=== PATIENT | female | born 1970 | race Caucasian/White ===

== ENCOUNTER 2016-11-20 13:56 | Emergency (ER) | payer BC ==
[2016-11-20 14:14] VITALS: BP 144/95
[2016-11-20] MEDS ORDERED: Famotidine 20 MG/2 ML SDV IVPUSH ONE (14:18)
[2016-11-20] MEDS ORDERED: methylPREDNISolone Sodium Succinate 125 MG/2 ML SDV IVPUSH ONE (14:18)
[2016-11-20] MEDS ORDERED: diphenhydrAMINE 50 MG/ML SDV IVPUSH ONE (14:18)
[2016-11-20] MEDS ORDERED: Sodium Chloride 0.9% 10 ML Syringe FLUSH PRN (14:18)
[2016-11-20] MEDS ORDERED: Sodium Chloride 0.9% 1,000 ML IV ONE (14:18)
[2016-11-20] MEDS ORDERED: LORazepam 2 MG/ML MDV IVPUSH ONE (15:02)
--- NOTE | 2016-11-20 15:14 | EDM.PDOC ---
[id number]: ALLERGIC REACTION Time Seen by Provider: 11/20/16 14:17 Source of Information: Reports: Patient History Limitations: Reports: No Limitations - History of Present Illness INITIAL COMMENTS - FREE TEXT/NARRATIVE: 46-year-old female with a chief complaint of allergic reaction. She was eating at a pizza place when she started having symptoms. Suspects that it may have been a strawberry exposure. She began having diffuse hives, facial swelling and itching, and sensation of her tongue swelling. She used her epinephrine pen autoinjector. This all started prior to arrival to the emergency department less than an hour ago. She's feeling a bit jittery. She has a feeling of numbness around her lips. No voice difficulty. No difficulty swallowing. No wheezing or shortness of breath. No abdominal pain vomiting or diarrhea. - Related Data Allergies Allergy/AdvReac Type Severity Reaction Status Date / Time strawberry [[place]] Allergy Severe Shortness Verified 11/20/16 14:14 of Breath clarithromycin [From Biaxin] Allergy Unknown Hives Verified 11/20/16 14:14 latex Allergy Unknown Airway Verified 11/20/16 14:14 Tightness mark flavor Allergy Unknown Airway Verified 11/20/16 14:14 Tightness gabapentin [From Neurontin] Allergy Anaphylactic Verified 11/20/16 14:14 Shock metoclopramide HCl AdvReac "Panic Verified 11/20/16 14:14 [From Reglan] Attack" Home Meds: Home Meds buPROPion [Wellbutrin XL] 300 mg PO DAILY 11/17/13 [History] Ondansetron [Zofran ODT] 4 mg PO Q6H PRN 09/25/15 [History] Venlafaxine [Venlafaxine HCl ER] 150 mg PO DAILY 09/25/15 [History] Pregabalin [Lyrica] 50 mg PO BID 10/27/15 [History] Acetaminophen 1 tab PO Q4H PRN 02/21/16 [History] Albuterol [IJD: Ventolin HFA] 2 puff INH Q4H PRN 02/21/16 [History] Baclofen 10 mg PO Q6H PRN 02/21/16 [History] ClonazePAM [KlonoPIN] 0.5 mg PO BID 02/21/16 [History] Cyanocobalamin/FA/Pyridoxine [Folbee] 1 tab PO DAILY 02/21/16 [History] Dicyclomine [Bentyl] 10 mg PO QID 02/21/16 [History] Naloxegol Oxalate [Movantik] 25 mg PO DAILY 02/21/16 [History] Pantoprazole [Protonix] 40 mg PO ACBREAKFAST 02/21/16 [History] fentaNYL [Duragesic] 25 mcg TD Q72H 02/21/16 [History] oxyCODONE HCl/Acetaminophen [Percocet 10-325 mg Tablet] 1 tab PO Q6H PRN [History] EPINEPHrine [Auvi-Q] 0.3 mg IJ ONETIME PRN #2 auto.injct 11/20/16 [Rx] Past Medical History HEENT History: Reports: Impaired Vision Other HEENT History: sinus problems Cardiovascular History: Reports: Syncope Gastrointestinal History: Reports: Other (See Below) Other Gastrointestinal History: ABDOMINAL PAIN/SCAR TISSUES Other Genitourinary History: kidney failure, resolved 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 OB/BYN History: x2, 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 Other Musculoskeletal History: right hip fx Neurological History: Reports: Headaches, Chronic, Other (See Below) Other Neuro History: epilepsy Psychiatric History: Reports: Anxiety, Depression, Suicide Attempt Dermatologic History: Reports: Other (See Below) Other Dermatologic History: ALLERGIES - Infectious Disease History Infectious Disease History: Reports: None - Past Surgical History Head Surgeries/Procedures: Reports: Craniotomy GI Surgical History: Reports: Appendectomy, Bariatric Procedure, Cholecystectomy , Lysis of Adhesions, Other (See Below) Female Surgical History: Reports: Tubal Ligation Neurological Surgical History: Reports: Other (See Below) Musculoskeletal Surgical History: Reports: Arthroscopic Procedure, ORIF, Shoulder Surgery Social & Family History - Tobacco Use Smoking Status *Q: Never Smoker Years of Tobacco use: 2 Used Tobacco, but Quit: Yes Month Tobacco Last Used: Many years ago Second Hand Smoke Exposure: No - Caffeine Use Caffeine Use: Reports: Coffee, Soda - Alcohol Use Days Per Week of Alcohol Use: 0 - Recreational Drug Use Recreational Drug Use: No - Living Situation & Occupation Living situation: Reports: Occupation: Unemployed ED ROS ALLERGIC REACTION - Review of Systems Review Of Systems: See Below Constitutional: Reports: No Symptoms HEENT: Denies: Throat Swelling Respiratory: Denies: Shortness of Breath, Cough Cardiovascular: Reports: No Symptoms GI/Abdominal: Denies: Abdominal Pain Skin: Reports: Pruritis, Rash Neurological: Reports: No Symptoms ED EXAM GENERAL NO PERIP PULSE - Physical Exam Exam: See Below Exam Limited By: No Limitations General Appearance: Alert, WD/WN, No Apparent Distress, Anxious Eye Exam: Bilateral Eye: Normal Inspection, PERRL Ears: Normal External Exam Nose: Normal Inspection Throat/Mouth: Normal Inspection, Normal Lips, Normal Oropharynx, Normal Voice, No Airway Compromise Head: Atraumatic, Normocephalic Neck: Normal Inspection, Supple, Non-Tender, Full Range of Motion Respiratory/Chest: No Respiratory Distress, Lungs Clear, Normal Breath Sounds, No Accessory Muscle Use Cardiovascular: Normal Peripheral Pulses, Regular Rate, Rhythm, No Murmur GI/Abdominal: Soft, Non-Tender, No Distention Neurological: Alert, Oriented Psychiatric: Normal Affect, Normal Mood Skin Exam: Warm, Dry, Intact, Rash, Other (urticarial rash on face and chest) Course - Vital Signs Last Recorded V/S: Last Vital Signs Temp 37.3 C 11/20/16 14:09 Pulse 104 H 11/20/16 14:09 Resp 20 11/20/16 14:09 BP 144/95 H 11/20/16 14:09 Pulse Ox 100 11/20/16 14:09 - Orders/Labs/Meds Orders: Active Orders 24 hr Category Date Time Status Peripheral IV Care [RC] . DIRECTED Care 11/20/16 14:18 Active Peripheral IV Insertion Adult [OM.PC] Routine Oth 11/20/16 14:18 Ordered Meds: Medications Discontinued Medications Generic Name Dose Route Start Last Admin Trade Name Román PRN Reason Stop Dose Admin Diphenhydramine HCl 25 mg 11/20/16 14:18 11/20/16 14:33 Benadryl IVPUSH 11/20/16 14:19 25 mg ONETIME ONE Administration Famotidine 40 mg 11/20/16 14:18 11/20/16 14:34 Pepcid IVPUSH 11/20/16 14:19 40 mg ONETIME ONE Administration Sodium Chloride 1,000 mls @ 1,000 mls/hr 11/20/16 14:18 11/20/16 14:34 Normal Saline IV 11/20/16 15:17 1,000 mls/hr ONETIME ONE Administration Lorazepam 1 mg 11/20/16 15:02 11/20/16 15:07 Ativan IVPUSH 11/20/16 15:03 1 mg ONETIME ONE Administration Methylprednisolone Sodium Succinate 125 mg 11/20/16 14:18 11/20/16 14:34 Solu-Medrol IVPUSH 11/20/16 14:19 125 mg ONETIME ONE Administration Sodium Chloride 10 ml 11/20/16 14:18 11/20/16 14:34 Saline Flush FLUSH 10 ml ASDIRECTED PRN Administration Keep Vein Open - Re-Assessments/Exams Free Text/Narrative Re-Assessment/Exam: 11/20/16 17:01 Feeling much better after Solu-Medrol, Pepcid, Benadryl. She has never had any respiratory symptoms or physical exam evidence of facial swelling or oropharyngeal swelling. Refill provided for her EpiPen. Discussed return precautions. Departure - Departure Time of Disposition: 16:44 Disposition: Home, Self-Care 01 Clinical Impression: Hives Allergic reaction Qualifiers: Encounter type: initial encounter Qualified Code(s): T78.40XA - Allergy, unspecified, initial encounter - Discharge Information Prescriptions: EPINEPHrine [Auvi-Q] 0.3 mg IJ ONETIME PRN #2 auto.injct PRN Reason: allergic reaction Instructions: Hives Referrals: Svetlana Sandoval NP [Primary Care Provider] - Forms: ED Department Discharge Additional Instructions: 1. Take 1 tab benadryl (25 mg) every 4-6 hrs as needed for itching 2. Follow up with your primary doctor as needed 3. Return to the ED for any difficulty breathing, throat/face swelling, or other concerning symptoms - My Orders Last 24 Hours: My Active Orders 11/20/16 14:18 Peripheral IV Care [RC] . DIRECTED Peripheral IV Insertion Adult [OM.PC] Routine - Assessment/Plan Last 24 Hours: My Active Orders 11/20/16 14:18 Peripheral IV Care [RC] . DIRECTED Peripheral IV Insertion Adult [OM.PC] Routine
== END 2016-11-20 17:05 | disposition home or self-care (01) ==
LOC: JD.ED 13:56
DX: L50.0 Allergic urticaria (principal); F41.9 Anxiety disorder, unspecified; F32.9 Major depressive disorder, single episode, unspecified; G43.909 Migraine, unspecified, not intractable, without status migrainosus; Z98.51 Tubal ligation status; Z98.890 Other specified postprocedural states; Z87.891 Personal history of nicotine dependence; Z79.899 Other long term (current) drug therapy; Z88.1 Allergy status to other antibiotic agents; Z88.8 Allergy status to other drugs, medicaments and biological substances; Z91.040 Latex allergy status; Z91.018 Allergy to other foods
CPT/HCPCS: 96361; 96374; 96375; 99283; J1200; J2060; J2930; J7040; J7050; 99284

== ENCOUNTER 2016-12-03 12:30 | Emergency (ER) | payer BC ==
[2016-12-03] MEDS ORDERED: QUEtiapine 100 MG Tab PO STA (14:15)
[2016-12-03] MEDS ORDERED: Sodium Chloride 0.9% 1,000 ML IV ONE (14:52)
--- NOTE | 2016-12-03 14:52 | EDM.PDOC ---
ED HPI GENERAL MEDICAL PROBLEM - General Chief Complaint: Neurological Problem Stated Complaint: PAINFUL FEET/TWITCHING Time Seen by Provider: 12/03/16 13:01 Source of Information: Reports: Patient, RN Notes Reviewed History Limitations: Reports: No Limitations - History of Present Illness INITIAL COMMENTS - FREE TEXT/NARRATIVE: The patient states that she has had hand twitching for about 3 months, a headache for the past 3 days, difficulty speaking for the past 3 days, and tingling of her lips and fingers since last night. She states that she has had these symptoms, individually, and the past, but no prior history of having all of them at the same time. No prior medical evaluation for these symptoms. The patient's Neurologist is Dr. Cotter, from [place] - his office recommended that the patient come to the ED for evaluation. The patient's PCP is Svetlana Sandoval. Headache Pain Score (Numeric/FACES): 8 - Related Data Allergies Allergy/AdvReac Type Severity Reaction Status Date / Time strawberry [[place]] Allergy Severe Shortness Verified 12/03/16 17:38 of Breath clarithromycin [From Biaxin] Allergy Unknown Hives Verified 12/03/16 17:38 latex Allergy Unknown Airway Verified 12/03/16 17:38 Tightness mark flavor Allergy Unknown Airway Verified 12/03/16 17:38 Tightness gabapentin [From Neurontin] Allergy Anaphylactic Verified 12/03/16 17:38 Shock metoclopramide HCl AdvReac "Panic Verified 12/03/16 17:38 [From Reglan] Attack" Home Meds: Home Meds Ondansetron [Zofran ODT] 4 mg PO Q6H PRN 09/25/15 [History] Pregabalin [Lyrica] 100 mg PO BID 10/27/15 [History] Acetaminophen 1 tab PO Q4H PRN 02/21/16 [History] Albuterol [IJD: Ventolin HFA] 2 puff INH Q4H PRN 02/21/16 [History] Baclofen 10 mg PO Q6H PRN 02/21/16 [History] Cyanocobalamin/FA/Pyridoxine [Folbee] 1 tab PO DAILY 02/21/16 [History] Dicyclomine [Bentyl] 10 mg PO QID 02/21/16 [History] Pantoprazole [Protonix] 40 mg PO ACBREAKFAST 02/21/16 [History] EPINEPHrine [Auvi-Q] 0.3 mg IJ ONETIME PRN #2 auto.injct 11/20/16 [Rx] QUEtiapine [SEROquel] 100 mg PO TID 12/03/16 [History] lamoTRIgine [Lamictal] 100 mg PO TID 12/03/16 [History] Past Medical History HEENT History: Reports: 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: Musculoskeletal History: Reports: Back Pain, Chronic Neurological History: Reports: Seizure, Other (See Below) (Chiari malformation I ) Psychiatric History: Reports: Anxiety, Depression, Suicide Attempt - Past Surgical History Head Surgeries/Procedures: Reports: Craniotomy (for Chiari malformation) HEENT Surgical History: Reports: Naso-Sinus Surgery GI Surgical History: Reports: Appendectomy, Bariatric Procedure, Cholecystectomy , Lysis of Adhesions (x 2) Female Surgical History: Reports: D&C (x 1) Musculoskeletal Surgical History: Reports: Shoulder Surgery (right, arthroscopic ) Social & Family History - Family History Family Medical History: Noncontributory - Tobacco Use Smoking Status *Q: Former Smoker Years of Tobacco use: 1 Packs/Tins Daily: 0.2 Month Tobacco Last Used: Quit 2001 Second Hand Smoke Exposure: No - Caffeine Use Caffeine Use: Reports: Coffee, Energy Drinks - Alcohol Use Alcohol Use History: Yes Days Per Week of Alcohol Use: 0 Alcohol Use Frequency: Socially - Recreational Drug Use Recreational Drug Use: No - Living Situation & Occupation Living situation: Reports: , with Spouse Occupation: Unemployed ED ROS GENERAL - Review of Systems Review Of Systems: See Below Constitutional: Reports: No Symptoms HEENT: Reports: No Symptoms Respiratory: Reports: No Symptoms Cardiovascular: Reports: No Symptoms Endocrine: Reports: No Symptoms GI/Abdominal: Reports: No Symptoms : Reports: No Symptoms Musculoskeletal: Reports: No Symptoms Skin: Reports: No Symptoms Neurological: Reports: Headache (chronic) Psychiatric: Reports: No Symptoms Hematologic/Lymphatic: Reports: No Symptoms Immunologic: Reports: No Symptoms ED EXAM, GENERAL - Physical Exam Exam: See Below Exam Limited By: No Limitations General Appearance: Alert, WD/WN, Anxious Eye Exam: Bilateral Eye: EOMI, Normal Inspection, PERRL Ears: Normal External Exam, Normal Canal, Hearing Grossly Normal, Normal TMs Nose: Normal Inspection, Normal Mucosa, No Blood Throat/Mouth: Normal Inspection, Normal Lips, Normal Teeth, Normal Gums, Normal Oropharynx, Normal Voice, No Airway Compromise Head: Atraumatic, Normocephalic Neck: Normal Inspection, Full Range of Motion Respiratory/Chest: No Respiratory Distress, Lungs Clear, Normal Breath Sounds, No Accessory Muscle Use Cardiovascular: Normal Peripheral Pulses, Regular Rate, Rhythm, No Gallop, No JVD, No Murmur, No Rub Peripheral Pulses: 4+: Radial (L), Radial (R) GI/Abdominal: Normal Bowel Sounds, Soft, Non-Tender, No Organomegaly, No Distention, No Abnormal Bruit, No Mass (Female) Exam: Deferred Rectal (Female) Exam: Deferred Back Exam: Normal Inspection, Full Range of Motion, NT Extremities: Normal Inspection, Normal Range of Motion, No Pedal Edema, Normal Capillary Refill Neurological: Alert, Oriented, CN II-XII Intact, Normal Cognition, No Motor/ Sensory Deficits, Other (Dysarthric speech with no word finding difficulty) Psychiatric: Anxious Skin Exam: Warm, Dry, Intact, Normal Color, No Rash Lymphatic: No Adenopathy EKG INTERPRETATION EKG Date: 12/03/16 Time: 13:31 Rhythm: NSR Rate (Beats/Min): 80 [place]: Normal P-Wave: Present QRS: Normal ST-T: Normal QT: Normal Comparison: No Change (10/27/2015) Course - Vital Signs Last Recorded V/S: Last Vital Signs Temp 36.6 C 12/03/16 12:49 Pulse 89 12/03/16 12:49 Resp 16 12/03/16 12:49 BP 125/84 12/03/16 12:49 Pulse Ox 100 12/03/16 12:49 Orthostatic Blood Pressure [ 102/77 Standing] Orthostatic Blood Pressure [ 115/81 Sitting] Orthostatic Blood Pressure [ 117/81 Supine] - Orders/Labs/Meds Orders: Active Orders 24 hr Category Date Time Status EKG Documentation Completion [RC] STAT Care 12/03/16 13:16 Active Orthostatic Vital Signs [RC] STAT Care 12/03/16 13:16 Active Orthostatic Vital Signs [RC] STAT Care 12/03/16 14:52 Active Labs: Laboratory Tests 12/03/16 12/03/16 12/03/16 Range/Units 13:40 13:40 13:40 WBC 16.17 H (3.98-10.04) K/mm3 RBC 4.03 (3.98-5.22) M/mm3 Hgb 10.8 L (11.2-15.7) gm/L Hct 34.1 (34.1-44.9) % MCV 84.6 (79.4-94.8) fl MCH 26.8 (25.6-32.2) pg MCHC 31.7 L (32.2-35.5) g/dl RDW Std Deviation 44.3 (36.4-46.3) fL Plt Count 273 (182-369) K/mm3 MPV 8.7 L (9.4-12.3) fl Neutrophils % (Manual) 77 H (40-60) % Band Neutrophils % 0 (0-10) % Lymphocytes % (Manual) 15 L (20-40) % Atypical Lymphs % 0 % Monocytes % (Manual) 3 (2-10) % Eosinophils % (Manual) 4 (0.7-5.8) % Basophils % (Manual) 1 (0.1-1.2) Platelet Estimate Adequate Plt Morphology Comment Normal Polychromasia 1+ slight Schistocytes Rare RBC Morph Comment Not Reportable PT 9.8 (8.0-13.0) SECONDS INR 0.90 APTT 24 (22-36) SECONDS D-Dimer, Quantitative 0.28 (0.19-0.59) mg/L Puncture Site ABG pH (7.35-7.45) ABG pCO2 (35.0-45.0) mmHg ABG pO2 (80.0-100.0) mmHg ABG HCO3 (22.0-26.0) meq/L ABG O2 Saturation (96.0-97.0) % ABG Base Excess (-2-2.0) Saul Test O2 Delivery Device Oxygen Flow Rate FiO2 (21.00-100.00) % Sodium 139 (136-145) mEq/L Potassium 3.9 (3.5-5.1) mEq/L Chloride 102 (98-107) mEq/L Carbon Dioxide 32 (21-32) mEq/L Anion Gap 8.9 (5-15) BUN 10 (7-18) mg/dL Creatinine 1.0 (0.55-1.02) mg/dL Est Cr Clr Drug Dosing TNP Estimated GFR (MDRD) 60 (>60) mL/min BUN/Creatinine Ratio 10.0 L (14-18) Glucose 77 (74-106) mg/dL Calcium 8.8 (8.5-10.1) mg/dL Magnesium 2.4 (1.8-2.4) mg/dl Total Bilirubin 0.3 (0.2-1.0) mg/dL AST 30 (15-37) U/L ALT 27 (14-59) U/L Alkaline Phosphatase 103 (46-116) U/L Troponin I < 0.017 (0.00-0.056) ng/mL Fyx-A-Cltvmydgiag Pept 128 H (0-125) pg/mL Total Protein 7.2 (6.4-8.2) g/dl Albumin 3.7 (3.4-5.0) g/dl Globulin 3.5 gm/dL Albumin/Globulin Ratio 1.1 (1-2) TSH 3rd Generation 1.802 (0.358-3.74) uIU/mL Urine Color (Yellow) Urine Appearance (Clear) Urine pH (5.0-8.0) Ur Specific [place] (1.005-1.030) Urine Protein (Negative) Urine Glucose (UA) (Negative) Urine Ketones (Negative) Urine Occult Blood (Negative) Urine Nitrite (Negative) Urine Bilirubin (Negative) Urine Urobilinogen (0.2-1.0) Ur Leukocyte Esterase (Negative) Urine RBC (0-5) /hpf Urine WBC (0-5) /hpf Ur Epithelial Cells (0-5) /hpf Urine Bacteria (FEW) /hpf Urine Mucus (FEW) /hpf Urine HCG, Qual (NEGATIVE) 12/03/16 12/03/16 12/03/16 Range/Units 13:55 13:55 14:15 WBC (3.98-10.04) K/mm3 RBC (3.98-5.22) M/mm3 Hgb (11.2-15.7) gm/L Hct (34.1-44.9) % MCV (79.4-94.8) fl MCH (25.6-32.2) pg MCHC (32.2-35.5) g/dl RDW Std Deviation (36.4-46.3) fL Plt Count (182-369) K/mm3 MPV (9.4-12.3) fl Neutrophils % (Manual) (40-60) % Band Neutrophils % (0-10) % Lymphocytes % (Manual) (20-40) % Atypical Lymphs % % Monocytes % (Manual) (2-10) % Eosinophils % (Manual) (0.7-5.8) % Basophils % (Manual) (0.1-1.2) Platelet Estimate Plt Morphology Comment Polychromasia Schistocytes RBC Morph Comment PT (8.0-13.0) SECONDS INR APTT (22-36) SECONDS D-Dimer, Quantitative (0.19-0.59) mg/L Puncture Site Lt radial ABG pH 7.44 (7.35-7.45) ABG pCO2 44.6 (35.0-45.0) mmHg ABG pO2 69.0 L (80.0-100.0) mmHg ABG HCO3 29.8 H (22.0-26.0) meq/L ABG O2 Saturation 96.6 (96.0-97.0) % ABG Base Excess 5.6 H (-2-2.0) Saul Test Positive O2 Delivery Device monologist Oxygen Flow Rate 0.0 FiO2 0.00 L (21.00-100.00) % Sodium (136-145) mEq/L Potassium (3.5-5.1) mEq/L Chloride (98-107) mEq/L Carbon Dioxide (21-32) mEq/L Anion Gap (5-15) BUN (7-18) mg/dL Creatinine (0.55-1.02) mg/dL Est Cr Clr Drug Dosing Estimated GFR (MDRD) (>60) mL/min BUN/Creatinine Ratio (14-18) Glucose (74-106) mg/dL Calcium (8.5-10.1) mg/dL Magnesium (1.8-2.4) mg/dl Total Bilirubin (0.2-1.0) mg/dL AST (15-37) U/L ALT (14-59) U/L Alkaline Phosphatase (46-116) U/L Troponin I (0.00-0.056) ng/mL Vxy-L-Ahywxwepipe Pept (0-125) pg/mL Total Protein (6.4-8.2) g/dl Albumin (3.4-5.0) g/dl Globulin gm/dL Albumin/Globulin Ratio (1-2) TSH 3rd Generation (0.358-3.74) uIU/mL Urine Color Yellow (Yellow) Urine Appearance Clear (Clear) Urine pH 7.0 (5.0-8.0) Ur Specific [place] 1.010 (1.005-1.030) Urine Protein Negative (Negative) Urine Glucose (UA) Negative (Negative) Urine Ketones Negative (Negative) Urine Occult Blood Negative (Negative) Urine Nitrite Negative (Negative) Urine Bilirubin Negative (Negative) Urine Urobilinogen 0.2 (0.2-1.0) Ur Leukocyte Esterase Negative (Negative) Urine RBC Not seen (0-5) /hpf Urine WBC Not seen (0-5) /hpf Ur Epithelial Cells 5-10 H (0-5) /hpf Urine Bacteria Not seen (FEW) /hpf Urine Mucus Not seen (FEW) /hpf Urine HCG, Qual Negative (NEGATIVE) Meds: Medications Discontinued Medications Generic Name Dose Route Start Last Admin Trade Name Freq PRN Reason Stop Dose Admin Sodium Chloride 1,000 mls @ 999 mls/hr 12/03/16 14:52 12/03/16 15:35 Normal Saline IV 12/03/16 15:52 999 mls/hr ONETIME ONE Administration Quetiapine Fumarate 100 mg 12/03/16 14:15 12/03/16 14:24 Seroquel PO 12/03/16 14:16 100 mg ONETIME STA Administration - Re-Assessments/Exams Free Text/Narrative Re-Assessment/Exam: 12/03/16 14:44 The ABG represents a mild metabolic alkalosis with complete respiratory compensation. 12/03/16 14:51 The patient is orthostatic. I will order an IV fluid bolus, then recheck. 12/03/16 14:58 Two-view chest radiograph appears to be grossly normal. Cardiac silhouette is within normal limits. No pulmonary vascular congestion. No pleural effusions. No focal infiltrate. No pneumothorax. Formal read per the Radiologist pending. 12/03/16 17:43 Following 1 L normal saline, the patient is no longer orthostatic. The patient is still complaining of a severe headache. I will order a CT of the head to evaluate for a mass. 12/03/16 19:29 CT of the head without contrast is read by Dr. Kurtz as: 1. Stable findings as noted above. 2. No acute intracranial abnormality is identified on noncontrast head CT study. No significant change is seen from prior head CT exam. 12/03/16 19:36 Test results discussed with the patient and her family. Today's workup is unremarkable, and does not explain any of the patient's symptoms. Clinically, her symptoms are consistent with hyperventilation syndrome, however, her ABG finds that she is not hyperventilating. I am recommending that she follow-up with her Neurologist for further evaluation and treatment. The patient was offered ibuprofen for her headache, but she declined. Departure - Departure Time of Disposition: 19:37 Disposition: Home, Self-Care 01 Condition: Good Clinical Impression: Headache, Neurological symptoms - Discharge Information Referrals: Otis Cotter MD [Physician] - Forms: ED Department Discharge Additional Instructions: You were seen in the emergency room for hand twitching, difficulty with speech, headache, and tingling of your lips and fingers. Workup in the ER included blood work, a urinalysis, a urine test, an ECG, a chest x-ray, a CT scan of your head, and positional blood pressure checks. Your entire workup was unremarkable, with the exception that you were found to be slightly intravascularly depleted. You were given IV fluid, and your blood pressures normalized. With an otherwise normal workup, the cause of your symptoms is not known. We recommend you follow-up with your Neurologist, Dr. Cotter, for further evaluation. We recommend you take [id number] ibuprofen as needed for your headache. If any other problems, please do not hesitate to return to the ER. - My Orders Last 24 Hours: My Active Orders 12/03/16 13:16 EKG Documentation Completion [RC] STAT Orthostatic Vital Signs [RC] STAT 12/03/16 14:52 Orthostatic Vital Signs [RC] STAT - Assessment/Plan Last 24 Hours: My Active Orders 12/03/16 13:16 EKG Documentation Completion [RC] STAT Orthostatic Vital Signs [RC] STAT 12/03/16 14:52 Orthostatic Vital Signs [RC] STAT
--- NOTE | 2016-12-03 18:30 | CR ---
Chest: Two views of the chest were obtained. Comparison: Previous chest x-ray of 10/27/15. Heart size and mediastinum are normal. Lungs show mild right-sided bronchial wall thickening. Lungs otherwise are clear. Bony structures are unremarkable. Surgical clips are seen within the abdomen. Scoliosis is noted within the spine. Impression: 1. Findings suspicious for right-sided bronchitis. 2. Other incidental findings. Diagnostic code #3
--- NOTE | 2016-12-03 18:30 | CT ---
Head CT Technique: Multiple axial sections through the brain were obtained. Intravenous contrast was not utilized. Comparison: Previous head CT study of 10/05/15. Findings: Arnold-Chiari 1 malformation appears to be partially included on this exam. Suboccipital craniotomy is noted which is stable. No abnormal parenchymal densities are seen. No evidence of intracranial hemorrhage. No midline shift or mass effect is seen. Small cortical calcification is again seen within the posterior right parietal region which is stable and incidental. No acute calvarial abnormality is seen. Visualized sinuses are clear. Impression: 1. Stable findings as noted above. 2. No acute intracranial abnormality is identified on noncontrast head CT study. No significant change is seen from prior head CT exam. Diagnostic code #2
[2016-12-03 19:56] VITALS: BP 117/80
== END 2016-12-03 19:50 | disposition home or self-care (01) ==
LOC: JD.ED 12:30
DX: R51 Headache (principal); R29.818 Other symptoms and signs involving the nervous system; R47.1 Dysarthria and anarthria; F41.9 Anxiety disorder, unspecified; F32.9 Major depressive disorder, single episode, unspecified; Z90.49 Acquired absence of other specified parts of digestive tract; Z98.890 Other specified postprocedural states; Z87.891 Personal history of nicotine dependence; Z79.899 Other long term (current) drug therapy; Z88.1 Allergy status to other antibiotic agents; Z88.8 Allergy status to other drugs, medicaments and biological substances; Z91.018 Allergy to other foods; Z91.040 Latex allergy status
CPT/HCPCS: 36415; 36600; 70450; 71020; 80053; 81001; 81025; 82803; 83735; 83880; 84443; 84484; 85025; 85379; 85610; 85730; 93005; 96360; 99285; A9270; J7040; 99284

== ENCOUNTER 2017-01-15 15:48 | Emergency (ER) | payer BC ==
[2017-01-15 16:01] VITALS: BP 139/93
[2017-01-15] MEDS ORDERED: LORazepam 1 MG Tab PO ONE (16:41)
[2017-01-15] MEDS ORDERED: Acetaminophen/HYDROcodone 325-5 MG Tab PO ONE (17:13)
[2017-01-15] MEDS ORDERED: Ondansetron 4 MG Tab.DIS PO ONE (17:35)
[2017-01-15] MEDS ORDERED: HYDROmorphone 1 MG/ML Syringe IM ONE (18:05)
--- NOTE | 2017-01-15 19:26 | EDM.PDOC ---
ED HPI GENERAL MEDICAL PROBLEM - General Chief Complaint: Head Injury Stated Complaint: CONFUSION/CONCUSSION 2 DAYS AGO/HIT HEAD AGAIN Time Seen by Provider: 01/15/17 16:21 Source of Information: Reports: Patient, RN Notes Reviewed - History of Present Illness INITIAL COMMENTS - FREE TEXT/NARRATIVE: 46-year-old female has been brought in by family having referred possible having fallen and hit her head twice this afternoon. These falls occured at work at the [employer]. 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 She also did fall 2 days ago. She states she was admitted at a [facility] overnight status post fall. Details of that injury and hospitalization are not known at this time or clearly described by patient. She states she does have moderate headache. Her headache is primarily frontal. She also does have moderate posterior neck discomfort. She does have history of prior neck surgery. She has complicated hx of various Neurologic symptoms in the past. It is not clear at this time if she has been having true seizures or not. She states that is scheduled to be admitted to [facility] for a one-week hospitalization of continuous EEG monitoring to try better sort that out Neck Pain Score (Numeric/FACES): 10 - Related Data Allergies Allergy/AdvReac Type Severity Reaction Status Date / Time strawberry [[place]] Allergy Severe Shortness Verified 01/21/17 20:00 of Breath clarithromycin [From Biaxin] Allergy Unknown Hives Verified 01/21/17 20:00 latex Allergy Unknown Airway Verified 01/21/17 20:00 Tightness mark flavor Allergy Unknown Airway Verified 01/21/17 20:00 Tightness gabapentin [From Neurontin] Allergy Anaphylactic Verified 01/21/17 20:00 Shock metoclopramide HCl AdvReac "Panic Verified 01/21/17 20:00 [From Reglan] Attack" Home Meds: Home Meds Pregabalin [Lyrica] 150 mg PO BID 10/27/15 [History] Acetaminophen 1 tab PO Q4H PRN 02/21/16 [History] Baclofen 10 mg PO Q6H PRN 02/21/16 [History] EPINEPHrine [Auvi-Q] 0.3 mg IJ ONETIME PRN #2 auto.injct 11/20/16 [Rx] QUEtiapine [SEROquel] 100 mg PO BID 12/03/16 [History] lamoTRIgine [Lamictal] 100 mg PO TID 12/03/16 [History] ClonazePAM [KlonoPIN] 0.5 mg PO DAILY 01/15/17 [History] LORazepam [Ativan] 0.5 mg PO BID #6 tablet 01/15/17 [Rx] Polyethylene Glycol 3350 [Miralax] 1 dose PO DAILY 01/15/17 [History] Pregabalin [Lyrica] 200 mg PO BID 01/15/17 [History] QUEtiapine [SEROquel] 200 mg PO BEDTIME 01/15/17 [History] Venlafaxine [Venlafaxine HCl ER] 150 mg PO DAILY 01/15/17 [History] cloNIDine [Catapres] 0.1 mg PO BEDTIME 01/15/17 [History] Hydrocodone/Acetaminophen [Hydrocodon-Acetaminophen 5-325] 1 each PO Q6HR PRN # 7 tablet 01/21/17 [Rx] Past Medical History HEENT History: Reports: Impaired Vision Other HEENT History: sinus problems Cardiovascular History: Reports: Syncope Respiratory History: Reports: Asthma Gastrointestinal History: Reports: Other (See Below) Other Gastrointestinal History: ABDOMINAL PAIN/SCAR TISSUES Other Genitourinary History: kidney failure, resolved 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: Other OB/BYN History: x2, 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 Musculoskeletal History: Reports: Back Pain, Chronic Other Musculoskeletal History: right hip fx Neurological History: Reports: Seizure, Other (See Below) Other Neuro History: epilepsy Psychiatric History: Reports: Anxiety, Depression, Suicide Attempt Endocrine/Metabolic History: Reports: Other (See Below) Other Endocrine/Metabolic History: Blood sugar low Dermatologic History: Reports: Other (See Below) Other Dermatologic History: ALLERGIES - Infectious Disease History Infectious Disease History: Reports: None - Past Surgical History Head Surgeries/Procedures: Reports: Craniotomy HEENT Surgical History: Reports: Naso-Sinus Surgery GI Surgical History: Reports: Appendectomy, Bariatric Procedure, Cholecystectomy , Lysis of Adhesions Female Surgical History: Reports: D&C Musculoskeletal Surgical History: Reports: Shoulder Surgery Social & Family History - Family History Family Medical History: Noncontributory - Tobacco Use Smoking Status *Q: Never Smoker Years of Tobacco use: 1 Packs/Tins Daily: 0.2 Used Tobacco, but Quit: Yes Month Tobacco Last Used: Quit 2001 Second Hand Smoke Exposure: No - Caffeine Use Caffeine Use: Reports: Coffee, Soda - Alcohol Use Days Per Week of Alcohol Use: 0 - Recreational Drug Use Recreational Drug Use: No - Living Situation & Occupation Living situation: Reports: , with Spouse Occupation: Unemployed ED ROS GENERAL - Review of Systems Review Of Systems: See Below Constitutional: Denies: Fever, Chills, Diaphoresis HEENT: Denies: Throat Pain Respiratory: Denies: Shortness of Breath, Pleuritic Chest Pain Cardiovascular: Denies: Chest Pain GI/Abdominal: Denies: Abdominal Pain, Nausea, Vomiting Musculoskeletal: Reports: Neck Pain. Denies: Leg Pain, Joint Pain (no upper or lower extremity discomfort) Skin: Reports: Erythema (she does have a small area of erythema upper forehead) . Denies: Bruising Neurological: Reports: Dizziness, Headache. Denies: Numbness, Tingling, Trouble Speaking, Weakness ED EXAM, HEAD INJURY - Physical Exam Exam: See Below General Appearance: Alert, Moderate Distress Head: Facial Swelling (is very mild swelling of the upper mid forehead). No: Scalp Lacerations, Scalp Swelling, Scalp Hematoma, Scalp Tenderness, Facial Ecchymosis, Facial Tenderness, Raccoon Eyes Eyes: Bilateral Eye: PERRL Ears: Normal External Exam Nose: Normal Inspection Throat/Mouth: Normal Inspection, Normal Oropharynx Neck: Tenderness (there is tenderness of the posterior aspect of the neck, no visible swelling, posterior midline scar from prior surgery visible) Respiratory: No Respiratory Distress, Lungs Clear, Normal Breath Sounds Cardiovascular: Regular Rate, Rhythm GI/Abdominal Exam: Soft, Non-Tender Back Exam: Paraspinal Tenderness Extremities: Normal Inspection (there is diffuse soft tissue tenderness of the upper back), Normal Range of Motion. No: Leg Pain Neurologic: No Motor/Sensory Deficits, Normal Mood/Affect, Oriented x 3, Other ( [id number] testing is normal) Skin: Normal Color, Warm/Dry Course - Vital Signs Last Recorded V/S: Last Vital Signs Temp 99.1 F 01/15/17 15:58 Pulse 97 01/15/17 15:58 Resp 16 01/15/17 15:58 BP 139/93 H 01/15/17 15:58 Pulse Ox 100 01/15/17 15:58 - Orders/Labs/Meds Meds: Medications Discontinued Medications Generic Name Dose Route Start Last Admin Trade Name Román PRN Reason Stop Dose Admin Hydrocodone Bitart/Acetaminophen 1 tab 01/15/17 17:13 01/15/17 19:33 [place] 325-5 Mg PO 01/15/17 17:14 Not Given ONETIME ONE Hydromorphone HCl 1 mg 01/15/17 18:05 01/15/17 18:10 Dilaudid IM 01/15/17 18:06 1 mg ONETIME ONE Administration Lorazepam 1 mg 01/15/17 16:41 01/15/17 16:49 Ativan PO 01/15/17 16:42 1 mg ONETIME ONE Administration Ondansetron HCl 4 mg 01/15/17 17:35 01/15/17 17:39 Zofran Odt PO 01/15/17 17:36 4 mg ONETIME ONE Administration - Re-Assessments/Exams Free Text/Narrative Re-Assessment/Exam: 01/15/17 20:37 CT of head was negative for acute intracranial pathology, CT of neck was negative for fracture, it is unclear why she fell 2 days ago and also twice today. As noted in history above it is not clear to me if she truly is been having seizures recently. No other is history of some vague neurologic problems going back for quite a few years. There also has been history of a lot of stress , anxiety related disorder. I am going to write a work excuse for the remainder of this week and also for next week until things can get better sorted out at [facility] with a one-week of planned continuous EEG testing. Discharge instructions as documented. Departure - Departure Time of Disposition: 19:20 Disposition: Home, Self-Care 01 Condition: Fair Clinical Impression: Concussion injury of brain, Forehead contusion Cervical strain Qualifiers: Encounter type: initial encounter Qualified Code(s): S16.1XXA - Strain of muscle, fascia and tendon at neck level, initial encounter Fall Qualifiers: Encounter type: initial encounter Qualified Code(s): W19.XXXA - Unspecified fall, initial encounter - Discharge Information Prescriptions: LORazepam [Ativan] 0.5 mg PO BID #6 tablet Instructions: Concussion, Adult, [id number] Referrals: Svetlana Sandoval NP [Primary Care Provider] - Forms: ED Department Discharge Additional Instructions: rest, off work the remainder of this week, next week and until released back to work by your regular medical provider, Ativan 0.5 mg twice daily for the next 3 days, Tylenol 3-4 times daily as needed for discomfort or you may take one half tablet hydrocodone along with 500 mg Tylenol if needed for severe pain, do not drive when taking the sedative type medications, follow-up with your regular medical provider as needed, return to ED as needed if symptoms worsening in any way
--- NOTE | 2017-01-17 10:33 | CT ---
Head CT Technique: Multiple axial sections through the brain were obtained. Intravenous contrast was not utilized. Comparison: Previous head CT study of 12/03/16. Findings: Previous suboccipital craniotomy is noted. Arnold Chiari I malformation is partially included on this study. These findings are stable from previous exam. Ventricles along the basal cisterns and sulci over the convexities are within normal limits. No abnormal parenchymal densities are seen. No evidence of intracranial hemorrhage. No midline shift or mass effect is seen. Calcification is seen within the posterior cortex of the right occipital lobe which is incidental. Visualized sinuses are clear. No acute calvarial abnormality is identified. Impression: 1. Previous surgery. Stable appearing Arnold Chiari I malformation. Other incidental finding. 2. No acute intracranial abnormality is seen. Diagnostic code #2 I agree with preliminary report issued by [facility] ([facility] report finalized on 01/15/17, 6:43 PM Central Time)
--- NOTE | 2017-01-17 10:33 | CT ---
CT cervical spine Technique: Multiple axial sections were obtained from above C1 inferiorly to the bottom of T1. Reconstructed sagittal and coronal images were reviewed. Comparison: Previous MRI cervical spine study of 11/23/15 is available. Findings: Mild disc space narrowing noted at C5-C6. Slight anterior osteophytes are seen at C4-C5 and C5-C6. Vertebral body heights are maintained. Mastoid sinuses and middle ear cavities are clear. Posterior skull base is intact. No bony central or bony neural foraminal stenosis is seen. No fracture or abnormal subluxation is seen. Impression: 1. Minimal degenerative change. Nothing acute is appreciated on CT study of the cervical spine. Diagnostic code #2 I agree with preliminary report issued by [facility] ([facility] report finalized on 01/15/17, 6:45 PM Central Time)
== END 2017-01-15 19:38 ==
LOC: JD.ED 15:48
DX: S06.0X0A Concussion without loss of consciousness, initial encounter (principal); S16.1XXA Strain of muscle, fascia and tendon at neck level, initial encounter; S00.83XA Contusion of other part of head, initial encounter; J45.909 Unspecified asthma, uncomplicated; F32.9 Major depressive disorder, single episode, unspecified; Z90.49 Acquired absence of other specified parts of digestive tract; Z98.84 Bariatric surgery status; Z87.891 Personal history of nicotine dependence; Z79.899 Other long term (current) drug therapy; Z88.1 Allergy status to other antibiotic agents; Z91.040 Latex allergy status; Z88.8 Allergy status to other drugs, medicaments and biological substances; Z91.018 Allergy to other foods; W01.198A Fall on same level from slipping, tripping and stumbling with subsequent striking against other object, initial encounter; Y92.242 Post office as the place of occurrence of the external cause; Y99.0 Civilian activity done for income or pay
CPT/HCPCS: 70450; 72125; 96372; 99284; A9270; J1170

== ENCOUNTER 2017-01-16 17:15 | Emergency (ER) | payer BC ==
[2017-01-16 17:30] VITALS: BP 154/99
[2017-01-16] MEDS ORDERED: Sodium Chloride 0.9% 10 ML Syringe FLUSH PRN (17:43)
[2017-01-16] MEDS ORDERED: diphenhydrAMINE 50 MG/ML SDV IVPUSH ONE (17:44)
[2017-01-16] MEDS ORDERED: Prochlorperazine 10 MG/2 ML SDV IVPUSH ONE (17:44)
--- NOTE | 2017-01-16 18:42 | EDM.PDOC ---
ED HPI GENERAL MEDICAL PROBLEM - General Chief Complaint: Neurological Problem Stated Complaint: SPEECH DIFFICULTY FOLLOWING CONCUSSION Time Seen by Provider: 01/16/17 17:31 Source of Information: Reports: Patient History Limitations: Reports: No Limitations - History of Present Illness INITIAL COMMENTS - FREE TEXT/NARRATIVE: The patient presents with headache, confusion, nausea, dizziness, and being off balance. The patient hit her head 4 days ago and was seen in [place] initially. She was sent to [facility] in [place] and she was admitted. She was diagnosed with a concussion. She had a CT done. She hit her head again yesterday and was seen here and another CT was done and it was negative for injury. She is not feeling any better. She also has trouble finding her words. Her doctor is not sure why she is falling. She has seen neurology and she is scheduled to be admitted for 1 week and have a continuous EEG done. They feel it is seizure related. She has some double vision with this. She has no fever, chills, chest pain or shortness of breath. Onset: Gradual Duration: Day(s): Location: Reports: Head Quality: Reports: Ache Severity: Severe Improves with: Reports: None Worsens with: Reports: None Associated Symptoms: Reports: Confusion, Headaches, Nausea/Vomiting. Denies: Chest Pain, Fever/Chills, Shortness of Breath Treatments GUEST RELATIONS EXECUTIVE: Reports: Acetaminophen, Other (see below) Other Treatments GUEST RELATIONS EXECUTIVE: hydrocodone front head/back of neck Pain Score (Numeric/FACES): 6 - Related Data Allergies Allergy/AdvReac Type Severity Reaction Status Date / Time strawberry [[place]] Allergy Severe Shortness Verified 01/16/17 17:30 of Breath clarithromycin [From Biaxin] Allergy Unknown Hives Verified 01/16/17 17:30 latex Allergy Unknown Airway Verified 01/16/17 17:30 Tightness mark flavor Allergy Unknown Airway Verified 01/16/17 17:30 Tightness gabapentin [From Neurontin] Allergy Anaphylactic Verified 01/16/17 17:30 Shock metoclopramide HCl AdvReac "Panic Verified 01/16/17 17:30 [From Reglan] Attack" Home Meds: Home Meds Pregabalin [Lyrica] 150 mg PO BID 10/27/15 [History] Acetaminophen 1 tab PO Q4H PRN 02/21/16 [History] Baclofen 10 mg PO Q6H PRN 02/21/16 [History] EPINEPHrine [Auvi-Q] 0.3 mg IJ ONETIME PRN #2 auto.injct 11/20/16 [Rx] QUEtiapine [SEROquel] 100 mg PO BID 12/03/16 [History] lamoTRIgine [Lamictal] 100 mg PO TID 12/03/16 [History] ClonazePAM [KlonoPIN] 0.5 mg PO DAILY 01/15/17 [History] LORazepam [Ativan] 0.5 mg PO BID #6 tablet 01/15/17 [Rx] Polyethylene Glycol 3350 [Miralax] 1 dose PO DAILY 01/15/17 [History] Pregabalin [Lyrica] 200 mg PO BID 01/15/17 [History] QUEtiapine [SEROquel] 200 mg PO BEDTIME 01/15/17 [History] Venlafaxine [Venlafaxine HCl ER] 150 mg PO DAILY 01/15/17 [History] cloNIDine [Catapres] 0.1 mg PO BEDTIME 01/15/17 [History] Past Medical History HEENT History: Reports: Impaired Vision Other HEENT History: sinus problems Cardiovascular History: Reports: Syncope Respiratory History: Reports: Asthma Gastrointestinal History: Reports: Other (See Below) Other Gastrointestinal History: ABDOMINAL PAIN/SCAR TISSUES Other Genitourinary History: kidney failure, resolved 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 OB/BYN History: x2, 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 Musculoskeletal History: Reports: Back Pain, Chronic Other Musculoskeletal History: right hip fx Neurological History: Reports: Seizure, Other (See Below) Other Neuro History: epilepsy Psychiatric History: Reports: Anxiety, Depression, Suicide Attempt Endocrine/Metabolic History: Reports: Other (See Below) Other Endocrine/Metabolic History: Blood sugar low Dermatologic History: Reports: Other (See Below) Other Dermatologic History: ALLERGIES - Infectious Disease History Infectious Disease History: Reports: None - Past Surgical History Head Surgeries/Procedures: Reports: Craniotomy HEENT Surgical History: Reports: Naso-Sinus Surgery GI Surgical History: Reports: Appendectomy, Bariatric Procedure, Cholecystectomy , Lysis of Adhesions Female Surgical History: Reports: D&C Musculoskeletal Surgical History: Reports: Shoulder Surgery Social & Family History - Family History Family Medical History: Noncontributory - Tobacco Use Smoking Status *Q: Never Smoker Years of Tobacco use: 1 Packs/Tins Daily: 0.2 Used Tobacco, but Quit: Yes Month Tobacco Last Used: Quit 2001 Second Hand Smoke Exposure: No - Caffeine Use Caffeine Use: Reports: Coffee - Alcohol Use Days Per Week of Alcohol Use: 0 - Recreational Drug Use Recreational Drug Use: No - Living Situation & Occupation Living situation: Reports: , with Spouse Occupation: Unemployed ED ROS GENERAL - Review of Systems Review Of Systems: See Below Constitutional: Reports: No Symptoms HEENT: Reports: No Symptoms Respiratory: Reports: No Symptoms Cardiovascular: Reports: No Symptoms Endocrine: Reports: No Symptoms GI/Abdominal: Reports: Nausea. Denies: Abdominal Pain : Reports: No Symptoms Musculoskeletal: Reports: No Symptoms Skin: Reports: No Symptoms Neurological: Reports: Confusion, Dizziness, Headache, Trouble Speaking ED EXAM, NEURO - Physical Exam Exam: See Below Exam Limited By: No Limitations General Appearance: Alert, No Apparent Distress Ears: Normal External Exam Nose: Normal Inspection Head Exam: Other (Pain to the back of her head) Neck: Tender Lateral (Right sided pain upon palpation) Respiratory/Chest: No Respiratory Distress, Lungs Clear, Normal Breath Sounds Cardiovascular: Regular Rate, Rhythm, No Edema, No Murmur GI/Abdominal: Soft, Non-Tender, No Organomegaly, No Mass Neurological: Alert, No Motor/Sensory Deficits, Oriented x 3, Other (Mild abnormality with bilateral finger to nose and some nystagmus when looking right) Course - Vital Signs Last Recorded V/S: Last Vital Signs Temp 98.5 F 01/16/17 17:22 Pulse 81 01/16/17 17:22 Resp 18 01/16/17 17:22 BP 154/99 H 01/16/17 17:22 Pulse Ox 97 01/16/17 17:22 - Orders/Labs/Meds Orders: Active Orders 24 hr Category Date Time Status Peripheral IV Care [RC] . DIRECTED Care 01/16/17 17:44 Active Head wo Cont [CT] Stat Exams 01/16/17 17:44 Taken Sodium Chloride 0.9% [Saline Flush] Med 01/16/17 17:43 Active 10 ml FLUSH ASDIRECTED PRN Peripheral IV Insertion Adult [OM.PC] Routine Oth 01/16/17 17:43 Ordered Medication Orders Sodium Chloride (Saline Flush) 10 ml FLUSH ASDIRECTED PRN PRN Reason: Keep Vein Open Last Admin: 01/16/17 18:04 Dose: 10 ml Meds: Medications Generic Name Dose Route Start Last Admin Trade Name Freeknny PRN Reason Stop Dose Admin Sodium Chloride 10 ml 01/16/17 17:43 01/16/17 18:04 Saline Flush FLUSH 10 ml ASDIRECTED PRN Administration Keep Vein Open Discontinued Medications Generic Name Dose Route Start Last Admin Trade Name Román PRN Reason Stop Dose Admin Diphenhydramine HCl 50 mg 01/16/17 17:44 01/16/17 18:04 Benadryl IVPUSH 01/16/17 17:45 50 mg ONETIME ONE Administration Prochlorperazine Edisylate 10 mg 01/16/17 17:44 01/16/17 18:04 Compazine IVPUSH 01/16/17 17:45 10 mg ONETIME ONE Administration - Re-Assessments/Exams Free Text/Narrative Re-Assessment/Exam: 01/16/17 18:46 I ordered an IV saline lock, compazine 10mg IV, benadryl 50mg IV and a CT of her head. 01/16/17 19:[address] looks good. She feels better and she was able to sleep. I will order an MRI of her brain and have her follow up with her neurologist. Departure - Departure Time of Disposition: 19:10 Disposition: Home, Self-Care 01 Condition: Good Clinical Impression: Concussion injury of brain Headache Qualifiers: Headache type: unspecified Headache chronicity pattern: acute headache Intractability: not intractable Qualified Code(s): R51 - Headache - Discharge Information Referrals: Svetlana Sandoval NP [Primary Care Provider] - Forms: ED Department Discharge Additional Instructions: Get plenty of rest the next few days. Limit your screen time of TV, computer and phone. Our radiology department will be calling you with a time for the MRI. Call your neurologist and let him know what happened. Please return if you are worse. - My Orders Last 24 Hours: My Active Orders 01/16/17 17:43 Sodium Chloride 0.9% [Saline Flush] 10 ml FLUSH ASDIRECTED PRN Peripheral IV Insertion Adult [OM.PC] Routine 01/16/17 17:44 Peripheral IV Care [RC] . DIRECTED Head wo Cont [CT] Stat - Assessment/Plan Last 24 Hours: My Active Orders 01/16/17 17:43 Sodium Chloride 0.9% [Saline Flush] 10 ml FLUSH ASDIRECTED PRN Peripheral IV Insertion Adult [OM.PC] Routine 01/16/17 17:44 Peripheral IV Care [RC] . DIRECTED Head wo Cont [CT] Stat
--- NOTE | 2017-01-17 10:32 | CT ---
Head CT Technique: Multiple axial sections through the brain were obtained. Intravenous contrast was not utilized. Comparison: Previous head CT study of 01/15/17. Findings: Previous suboccipital craniotomy noted. Partially visualized Arnold-Chiari 1 malformation is seen which is stable. Small cortical calcification within the posterior right occipital lobe is seen which is stable. Ventricles along the basal cisterns and sulci over the convexities are within normal limits. No abnormal parenchymal densities are seen. No evidence of intracranial hemorrhage. No midline shift or mass effect is seen. No acute calvarial abnormality is seen. Impression: 1. Previous surgery. Stable Arnold-Chiari 1 malformation. Other incidental finding. 2. Nothing acute is seen on noncontrast head CT study. No significant change is seen from prior study performed one day earlier. Diagnostic code #2 I agree with preliminary report issued by [facility] ([facility] report finalized on 01/16/17, 7:51 PM Central Time)
== END 2017-01-16 19:15 | disposition home or self-care (01) ==
LOC: JD.ED 17:15
DX: S06.0X0A Concussion without loss of consciousness, initial encounter (principal); Z91.040 Latex allergy status; Z88.8 Allergy status to other drugs, medicaments and biological substances; Z79.899 Other long term (current) drug therapy; W22.8XXA Striking against or struck by other objects, initial encounter
CPT/HCPCS: 70450; 96374; 96375; 99285; J0780; J1200; J7050; 99284

== ENCOUNTER 2017-01-21 19:53 | Emergency (ER) | payer BC ==
[2017-01-21 20:01] VITALS: BP 125/85
[2017-01-21] MEDS ORDERED: Acetaminophen/HYDROcodone 325-10 MG Tab PO ONE (21:50)
--- NOTE | 2017-01-21 21:54 | EDM.PDOC ---
ED HPI GENERAL MEDICAL PROBLEM - General Chief Complaint: Upper Extremity Injury/Pain Stated Complaint: poss broken wrist Time Seen by Provider: 01/21/17 20:05 Source of Information: Reports: Patient History Limitations: Reports: No Limitations - History of Present Illness INITIAL COMMENTS - FREE TEXT/NARRATIVE: 46 year old female presents for evaluation and treatment of an injury to the left wrist and hand. Reports injury occurred today. States she had 2 unwitnessed seizures today. Reports the most recent seizure resulted to an injury to the left wrist and hand. No obvious deformity. No numbness or tingling to the hand. No bruising, swelling or open wounds. Patient is right handed. Patient reports she first developed seizures in August of this year. She has had imaging including CTs and MRIs with no abnormalities. Reports she has had normal EEGs. She is currently working with her PCP to see a seizure specialist in [place]. Reports she bit her right inner cheek during the seizure. No loss of bowel or bladder. Onset: Today Left Arm Pain Score (Numeric/FACES): 8 - Related Data Allergies Allergy/AdvReac Type Severity Reaction Status Date / Time strawberry [[place]] Allergy Severe Shortness Verified 01/21/17 20:00 of Breath clarithromycin [From Biaxin] Allergy Unknown Hives Verified 01/21/17 20:00 latex Allergy Unknown Airway Verified 01/21/17 20:00 Tightness mark flavor Allergy Unknown Airway Verified 01/21/17 20:00 Tightness gabapentin [From Neurontin] Allergy Anaphylactic Verified 01/21/17 20:00 Shock metoclopramide HCl AdvReac "Panic Verified 01/21/17 20:00 [From Reglan] Attack" Home Meds: Home Meds Pregabalin [Lyrica] 150 mg PO BID 10/27/15 [History] Acetaminophen 1 tab PO Q4H PRN 02/21/16 [History] Baclofen 10 mg PO Q6H PRN 02/21/16 [History] EPINEPHrine [Auvi-Q] 0.3 mg IJ ONETIME PRN #2 auto.injct 11/20/16 [Rx] QUEtiapine [SEROquel] 100 mg PO BID 12/03/16 [History] lamoTRIgine [Lamictal] 100 mg PO TID 12/03/16 [History] ClonazePAM [KlonoPIN] 0.5 mg PO DAILY 01/15/17 [History] LORazepam [Ativan] 0.5 mg PO BID #6 tablet 01/15/17 [Rx] Polyethylene Glycol 3350 [Miralax] 1 dose PO DAILY 01/15/17 [History] Pregabalin [Lyrica] 200 mg PO BID 01/15/17 [History] QUEtiapine [SEROquel] 200 mg PO BEDTIME 01/15/17 [History] Venlafaxine [Venlafaxine HCl ER] 150 mg PO DAILY 01/15/17 [History] cloNIDine [Catapres] 0.1 mg PO BEDTIME 01/15/17 [History] Hydrocodone/Acetaminophen [Hydrocodon-Acetaminophen 5-325] 1 each PO Q6HR PRN # 7 tablet 01/21/17 [Rx] Past Medical History HEENT History: Reports: Impaired Vision Other HEENT History: sinus problems Cardiovascular History: Reports: Syncope Respiratory History: Reports: Asthma Gastrointestinal History: Reports: Other (See Below) Other Gastrointestinal History: ABDOMINAL PAIN/SCAR TISSUES Other Genitourinary History: kidney failure, resolved [employer] History: Reports: Other OB/BYN History: x2, 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 Musculoskeletal History: Reports: Back Pain, Chronic Other Musculoskeletal History: right hip fx Neurological History: Reports: Seizure, Other (See Below) Other Neuro History: epilepsy Psychiatric History: Reports: Anxiety, Depression, Suicide Attempt Endocrine/Metabolic History: Reports: Other (See Below) Other Endocrine/Metabolic History: Blood sugar low Dermatologic History: Reports: Other (See Below) Other Dermatologic History: ALLERGIES - Infectious Disease History Infectious Disease History: Reports: None - Past Surgical History Head Surgeries/Procedures: Reports: Craniotomy HEENT Surgical History: Reports: Naso-Sinus Surgery GI Surgical History: Reports: Appendectomy, Bariatric Procedure, Cholecystectomy , Lysis of Adhesions Female Surgical History: Reports: D&C Musculoskeletal Surgical History: Reports: Shoulder Surgery Social & Family History - Family History Family Medical History: Noncontributory - Tobacco Use Smoking Status *Q: Unknown Ever Smoked Years of Tobacco use: 1 Packs/Tins Daily: 0.2 Used Tobacco, but Quit: Yes Month Tobacco Last Used: Quit 2001 Second Hand Smoke Exposure: No - Caffeine Use Caffeine Use: Reports: Coffee, Soda - Alcohol Use Days Per Week of Alcohol Use: 0 - Recreational Drug Use Recreational Drug Use: No - Living Situation & Occupation Living situation: Reports: , with Spouse Occupation: Unemployed Review of Systems - Review of Systems Review Of Systems: See Below Genitourinary: Denies: Incontinence Musculoskeletal: Reports: Arm Pain (left wrist and hand) Skin: Denies: Bruising, Wound Neurological: Reports: Seizure. Denies: Numbness, Tingling ED EXAM, GENERAL - Physical Exam Exam: See Below Exam Limited By: No Limitations General Appearance: Alert, WD/WN, No Apparent Distress Eye Exam: Bilateral Eye: PERRL Throat/Mouth: Normal Inspection, Normal Gums, Normal Oropharynx, Other (no oral bite holman appreciated ) Respiratory/Chest: No Respiratory Distress, Lungs Clear, Normal Breath Sounds Cardiovascular: Normal Peripheral Pulses, Regular Rate, Rhythm, No Murmur Peripheral Pulses: 2+: Radial (L), Radial (R) Extremities: Normal Inspection, Other (+ left snuff box tenderness; pain to the left distal radius) Neurological: Alert, Oriented, Normal Gait, Slow to Respond, Memory Loss Recent Events Psychiatric: Normal Affect, Normal Mood Skin Exam: Warm, Dry, Normal Color. No: Ecchymosis, Erythema, Wound/Incision Course - Vital Signs Last Recorded V/S: Last Vital Signs Temp 36.9 C 01/21/17 19:57 Pulse 100 01/21/17 19:57 Resp 18 01/21/17 19:57 BP 125/85 01/21/17 19:57 Pulse Ox 100 01/21/17 19:57 - Orders/Labs/Meds Meds: Medications Discontinued Medications Generic Name Dose Route Start Last Admin Trade Name Oseasq PRN Reason Stop Dose Admin Hydrocodone Bitart/Acetaminophen 1 tab 01/21/17 21:50 01/21/17 22:14 Bertrand 325-10 Mg PO 01/21/17 21:51 1 tab ONETIME ONE Administration - Radiology Interpretation Free Text/Narrative:: xray of the left hand shows no acute fractures or dislocations - Re-Assessments/Exams Free Text/Narrative Re-Assessment/Exam: 01/21/17 21:50 We did discuss obtaining labs and imaging of the head due to seizure x 2 today. Patient declines. Reports she was at a standing position when she had the seizures. Does not believe she had any major head trauma. Given she has had multiple imaging studies recently we will hold off at this time. I reviewed the xray with her. No fractures at this time. Placed in a wrist splint. Warned on rare occasion fractures do not appear right away. Follow-up if not better. Patient reports severe pain to the wrist. I will give her a few pain pills for the pain. Discharge instructions as documented . Departure - Departure Time of Disposition: 21:51 Disposition: Home, Self-Care 01 Condition: Fair Clinical Impression: Wrist injury - Discharge Information Prescriptions: Hydrocodone/Acetaminophen [Hydrocodon-Acetaminophen 5-325] 1 each PO Q6HR PRN # 7 tablet PRN Reason: Pain Instructions: Wrist Pain, [id number] Referrals: Svetlana Sandoval NP [Primary Care Provider] - Forms: ED Department Discharge Additional Instructions: you were given medication can affect your ability to drive and operate machinery. do not drive or operate machinery within 12 hours of using prescription narcotic pain medication Wear the wrist splints at all times for comfort and for immobilization. Ice the area 3 or 4 times a day for 15-20 minutes. [id number] ibuprofen as needed for pain. For pain not relieved by over-the -counter ibuprofen you may take Bertrand one tablet every [address] operate machinery within 12 hours of taking the Bertrand. Bertrand can be habit- forming, I recommend you take as few as needed to control your pain. Follow-up with your primary care provider if Symptoms are now much better in 1- 2 weeks. may require repeat x-rays. Please return to ER if your symptoms change or worsen.
--- NOTE | 2017-01-22 08:12 | CR ---
Left hand: Four views of the left hand were obtained. Comparison: No prior hand exam. Joint spaces are preserved. No fracture, dislocation or other bony abnormality is identified. Impression: 1. No abnormality is identified on the left hand study. Diagnostic code #1
== END 2017-01-21 22:16 | disposition home or self-care (01) ==
LOC: JD.ED 19:53
DX: S69.92XA Unspecified injury of left wrist, hand and finger(s), initial encounter (principal); Z91.040 Latex allergy status; Z88.8 Allergy status to other drugs, medicaments and biological substances; Z79.899 Other long term (current) drug therapy; J45.909 Unspecified asthma, uncomplicated; X58.XXXA Exposure to other specified factors, initial encounter
CPT/HCPCS: 73130; 99283; A9270

== ENCOUNTER 2017-05-23 14:20 | Emergency (ER) | payer BC ==
[2017-05-23 14:38] VITALS: BP 174/109
--- NOTE | 2017-05-23 16:16 | CT ---
CT cervical spine Technique: Multiple axial sections through the cervical spine were obtained. Study was obtained from above C1 inferiorly to the bottom of T1. Reconstructed sagittal and coronal images were reviewed. Comparison: Previous cervical spine exam of 01/15/17. Findings: Mild disc space narrowing noted at C5-6. Anterior osteophytes noted at C4-5 and C5-6. Slight degenerative change noted between the dens and anterior arch of C1. Vertebral bodies and posterior arches are intact with no fracture. No bony central or bony neural foraminal stenosis is seen. No abnormal subluxation is seen. Incidental note of incomplete posterior C1 arch which is a normal variant. Impression: 1. Slight degenerative change which is stable from prior cervical spine CT. 2. Nothing acute is identified on CT study of the cervical spine. Diagnostic code #2
--- NOTE | 2017-05-23 16:18 | CT ---
Head CT Technique: Multiple axial sections through the brain were obtained. Intravenous contrast was utilized. Comparison: Prior head CT study of 01/16/17. Findings: Previous suboccipital craniotomy is again noted. Partially visualized Arnold-Chiari 1 malformation is again noted which is stable. Ventricles along with basal cisterns and sulci over convexities are within normal limits. No abnormal parenchymal densities are seen. No evidence of intracranial hemorrhage. No midline shift or mass effect is seen. Bone window settings were reviewed which shows no acute calvarial abnormality. Impression: 1. Stable Arnold-Chiari 1 malformation with previous suboccipital craniotomy. 2. Nothing acute is seen on noncontrast head CT study. No significant change is seen from prior head CT exam. Diagnostic code #2
--- NOTE | 2017-05-23 16:26 | CT ---
CT facial bones Technique: Multiple axial sections through the facial bones were obtained. Reconstructed coronal and sagittal images were reviewed. Comparison: Previous CT paranasal sinus study of 03/08/13 is available. Findings: Probable retention cyst is noted within the inferior left maxillary sinus. Minimal mucosal thickening is seen within portions of the right maxillary sinus. Findings are fairly stable from prior sinus exam. Right and left globes are symmetric. Mild joint space narrowing is noted within the temporomandibular joints. Suboccipital craniotomy is again noted. No facial bone fracture is identified.. Impression: 1. Incidental findings as noted above. Nothing acute is identified on CT study of the facial bones. Diagnostic code #2
[2017-05-23] MEDS ORDERED: Ketorolac 60 MG/2 ML SDV IM ONE (16:29)
--- NOTE | 2017-05-23 17:11 | EDM.PDOC ---
ED HPI GENERAL MEDICAL PROBLEM - General Chief Complaint: Head Injury Stated Complaint: FACIAL INJURY Time Seen by Provider: 05/23/17 15:01 Source of Information: Reports: Patient, Old Records History Limitations: Reports: No Limitations - History of Present Illness INITIAL COMMENTS - FREE TEXT/NARRATIVE: 46-year-old female presents for evaluation and treatment of injuries to her face. Patient is unable to tell me exactly what happened. Reports she is not remember anything from yesterday. She states that she remembers getting up in the morning and going to bed last night. She states that she was found by her that it around 1900, on the floor. She is unsure what happened. She is currently complaining of neck pain and pain to her left cheekbone. Reports associated symptoms of headaches, nausea, vomiting and blurry vision. She believes that she fell yesterday. She reports that she fell twice yesterday. Once when she was in the bathroom and slid down. Denies any seizures yesterday but reports she does have a seizure history, last seizure was in August 2016. Reports no syncope today. Prior to arrival in the ER she did stop and have her glasses fixed which broke yesterday. Patient denies any abuse. Reports that she is home by herself yesterday. Reviewed the patient's records show that she has been seen for syncopal episodes. She states that she has had normal MRIs, CTs and EEGs. She currently seeing a neurologist with [facility] in [place]. She is supposed to be seen him again in June. She states that her previous episodes have been attributed to stress. She is currently seeing a psychiatrist as well. Face Pain Score (Numeric/FACES): 8 - Related Data Allergies Allergy/AdvReac Type Severity Reaction Status Date / Time strawberry [[place]] Allergy Severe Shortness Verified 05/23/17 14:38 of Breath clarithromycin [From Biaxin] Allergy Unknown Hives Verified 05/23/17 14:38 latex Allergy Unknown Airway Verified 05/23/17 14:38 Tightness mark flavor Allergy Unknown Airway Verified 05/23/17 14:38 Tightness gabapentin [From Neurontin] Allergy Anaphylactic Verified 05/23/17 14:38 Shock metoclopramide HCl AdvReac "Panic Verified 05/23/17 14:38 [From Reglan] Attack" Home Meds: Home Meds Pregabalin [Lyrica] 150 mg PO BID 10/27/15 [History] Acetaminophen 1 tab PO Q4H PRN 02/21/16 [History] Baclofen 10 mg PO Q6H PRN 02/21/16 [History] EPINEPHrine [Auvi-Q] 0.3 mg IJ ONETIME PRN #2 auto.injct 11/20/16 [Rx] QUEtiapine [SEROquel] 100 mg PO BID 12/03/16 [History] lamoTRIgine [Lamictal] 100 mg PO TID 12/03/16 [History] ClonazePAM [KlonoPIN] 0.5 mg PO DAILY 01/15/17 [History] LORazepam [Ativan] 0.5 mg PO BID #6 tablet 01/15/17 [Rx] Polyethylene Glycol 3350 [Miralax] 1 dose PO DAILY 01/15/17 [History] Pregabalin [Lyrica] 200 mg PO BID 01/15/17 [History] QUEtiapine [SEROquel] 200 mg PO BEDTIME 01/15/17 [History] Venlafaxine [Venlafaxine HCl ER] 150 mg PO DAILY 01/15/17 [History] cloNIDine [Catapres] 0.1 mg PO BEDTIME 01/15/17 [History] Hydrocodone/Acetaminophen [Hydrocodon-Acetaminophen 5-325] 1 each PO Q6HR PRN # 7 tablet 01/21/17 [Rx] Past Medical History HEENT History: Reports: Impaired Vision Other HEENT History: sinus problems Cardiovascular History: Reports: Syncope Respiratory History: Reports: Asthma Gastrointestinal History: Reports: Other (See Below) Other Gastrointestinal History: ABDOMINAL PAIN/SCAR TISSUES Other Genitourinary History: kidney failure, resolved 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 OB/BYN History: x2, 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 Musculoskeletal History: Reports: Back Pain, Chronic Other Musculoskeletal History: right hip fx Neurological History: Reports: Seizure, Other (See Below) Other Neuro History: epilepsy Psychiatric History: Reports: Anxiety, Depression, Suicide Attempt Endocrine/Metabolic History: Reports: Other (See Below) Other Endocrine/Metabolic History: Blood sugar low Dermatologic History: Reports: Other (See Below) Other Dermatologic History: ALLERGIES - Infectious Disease History Infectious Disease History: Reports: None - Past Surgical History Head Surgeries/Procedures: Reports: Craniotomy HEENT Surgical History: Reports: Naso-Sinus Surgery GI Surgical History: Reports: Appendectomy, Bariatric Procedure, Cholecystectomy , Lysis of Adhesions Female Surgical History: Reports: D&C Musculoskeletal Surgical History: Reports: Shoulder Surgery Social & Family History - Family History Family Medical History: Noncontributory - Tobacco Use Smoking Status *Q: Never Smoker Years of Tobacco use: 1 Packs/Tins Daily: 0.2 Used Tobacco, but Quit: Yes Month Tobacco Last Used: Quit 2001 Second Hand Smoke Exposure: No - Caffeine Use Caffeine Use: Reports: Coffee, Soda - Alcohol Use Days Per Week of Alcohol Use: 0 - Recreational Drug Use Recreational Drug Use: No - Living Situation & Occupation Living situation: Reports: , with Spouse Occupation: Unemployed ED ROS GENERAL - Review of Systems Review Of Systems: See Below HEENT: Reports: Vision Change (reports blurry vision), Other (reports pain to the left cheeck) GI/Abdominal: Reports: Nausea, Vomiting (x3 ) Musculoskeletal: Reports: Neck Pain Neurological: Reports: Headache, Syncope. Denies: Seizure Psychiatric: Reports: Confusion ED EXAM, HEAD INJURY - Physical Exam Exam: See Below Exam Limited By: No Limitations General Appearance: Alert, WD/WN, No Apparent Distress Head: Facial Ecchymosis (left orbit), Facial Tenderness (left orbit) Nexus Criteria: No: Posterior, Midline Cervical Tenderness, Evidence of Intoxication, Altered Level of Consciousness, Focal Neurological Deficit, Painful Distraction Injuries Eyes: Bilateral Eye: EOMI, Normal Inspection, PERRL Ears: Normal External Exam. 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 nml As Tested, No Motor/Sensory Deficits, Alert, Normal Mood/Affect, Oriented x 3 Skin: Normal Color, Warm/Dry - [place] Coma Score Best Eye Response ([place]): (4) Open Spontaneously Best Verbal Response ([place]): (5) Oriented Best Motor Response ([place]): (6) Obeys Commands Course - Vital Signs Last Recorded V/S: Last Vital Signs Temp 36.8 C 05/23/17 14:33 Pulse 111 H 05/23/17 14:33 Resp 18 05/23/17 14:33 BP 174/109 H 05/23/17 14:33 Pulse Ox 99 05/23/17 14:33 - Orders/Labs/Meds Labs: Laboratory Tests 05/23/17 05/23/17 05/23/17 Range/Units 15:57 15:57 16:15 WBC 7.89 (3.98-10.04) K/mm3 RBC 4.66 (3.98-5.22) M/mm3 Hgb 12.7 (11.2-15.7) gm/L Hct 38.8 (34.1-44.9) % MCV 83.3 (79.4-94.8) fl MCH 27.3 (25.6-32.2) pg MCHC 32.7 (32.2-35.5) g/dl RDW Std Deviation 45.5 (36.4-46.3) fL Plt Count 301 (182-369) K/mm3 MPV 8.7 L (9.4-12.3) fl Neut % (Auto) 70.0 (34.0-71.1) % Lymph % (Auto) 18.5 L (19.3-51.7) % Story % (Auto) 10.4 (4.7-12.5) % Eos % (Auto) 0.1 L (0.7-5.8) Baso % (Auto) 0.9 (0.1-1.2) % Neut # (Auto) 5.52 (1.56-6.13) K/mm3 Lymph # (Auto) 1.46 (1.18-3.74) K/mm3 Story # (Auto) 0.82 H (0.24-0.36) K/mm3 Eos # (Auto) 0.01 L (0.04-0.36) K/mm3 Baso # (Auto) 0.07 (0.01-0.08) K/mm3 Sodium 136 (136-145) mEq/L Potassium 3.2 L (3.5-5.1) mEq/L Chloride 99 (98-107) mEq/L Carbon Dioxide 26 (21-32) mEq/L Anion Gap 14.2 (5-15) BUN 13 (7-18) mg/dL Creatinine 1.1 H (0.55-1.02) mg/dL Est Cr Clr Drug Dosing 55.77 mL/min Estimated GFR (MDRD) 54 (>60) mL/min BUN/Creatinine Ratio 11.8 L (14-18) Glucose 104 (74-106) mg/dL Calcium 8.4 L (8.5-10.1) mg/dL Total Bilirubin 0.6 (0.2-1.0) mg/dL AST 35 (15-37) U/L ALT 26 (14-59) U/L Alkaline Phosphatase 130 H (46-116) U/L Total Protein 7.2 (6.4-8.2) g/dl Albumin 3.6 (3.4-5.0) g/dl Globulin 3.6 gm/dL Albumin/Globulin Ratio 1.0 (1-2) Urine Color (Yellow) Urine Appearance (Clear) Urine pH (5.0-8.0) Ur Specific [place] (1.005-1.030) Urine Protein (Negative) Urine Glucose (UA) (Negative) Urine Ketones (Negative) Urine Occult Blood (Negative) Urine Nitrite (Negative) Urine Bilirubin (Negative) Urine Urobilinogen (0.2-1.0) Ur Leukocyte Esterase (Negative) Urine RBC (0-5) /hpf Urine WBC (0-5) /hpf Ur Epithelial Cells (0-5) /hpf Urine Bacteria (FEW) /hpf Urine Mucus (FEW) /hpf Urine Opiates Screen Negative (NEGATIVE) Ur Buprenorphine Scrn Negative (NEGATIVE) Ur Oxycodone Screen Negative (NEGATIVE) Urine Methadone Screen Negative (NEGATIVE) Ur Propoxyphene Screen Negative (NEGATIVE) Ur Barbiturates Screen Negative (NEGATIVE) Ur Tricyclics Screen Negative (NEGATIVE) Ur Phencyclidine Scrn Negative (NEGATIVE) Ur Amphetamine Screen Negative (NEGATIVE) U Methamphetamines Scrn Negative (NEGATIVE) U Benzodiazepines Scrn Negative (NEGATIVE) U Cocaine Metab Screen Negative (NEGATIVE) U Marijuana (THC) Screen Presumptive positive H (NEGATIVE) Ethyl Alcohol 0.00 (0.00) gm% 05/23/17 Range/Units 16:15 WBC (3.98-10.04) K/mm3 RBC (3.98-5.22) M/mm3 Hgb (11.2-15.7) gm/L Hct (34.1-44.9) % MCV (79.4-94.8) fl MCH (25.6-32.2) pg MCHC (32.2-35.5) g/dl RDW Std Deviation (36.4-46.3) fL Plt Count (182-369) K/mm3 MPV (9.4-12.3) fl Neut % (Auto) (34.0-71.1) % Lymph % (Auto) (19.3-51.7) % Story % (Auto) (4.7-12.5) % Eos % (Auto) (0.7-5.8) Baso % (Auto) (0.1-1.2) % Neut # (Auto) (1.56-6.13) K/mm3 Lymph # (Auto) (1.18-3.74) K/mm3 Story # (Auto) (0.24-0.36) K/mm3 Eos # (Auto) (0.04-0.36) K/mm3 Baso # (Auto) (0.01-0.08) K/mm3 Sodium (136-145) mEq/L Potassium (3.5-5.1) mEq/L Chloride (98-107) mEq/L Carbon Dioxide (21-32) mEq/L Anion Gap (5-15) BUN (7-18) mg/dL Creatinine (0.55-1.02) mg/dL Est Cr Clr Drug Dosing mL/min Estimated GFR (MDRD) (>60) mL/min BUN/Creatinine Ratio (14-18) Glucose (74-106) mg/dL Calcium (8.5-10.1) mg/dL Total Bilirubin (0.2-1.0) mg/dL AST (15-37) U/L ALT (14-59) U/L Alkaline Phosphatase (46-116) U/L Total Protein (6.4-8.2) g/dl Albumin (3.4-5.0) g/dl Globulin gm/dL Albumin/Globulin Ratio (1-2) Urine Color Light yellow (Yellow) Urine Appearance Clear (Clear) Urine pH 6.5 (5.0-8.0) Ur Specific [place] 1.010 (1.005-1.030) Urine Protein Negative (Negative) Urine Glucose (UA) Negative (Negative) Urine Ketones Negative (Negative) Urine Occult Blood Negative (Negative) Urine Nitrite Negative (Negative) Urine Bilirubin Negative (Negative) Urine Urobilinogen 0.2 (0.2-1.0) Ur Leukocyte Esterase Negative (Negative) Urine RBC 0-5 (0-5) /hpf Urine WBC 0-5 (0-5) /hpf Ur Epithelial Cells 0-5 (0-5) /hpf Urine Bacteria Not seen (FEW) /hpf Urine Mucus Not seen (FEW) /hpf Urine Opiates Screen (NEGATIVE) Ur Buprenorphine Scrn (NEGATIVE) Ur Oxycodone Screen (NEGATIVE) Urine Methadone Screen (NEGATIVE) Ur Propoxyphene Screen (NEGATIVE) Ur Barbiturates Screen (NEGATIVE) Ur Tricyclics Screen (NEGATIVE) Ur Phencyclidine Scrn (NEGATIVE) Ur Amphetamine Screen (NEGATIVE) U Methamphetamines Scrn (NEGATIVE) U Benzodiazepines Scrn (NEGATIVE) U Cocaine Metab Screen (NEGATIVE) U Marijuana (THC) Screen (NEGATIVE) Ethyl Alcohol (0.00) gm% Meds: Medications Discontinued Medications Generic Name Dose Route Start Last Admin Trade Name Freq PRN Reason Stop Dose Admin Ketorolac Tromethamine 60 mg 05/23/17 16:29 05/23/17 16:50 Toradol IM 05/23/17 16:30 60 mg ONETIME ONE Administration - Radiology Interpretation Free Text/Narrative:: Head CT Technique: Multiple axial sections through the brain were obtained. Intravenous contrast was utilized. Comparison: Prior head CT study of 01/16/17. Findings: Previous suboccipital craniotomy is again noted. Partially visualized Arnold-Chiari 1 malformation is again noted which is stable. Ventricles along with basal cisterns and sulci over convexities are within normal limits. No abnormal parenchymal densities are seen. No evidence of intracranial hemorrhage. No midline shift or mass effect is seen. Bone window settings were reviewed which shows no acute calvarial abnormality. Impression: 1. Stable Arnold-Chiari 1 malformation with previous suboccipital craniotomy. 2. Nothing acute is seen on noncontrast head CT study. No significant change is seen from prior head CT exam. CT facial bones Technique: Multiple axial sections through the facial bones were obtained. Reconstructed coronal and sagittal images were reviewed. Comparison: Previous CT paranasal sinus study of 03/08/13 is available. Findings: Probable retention cyst is noted within the inferior left maxillary sinus. Minimal mucosal thickening is seen within portions of the right maxillary sinus. Findings are fairly stable from prior sinus exam. Right and left globes are symmetric. Mild joint space narrowing is noted within the temporomandibular joints. Suboccipital craniotomy is again noted. No facial bone fracture is identified.. Impression: 1. Incidental findings as noted above. Nothing acute is identified on CT study of the facial bones. CT cervical spine Technique: Multiple axial sections through the cervical spine were obtained. Study was obtained from above C1 inferiorly to the bottom of T1. Reconstructed sagittal and coronal images were reviewed. Comparison: Previous cervical spine exam of 01/15/17. Findings: Mild disc space narrowing noted at C5-6. Anterior osteophytes noted at C4-5 and C5-6. Slight degenerative change noted between the dens and anterior arch of C1. Vertebral bodies and posterior arches are intact with no fracture. No bony central or bony neural foraminal stenosis is seen. No abnormal subluxation is seen. Incidental note of incomplete posterior C1 arch which is a normal variant. Impression: 1. Slight degenerative change which is stable from prior cervical spine CT. 2. Nothing acute is identified on CT study of the cervical spine. - Re-Assessments/Exams Free Text/Narrative Re-Assessment/Exam: 05/23/17 17:18 I reviewed the labs and imaging with the patient. Reports good pain relief with the IM Toradol. We will discharge her home at this time. Discharge instructions as documented. Departure - Departure Time of Disposition: 17:19 Disposition: Home, Self-Care 01 Condition: Good Clinical Impression: Neurological symptoms, Facial bruising Fall Qualifiers: Encounter type: initial encounter Qualified Code(s): W19.XXXA - Unspecified fall, initial encounter - Discharge Information Instructions: Contusion, [id number] Referrals: Svetlana Sandoval NP [Primary Care Provider] - Forms: ED Department Discharge Additional Instructions: [id number] Tylenol or Motrin as needed for pain relief. Ice and/or heat to the sore areas. Call your neurologist to notify them of what happened. They may want to see you sooner in follow-up. Please return to the ER if your symptoms change or worsen.
== END 2017-05-23 17:27 | disposition home or self-care (01) ==
LOC: JD.ED 14:20
DX: S05.12XA Contusion of eyeball and orbital tissues, left eye, initial encounter (principal); R29.90 Unspecified symptoms and signs involving the nervous system; F32.9 Major depressive disorder, single episode, unspecified; F41.9 Anxiety disorder, unspecified; Z91.018 Allergy to other foods; Z91.040 Latex allergy status; Z88.8 Allergy status to other drugs, medicaments and biological substances; Z88.1 Allergy status to other antibiotic agents; Z79.899 Other long term (current) drug therapy; Z87.891 Personal history of nicotine dependence; W19.XXXA Unspecified fall, initial encounter
CPT/HCPCS: 36415; 70450; 70486; 72125; 80053; 80306; 81001; 85025; 96372; 99284; G0480; J1885

== ENCOUNTER 2017-09-27 21:10 | Emergency (ER) | payer BC ==
--- NOTE | 2017-09-27 22:52 | EDM.PDOCBH ---
ED HPI GENERAL MEDICAL PROBLEM - General Chief Complaint: Behavioral/Psych Stated Complaint: [facility] Time Seen by Provider: 09/27/17 22:26 Source of Information: Reports: Patient History Limitations: Reports: No Limitations - History of Present Illness INITIAL COMMENTS - FREE TEXT/NARRATIVE: The patient states that she has been extremely depressed for years. She states that she sees a therapist in [place], and was prescribed Trintellix about 6 months ago, which she does not feel is helping. She also states that she has had increased stress this past week. She states that she has been feeling suicidal for about one week, worse today. She has a plan to overdose on a medication, such as trazodone (I don't see trazodone on her medication list, but the patient was not sure of the name of the medicine). She states that she has not taken any medication outside of prescription parameters, nor has she attempted to harm herself in any way thus far. She states that she called a suicide hotline, who in turn called EMS, who brought her to the ED. She acknowledges that she needs to be psychiatrically hospitalized, although took a minute to come to that conclusion when asked. She states that she has had suicidal ideations in the past, but has never actually attempted to commit suicide. She states that she has been psychiatrically hospitalized 4 times in the past - she is not sure of the diagnoses - most recently around 2014. The patient states that she drank around 5 shots of vodka today. Ordinarily she drinks about once a week. The patient's PCP is Svetlana Sandoval. - Related Data Allergies Allergy/AdvReac Type Severity Reaction Status Date / Time strawberry [[place]] Allergy Severe Shortness Verified 09/27/17 21:39 of Breath clarithromycin [From Biaxin] Allergy Unknown Hives Verified 09/27/17 21:39 latex Allergy Unknown Airway Verified 09/27/17 21:39 Tightness mark flavor Allergy Unknown Airway Verified 09/27/17 21:39 Tightness gabapentin [From Neurontin] Allergy Anaphylactic Verified 09/27/17 21:39 Shock metoclopramide HCl AdvReac "Panic Verified 09/27/17 21:39 [From Reglan] Attack" Home Meds: Home Meds Pregabalin [Lyrica] 150 mg PO BID 10/27/15 [History] EPINEPHrine [Auvi-Q] 0.3 mg IJ ONETIME PRN #2 auto.injct 11/20/16 [Rx] lamoTRIgine [Lamictal] 100 mg PO BID 12/03/16 [History] Polyethylene Glycol 3350 [Miralax] 1 dose PO DAILY 01/15/17 [History] ARIPiprazole [Abilify] 5 mg PO DAILY 09/27/17 [History] Orphenadrine [Norflex] 100 mg PO Q12H PRN 09/27/17 [History] Vortioxetine Hydrobromide [Trintellix] 10 mg PO DAILY 09/27/17 [History] Past Medical History HEENT History: Reports: Impaired Vision Gastrointestinal History: Reports: PUD RN 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 CHILD History: Reports: : 2 Para: 1 Musculoskeletal History: Reports: Back Pain, Chronic, Fracture (right hip) Neurological History: Reports: Seizure, Other (See Below) (Chiari I malformation ) Psychiatric History: Reports: Anxiety, Depression, Suicidal Ideation Endocrine/Metabolic History: Reports: Obesity/BMI 30+ Dermatologic History: Reports: Other (See Below) Other Dermatologic History: ALLERGIES - Infectious Disease History Infectious Disease History: Reports: None - Past Surgical History Head Surgeries/Procedures: Reports: Craniotomy HEENT Surgical History: Reports: Naso-Sinus Surgery (Rhinoplasty) GI Surgical History: Reports: Appendectomy, Bariatric Procedure (Gastric bypass 2013), Lysis of Adhesions (x 2) Female Surgical History: Reports: D&C (x 1) Musculoskeletal Surgical History: Reports: Shoulder Surgery (right, arthroscopic ) Social & Family History - Family History Family Medical History: Noncontributory - Tobacco Use Smoking Status *Q: Former Smoker - Caffeine Use Caffeine Use: Reports: Coffee, Soda - Alcohol Use Alcohol Use History: Yes Alcohol Use Frequency: Socially - Recreational Drug Use Recreational Drug Use: No - Living Situation & Occupation Living situation: Reports: , with Spouse, with Family (1 adult child) Occupation: Employed ([employer]) ED ROS GENERAL - Review of Systems Review Of Systems: ROS reveals no pertinent complaints other than HPI. ED EXAM, BEHAVIORAL HEALTH - Physical Exam Exam: See Below Exam Limited By: No Limitations General Appearance: Alert, WD/WN, No Apparent Distress Eye Exam: Bilateral Eye: Normal Inspection Ears: Normal External Exam, Hearing Grossly Normal Nose: Normal Inspection, No Blood Throat/Mouth: Normal Inspection, Normal Lips, Normal Voice, No Airway Compromise Head: Atraumatic, Normocephalic Neck: Normal Inspection, Full Range of Motion Respiratory/Chest: No Respiratory Distress, Lungs Clear, Normal Breath Sounds, No Accessory Muscle Use Cardiovascular: Normal Peripheral Pulses, Regular Rate, Rhythm, No Gallop, No JVD, No Murmur, No Rub GI/Abdominal: Normal Bowel Sounds, Soft, No Organomegaly, No Distention, No Abnormal Bruit, No Mass, Tender (Mild, upper abdomen - chronic, according to the patient) (Female) Exam: Deferred Rectal (Female) Exam: Deferred Back Exam: Normal Inspection, Full Range of Motion, NT Extremities: Normal Inspection, Normal Range of Motion, No Pedal Edema, Normal Capillary Refill Neurological: Alert, No Motor/Sensory Deficits, Oriented x 3 Psychiatric: Depressed Mood, Tearful Skin Exam: Warm, Dry, Intact, Normal color, No rash EKG INTERPRETATION EKG Date: 09/27/17 Time: 22:47 Rhythm: NSR Rate (Beats/Min): 79 Hatch: Normal P-Wave: Present QRS: Normal ST-T: Normal QT: Prolonged (QTc 488 ms) Comparison: No Change (12/03/2016) COURSE, BEHAVIORAL HEALTH COMP - Course Vital Signs: Last Vital Signs Temp 37.2 C 09/28/17 08:45 Pulse 82 09/28/17 08:45 Resp 16 09/28/17 08:45 BP 131/83 09/28/17 08:45 Pulse Ox 93 L 09/28/17 08:45 Orders, Labs, Meds: Laboratory Tests 09/27/17 09/27/17 09/27/17 Range/Units 22:20 22:20 22:55 WBC 5.13 (3.98-10.04) K/mm3 RBC 4.09 (3.98-5.22) M/mm3 Hgb 10.0 L (11.2-15.7) gm/L Hct 32.3 L (34.1-44.9) % MCV 79.0 L (79.4-94.8) fl MCH 24.4 L (25.6-32.2) pg MCHC 31.0 L (32.2-35.5) g/dl RDW Std Deviation 46.7 H (36.4-46.3) fL Plt Count 294 (182-369) K/mm3 MPV 9.2 L (9.4-12.3) fl Neutrophils % (Manual) 65 H (40-60) % Band Neutrophils % 0 (0-10) % Lymphocytes % (Manual) 27 (20-40) % Atypical Lymphs % 0 % Monocytes % (Manual) 6 (2-10) % Eosinophils % (Manual) 0 L (0.7-5.8) % Basophils % (Manual) 2 H (0.1-1.2) Platelet Estimate Adequate Plt Morphology Comment Normal Anisocytosis 1+ slight Microcytosis 1+ slight Macrocytosis 1+ slight RBC Morph Comment Abnormal Sodium (136-145) mEq/L Potassium (3.5-5.1) mEq/L Chloride (98-107) mEq/L Carbon Dioxide (21-32) mEq/L Anion Gap (5-15) BUN (7-18) mg/dL Creatinine (0.55-1.02) mg/dL Est Cr Clr Drug Dosing mL/min Estimated GFR (MDRD) (>60) mL/min BUN/Creatinine Ratio (14-18) Glucose (74-106) mg/dL Calcium (8.5-10.1) mg/dL Total Bilirubin (0.2-1.0) mg/dL AST (15-37) U/L ALT (14-59) U/L Alkaline Phosphatase (46-116) U/L Total Protein (6.4-8.2) g/dl Albumin (3.4-5.0) g/dl Globulin gm/dL Albumin/Globulin Ratio (1-2) TSH 3rd Generation (0.358-3.74) uIU/mL Urine HCG, Qual Negative (NEGATIVE) Salicylates (2.8-20) mg/dL Urine Opiates Screen Negative (NEGATIVE) Ur Buprenorphine Scrn Negative (NEGATIVE) Ur Oxycodone Screen Negative (NEGATIVE) Urine Methadone Screen Negative (NEGATIVE) Ur Propoxyphene Screen Negative (NEGATIVE) Acetaminophen (10-30) ug/mL Ur Barbiturates Screen Negative (NEGATIVE) Ur Tricyclics Screen Negative (NEGATIVE) Ur Phencyclidine Scrn Negative (NEGATIVE) Ur Amphetamine Screen Negative (NEGATIVE) U Methamphetamines Scrn Negative (NEGATIVE) U Benzodiazepines Scrn Negative (NEGATIVE) U Cocaine Metab Screen Negative (NEGATIVE) U Marijuana (THC) Screen Negative (NEGATIVE) Ethyl Alcohol (0.00) gm% 09/27/17 09/27/17 Range/Units 22:55 22:55 WBC (3.98-10.04) K/mm3 RBC (3.98-5.22) M/mm3 Hgb (11.2-15.7) gm/L Hct (34.1-44.9) % MCV (79.4-94.8) fl MCH (25.6-32.2) pg MCHC (32.2-35.5) g/dl RDW Std Deviation (36.4-46.3) fL Plt Count (182-369) K/mm3 MPV (9.4-12.3) fl Neutrophils % (Manual) (40-60) % Band Neutrophils % (0-10) % Lymphocytes % (Manual) (20-40) % Atypical Lymphs % % Monocytes % (Manual) (2-10) % Eosinophils % (Manual) (0.7-5.8) % Basophils % (Manual) (0.1-1.2) Platelet Estimate Plt Morphology Comment Anisocytosis Microcytosis Macrocytosis RBC Morph Comment Sodium 148 H (136-145) mEq/L Potassium 3.9 (3.5-5.1) mEq/L Chloride 111 H (98-107) mEq/L Carbon Dioxide 26 (21-32) mEq/L Anion Gap 14.9 (5-15) BUN 10 (7-18) mg/dL Creatinine 0.8 (0.55-1.02) mg/dL Est Cr Clr Drug Dosing 76.68 mL/min Estimated GFR (MDRD) > 60 (>60) mL/min BUN/Creatinine Ratio 12.5 L (14-18) Glucose 91 (74-106) mg/dL Calcium 8.2 L (8.5-10.1) mg/dL Total Bilirubin 0.2 (0.2-1.0) mg/dL AST 26 (15-37) U/L ALT 22 (14-59) U/L Alkaline Phosphatase 88 (46-116) U/L Total Protein 6.7 (6.4-8.2) g/dl Albumin 3.5 (3.4-5.0) g/dl Globulin 3.2 gm/dL Albumin/Globulin Ratio 1.1 (1-2) TSH 3rd Generation 0.972 (0.358-3.74) uIU/mL Urine HCG, Qual (NEGATIVE) Salicylates 2.1 L (2.8-20) mg/dL Urine Opiates Screen (NEGATIVE) Ur Buprenorphine Scrn (NEGATIVE) Ur Oxycodone Screen (NEGATIVE) Urine Methadone Screen (NEGATIVE) Ur Propoxyphene Screen (NEGATIVE) Acetaminophen 0 L (10-30) ug/mL Ur Barbiturates Screen (NEGATIVE) Ur Tricyclics Screen (NEGATIVE) Ur Phencyclidine Scrn (NEGATIVE) Ur Amphetamine Screen (NEGATIVE) U Methamphetamines Scrn (NEGATIVE) U Benzodiazepines Scrn (NEGATIVE) U Cocaine Metab Screen (NEGATIVE) U Marijuana (THC) Screen (NEGATIVE) Ethyl Alcohol 0.15 (0.00) gm% Medications Discontinued Medications Generic Name Dose Route Start Last Admin Trade Name Freq PRN Reason Stop Dose Admin Ibuprofen 600 mg 09/28/17 01:43 09/28/17 01:48 Motrin PO 09/28/17 01:44 600 mg ONETIME ONE Administration Medical Clearance: 09/28/17 02:43 Case discussed with [facility] at 02:35. Case then discussed with Dr. Escobedo, Psychiatrist at [facility], at 02: 40. He accepts the patient. Follow the patient agrees that she needs to be psychiatrically hospitalized, she walks when I asked her that earlier, and I am not confident that she may not change her mind prior to arrival, therefore I am going to place her under an emergency hold. Ordinarily, we would have the [facility]'s department transport the patient, however, we are told that the [facility] from [place] will transport psychiatric patients. 09/28/17 02:57 Notified that [facility] cannot transport the patient until 08:00 in the morning, but that the [facility] Department cannot until then, either. We will likely proceed with [facility]. 09/28/17 07:09 Notified that [facility] will come to get the patient once they find enough staff. 09/28/17 18:[address] Nelson that [facility] was unable to find staff to transport the patient, and that the patient was ultimately transported by her . Departure - Departure Time of Disposition: 02:45 Disposition: DC/Tfer to Psych Hosp/Unit 65 Condition: Fair Clinical Impression: Depression, Suicidal ideation, Alcohol intoxication - Discharge Information
[2017-09-27 23:34] LABS: ACETAMINOPHEN 0 ug/mL (10-30)
[2017-09-28] MEDS ORDERED: Ibuprofen 600 MG Tab PO ONE (01:43)
[2017-09-28 09:25] VITALS: BP 131/83
== END 2017-09-28 09:15 ==
LOC: JD.ED 21:10
DX: F32.9 Major depressive disorder, single episode, unspecified (principal); R45.851 Suicidal ideations; F10.129 Alcohol abuse with intoxication, unspecified; Z91.040 Latex allergy status; Z88.8 Allergy status to other drugs, medicaments and biological substances; Z79.899 Other long term (current) drug therapy; Z91.018 Allergy to other foods; Z87.891 Personal history of nicotine dependence
CPT/HCPCS: 36415; 80053; 80306; 81025; 84443; 85007; 85027; 93005; 99285; A9270; G0480; 93010

== ENCOUNTER 2018-04-22 18:32 | Emergency (ER) | payer BC ==
[2018-04-22 18:39] VITALS: BP 136/90
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
--- NOTE | 2018-04-22 19:28 | CT ---
Head CT Technique: Multiple axial sections through the brain were obtained. Comparison: Prior head CT study of 05/23/17. Findings: Ventricles along with basal cisterns and sulci over the convexities are within normal limits for the patient's age. No abnormal parenchymal densities are seen. Partially visualized Arnold-Chiari 1 malformation is noted with previous suboccipital craniotomy which is stable. No evidence of intracranial hemorrhage. No midline shift or mass effect is seen. Bone window settings were reviewed which shows minimal mucosal thickening within the right ethmoid sinus which is incidental. Other visualized sinuses are clear. No acute calvarial abnormality is seen. Impression: 1. Incidental findings as noted above. Nothing acute is appreciated on noncontrast head CT study. No significant change is identified from prior head CT exam. Diagnostic code #2
--- NOTE | 2018-04-22 19:33 | CT ---
CT cervical spine Technique: Multiple axial sections were obtained from above C1 inferiorly to the mid to inferior T2 vertebral level. Reconstructed coronal and sagittal images were reviewed. Comparison: Prior CT cervical spine study of 05/23/17. Findings: Slight degenerative change is noted which was described on previous CT cervical spine report which is fairly stable. Previous suboccipital craniotomy is again noted. Previous resection or possibly incomplete arch of C1 is seen. No fracture is seen. No bony central or bony neural foraminal stenosis is seen. No abnormal subluxation is seen. Impression: 1. Mild degenerative change which is stable from prior CT cervical spine study. 2. Nothing acute is appreciated on CT study of the cervical spine. Diagnostic code #2
[2018-04-22] MEDS ORDERED: Ketorolac 10 MG Tab PO ONE (19:58)
--- NOTE | 2018-04-23 06:58 | CR ---
Lumbar spine: AP, lateral and coned-down lateral views centered to the lumbosacral junction were obtained. Comparison: Previous lumbar spine study of 12/24/11. Vertebral body heights and disc spaces are maintained. Very minimal scattered endplate osteophytes are seen. Previous surgery is noted within the abdomen with multiple surgical clips. Pedicles as well as visualized transverse and spinous processes are intact. Sacroiliac joints are within normal limits. Impression: 1. Minimal scattered endplate osteophytes. Prior abdominal surgery. 2. Three-view lumbar spine study is otherwise unremarkable. Nothing acute is appreciated. Diagnostic code #2
== END 2018-04-22 20:23 | disposition home or self-care (01) ==
LOC: JD.ED 18:32
DX: S13.4XXA Sprain of ligaments of cervical spine, initial encounter (principal); F41.9 Anxiety disorder, unspecified; F32.9 Major depressive disorder, single episode, unspecified; Z79.899 Other long term (current) drug therapy; Z91.040 Latex allergy status; Z91.018 Allergy to other foods; Z88.8 Allergy status to other drugs, medicaments and biological substances; V89.2XXA Person injured in unspecified motor-vehicle accident, traffic, initial encounter
CPT/HCPCS: 70450; 72100; 72126; 99285; A9270; 99283

== ENCOUNTER 2018-06-09 13:57 | Emergency (ER) | payer BC ==
[2018-06-09 14:11] VITALS: BP 150/99
[2018-06-09] MEDS ORDERED: Sodium Chloride 0.9% 1,000 ML IV STA (15:00)
[2018-06-09] MEDS ORDERED: Sodium Chloride 0.9% 10 ML Syringe FLUSH PRN (15:00)
[2018-06-09] MEDS ORDERED: Ondansetron 4 MG/2 ML SDV IVPUSH ONE (15:00)
[2018-06-09] MEDS ORDERED: HYDROmorphone 1 MG/ML Syringe IVPUSH ONE ×2 (15:03→15:59)
[2018-06-09] MEDS ORDERED: Diatrizoate Meglumine/Diatrizoate Sodium 37% 120 ML Bottle PO ONE (15:42)
[2018-06-09] MEDS ORDERED: Sodium Chloride 0.9% 10 ML Syringe FLUSH ONE (15:42)
[2018-06-09] MEDS ORDERED: Iopamidol 612 MG/ML 100 ML Bottle IVPUSH ONE (15:42)
--- NOTE | 2018-06-09 16:44 | CT ---
CT abdomen and pelvis Technique: Multiple axial sections were obtained from slightly below the dome of the diaphragm inferiorly through the pubic symphysis. Intravenous and oral contrast was utilized. Delayed images were obtained to the bladder. Comparison: Previous CT abdomen and pelvis exam of 04/05/18. Findings: Small portion of the visualized lung bases are clear. Liver shows mild intrahepatic biliary duct dilatation which is likely residual from prior cholecystectomy. Surgical clips are seen from prior cholecystectomy. No focal abnormality is seen within the liver. Spleen appears within normal limits. Adrenal glands show no nodule. Pancreas is within normal limits. Aorta shows no aneurysm. No retroperitoneal adenopathy is seen. Previous gastric surgery is noted. Additional surgical clips are seen within the right lower abdomen. No mesenteric abnormalities are seen. Slight increased stool is seen within the left colon and sigmoid regions. Calcification is seen projecting between the uterus and bladder most likely due to small calcified subserosal fibroid. No free fluid or inflammatory change is seen within the abdomen or pelvis. Appendix not definitely visualized. Bone window settings were reviewed which shows no acute osseous abnormality. Delayed images shows contrast within the distal ureters and within the bladder. Impression: 1. Mild increased stool within the colon. 2. Previous abdominal surgery. 3. Slight intrahepatic biliary duct dilatation which is felt to be residual from prior cholecystectomy. 4. Nothing acute is appreciated. Diagnostic code #2
--- NOTE | 2018-06-09 17:32 | EDM.PDOC ---
ED HPI GENERAL MEDICAL PROBLEM - General Chief Complaint: Abdominal Pain Stated Complaint: VOMITING BLOOD Time Seen by Provider: 06/09/18 14:38 Source of Information: Reports: Patient History Limitations: Reports: No Limitations - History of Present Illness INITIAL COMMENTS - FREE TEXT/NARRATIVE: The patient presents with nausea, vomiting and abdominal pain. This has been going on for about a week. The pain is in the RUQ. She has a history of cholecystectomy, appendectomy and gastric bypass. She has no fever or chills. She says she did vomit some blood earlier. Onset: Gradual Duration: Week(s): (1) Location: Reports: Abdomen Quality: Reports: Sharp Severity: Moderate Improves with: Reports: None Worsens with: Reports: None Associated Symptoms: Reports: Nausea/Vomiting. Denies: Chest Pain, Cough, Fever /Chills, Headaches, Shortness of Breath Right Upper Abdomen Pain Score (Numeric/FACES): 6 - Related Data Allergies Allergy/AdvReac Type Severity Reaction Status Date / Time strawberry [[place]] Allergy Severe Shortness Verified 04/22/18 18:39 of Breath clarithromycin [From Biaxin] Allergy Unknown Hives Verified 04/22/18 18:39 latex Allergy Unknown Airway Verified 04/22/18 18:39 Tightness mark flavor Allergy Unknown Airway Verified 04/22/18 18:39 Tightness gabapentin [From Neurontin] Allergy Anaphylactic Verified 04/22/18 18:39 Shock metoclopramide HCl AdvReac "Panic Verified 04/22/18 18:39 [From Reglan] Attack" Home Meds: Home Meds Pregabalin [Lyrica] 225 mg PO BID 10/27/15 [History] EPINEPHrine [Auvi-Q] 0.3 mg IJ ONETIME PRN #2 auto.injct 11/20/16 [Rx] Polyethylene Glycol 3350 [Miralax] 1 dose PO DAILY 01/15/17 [History] Orphenadrine [Norflex] 100 mg PO Q12H PRN 09/27/17 [History] Vortioxetine Hydrobromide [Trintellix] 10 mg PO DAILY 09/27/17 [History] Divalproex Sodium [Depakote] 500 mg PO BID 04/05/18 [History] Hydrocodone/Acetaminophen [Hydrocodon-Acetaminophen 5-325] 1 - 2 each PO Q6HR PRN #10 tablet 06/09/18 [Rx] Ondansetron [Zofran ODT] 4 mg PO Q6H PRN #20 tab.dis 06/09/18 [Rx] Past Medical History HEENT History: Reports: Impaired Vision Other HEENT History: sinus problems Cardiovascular History: Reports: Syncope Respiratory History: Reports: Asthma Gastrointestinal History: Reports: PUD Other Gastrointestinal History: ABDOMINAL PAIN/SCAR TISSUES Other Genitourinary History: kidney failure, resolved 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: x2, 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 Musculoskeletal History: Reports: Back Pain, Chronic, Fracture Other Musculoskeletal History: right hip fx Neurological History: Reports: Seizure, Other (See Below) Other Neuro History: epilepsy Psychiatric History: Reports: Anxiety, Depression, Suicidal Ideation Endocrine/Metabolic History: Reports: Obesity/BMI 30+ Other Endocrine/Metabolic History: Blood sugar low Dermatologic History: Reports: Other (See Below) Other Dermatologic History: ALLERGIES - Infectious Disease History Infectious Disease History: Reports: None - Past Surgical History Head Surgeries/Procedures: Reports: Craniotomy HEENT Surgical History: Reports: Naso-Sinus Surgery GI Surgical History: Reports: Appendectomy, Bariatric Procedure, Lysis of Adhesions Female Surgical History: Reports: D&C Musculoskeletal Surgical History: Reports: Shoulder Surgery Social & Family History - Family History Family Medical History: Noncontributory - Tobacco Use Smoking Status *Q: Never Smoker - Caffeine Use Caffeine Use: Reports: Coffee - Recreational Drug Use Recreational Drug Use: No - Living Situation & Occupation Living situation: Reports: , with Spouse, with Family (1 adult child) Occupation: Employed ([employer]) ED ROS GENERAL - Review of Systems Review Of Systems: See Below Constitutional: Reports: No Symptoms HEENT: Reports: No Symptoms Respiratory: Reports: No Symptoms Cardiovascular: Reports: No Symptoms Endocrine: Reports: No Symptoms GI/Abdominal: Reports: Abdominal Pain, Hematochezia, Nausea : Reports: No Symptoms Musculoskeletal: Reports: No Symptoms ED EXAM, GI/ABD - Physical Exam Exam: See Below Exam Limited By: No Limitations General Appearance: Alert, No Apparent Distress Ears: Normal External Exam Nose: Normal Inspection Head: Atraumatic, Normocephalic Neck: Normal Inspection Respiratory/Chest: No Respiratory Distress, Lungs Clear, Normal Breath Sounds Cardiovascular: Regular Rate, Rhythm, No Edema, No Murmur GI/Abdominal Exam: Soft, No Organomegaly, No Mass, Tender (Moderate tenderness to the RUQ) Course - Vital Signs Last Recorded V/S: Last Vital Signs Temp 96.5 F 06/09/18 14:07 Pulse 102 H 06/09/18 14:07 Resp 20 06/09/18 14:07 BP 150/99 H 06/09/18 14:07 Pulse Ox 99 06/09/18 14:07 - Orders/Labs/Meds Orders: Active Orders 24 hr Category Date Time Status Peripheral IV Care [RC] . DIRECTED Care 06/09/18 15:00 Active HCG QUALITATIVE,SERUM [CHEM] Stat Lab 06/09/18 16:34 Received UA W/MICROSCOPIC [URIN] Stat Lab 06/09/18 17:30 Results Sodium Chloride 0.9% [Saline Flush] Med 06/09/18 15:00 Active 10 ml FLUSH ASDIRECTED PRN ED Antiemetic Medication Reflex [OM.PC] Stat Oth 06/09/18 15:00 Ordered Peripheral IV Insertion Adult [OM.PC] Stat Oth 06/09/18 15:00 Ordered Medication Orders Sodium Chloride (Saline Flush) 10 ml FLUSH ASDIRECTED PRN PRN Reason: Keep Vein Open Last Admin: 06/09/18 15:28 Dose: 10 ml Labs: Laboratory Tests 06/09/18 06/09/18 06/09/18 Range/Units 16:34 16:34 17:30 WBC 9.46 (3.98-10.04) K/mm3 RBC 4.57 (3.98-5.22) M/mm3 Hgb 13.7 (11.2-15.7) gm/L Hct 40.3 (34.1-44.9) % MCV 88.2 (79.4-94.8) fl MCH 30.0 (25.6-32.2) pg MCHC 34.0 (32.2-35.5) g/dl RDW Std Deviation 48.9 H (36.4-46.3) fL Plt Count 143 L (182-369) K/mm3 MPV 9.1 L (9.4-12.3) fl Neut % (Auto) 85.5 H (34.0-71.1) % Lymph % (Auto) 8.1 L (19.3-51.7) % Barton % (Auto) 5.9 (4.7-12.5) % Eos % (Auto) 0 L (0.7-5.8) Baso % (Auto) 0.1 (0.1-1.2) % Neut # (Auto) 8.08 H (1.56-6.13) K/mm3 Lymph # (Auto) 0.77 L (1.18-3.74) K/mm3 Barton # (Auto) 0.56 H (0.24-0.36) K/mm3 Eos # (Auto) 0.00 L (0.04-0.36) K/mm3 Baso # (Auto) 0.01 (0.01-0.08) K/mm3 Manual Slide Review Abnormal smear Sodium 139 (136-145) mEq/L Potassium 3.7 (3.5-5.1) mEq/L Chloride 100 (98-107) mEq/L Carbon Dioxide 25 (21-32) mEq/L Anion Gap 17.7 H (5-15) BUN 23 H (7-18) mg/dL Creatinine 1.3 H (0.55-1.02) mg/dL Est Cr Clr Drug Dosing 46.69 mL/min Estimated GFR (MDRD) 44 (>60) mL/min BUN/Creatinine Ratio 17.7 (14-18) Glucose 93 (74-106) mg/dL Calcium 8.5 (8.5-10.1) mg/dL Total Bilirubin 0.4 (0.2-1.0) mg/dL AST 15 (15-37) U/L ALT 11 L (14-59) U/L Alkaline Phosphatase 72 (46-116) U/L Total Protein 6.7 (6.4-8.2) g/dl Albumin 3.3 L (3.4-5.0) g/dl Globulin 3.4 gm/dL Albumin/Globulin Ratio 1.0 (1-2) Lipase 164 (73-393) U/L Urine Color Dark yellow (Yellow) Urine Appearance Clear (Clear) Urine pH 6.0 (5.0-8.0) Ur Specific Omer 1.015 (1.005-1.030) Urine Protein Trace H (Negative) Urine Glucose (UA) Negative (Negative) Urine Ketones 2+ H (Negative) Urine Occult Blood Negative (Negative) Urine Nitrite Negative (Negative) Urine Bilirubin 2+ H (Negative) Urine Urobilinogen 2.0 H (0.2-1.0) Ur Leukocyte Esterase Negative (Negative) Meds: Medications Generic Name Dose Route Start Last Admin Trade Name Román PRN Reason Stop Dose Admin Sodium Chloride 10 ml 06/09/18 15:00 06/09/18 15:28 Saline Flush FLUSH 10 ml ASDIRECTED PRN Administration Keep Vein Open Discontinued Medications Generic Name Dose Route Start Last Admin Trade Name Román PRN Reason Stop Dose Admin Diatrizoate Meglum/Diatrizoate Sod 90 ml 06/09/18 15:42 06/09/18 16:07 Gastrografin 37% PO 06/09/18 15:43 90 ml ONETIME ONE Administration Hydromorphone HCl 0.5 mg 06/09/18 15:03 06/09/18 15:27 Dilaudid IVPUSH 06/09/18 15:04 0.5 mg ONETIME ONE Administration Hydromorphone HCl 1 mg 06/09/18 15:59 06/09/18 16:14 Dilaudid IVPUSH 06/09/18 16:00 1 mg ONETIME ONE Administration Sodium Chloride 1,000 mls @ 1,000 mls/hr 06/09/18 15:00 06/09/18 15:25 Normal Saline IV 06/09/18 15:59 1,000 mls/hr .BOLUS STA Administration Iopamidol 100 ml 06/09/18 15:42 06/09/18 16:08 Isovue-300 (61%) IVPUSH 06/09/18 15:43 100 ml ONETIME ONE Administration Ondansetron HCl 4 mg 06/09/18 15:00 06/09/18 15:26 Zofran IVPUSH 06/09/18 15:01 4 mg ONETIME ONE Administration Sodium Chloride 10 ml 06/09/18 15:42 06/09/18 16:08 Saline Flush FLUSH 06/09/18 15:43 10 ml ONETIME ONE Administration - Re-Assessments/Exams Free Text/Narrative Re-Assessment/Exam: 06/09/18 17:30 I ordered an IV NS 1L bolus, zofran 4mg IV, dilaudid 0.5mg IV, labs, UA and CT of her abdomen and pelvis. Her CBC looks good. Her anion gap was elevated at 17.7. Her creatinine was elevated at 1.3. Her lipase was normal. Her CT shows mild increased stool within the colon. Previous abdominal surgery. Slight intrahepatic biliary duct dilatation which is felt to be residual from prior cholecystectomy. Nothing acute is appreciated. She had more pain so I ordered dilaudid 1mg IV. 06/09/18 18:01 Her UA shows no UTI. I will discharge her home with some zofran and a little something for pain. Departure - Departure Time of Disposition: 18:05 Disposition: Home, Self-Care 01 Condition: Good Clinical Impression: Gastroenteritis Abdominal pain Qualifiers: Abdominal location: right upper quadrant Qualified Code(s): R10.11 - Right upper quadrant pain - Discharge Information *PRESCRIPTION DRUG MONITORING PROGRAM REVIEWED*: No *COPY OF PRESCRIPTION DRUG MONITORING REPORT IN PATIENT IGGY: No Prescriptions: Hydrocodone/Acetaminophen [Hydrocodon-Acetaminophen 5-325] 1 - 2 each PO Q6HR PRN #10 tablet PRN Reason: Pain Ondansetron [Zofran ODT] 4 mg PO Q6H PRN #20 tab.dis PRN Reason: Nausea\\vomiting Referrals: PCP,None [Primary Care Provider] - Forms: ED Department Discharge Additional Instructions: Take the zofran ever 6 hours as needed for nausea and vomiting. Take the hydrocodone as needed for pain. Drink plenty of fluids. Take a stool softener for a few days because the hydrocodone can make you constipated. Please return if you are worse. - My Orders Last 24 Hours: My Active Orders 06/09/18 15:00 Peripheral IV Care [RC] . DIRECTED Sodium Chloride 0.9% [Saline Flush] 10 ml FLUSH ASDIRECTED PRN ED Antiemetic Medication Reflex [OM.PC] Stat Peripheral IV Insertion Adult [OM.PC] Stat 06/09/18 16:34 HCG QUALITATIVE,SERUM [CHEM] Stat 06/09/18 17:30 UA W/MICROSCOPIC [URIN] Stat - Assessment/Plan Last 24 Hours: My Active Orders 06/09/18 15:00 Peripheral IV Care [RC] . DIRECTED Sodium Chloride 0.9% [Saline Flush] 10 ml FLUSH ASDIRECTED PRN ED Antiemetic Medication Reflex [OM.PC] Stat Peripheral IV Insertion Adult [OM.PC] Stat 06/09/18 16:34 HCG QUALITATIVE,SERUM [CHEM] Stat 06/09/18 17:30 UA W/MICROSCOPIC [URIN] Stat
== END 2018-06-09 18:15 | disposition home or self-care (01) ==
LOC: JD.ED 13:57
DX: K52.9 Noninfective gastroenteritis and colitis, unspecified (principal); F41.9 Anxiety disorder, unspecified; F32.9 Major depressive disorder, single episode, unspecified; J45.909 Unspecified asthma, uncomplicated; Z91.018 Allergy to other foods; Z91.040 Latex allergy status; Z79.899 Other long term (current) drug therapy
CPT/HCPCS: 36415; 74177; 80053; 81001; 83690; 84703; 85025; 96361; 96374; 96375; 96376; 99284; J1170; J2405; J7040; Q9963; Q9967

== ENCOUNTER 2018-06-15 13:18 | Emergency (ER) | payer BC ==
[2018-06-15 13:40] VITALS: BP 125/88
[2018-06-15] MEDS ORDERED: Dextrose 5%-Lactated Ringers 1,000 ML IV SCH (13:45)
--- NOTE | 2018-06-15 13:45 | EDM.PDOC ---
ED HPI GENERAL MEDICAL PROBLEM - General Chief Complaint: Gastrointestinal Problem Stated Complaint: DEHYDRATION AND POSSIBLE BLOOD CLOT SENT BY CLINIC Time Seen by Provider: 06/15/18 13:40 Source of Information: Reports: Patient History Limitations: Reports: No Limitations - History of Present Illness INITIAL COMMENTS - FREE TEXT/NARRATIVE: 47-year-old female sent to the ED from [facility]. Patient was seen and evaluated therefore couple problems. First problem is left upper leg and thigh pain. D-dimer was done as part of her workup it came back elevated at 0.77. He was thus sent to the ED for further evaluation to rule out deep venous thrombosis. is no history of DVT in the past. Second problem is intermittent nausea and vomiting for the better part of 2 weeks. Patient feels lightheaded and dehydrated. His is been bilious without blood. Pain in her thigh on the left side is posterior lateral. Onset: Gradual Onset Date: 06/12/18 (In the left thigh for the last 3-4 days) Duration: Day(s):, Constant, Getting Worse Location: Reports: Abdomen, Lower Extremity, Left Quality: Reports: Other Severity: Moderate (Recurrent intermittent nausea and vomiting with bilious emesis for 2 weeks. Second problem is pain throughout the posterior lateral left thigh.) Worsens with: Reports: Other (Pain in the left leg is worse with weightbearing.) Context: Denies: Activity ( Does radiate down the posterior lateral aspect of her leg), Exercise, Lifting, Sick Contact, Trauma, Other Associated Symptoms: Reports: Headaches (Rarely anymore.), Loss of Appetite, Malaise, Nausea/Vomiting (Intermittent nausea for the better part of 2 weeks.). 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.) Left Upper Leg Pain Score (Numeric/FACES): 10 - Related Data Allergies Allergy/AdvReac Type Severity Reaction Status Date / Time strawberry [Linn] Allergy Severe Shortness Verified 04/22/18 18:39 of Breath clarithromycin [From Biaxin] Allergy Unknown Hives Verified 04/22/18 18:39 latex Allergy Unknown Airway Verified 04/22/18 18:39 Tightness mark flavor Allergy Unknown Airway Verified 04/22/18 18:39 Tightness gabapentin [From Neurontin] Allergy Anaphylactic Verified 04/22/18 18:39 Shock metoclopramide HCl AdvReac "Panic Verified 04/22/18 18:39 [From Reglan] Attack" Home Meds: Home Meds Pregabalin [Lyrica] 225 mg PO BID 10/27/15 [History] EPINEPHrine [Auvi-Q] 0.3 mg IJ ONETIME PRN #2 auto.injct 11/20/16 [Rx] Polyethylene Glycol 3350 [Miralax] 1 dose PO DAILY 01/15/17 [History] Orphenadrine [Norflex] 100 mg PO Q12H PRN 09/27/17 [History] Vortioxetine Hydrobromide [Trintellix] 10 mg PO DAILY 09/27/17 [History] Divalproex Sodium [Depakote] 500 mg PO BID 04/05/18 [History] Ondansetron [Zofran ODT] 4 mg PO Q6H PRN #20 tab.dis 06/09/18 [Rx] Ondansetron [Zofran] 4 mg BUCCAL Q6H PRN #12 tab 06/15/18 [Rx] oxyCODONE HCl/Acetaminophen [Percocet 5-325 mg Tablet] 1 - 2 each PO Q4H PRN # 15 tablet 06/15/18 [Rx] predniSONE [Deltasone] 20 mg PO ASDIRECTED #21 tablet 06/15/18 [Rx] Past Medical History HEENT History: Reports: Impaired Vision Other HEENT History: sinus problems Cardiovascular History: Reports: Syncope Respiratory History: Reports: Asthma Gastrointestinal History: Reports: PUD Other Gastrointestinal History: ABDOMINAL PAIN/SCAR TISSUES Other Genitourinary History: kidney failure, resolved SEA KAYAKING GUIDE History: Reports: Other SEA KAYAKING GUIDE History: x2, 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 Musculoskeletal History: Reports: Back Pain, Chronic, Fracture Other Musculoskeletal History: right hip fx Neurological History: Reports: Seizure, Other (See Below) Other Neuro History: epilepsy Psychiatric History: Reports: Anxiety, Depression, Suicidal Ideation Endocrine/Metabolic History: Reports: Obesity/BMI 30+ Other Endocrine/Metabolic History: Blood sugar low Dermatologic History: Reports: Other (See Below) Other Dermatologic History: ALLERGIES - Infectious Disease History Infectious Disease History: Reports: None - Past Surgical History Head Surgeries/Procedures: Reports: Craniotomy HEENT Surgical History: Reports: Naso-Sinus Surgery GI Surgical History: Reports: Appendectomy, Bariatric Procedure (Ewrin-en-Y procedure), Lysis of Adhesions Female Surgical History: Reports: D&C Musculoskeletal Surgical History: Reports: Shoulder Surgery Social & Family History - Family History Family Medical History: Noncontributory - Caffeine Use Caffeine Use: Reports: Coffee - Living Situation & Occupation Living situation: Reports: , with Spouse, with Family (1 adult child) Occupation: Employed ([employer]) ED ROS GENERAL - Review of Systems Review Of Systems: See Below Constitutional: Reports: Malaise, Weakness, Fatigue, Decreased Appetite, Weight Loss, Other (Intermittent nausea and vomiting). Denies: Fever, Chills HEENT: Reports: Glasses Respiratory: Reports: No Symptoms Cardiovascular: Reports: No Symptoms Endocrine: Reports: Fatigue GI/Abdominal: Reports: Abdominal Pain, Nausea, Vomiting (Intermittent nausea and vomiting of bilious material off and on for the last 2 weeks.). 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 No: Lymphadenopathy (L), Lymphadenopathy (R) Respiratory/Chest: Lungs Clear, Normal Breath Sounds, Chest Non-Tender, Respiratory Distress (Mild tachypnea at rest 20/m.) Cardiovascular: Normal Peripheral Pulses, Regular Rate, Rhythm, No Edema, No Gallop, No Murmur, No Rub GI/Abdominal Exam: Normal Bowel Sounds, Soft, Tender. No: Guarding, Rigid, Rebound Back Exam: Normal Inspection, Full Range of Motion. No: CVA Tenderness (L), CVA Tenderness (R) Extremities: Normal Inspection, Normal Range of Motion, Non-Tender, Pedal Edema (Trace pedal edema lower extremities 1+.), Other (Emanation of her left hip reveals that there is pain over the greater trochanteric bursa compared to the right side. There is also marked pain throughout the superior two thirds of the SI joint on the left side as compared to the right side. There was no inguinal adenopathy no obviously dilated varicosities throughout the entire leg.) Neurological: Alert ( Do not suspect DVT.), Oriented, CN II-XII Intact, Normal Cognition Psychiatric: Flat Affect Skin Exam: Warm, Dry, Intact, Other (Patient is covered with small ecchymoses circular throughout both posterior and anterior lower extremities bilaterally. Also similarly on her forearms. She appears to be falling fairly often although she does not admit to any reason for the ecchymotic areas. His is no doubt that the reason for a slightly elevated d-dimer.) Course - Vital Signs Last Recorded V/S: Last Vital Signs Temp 36.8 C 06/15/18 13:39 Pulse 77 06/15/18 13:39 Resp 20 06/15/18 13:39 BP 125/88 06/15/18 13:39 Pulse Ox 100 06/15/18 13:39 - Orders/Labs/Meds Labs: Laboratory Tests 06/15/18 06/15/18 06/15/18 Range/Units 15:30 15:30 15:30 WBC 3.98 (3.98-10.04) K/mm3 RBC 3.80 L (3.98-5.22) M/mm3 Hgb 11.4 (11.2-15.7) gm/L Hct 34.7 (34.1-44.9) % MCV 91.3 (79.4-94.8) fl MCH 30.0 (25.6-32.2) pg MCHC 32.9 (32.2-35.5) g/dl RDW Std Deviation 49.6 H (36.4-46.3) fL Plt Count 136 L (182-369) K/mm3 MPV 9.2 L (9.4-12.3) fl Neutrophils % (Manual) 75 H (40-60) % Band Neutrophils % 0 (0-10) % Lymphocytes % (Manual) 23 (20-40) % Atypical Lymphs % 0 % Monocytes % (Manual) 0 L (2-10) % Eosinophils % (Manual) 2 (0.7-5.8) % Basophils % (Manual) 0 L (0.1-1.2) Platelet Estimate Adequate Plt Morphology Comment Normal Hypochromasia 1+ slight Anisocytosis 2+ moderate RBC Morph Comment Not Reportable PT 10.9 (9.5-12.1) SECONDS INR 1.00 APTT 26 (24-31) SECONDS Sodium 140 (136-145) mEq/L Potassium 3.2 L (3.5-5.1) mEq/L Chloride 103 (98-107) mEq/L Carbon Dioxide 30 (21-32) mEq/L Anion Gap 10.2 (5-15) BUN 10 (7-18) mg/dL Creatinine 1.0 (0.55-1.02) mg/dL Est Cr Clr Drug Dosing 60.70 mL/min Estimated GFR (MDRD) 60 (>60) mL/min BUN/Creatinine Ratio 10.0 L (14-18) Glucose 180 H (74-106) mg/dL Calcium 8.4 L (8.5-10.1) mg/dL Total Bilirubin 0.3 (0.2-1.0) mg/dL AST 9 L (15-37) U/L ALT 11 L (14-59) U/L Alkaline Phosphatase 55 (46-116) U/L CK-MB (CK-2) < 0.5 (0-3.6) ng/ml Troponin I < 0.017 (0.00-0.056) ng/mL C-Reactive Protein 0.7 (<1.0) mg/dL Total Protein 5.5 L (6.4-8.2) g/dl Albumin 2.6 L (3.4-5.0) g/dl Globulin 2.9 gm/dL Albumin/Globulin Ratio 0.9 L (1-2) Lipase 64 L (73-393) U/L Meds: Medications Discontinued Medications Generic Name Dose Route Start Last Admin Trade Name Freq PRN Reason Stop Dose Admin Hydromorphone HCl 1 mg 06/15/18 15:09 06/15/18 15:17 Dilaudid IVPUSH 06/15/18 15:10 1 mg ONETIME ONE Administration Hydromorphone HCl 1 mg 06/15/18 17:02 06/15/18 17:13 Dilaudid IVPUSH 06/15/18 17:03 1 mg ONETIME ONE Administration Dextrose/Lactated Ringer's 1,000 mls @ 999 mls/hr 06/15/18 13:45 06/15/18 14: 49 Dextrose 5%-Lactated Ringers IV 999 mls/hr ASDIRECTED ANA Administration Magnesium Citrate 296 ml 06/15/18 17:03 06/15/18 17:13 Citrate Of Magnesia PO 06/15/18 17:04 296 ml ONETIME ONE Administration Ondansetron HCl 4 mg 06/15/18 14:07 06/15/18 14:49 Zofran IVPUSH 06/15/18 14:08 4 mg ONETIME ONE Administration Ondansetron HCl 4 mg 06/15/18 17:03 06/15/18 17:13 Zofran IVPUSH 06/15/18 17:04 4 mg ONETIME ONE Administration - Radiology Interpretation Free Text/Narrative:: 47-year-old female who is well-known to the ED was sent over by her primary care provider from [facility]. ent over from the clinic is for possible DVT as she is complaining of left upper thigh pain and she had a elevated d-dimer at 0.77. Normal is 0.59 in our lab. I find that she is covered with small ecchymoses both lower extremities and somewhat on her forearms as well. This is no doubt the etiology of her elevated d-dimer. On close examination of her left hip area where she is complaining of pain she has a greater trochanteric bursitis as compared to the right side and marked pain throughout the upper two thirds of the sacroiliac joint. Also relates that she' s had intermittent nausea and vomiting for the better part of 2 weeks. She's had previous bariatric surgery--Erwin-en-Y procedure . She does clinically appear to be mildly dehydrated. Plan IV will be D5 Ringer's lactate at open. Zofran 4 mg IV for nausea relief. One view of the abdomen will be obtained with routine lab work to include a serum lipase. Will be to have a Doppler ultrasound carried out on her left upper lower extremity although I think it is highly unlikely that she will have any DVT. - Re-Assessments/Exams Free Text/Narrative Re-Assessment/Exam: 06/15/18 15:00 Doppler ultrasound of the left lower extremity shows no evidence of DVT. Dr. You nothing in the right common femoral vein. 06/15/18 15:09 patient notified of the negative ultrasound on her left leg for DVT. She is having quite a bit of pain in her left buttock and leg at this time is requesting analgesia. We'll give her Dilaudid 1 mg IV. Labs are still pending. 06/15/18 16:24 KUB reveals increased stool containing contrast from her last CT of the abdomen throughout the entire colon i.e. severe constipation. No signs of bowel obstruction 06/15/18 16:26 White count is normal at 3.98. Differential 75% neutrophils with no bands. Hemoglobin slightly low 11.4 with hematocrit of 34.7. Platelet count is low normal and 136,000. The slide shows 1+ hypochromasia and 2+ anisocytosis. PT is 10.9 with an INR 1.0 PTT is 26. Sodium 140. Potassium slightly low at 3.2. Chloride 103 with a bicarbonate of 30. Anion gap is 10.2. BUN is 10 with a any 1.0. GFR is 60. Glucose 180 with a calcium of 8.4. Bilirubin 0.3 AST is 9 with a nail table 11. Alkaline phosphatase 55. CK-MB fraction 0.5 troponin I is less than 0.017. C-reactive protein is 0.7. Total protein is low at 5.5 with an albumin fraction of 2.6. Lipase 64 06/15/18 17:41 feeling somewhat better. She will be discharged home to drink 10 ounces of magnesium citrate worse when she gets home to divide bowel cleanse. She was strongly advised to start Verelan powder 17 g once or twice daily until she has regular formed soft bowel movements on a daily basis. Reassured no sign of blood clots were identified. Given prescription for Zofran 4 mg sublingual every 4-6 hours when necessary for nausea relief. NSAIDs are relatively contraindicated due to her Erwin-en-Y gastric bypass procedure. I will place her on Deltasone 20 mg twice daily for 7 days then 1 tablet in the morning only for another 7 days in an effort to relieve her inflammation in her left greater trochanteric bursa and left SI joint. If this fails to relieve her pain she may require steroid injection into the bursa and the SI joint. This would be done by orthopedic surgery. Departure - Departure Time of Disposition: 17:33 Disposition: Home, Self-Care 01 Condition: Fair Clinical Impression: Constipation by delayed colonic transit, Nausea and vomiting in adult, Greater trochanteric bursitis of left hip, Sacroiliitis Abdominal pain Qualifiers: Abdominal location: right upper quadrant Qualified Code(s): R10.11 - Right upper quadrant pain - Discharge Information *PRESCRIPTION DRUG MONITORING PROGRAM REVIEWED*: Not Applicable *COPY OF PRESCRIPTION DRUG MONITORING REPORT IN PATIENT IGGY: Not Applicable Prescriptions: Ondansetron [Zofran] 4 mg BUCCAL Q6H PRN #12 tab PRN Reason: nausea or vomiting oxyCODONE HCl/Acetaminophen [Percocet 5-325 mg Tablet] 1 - 2 each PO Q4H PRN # 15 tablet PRN Reason: pain relief. predniSONE [Deltasone] 20 mg PO ASDIRECTED #21 tablet Instructions: Nausea and Vomiting, Adult Referrals: Svetlana Sandoval NP [Primary Care Provider] - Forms: ED Department Discharge Additional Instructions: Evaluation the emergency room today in regards to an elevated d-dimer at the clinic. Concern with left hip pain that you may have a blood clot in your upper left leg. However on my examination I find no evidence of blood clot. I did identify significant pain coming from the left greater trochanteric bursa on your left outside hip and also pain throughout the left sacroiliac joint that is causing pain in her back buttock and posterior -lateral leg. An ultrasound of the left leg was carried out and no blood clots were identified. Second problem was intermittent nausea and vomiting for the last 2 weeks. Lab tests reveal that you are still well hydrated. Abdomen x-ray reveals significant constipation with contrast in the bowel from last CT scan. Almost the entire colon is filled with stool and is likely the cause of abdominal pain and recurrent nausea and vomiting. You need to take 10 ounces of magnesium citrate or Citroma which we will send home with you with 5-6 ounces of juice of choice once. Thiis will take 3-4 hours to work and your bowel should move on average 4 times to provide bowel cleanse. In regards to the hip pain I would suggest treatment with Deltasone 20 mg twice daily a.m. and p.m. for 7 days and then once in the morning only for another 7 days to relieve pain and inflammation. If pain in the hip or the bursa can be injected with steroid to reduce the pain as can the SI joint. May use Zofran 4 mg under tongue every 4-6 hours necessary for relief of nausea. Use Percocet tabs 5/325 mg one or 2 every 6 hours needed for pain relief until the Deltasone becomes effectual which is usually a day and a half to 2 days. As we discussed her need MiraLAX powder 17 g daily if not twice daily to prevent constipation issues from reoccurring especially while taking pain medications.
[2018-06-15] MEDS ORDERED: Ondansetron 4 MG/2 ML SDV IVPUSH ONE ×2 (14:07→17:03)
--- NOTE | 2018-06-15 14:56 | US ---
Left lower extremity deep venous ultrasound: Duplex and color flow imaging was obtained of the left common femoral, proximal greater saphenous, superficial femoral, popliteal, posterior tibial and peroneal veins. Right common femoral vein was also evaluated. Real-time images were obtained of the lateral left thigh. Normal phasic flow, augmentation is seen. No cyst or solid finding is seen within the lateral left thigh. Impression: 1. No evidence of deep venous thrombosis within the left lower extremity or right common femoral vein. 2. Ultrasound images of the lateral left thigh appear unremarkable. Diagnostic code #1
--- NOTE | 2018-06-15 15:00 | CR ---
Abdomen: Supine view of the abdomen was obtained. Comparison: Prior abdominal x-ray of 02/21/16. Slight increased stool is seen throughout the colon. Anastomotic sutures are noted within the right colon. Surgical clips are seen within the upper right and upper left abdomen. Bowel gas pattern shows no evidence of obstruction. Bony structures are unremarkable. No soft tissue abnormality is seen. Impression: 1. Previous abdominal surgery. 2. Mild increased stool within colon. Diagnostic code #2
[2018-06-15] MEDS ORDERED: HYDROmorphone 1 MG/ML Syringe IVPUSH ONE ×2 (15:09→17:02)
[2018-06-15] MEDS ORDERED: Magnesium Citrate Solution 296 ML Bottle PO ONE (17:03)
== END 2018-06-15 17:50 | disposition home or self-care (01) ==
LOC: JD.ED 13:18
DX: K59.01 Slow transit constipation (principal); M70.62 Trochanteric bursitis, left hip; M46.1 Sacroiliitis, not elsewhere classified; R58 Hemorrhage, not elsewhere classified; Z98.84 Bariatric surgery status; Z90.49 Acquired absence of other specified parts of digestive tract; Z91.018 Allergy to other foods; Z88.1 Allergy status to other antibiotic agents; Z91.041 Radiographic dye allergy status; Z88.8 Allergy status to other drugs, medicaments and biological substances; Z79.899 Other long term (current) drug therapy
CPT/HCPCS: 36415; 74018; 80053; 82553; 83690; 84484; 85007; 85027; 85610; 85730; 86140; 93971; 96361; 96374; 96375; 96376; 99284; A9270; J1170; J2405; J7042

== ENCOUNTER 2018-06-23 17:35 | Emergency (ER) | payer BC ==
[2018-06-23 18:25] VITALS: BP 159/96
[2018-06-23] MEDS ORDERED: LORazepam 1 MG Tab PO ONE (19:05)
[2018-06-23] MEDS ORDERED: Acetaminophen/HYDROcodone 325-5 MG Tab PO ONE (19:05)
--- NOTE | 2018-06-23 19:10 | EDM.PDOC ---
ED HPI GENERAL MEDICAL PROBLEM - General Chief Complaint: Chest Pain Stated Complaint: CHEST PAIN X 3 DAYS Time Seen by Provider: 06/23/18 18:54 Source of Information: Reports: Patient, RN Notes Reviewed - History of Present Illness INITIAL COMMENTS - FREE TEXT/NARRATIVE: 47 [place] old female with anterior chest pain for the past 3 days, worse with activity, worse with deep breathing. Gomez not radiate. Not coughing, no fever or chills. No leg swelling or pain. No hx CAD. Chest Pain Score (Numeric/FACES): 7 - Related Data Allergies Allergy/AdvReac Type Severity Reaction Status Date / Time strawberry [[place]] Allergy Severe Shortness Verified 06/23/18 18:19 of Breath clarithromycin [From Biaxin] Allergy Unknown Hives Verified 06/23/18 18:19 latex Allergy Unknown Airway Verified 06/23/18 18:19 Tightness mark flavor Allergy Unknown Airway Verified 06/23/18 18:19 Tightness gabapentin [From Neurontin] Allergy Anaphylactic Verified 06/23/18 18:19 Shock metoclopramide HCl AdvReac "Panic Verified 06/23/18 18:19 [From Reglan] Attack" Home Meds: Home Meds Pregabalin [Lyrica] 225 mg PO BID 10/27/15 [History] EPINEPHrine [Auvi-Q] 0.3 mg IJ ONETIME PRN #2 auto.injct 11/20/16 [Rx] Polyethylene Glycol 3350 [Miralax] 1 dose PO DAILY 01/15/17 [History] Orphenadrine [Norflex] 100 mg PO Q12H PRN 09/27/17 [History] Vortioxetine Hydrobromide [Trintellix] 10 mg PO DAILY 09/27/17 [History] Divalproex Sodium [Depakote] 500 mg PO BID 04/05/18 [History] Ondansetron [Zofran ODT] 4 mg PO Q6H PRN #20 tab.dis 06/09/18 [Rx] Acetaminophen/HYDROcodone [Clay 325-5 MG] 1 tab PO Q6H PRN #10 tablet 06/23/18 [Rx] Albuterol Sulfate [Albuterol Sulfate Hfa] 2 puff IH ASDIRECTED PRN 06/23/18 [ History] predniSONE [Deltasone] 40 mg PO DAILY 06/23/18 [History] Past Medical History HEENT History: Reports: Impaired Vision Other HEENT History: sinus problems Cardiovascular History: Reports: Syncope Respiratory History: Reports: Asthma Gastrointestinal History: Reports: PUD Other Gastrointestinal History: ABDOMINAL PAIN/SCAR TISSUES Other Genitourinary History: kidney failure, resolved LIME SPREADER History: Reports: Other LIME SPREADER History: x2, 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 Musculoskeletal History: Reports: Back Pain, Chronic, Fracture Other Musculoskeletal History: right hip fx Neurological History: Reports: Seizure, Other (See Below) Other Neuro History: epilepsy Psychiatric History: Reports: Anxiety, Depression, Suicidal Ideation Endocrine/Metabolic History: Reports: Obesity/BMI 30+ Other Endocrine/Metabolic History: Blood sugar low Dermatologic History: Reports: Other (See Below) Other Dermatologic History: ALLERGIES - Infectious Disease History Infectious Disease History: Reports: None - Past Surgical History Head Surgeries/Procedures: Reports: Craniotomy HEENT Surgical History: Reports: Naso-Sinus Surgery GI Surgical History: Reports: Appendectomy, Bariatric Procedure, Lysis of Adhesions Female Surgical History: Reports: D&C Musculoskeletal Surgical History: Reports: Shoulder Surgery Social & Family History - Family History Family Medical History: Noncontributory - Tobacco Use Smoking Status *Q: Never Smoker - Caffeine Use Caffeine Use: Reports: Coffee, Energy Drinks, Soda, Tea - Recreational Drug Use Recreational Drug Use: No - Living Situation & Occupation Living situation: Reports: , with Spouse, with Family (1 adult child) Occupation: Employed ([employer]) ED ROS GENERAL - Review of Systems Review Of Systems: See Below Constitutional: Denies: Fever, Chills HEENT: Denies: Sinus Problem, Throat Pain Cardiovascular: Reports: Chest Pain. Denies: Palpitations GI/Abdominal: Denies: Abdominal Pain, Nausea, Vomiting Musculoskeletal: Denies: Neck Pain, Shoulder Pain, Arm Pain, Back Pain Skin: Reports: No Symptoms Neurological: Reports: No Symptoms ED EXAM, GENERAL - Physical Exam Exam: See Below General Appearance: Alert, Anxious Nose: Normal Inspection Throat/Mouth: Normal Inspection, Normal Oropharynx Head: Atraumatic Neck: Supple Respiratory/Chest: No Respiratory Distress, Lungs Clear, Normal Breath Sounds, No Accessory Muscle Use, Other (tender lower ant. sternum) Cardiovascular: Regular Rate, Rhythm GI/Abdominal: Soft, Non-Tender. No: Guarding Extremities: Normal Inspection. No: Normal Range of Motion, Leg Pain Neurological: Alert, Oriented, No Motor/Sensory Deficits Skin Exam: Warm, Dry, Normal Color Course - Vital Signs Last Recorded V/S: Last Vital Signs Temp 98.9 F 06/23/18 18:22 Pulse 109 H 06/23/18 18:22 Resp 16 06/23/18 18:22 BP 159/96 H 06/23/18 18:22 Pulse Ox 100 06/23/18 18:22 - Orders/Labs/Meds Labs: Laboratory Tests 06/23/18 06/23/18 06/23/18 Range/Units 19:11 19:11 19:11 WBC 8.85 (3.98-10.04) K/mm3 RBC 4.08 (3.98-5.22) M/mm3 Hgb 12.3 (11.2-15.7) gm/L Hct 36.6 (34.1-44.9) % MCV 89.7 (79.4-94.8) fl MCH 30.1 (25.6-32.2) pg MCHC 33.6 (32.2-35.5) g/dl RDW Std Deviation 49.5 H (36.4-46.3) fL Plt Count 226 (182-369) K/mm3 MPV 8.8 L (9.4-12.3) fl Neut % (Auto) 87.7 H (34.0-71.1) % Lymph % (Auto) 4.7 L (19.3-51.7) % Moffat % (Auto) 6.9 (4.7-12.5) % Eos % (Auto) 0 L (0.7-5.8) Baso % (Auto) 0.1 (0.1-1.2) % Neut # (Auto) 7.76 H (1.56-6.13) K/mm3 Lymph # (Auto) 0.42 L (1.18-3.74) K/mm3 Moffat # (Auto) 0.61 H (0.24-0.36) K/mm3 Eos # (Auto) 0.00 L (0.04-0.36) K/mm3 Baso # (Auto) 0.01 (0.01-0.08) K/mm3 Manual Slide Review Abnormal smear D-Dimer, Quantitative 0.35 (0.19-0.50) mg/L Sodium 137 (136-145) mEq/L Potassium 3.7 (3.5-5.1) mEq/L Chloride 98 (98-107) mEq/L Carbon Dioxide 28 (21-32) mEq/L Anion Gap 14.7 (5-15) BUN 11 (7-18) mg/dL Creatinine 1.2 H (0.55-1.02) mg/dL Est Cr Clr Drug Dosing 50.58 mL/min Estimated GFR (MDRD) 48 (>60) mL/min BUN/Creatinine Ratio 9.2 L (14-18) Glucose 139 H (74-106) mg/dL Calcium 9.4 (8.5-10.1) mg/dL Total Bilirubin 0.4 (0.2-1.0) mg/dL AST 11 L (15-37) U/L ALT 13 L (14-59) U/L Alkaline Phosphatase 84 (46-116) U/L Troponin I < 0.017 (0.00-0.056) ng/mL Total Protein 6.7 (6.4-8.2) g/dl Albumin 3.5 (3.4-5.0) g/dl Globulin 3.2 gm/dL Albumin/Globulin Ratio 1.1 (1-2) Meds: Medications Discontinued Medications Generic Name Dose Route Start Last Admin Trade Name Freq PRN Reason Stop Dose Admin Hydrocodone Bitart/Acetaminophen 1 tab 06/23/18 19:05 06/23/18 19:18 Clay 325-5 Mg PO 06/23/18 19:06 1 tab ONETIME ONE Administration Lorazepam 1 mg 06/23/18 19:05 06/23/18 19:18 Ativan PO 06/23/18 19:06 1 mg ONETIME ONE Administration - Re-Assessments/Exams Free Text/Narrative Re-Assessment/Exam: 06/25/18 11:22 Evaluation, findings normal, she does have tenderness lower ant sternum and L lower sternal border. Discharge instr. as documented. Departure - Departure Time of Disposition: 20:14 Disposition: Home, Self-Care 01 Condition: Fair Clinical Impression: Chest wall pain Prescriptions: Acetaminophen/HYDROcodone [Clay 325-5 MG] 1 tab PO Q6H PRN #10 tablet PRN Reason: Pain Instructions: Chest Wall Pain, [id number] Referrals: Svetlana Sandoval NP [Primary Care Provider] - Forms: ED Department Discharge Additional Instructions: alternate ice and heat as needed to area of discomfort front of chest, try avoid heavy lifting, continue to alternate tylenol and ibuprofen during the day when driving or working, you may take hydrocodone at night if needed for severe pain, do not drive or work when taking hydrocodone, do not take tylenol and hydrocodone at the same time.
--- NOTE | 2018-06-24 06:35 | CR ---
Chest: Portable view of the chest was obtained. Comparison: Prior chest x-ray of 12/03/16. Heart size and mediastinum are within normal limits. Lungs are clear. Bony structures are unremarkable. Impression: 1. Nothing acute is seen on portable chest x-ray. Diagnostic code #1
== END 2018-06-23 20:30 | disposition home or self-care (01) ==
LOC: JD.ED 17:35
DX: R07.89 Other chest pain (principal); J45.909 Unspecified asthma, uncomplicated; Z88.8 Allergy status to other drugs, medicaments and biological substances; Z79.899 Other long term (current) drug therapy
CPT/HCPCS: 36415; 71045; 80053; 84484; 85025; 85379; 93005; 99284; A9270

== ENCOUNTER 2018-08-23 16:31 | Emergency (ER) | payer BC, OTHER ==
[2018-08-23 16:40] VITALS: BP 126/90
[2018-08-23] MEDS ORDERED: HYDROmorphone 1 MG/ML Syringe IVPUSH ONE ×2 (16:50→19:35)
[2018-08-23] MEDS ORDERED: Ondansetron 4 MG/2 ML SDV IVPUSH ONE (16:51)
[2018-08-23] MEDS ORDERED: Dextrose 5%-0.9% NaCl 1,000 ML IV SCH (17:00)
--- NOTE | 2018-08-23 17:53 | EDM.PDOC ---
<Tanesha Cochran - Last Filed: 08/23/18 19:58> ED HPI GENERAL MEDICAL PROBLEM - General Chief Complaint: Abdominal Pain Stated Complaint: [facility] Time Seen by Provider: 08/23/18 16:40 - Related Data Allergies Allergy/AdvReac Type Severity Reaction Status Date / Time strawberry [[place]] Allergy Severe Shortness Verified 06/23/18 18:19 of Breath clarithromycin [From Biaxin] Allergy Unknown Hives Verified 06/23/18 18:19 latex Allergy Unknown Airway Verified 06/23/18 18:19 Tightness mark flavor Allergy Unknown Airway Verified 06/23/18 18:19 Tightness gabapentin [From Neurontin] Allergy Anaphylactic Verified 06/23/18 18:19 Shock metoclopramide HCl AdvReac "Panic Verified 06/23/18 18:19 [From Reglan] Attack" Home Meds: Home Meds Pregabalin [Lyrica] 225 mg PO BID 10/27/15 [History] EPINEPHrine [Auvi-Q] 0.3 mg IJ ONETIME PRN #2 auto.injct 11/20/16 [Rx] Orphenadrine [Norflex] 100 mg PO Q12H 09/27/17 [History] Divalproex Sodium [Depakote] 500 mg PO BID 04/05/18 [History] Ondansetron [Zofran ODT] 4 mg PO Q6H PRN #20 tab.dis 06/09/18 [Rx] Doxycycline [Vibramycin] 100 mg PO BID 10 Days #20 cap 08/23/18 [Rx] Nutritional Supplement [Osmolite 1.2 Molina] 5 vial PEGTUBE DAILY 08/23/18 [History ] Pantoprazole Sodium 40 mg PO BID 08/23/18 [History] Sucralfate [Carafate] 10 ml PEGTUBE QID PRN 08/23/18 [History] fluvoxaMINE [fluvoxaMINE Maleate] 150 mg PO BID 08/23/18 [History] hydrOXYzine HCl [Atarax] 50 - 100 mg PO QID PRN 08/23/18 [History] oxyCODONE HCl/Acetaminophen [Percocet 5-325 mg Tablet] 1 - 2 each PO Q6HR PRN 4 Days #16 tablet 08/23/18 [Rx] traZODone HCl [Trazodone HCl] 50 mg PO BEDTIME PRN 08/23/18 [History] Course - Vital Signs Last Recorded V/S: Last Vital Signs Temp 36.7 C 08/23/18 16:35 Pulse 87 08/23/18 16:35 Resp 20 08/23/18 16:35 BP 126/90 08/23/18 16:35 Pulse Ox 95 08/23/18 16:35 - Orders/Labs/Meds Orders: Active Orders 24 hr Category Date Time Status Notify Provider Consults [RC] ASDIRECTED Care 08/23/18 20:33 Active Consult to Physician [CONS] Routine Cons 08/23/18 18:50 Active Abdomen Pelvis wo Cont [CT] Stat Exams 08/23/18 16:49 Taken Labs: Laboratory Tests 08/23/18 08/23/18 08/23/18 Range/Units 17:05 17:05 17:05 WBC 6.14 (3.98-10.04) K/mm3 RBC 3.67 L (3.98-5.22) M/mm3 Hgb 11.1 L (11.2-15.7) gm/L Hct 34.0 L (34.1-44.9) % MCV 92.6 (79.4-94.8) fl MCH 30.2 (25.6-32.2) pg MCHC 32.6 (32.2-35.5) g/dl RDW Std Deviation 50.7 H (36.4-46.3) fL Plt Count 379 H (182-369) K/mm3 MPV 7.9 L (9.4-12.3) fl Neut % (Auto) 52.7 (34.0-71.1) % Lymph % (Auto) 23.3 (19.3-51.7) % Whitfield % (Auto) 13.2 H (4.7-12.5) % Eos % (Auto) 7.3 H (0.7-5.8) Baso % (Auto) 1.5 H (0.1-1.2) % Neut # (Auto) 3.24 (1.56-6.13) K/mm3 Lymph # (Auto) 1.43 (1.18-3.74) K/mm3 Whitfield # (Auto) 0.81 H (0.24-0.36) K/mm3 Eos # (Auto) 0.45 H (0.04-0.36) K/mm3 Baso # (Auto) 0.09 H (0.01-0.08) K/mm3 Manual Slide Review Abnormal smear Sodium 141 (136-145) mEq/L Potassium 4.3 (3.5-5.1) mEq/L Chloride 107 (98-107) mEq/L Carbon Dioxide 31 (21-32) mEq/L Anion Gap 7.3 (5-15) BUN 10 (7-18) mg/dL Creatinine 0.8 (0.55-1.02) mg/dL Est Cr Clr Drug Dosing 75.88 mL/min Estimated GFR (MDRD) > 60 (>60) mL/min BUN/Creatinine Ratio 12.5 L (14-18) Glucose 78 (74-106) mg/dL Lactic Acid (0.4-2.0) mmol/L Calcium 8.8 (8.5-10.1) mg/dL Total Bilirubin 0.2 (0.2-1.0) mg/dL AST 12 L (15-37) U/L ALT 13 L (14-59) U/L Alkaline Phosphatase 94 (46-116) U/L C-Reactive Protein 4.0 H* (<1.0) mg/dL Total Protein 5.7 L (6.4-8.2) g/dl Albumin 2.2 L (3.4-5.0) g/dl Globulin 3.5 gm/dL Albumin/Globulin Ratio 0.6 L (1-2) Lipase 140 (73-393) U/L 08/23/18 Range/Units 17:37 WBC (3.98-10.04) K/mm3 RBC (3.98-5.22) M/mm3 Hgb (11.2-15.7) gm/L Hct (34.1-44.9) % MCV (79.4-94.8) fl MCH (25.6-32.2) pg MCHC (32.2-35.5) g/dl RDW Std Deviation (36.4-46.3) fL Plt Count (182-369) K/mm3 MPV (9.4-12.3) fl Neut % (Auto) (34.0-71.1) % Lymph % (Auto) (19.3-51.7) % Whitfield % (Auto) (4.7-12.5) % Eos % (Auto) (0.7-5.8) Baso % (Auto) (0.1-1.2) % Neut # (Auto) (1.56-6.13) K/mm3 Lymph # (Auto) (1.18-3.74) K/mm3 Whitfield # (Auto) (0.24-0.36) K/mm3 Eos # (Auto) (0.04-0.36) K/mm3 Baso # (Auto) (0.01-0.08) K/mm3 Manual Slide Review Sodium (136-145) mEq/L Potassium (3.5-5.1) mEq/L Chloride (98-107) mEq/L Carbon Dioxide (21-32) mEq/L Anion Gap (5-15) BUN (7-18) mg/dL Creatinine (0.55-1.02) mg/dL Est Cr Clr Drug Dosing mL/min Estimated GFR (MDRD) (>60) mL/min BUN/Creatinine Ratio (14-18) Glucose (74-106) mg/dL Lactic Acid 0.4 (0.4-2.0) mmol/L Calcium (8.5-10.1) mg/dL Total Bilirubin (0.2-1.0) mg/dL AST (15-37) U/L ALT (14-59) U/L Alkaline Phosphatase (46-116) U/L C-Reactive Protein (<1.0) mg/dL Total Protein (6.4-8.2) g/dl Albumin (3.4-5.0) g/dl Globulin gm/dL Albumin/Globulin Ratio (1-2) Lipase (73-393) U/L Meds: Medications Discontinued Medications Generic Name Dose Route Start Last Admin Trade Name Freq PRN Reason Stop Dose Admin Doxycycline Hyclate 100 mg 08/23/18 20:26 08/23/18 20:42 Vibramycin PO 08/23/18 20:27 100 mg ONETIME ONE Administration Hydromorphone HCl 1 mg 08/23/18 16:50 08/23/18 17:04 Dilaudid IVPUSH 08/23/18 16:51 1 mg ONETIME ONE Administration Hydromorphone HCl Confirm 08/23/18 19:16 08/23/18 19:39 Dilaudid Administered 08/23/18 19:17 Not Given Dose 1 mg .ROUTE .STK-MED ONE Hydromorphone HCl 1 mg 08/23/18 19:35 08/23/18 19:37 Dilaudid IVPUSH 08/23/18 19:36 1 mg ONETIME ONE Administration Hydromorphone HCl 0.5 mg 08/23/18 19:52 08/23/18 20:09 Dilaudid IVPUSH 08/23/18 19:53 0.5 mg ONETIME ONE Administration Dextrose/Sodium Chloride 1,000 mls @ 150 mls/hr 08/23/18 17:00 08/23/18 17:04 Dextrose 5%-Normal Saline IV 150 mls/hr ASDIRECTED ANA Administration Lidocaine HCl Confirm 08/23/18 19:16 08/23/18 19:38 Xylocaine 1% Administered 08/23/18 19:17 50 ml Dose Administration 50 ml .ROUTE .STK-MED ONE Lorazepam 1 mg 08/23/18 18:00 08/23/18 18:04 Ativan IVPUSH 08/23/18 18:01 1 mg ONETIME ONE Administration Lorazepam 1 mg 08/23/18 19:53 08/23/18 20:08 Ativan IVPUSH 08/23/18 19:54 1 mg ONETIME ONE Administration Ondansetron HCl 4 mg 08/23/18 16:51 08/23/18 17:04 Zofran IVPUSH 08/23/18 16:52 4 mg ONETIME ONE Administration Departure - Departure Time of Disposition: 19:58 Disposition: Home, Self-Care 01 Condition: Good Clinical Impression: Abdominal wall abscess - Discharge Information *PRESCRIPTION DRUG MONITORING PROGRAM REVIEWED*: Yes *COPY OF PRESCRIPTION DRUG MONITORING REPORT IN PATIENT IGGY: Yes Prescriptions: oxyCODONE HCl/Acetaminophen [Percocet 5-325 mg Tablet] 1 - 2 each PO Q6HR PRN 4 Days #16 tablet PRN Reason: Abdominal Pain Doxycycline [Vibramycin] 100 mg PO BID 10 Days #20 cap Instructions: Skin Abscess, Incision and Drainage, Care After Referrals: Svetlana Sandoval NP [Primary Care Provider] - Forms: ED Department Discharge Additional Instructions: You have been diagnosis with abdominal wall abscess. You had a I & D procedure by Dr. Wiliam Kelley. You have been given pain medication and anxiety medication while you were here. Do not drink, drive or operate machinery. You have been prescribed Doxycycline for outpatient antibiotic therapy, take this medication twice daily until completed. You have been prescribed Percocet for pain. Do not take this medication and drink, drive or operate machinery. Follow with Dr. Mcginnis as scheduled. Return to the ER for any new or acute worsening symptoms. - My Orders Last 24 Hours: My Active Orders 08/23/18 16:49 Abdomen Pelvis wo Cont [CT] Stat 08/23/18 18:50 Consult to Physician [CONS] Routine 08/23/18 20:33 Notify Provider Consults [RC] ASDIRECTED - Assessment/Plan Last 24 Hours: My Active Orders 08/23/18 16:49 Abdomen Pelvis wo Cont [CT] Stat 08/23/18 18:50 Consult to Physician [CONS] Routine 08/23/18 20:33 Notify Provider Consults [RC] ASDIRECTED <Otis Morin - Last Filed: 08/23/18 22:02> ED HPI GENERAL MEDICAL PROBLEM - General Source of Information: Reports: Patient, EMS History Limitations: Reports: No Limitations - History of Present Illness INITIAL COMMENTS - FREE TEXT/NARRATIVE: 47-year-old female presents to the ED by [facility]. Her chief complaint is abdominal pain left upper quadrant at site of recent G-tube placement for improvement in nutritional status. Is was placed [address] Mcginnis in [place], [place]. 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 He now is having increasing pain around the G-tube site particularly inferiorly with suspect early infection and perhaps abscess formation. Questioning whether she is running a fever or not. She is complaining of a lot of pain in this area. She states her bowels haven't moved for about 3 days. She has been taking lactulose 20 g daily. She is taking la ittle bit of liquids orally. She has been started on cephalexin liquid 3 days ago is only 500 mg 4 times a day. She states in spite of this the redness and swelling has increased in size. Apparently there is some purulent drainage from around the G-tube is well appreciated by paramedics and they placed demarcus ABD pad in this area. Onset: Gradual Onset Date: 08/20/18 Duration: Chronic, Getting Worse Location: Reports: Abdomen (Severe pain around her gastrostomy tube insertion site left upper quadrant of the abdomen) Quality: Reports: Ache, Throbbing Severity: Severe (She claims pain is 10 out of 10.) Improves with: Reports: Rest Worsens with: Reports: Movement Context: Reports: Other. Denies: Activity, Exercise, Lifting (Recent surgery 2 weeks ago with G-tube placement), Sick Contact, Trauma Associated Symptoms: Reports: Fever/Chills, Loss of Appetite, Malaise, Nausea/ Vomiting (Inferior to gastrostomy tube insertion site.), Rash, Weakness ( Nausea without vomiting). Denies: Confusion, Chest Pain, Cough, cough w sputum , Headaches, Seizure, Shortness of Breath, Syncope Treatments MEDICAL TECHNOLOGIST MICROBIOLOGY: Reports: Other (see below) (Taking narcotic pain medications) Left Upper Abdomen Pain Score (Numeric/FACES): 8 Past Medical History HEENT History: Reports: Impaired Vision Other HEENT History: sinus problems Cardiovascular History: Reports: Syncope Respiratory History: Reports: Asthma Gastrointestinal History: Reports: PUD Other Gastrointestinal History: ABDOMINAL PAIN/SCAR TISSUES Other Genitourinary History: kidney failure, resolved SUPERINTENDENT SYSTEM OPERATION History: Reports: Other SUPERINTENDENT SYSTEM OPERATION History: x2, 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 Musculoskeletal History: Reports: Back Pain, Chronic, Fracture Other Musculoskeletal History: right hip fx Neurological History: Reports: Seizure, Other (See Below) Other Neuro History: epilepsy Psychiatric History: Reports: Anxiety, Depression, Suicidal Ideation Endocrine/Metabolic History: Reports: Obesity/BMI 30+ Other Endocrine/Metabolic History: Blood sugar low Dermatologic History: Reports: Other (See Below) Other Dermatologic History: ALLERGIES - Infectious Disease History Infectious Disease History: Reports: None - Past Surgical History Head Surgeries/Procedures: Reports: Craniotomy HEENT Surgical History: Reports: Naso-Sinus Surgery GI Surgical History: Reports: Appendectomy, Bariatric Procedure, Lysis of Adhesions Female Surgical History: Reports: D&C Musculoskeletal Surgical History: Reports: Shoulder Surgery Social & Family History - Family History Family Medical History: Noncontributory - Tobacco Use Smoking Status *Q: Never Smoker - Caffeine Use Caffeine Use: Reports: Soda - Recreational Drug Use Recreational Drug Use: No - Living Situation & Occupation Living situation: Reports: , with Spouse, with Family (1 adult child) Occupation: Employed ([employer]) ED ROS GENERAL - Review of Systems Review Of Systems: See Below Constitutional: Reports: Fever, Chills, Malaise (Claim she's had fevers.), Weakness, Fatigue, Decreased Appetite, Weight Loss, Other (The reason the G- tube was placed because she is stenosing 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 Denies: Cough, Sputum, Hemoptysis Cardiovascular: Reports: Lightheadedness, Palpitations. Denies: Chest Pain, Blood Pressure Problem, Claudication, Dyspnea on Exertion, Orthopnea Endocrine: Reports: Fatigue (Occasionally) GI/Abdominal: Reports: Abdominal Pain, Constipation (No bowel movement for at least 3 days and possibly longer), Decreased Appetite (Diffuse abdominal pain worse left upper quadrant.), Distension : Reports: Other (Not making much urine.) Musculoskeletal: Reports: Other (Chronic diffuse pain syndrome.) Skin: Reports: Other (Erythema and swelling inferior to gastrostomy tube insertion site left upper quadrant of the abdomen) Neurological: Reports: Headache, Seizure Psychiatric: Reports: Anxiety, Depression Hematologic/Lymphatic: Reports: Anemia Immunologic: Reports: No Symptoms ED EXAM, GI/ABD - Physical Exam Exam: See Below Exam Limited By: No Limitations General Appearance: Alert, Anxious, Moderate Distress Eyes: Bilateral: Normal Appearance (No scleral icterus.), Pale Conjunctiva ( Mild pallor bilaterally) Throat/Mouth: Other (Tongue is slightly dry) Head: Atraumatic, Normocephalic ( and coated) Neck: Normal Inspection, Supple, Non-Tender, Full Range of Motion. No: Carotid Bruit, Lymphadenopathy (L), Lymphadenopathy (R) Respiratory/Chest: Lungs Clear, Normal Breath Sounds (Mild tachypnea 20-24/m due to being anxious.), No Accessory Muscle Use, Chest Non-Tender, Respiratory Distress Cardiovascular: Normal Peripheral Pulses, Regular Rate, Rhythm, No Edema, No Gallop, No Murmur, No Rub GI/Abdominal Exam: Distended (Mild distention and tentatively to percussion throughout.), Abnormal Bowel Sounds, Other (She's having a lot of pain with any movement of the G-tube in her left upper quadrant abdomen. There is purulent material coming from around the G-tube insertion site. Just inferior to the G- tube insertion site is an area of erythema swelling and marked tenderness approximately 5 cm in width and 4 cm in length. Questionable whether there is an abscess in this area.) Back Exam: Normal Inspection, CVA Tenderness (L) (Mild). No: CVA Tenderness (R) Extremities: Normal Inspection, Normal Range of Motion, Non-Tender Neurological: Alert, Oriented, CN II-XII Intact, Normal Cognition Psychiatric: Anxious Skin Exam: Warm, Dry, Intact, Normal Color, Erythema (Erythema and swelling inferior to G-tube insertion site left upper quadrant of the abdomen.) Course - Radiology Interpretation Free Text/Narrative:: 47-year-old female presents to the ED per ambulance from [facility]. She presents due to increased redness and swelling inferior to recently placed G-tube left upper quadrant of the abdomen. G-tube was apparently placed by Dr. Mcginnis in [facility] 2 weeks ago. 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 Patient has had previous I believe Erwin-en-Y gastrostomy 6 years ago. She is complaining of diffuse abdominal pain not just localized to the inferior aspect of the G-tube. Bowel sounds are quite active in all 4 quadrants. She reports no good bowel movement for at least 2-3 days. She's been on lactulose 20 g via G- tube once daily. Examination of the abdominal wall shows an area of erythema swelling and very tender inferior to the G-tube insertion site. Apparently she' s been on cephalexin 500 mg 4 times a day suspension without improvement. No defined fever or chills. Vital signs are stable at time of admission to the ED. She is requesting analgesia. This is been a problem in the past where she tends to seek narcotics. Plan we'll give her Dilaudid 1 mg IV at this time with Reglan 7.[address] the abdomen will be done without contrast to see if we can identify an abscess in the abdominal wall. - Re-Assessments/Exams Free Text/Narrative Re-Assessment/Exam: 08/23/18 18:13 White count is 6.14. Automated differential shows 52% neutrophils. Hemoglobin is slightly low 11.1 with hematocrit of 34.0. Platelet count is 379,000. Sodium is 141 with a potassium of 4.3. Chloride 107 with a bicarbonate of 31. Anion gap is 7.3. BUN is 10 with a creatinine of 0.8. GFR is greater than 60. Glucose is 78 with a calcium of 8.8. Bilirubin is 0.2. AST is 12 with an ALT of 13. Alk phosphatase is 94. C-reactive protein is elevated at 4.0. Total protein is 5.7 with albumin fraction of 2.2. Lipase is 140. CT of the abdomen done without contrast as I was trying to visualize the abdominal wall. Tube of course noted in place left upper quadrant. Gallbladder surgically absent. Pancreas appears normal with no ductal dilatation. Spleen is normal adrenals are normal kidneys and ureters are normal with no hydronephrosis. Stomach and bowel shows copious amount of stool throughout the entire colon. Appendix shows no evidence of appendicitis. Bladder is unremarkable. Reproductive tract appears normal. Trace free fluid in the pelvic cul-de-sac. No acute fractures or dislocations in the bones. Normal abdominal aortic aneurysm. No enlarged lymph nodes. Plan I will discuss the findings with Dr. Kelley animal impersonator local surgeon and asked for his consultation in regards to drainage of abscess. 08/23/18 18:50: I was called away due to another patient in the ED who had suffered trauma and severe complex problems requiring critical care. Therefore asked the nursing staff to contact Dr. Kelley to come in and see the patient in consultation when she gladly did. He attended her and identified that there was port site abscess versus surgical site infection. He used to mils of 1% lidocaine without epinephrine to anesthetize the area she had approximately 3-4 mils of non-foul smelling purulent material at the site of the previous port site just under what appears to be a gastrostomy tube. The abscess that was confirmed on CT was drained by incision and drainage. The wound was not packed. The cavity was thoroughly irrigated. Loculations were broken down with a straight clamp. Thorough irrigation was continued until no further pus was identified. The erythema almost immediately resolved loss was minimal. She has department to follow-up with Dr. Mcginnis in [place] in the surgeon that placed the G-tube in 2 days time. I will be to discharge her on doxycycline 100 mg twice daily for another 10 days. She will receive Percocet tablets 5/325 mg one or 2 every 4-6 hours as needed for pain relief for the next couple of days. These prescription written by my nurse practitioner Tanesha Cochran at my direction as I was still tied up with resuscitating another patient. An OpSite dressing will be placed over the patient's wound. He needs to increase her lactulose to 3 times daily to get her bowels working.
[2018-08-23] MEDS ORDERED: LORazepam 2 MG/ML SDV IVPUSH ONE ×2 (18:00→19:53)
[2018-08-23] MEDS ORDERED: HYDROmorphone 1 MG/ML Syringe ONE (19:16)
[2018-08-23] MEDS ORDERED: Lidocaine 1% 50 ML MDV ONE (19:16)
[2018-08-23] MEDS ORDERED: HYDROmorphone 0.5 MG/0.5 ML Syringe IVPUSH ONE (19:52)
--- NOTE | 2018-08-23 20:20 | OR ---
DATE OF OPERATION: 08/23/2018 SURGEON: Wiliam Kelley MD PREOPERATIVE DIAGNOSIS: Incision and drainage of a superficial port site abscess/surgical site infection. POSTOPERATIVE DIAGNOSIS: Incision and drainage of a superficial port site abscess/surgical site infection. OPERATION PERFORMED: Incision and drainage of port site, abscess versus surgical site infection. FINDINGS: She had approximately 3 to 4 mL of non-foul smelling purulent material at the site of a previous port site just under what appears to be a gastrostomy tube. ANESTHESIA: Local, used 2 mL of 1% lidocaine without epinephrine. DISPOSITION: Stable at the end of the procedure. INDICATION: Minerva is a 47-year-old female with a history of Erwin-en-Y gastric bypass. She has also had a stricture of the esophagus requiring a G-tube placement. The patient's G-tube was placed just 3 weeks ago, done laparoscopically at another institution. She presents this evening with severe pain related to an abscess located just inferior to the G-tube placement. CT scan confirmed the diagnosis. She was offered an incision and drainage. She was fully informed of the major risks, benefits, and alternatives. The risks include, but are not limited to recurrence of bleeding, further surgery, and others. She gave informed consent for what was done. DESCRIPTION OF PROCEDURE: Minerva was kept on the stretcher. The associated skin was prepped and draped in the usual sterile fashion. I infused the skin and subcutaneous tissue with 1% lidocaine without epinephrine superficially along the previous incision. A #11 blade was used to open the port site. A straight clamp was passed deeply into the cavity, draining approximately 3 to 4 mL of [id number] purulent material. I thoroughly irrigated the inside of the cavity. I checked for loculations and broke these apart with a straight clamp. Thorough irrigation continued until I found no further pus. Sterile dressing was applied after I was sure there was no further purulence. The erythema almost immediately resolved. At the end of the procedure, she remained in stable condition with no complications and minimal blood loss. PLAN: She already has an appointment with her doctor on Friday. I have asked her to return to our surgical clinic if for some reason she cannot make that appointment. ESTIMATED BLOOD LOSS: MMODAL /[id number]
[2018-08-23] MEDS ORDERED: Doxycycline 100 MG Cap PO ONE (20:26)
--- NOTE | 2018-08-24 07:22 | CT ---
CT abdomen and pelvis Technique: Multiple axial sections were obtained from above the dome of the diaphragm inferiorly through the pubic symphysis. Intravenous and oral contrast was not utilized. Comparison: Prior CT abdomen and pelvis exam of 06/09/18. Findings: Small portion of the visualized lung bases show no acute abnormality. Noncontrast appearance of the liver and spleen shows no discrete abnormality. Prior stomach surgery is noted. Gastrostomy tube is noted. Adrenal glands show no nodule. Kidneys show no abnormal calcifications. Pancreas is within normal limits. Aorta shows no aneurysm. No retroperitoneal adenopathy or mesenteric abnormalities are seen. No pelvic mass or adenopathy is seen. No free fluid or inflammatory change is seen. Increased stool noted throughout the colon. Bone window settings were reviewed which show no acute osseous abnormality. Impression: 1. Incidental findings. 2. Mild increased stool throughout the colon. 3. Nothing acute is identified on noncontrast CT exam. Diagnostic code #2 I agree with preliminary report from [facility], finalized on 08/23/18, 7:08 PM Central Time
== END 2018-08-23 20:47 | disposition home or self-care (01) ==
LOC: JD.ED 16:31
DX: L02.211 Cutaneous abscess of abdominal wall (principal)
CPT/HCPCS: 10061; 36415; 74176; 80053; 83605; 83690; 85025; 86140; 96361; 96374; 96375; 96376; 99285; A9270; J1170; J2001; J2060; J2405; J7042; 99284

== ENCOUNTER 2018-08-23 23:47 | Emergency (ER) | payer BC ==
[2018-08-24 00:04] VITALS: BP 124/95
[2018-08-24] MEDS ORDERED: HYDROmorphone 0.5 MG/0.5 ML Syringe IM ONE (00:12)
--- NOTE | 2018-08-24 00:15 | EDM.PDOC ---
ED HPI GENERAL MEDICAL PROBLEM - General Chief Complaint: Gastrointestinal Problem Stated Complaint: infected gtube site equipment not there Time Seen by Provider: 08/24/18 00:20 Source of Information: Reports: Patient, RN Notes Reviewed - History of Present Illness INITIAL COMMENTS - FREE TEXT/NARRATIVE: 47-year-old female presents to ED with complaint of her G-tube "falling out". she was just here in the ED this past afternoon and early evening with symptoms of abdominal pain, evaluation, incision and drainage of abscess below area of recent G-tube insertion. Record for details. She was medicated with Dilaudid, multiple doses, Ativan multiple doses while here in the ED. Upon arrival home she states the G-tube "was out". Neither she or her were able to find it. She is complaining of continued pain around the area of her G-tube and previously drained abscess. Requesting further pain medication. Abdomen Pain Score (Numeric/FACES): 3 - Related Data Allergies Allergy/AdvReac Type Severity Reaction Status Date / Time strawberry [[place]] Allergy Severe Shortness Verified 08/24/18 00:04 of Breath clarithromycin [From Biaxin] Allergy Unknown Hives Verified 08/24/18 00:04 latex Allergy Unknown Airway Verified 08/24/18 00:04 Tightness mark flavor Allergy Unknown Airway Verified 08/24/18 00:04 Tightness gabapentin [From Neurontin] Allergy Anaphylactic Verified 08/24/18 00:04 Shock metoclopramide HCl AdvReac "Panic Verified 08/24/18 00:04 [From Reglan] Attack" Home Meds: Home Meds Pregabalin [Lyrica] 225 mg PO BID 10/27/15 [History] EPINEPHrine [Auvi-Q] 0.3 mg IJ ONETIME PRN #2 auto.injct 11/20/16 [Rx] Orphenadrine [Norflex] 100 mg PO Q12H 09/27/17 [History] Divalproex Sodium [Depakote] 500 mg PO BID 04/05/18 [History] Ondansetron [Zofran ODT] 4 mg PO Q6H PRN #20 tab.dis 06/09/18 [Rx] Doxycycline [Vibramycin] 100 mg PO BID 10 Days #20 cap 08/23/18 [Rx] Nutritional Supplement [Osmolite 1.2 Molina] 5 vial PEGTUBE DAILY 08/23/18 [History ] Pantoprazole Sodium 40 mg PO BID 08/23/18 [History] Sucralfate [Carafate] 10 ml PEGTUBE QID PRN 08/23/18 [History] fluvoxaMINE [fluvoxaMINE Maleate] 150 mg PO BID 08/23/18 [History] hydrOXYzine HCl [Atarax] 50 - 100 mg PO QID PRN 08/23/18 [History] oxyCODONE HCl/Acetaminophen [Percocet 5-325 mg Tablet] 1 - 2 each PO Q6HR PRN 4 Days #16 tablet 08/23/18 [Rx] traZODone HCl [Trazodone HCl] 50 mg PO BEDTIME PRN 08/23/18 [History] Past Medical History HEENT History: Reports: Impaired Vision Other HEENT History: sinus problems Cardiovascular History: Reports: Syncope Respiratory History: Reports: Asthma Gastrointestinal History: Reports: PUD Other Gastrointestinal History: ABDOMINAL PAIN/SCAR TISSUES Other Genitourinary History: kidney failure, resolved MICA PATCHER History: Reports: Other MICA PATCHER History: x2, 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 Musculoskeletal History: Reports: Back Pain, Chronic, Fracture Other Musculoskeletal History: right hip fx Neurological History: Reports: Seizure, Other (See Below) Other Neuro History: epilepsy Psychiatric History: Reports: Anxiety, Depression, Suicidal Ideation Endocrine/Metabolic History: Reports: Obesity/BMI 30+ Other Endocrine/Metabolic History: Blood sugar low Dermatologic History: Reports: Other (See Below) Other Dermatologic History: ALLERGIES - Infectious Disease History Infectious Disease History: Reports: None - Past Surgical History Head Surgeries/Procedures: Reports: Craniotomy HEENT Surgical History: Reports: Naso-Sinus Surgery GI Surgical History: Reports: Appendectomy, Bariatric Procedure, Lysis of Adhesions Female Surgical History: Reports: D&C Musculoskeletal Surgical History: Reports: Shoulder Surgery Social & Family History - Family History Family Medical History: Noncontributory - Tobacco Use Smoking Status *Q: Never Smoker - Caffeine Use Caffeine Use: Reports: None - Recreational Drug Use Recreational Drug Use: No - Living Situation & Occupation Living situation: Reports: , with Spouse, with Family (1 adult child) Occupation: Employed ([employer]) ED ROS GENERAL - Review of Systems Review Of Systems: See Below Constitutional: Denies: Fever, Chills HEENT: Denies: Throat Pain Respiratory: Denies: Shortness of Breath Cardiovascular: Denies: Chest Pain GI/Abdominal: Reports: Abdominal Pain. Denies: Vomiting Skin: Reports: No Symptoms Neurological: Reports: No Symptoms ED EXAM, GI/ABD - Physical Exam Exam: See Below General Appearance: Alert, Anxious Eyes: Bilateral: Normal Appearance Throat/Mouth: Normal Inspection Head: Atraumatic Neck: Supple Respiratory/Chest: No Respiratory Distress, Lungs Clear, Normal Breath Sounds Cardiovascular: Regular Rate, Rhythm GI/Abdominal Exam: Other (G tube is not present, stoma is present L mid to upper abd, there is an open wound below the stoma of apparent I and D earlier today by Dr Kelley, General Surgeon gas station attendant. mild localized tenderness mid and L abd). No: Guarding, Rebound Extremities: Normal Inspection Neurological: Alert, No Motor/Sensory Deficits Skin Exam: Warm, Dry, Normal Color Course - Vital Signs Last Recorded V/S: Last Vital Signs Temp 97.6 F 08/24/18 00:02 Pulse 95 08/24/18 00:02 Resp 16 08/24/18 00:02 BP 124/95 H 08/24/18 00:02 Pulse Ox 99 08/24/18 00:02 - Orders/Labs/Meds Meds: Medications Discontinued Medications Generic Name Dose Route Start Last Admin Trade Name Romná PRN Reason Stop Dose Admin Hydromorphone HCl 0.5 mg 08/24/18 00:12 08/24/18 00:24 Dilaudid IM 08/24/18 00:13 0.5 mg ONETIME ONE Administration Lidocaine HCl Confirm 08/24/18 00:19 Xylocaine 2% Jelly Administered 08/24/18 00:20 Dose 10 ml .ROUTE .STK-MED ONE Lidocaine HCl 10 ml 08/24/18 00:24 08/24/18 00:25 Xylocaine 2% Jelly MUCMEM 08/24/18 00:25 10 ml ONETIME ONE Administration - Re-Assessments/Exams Free Text/Narrative Re-Assessment/Exam: 08/24/18 00:27 Medical record from prior visit today has been reviewed. 08/24/18 00:40 14 G newman catheter placed without difficulty. gastric contents present in the tube status post placement. Patient tolerated this well. She did ask for ativan to help her anxiety. She had 2 mg IV here in the ED not that long ago and also 2.5 mg dilaudid IV. I explained to her the ativan is long acting and not safe to give further ativan at this time. Discharge instr. as documented. Departure - Departure Time of Disposition: 00:43 Disposition: Home, Self-Care 01 Condition: Fair Clinical Impression: Gastrostomy tube dysfunction - Discharge Information Instructions: Gastrostomy Tube Home Guide, Adult Referrals: Verónica Gamino, PRORATION CLERK [Primary Care Provider] - Forms: ED Department Discharge Additional Instructions: a 14 gauge newman catheter has been placed as a temporary feeding tube until you can get the G tube replaced by Dr Mcginnis. Call for appt. to see Dr Mcginnis today or tomorrow if possible or next available appt. Continue current medications as prescribed and antibiotic prescribed earlier today by Dr. Morin
[2018-08-24] MEDS ORDERED: Lidocaine 2% Jelly 10 ML Urojet ONE (00:19)
[2018-08-24] MEDS ORDERED: Lidocaine 2% Jelly 10 ML Urojet MUCMEM ONE (00:24)
== END 2018-08-24 01:10 | disposition home or self-care (01) ==
LOC: JD.ED 23:47
DX: K94.23 Gastrostomy malfunction (principal); J45.909 Unspecified asthma, uncomplicated; F41.9 Anxiety disorder, unspecified; F32.9 Major depressive disorder, single episode, unspecified; Z79.899 Other long term (current) drug therapy; Z98.84 Bariatric surgery status; Z98.890 Other specified postprocedural states
CPT/HCPCS: 96372; 99282; J1170

== ENCOUNTER 2018-09-09 13:38 | Emergency (ER) | payer BC ==
[2018-09-09] MEDS ORDERED: HYDROmorphone 1 MG/ML Syringe IVPUSH STA (15:27)
[2018-09-09] MEDS ORDERED: Ondansetron 4 MG/2 ML SDV IVPUSH ONE (15:27)
[2018-09-09] MEDS ORDERED: Sodium Chloride 0.9% 1,000 ML IV ONE (15:28)
[2018-09-09] MEDS ORDERED: LORazepam 2 MG/ML SDV IVPUSH ONE (15:28)
--- NOTE | 2018-09-09 15:44 | EDM.PDOC ---
ED HPI GENERAL MEDICAL PROBLEM - General Chief Complaint: Abdominal Pain Stated Complaint: FEEDING TUBE ISSUES AND NEEDS PAIN CONTROL Time Seen by Provider: 09/09/18 15:07 Source of Information: Reports: Patient, RN Notes Reviewed History Limitations: Reports: No Limitations - History of Present Illness INITIAL COMMENTS - FREE TEXT/NARRATIVE: Patient is a 47 her old female who presents to the ED for the evaluation of feeding tube issues. The patient notes that she has had this tube for roughly 1 month now. She states she had this placed because she kept losing too much weight after her gastric bypass. This tube was used mainly for nutritional supplements. She still eats food by mouth. She does note that she has been having some decreased appetite as of late. The patient also notes that she has been recently discharged from the hospital in [place], where she stayed 2 weeks for feeding tube issues. The patient notes this morning that her feeding tube did have some blood around it, this is not normal for her. She states there is normally some serous fluid and irritation present. She would rate her pain at an 8 out of 10 today. She was taking Tylenol home and this has not been providing much relief for her. She notes that she feels dizzy, faint, lightheaded as well with some associated chills. She notes she has some nausea , however nauseous present for her most all the time. She is not having any other GI issues such as diarrhea or constipation. Left Abdomen Pain Score (Numeric/FACES): 8 - Related Data Allergies Allergy/AdvReac Type Severity Reaction Status Date / Time strawberry [[place]] Allergy Severe Shortness Verified 08/24/18 00:04 of Breath clarithromycin [From Biaxin] Allergy Unknown Hives Verified 08/24/18 00:04 latex Allergy Unknown Airway Verified 08/24/18 00:04 Tightness mark flavor Allergy Unknown Airway Verified 08/24/18 00:04 Tightness gabapentin [From Neurontin] Allergy Anaphylactic Verified 08/24/18 00:04 Shock metoclopramide HCl AdvReac "Panic Verified 08/24/18 00:04 [From Reglan] Attack" Home Meds: Home Meds Pregabalin [Lyrica] 225 mg PO BID 10/27/15 [History] EPINEPHrine [Auvi-Q] 0.3 mg IJ ONETIME PRN #2 auto.injct 11/20/16 [Rx] Orphenadrine [Norflex] 100 mg PO Q12H 09/27/17 [History] Divalproex Sodium [Depakote] 500 mg PO BID 04/05/18 [History] Ondansetron [Zofran ODT] 4 mg PO Q6H PRN #20 tab.dis 06/09/18 [Rx] Doxycycline [Vibramycin] 100 mg PO BID 10 Days #20 cap 08/23/18 [Rx] Nutritional Supplement [Osmolite 1.2 Molina] 5 vial PEGTUBE DAILY 08/23/18 [History ] Pantoprazole Sodium 40 mg PO BID 08/23/18 [History] Sucralfate [Carafate] 10 ml PEGTUBE QID PRN 08/23/18 [History] fluvoxaMINE [fluvoxaMINE Maleate] 150 mg PO BID 08/23/18 [History] hydrOXYzine HCl [Atarax] 50 - 100 mg PO QID PRN 08/23/18 [History] oxyCODONE HCl/Acetaminophen [Percocet 5-325 mg Tablet] 1 - 2 each PO Q6HR PRN 4 Days #16 tablet 08/23/18 [Rx] traZODone HCl [Trazodone HCl] 50 mg PO BEDTIME PRN 08/23/18 [History] oxyCODONE HCl/Acetaminophen [Oxycodone-Acetaminophen 5-325] 1 each PO Q8H PRN # 15 tablet 09/09/18 [Rx] Past Medical History HEENT History: Reports: Impaired Vision Other HEENT History: sinus problems Cardiovascular History: Reports: Syncope Respiratory History: Reports: Asthma Gastrointestinal History: Reports: PUD Other Gastrointestinal History: ABDOMINAL PAIN/SCAR TISSUES Other Genitourinary History: kidney failure, resolved 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: x2, 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 Musculoskeletal History: Reports: Back Pain, Chronic, Fracture Other Musculoskeletal History: right hip fx Neurological History: Reports: Seizure, Other (See Below) Other Neuro History: epilepsy Psychiatric History: Reports: Anxiety, Depression, Suicidal Ideation Endocrine/Metabolic History: Reports: Obesity/BMI 30+ Other Endocrine/Metabolic History: Blood sugar low Dermatologic History: Reports: Other (See Below) Other Dermatologic History: ALLERGIES - Infectious Disease History Infectious Disease History: Reports: None - Past Surgical History Head Surgeries/Procedures: Reports: Craniotomy HEENT Surgical History: Reports: Naso-Sinus Surgery GI Surgical History: Reports: Appendectomy, Bariatric Procedure, Lysis of Adhesions Female Surgical History: Reports: D&C Musculoskeletal Surgical History: Reports: Shoulder Surgery Social & Family History - Family History Family Medical History: Noncontributory - Tobacco Use Smoking Status *Q: Never Smoker - Caffeine Use Caffeine Use: Reports: Soda - Recreational Drug Use Recreational Drug Use: No - Living Situation & Occupation Living situation: Reports: , with Spouse, with Family (1 adult child) Occupation: Employed ([employer]) ED ROS GENERAL - Review of Systems Review Of Systems: See Below Constitutional: Reports: Chills, Decreased Appetite, Weight Loss HEENT: Reports: No Symptoms Respiratory: Reports: No Symptoms Cardiovascular: Reports: No Symptoms Endocrine: Reports: No Symptoms GI/Abdominal: Reports: Abdominal Pain (around the feeding tube), Decreased Appetite, Nausea. Denies: Constipation, Diarrhea, Vomiting : Reports: No Symptoms Musculoskeletal: Reports: No Symptoms Skin: Reports: No Symptoms Neurological: Reports: No Symptoms Psychiatric: Reports: No Symptoms Hematologic/Lymphatic: Reports: No Symptoms Immunologic: Reports: No Symptoms ED EXAM, GI/ABD - Physical Exam Exam: See Below Exam Limited By: No Limitations General Appearance: Alert, WD/WN, No Apparent Distress Eyes: Bilateral: Normal Appearance Ears: Normal External Exam Throat/Mouth: Normal Inspection, Normal Lips, Normal Teeth, Normal Gums, Normal Oropharynx, Normal Voice, No Airway Compromise Head: Atraumatic, Normocephalic Neck: Normal Inspection Respiratory/Chest: No Respiratory Distress, Lungs Clear, Normal Breath Sounds, No Accessory Muscle Use, Chest Non-Tender Cardiovascular: Normal Peripheral Pulses, Regular Rate, Rhythm, No Murmur GI/Abdominal Exam: Normal Bowel Sounds, Soft, No Distention, No Mass, Tender ( around peg tube site.) Extremities: Normal Inspection, Normal Capillary Refill Neurological: Alert, Oriented, Normal Cognition, No Motor/Sensory Deficits Psychiatric: Normal Affect, Normal Mood Skin Exam: Warm, Dry, Intact, Normal Color, No Rash Course - Vital Signs Last Recorded V/S: Last Vital Signs Temp 97.4 F 09/09/18 13:56 Pulse 124 H 09/09/18 13:56 Resp 20 09/09/18 13:56 BP 132/95 H 09/09/18 13:56 Pulse Ox 100 09/09/18 13:56 - Orders/Labs/Meds Orders: Active Orders 24 hr Category Date Time Status Peripheral IV Care [RC] . DIRECTED Care 09/09/18 15:56 Active Sodium Chloride 0.9% [Saline Flush] Med 09/09/18 15:56 Active 10 ml FLUSH ASDIRECTED PRN Peripheral IV Insertion Adult [OM.PC] Routine Oth 09/09/18 15:56 Ordered Medication Orders Sodium Chloride (Saline Flush) 10 ml FLUSH ASDIRECTED PRN PRN Reason: Keep Vein Open Last Admin: 09/09/18 15:40 Dose: 10 ml Labs: Laboratory Tests 09/09/18 09/09/18 Range/Units 15:43 15:43 WBC 9.07 (3.98-10.04) K/mm3 RBC 3.97 L (3.98-5.22) M/mm3 Hgb 12.1 (11.2-15.7) gm/L Hct 36.4 (34.1-44.9) % MCV 91.7 (79.4-94.8) fl MCH 30.5 (25.6-32.2) pg MCHC 33.2 (32.2-35.5) g/dl RDW Std Deviation 50.1 H (36.4-46.3) fL Plt Count 236 D (182-369) K/mm3 MPV 8.3 L (9.4-12.3) fl Neutrophils % (Manual) 70 H (40-60) % Band Neutrophils % 3 (0-10) % Lymphocytes % (Manual) 19 L (20-40) % Atypical Lymphs % 0 % Monocytes % (Manual) 5 (2-10) % Eosinophils % (Manual) 2 (0.7-5.8) % Basophils % (Manual) 0 L (0.1-1.2) Metamyelocytes % 1 Platelet Estimate Adequate RBC Morph Comment Normal Sodium 137 (136-145) mEq/L Potassium 4.1 (3.5-5.1) mEq/L Chloride 102 (98-107) mEq/L Carbon Dioxide 27 (21-32) mEq/L Anion Gap 12.1 (5-15) BUN 9 (7-18) mg/dL Creatinine 0.9 (0.55-1.02) mg/dL Est Cr Clr Drug Dosing 67.45 mL/min Estimated GFR (MDRD) > 60 (>60) mL/min BUN/Creatinine Ratio 10.0 L (14-18) Glucose 71 L (74-106) mg/dL Calcium 8.5 (8.5-10.1) mg/dL Total Bilirubin 0.2 (0.2-1.0) mg/dL AST 18 (15-37) U/L ALT 20 (14-59) U/L Alkaline Phosphatase 81 (46-116) U/L Total Protein 6.4 (6.4-8.2) g/dl Albumin 2.9 L (3.4-5.0) g/dl Globulin 3.5 gm/dL Albumin/Globulin Ratio 0.8 L (1-2) Meds: Medications Generic Name Dose Route Start Last Admin Trade Name Freq PRN Reason Stop Dose Admin Sodium Chloride 10 ml 09/09/18 15:56 09/09/18 15:40 Saline Flush FLUSH 10 ml ASDIRECTED PRN Administration Keep Vein Open Discontinued Medications Generic Name Dose Route Start Last Admin Trade Name Freq PRN Reason Stop Dose Admin Hydromorphone HCl 1 mg 09/09/18 15:27 09/09/18 15:53 Dilaudid IVPUSH 09/09/18 15:28 1 mg ONETIME STA Administration Hydromorphone HCl 1 mg 09/09/18 17:12 Dilaudid IVPUSH 09/09/18 17:13 ONETIME ONE Sodium Chloride 1,000 mls @ 999 mls/hr 09/09/18 15:28 09/09/18 15:54 Normal Saline IV 09/09/18 16:28 999 mls/hr ASDIRECTED ONE Administration Lorazepam 0.5 mg 09/09/18 15:28 09/09/18 15:53 Ativan IVPUSH 09/09/18 15:29 0.5 mg ONETIME ONE Administration Ondansetron HCl 4 mg 09/09/18 15:27 09/09/18 15:53 Zofran IVPUSH 09/09/18 15:28 4 mg ONETIME ONE Administration - Re-Assessments/Exams Free Text/Narrative Re-Assessment/Exam: 09/09/18 15:59 Patient presents to the ED for the evaluation of feeding tube issues. She states that she feels slightly dehydrated, have ordered a CBC, CMP, IV bolus, 1 mg IV Dilaudid, 0.5 mg lorazepam, and 4 mg IV Zofran for initial management. 09/09/18 17:06 Pt labs are done and are WNL, Patient will be re-assessed and likely be discharged home with general recommendations. 09/09/18 17:16 1 mg IV dilaudid has been ordered for further pain relief. Departure - Departure Time of Disposition: 17:17 Disposition: Home, Self-Care 01 Condition: Fair Clinical Impression: Problem with gastrostomy tube, Nausea - Discharge Information *PRESCRIPTION DRUG MONITORING PROGRAM REVIEWED*: No *COPY OF PRESCRIPTION DRUG MONITORING REPORT IN PATIENT IGGY: No Prescriptions: oxyCODONE HCl/Acetaminophen [Oxycodone-Acetaminophen 5-325] 1 each PO Q8H PRN # 15 tablet PRN Reason: Pain Instructions: Gastrostomy Tube Home Guide, Adult, How to Care for a Feeding Tube, [id number] Referrals: Verónica Gamino, LUBRICATION WORKER [Primary Care Provider] - Forms: ED Department Discharge Additional Instructions: You have been evaluated in the ED today for problems regarding her feeding tube. You have been given IV hydration, medications for pain, medications for nausea, and medications for anxiety. Your lab values were all within normal limits as well. You have been provided with a prescription for a few tablets of oxycodone 10/ 325 please use 1 tablet every 8 hours as needed for pain. These can be quite constipating recommend that you take a stool softener with these medications as well. Recommend that you increase your oral fluid intake. Please return to the ED if her symptoms should change or worsen. - My Orders Last 24 Hours: My Active Orders 09/09/18 15:56 Peripheral IV Care [RC] . DIRECTED Sodium Chloride 0.9% [Saline Flush] 10 ml FLUSH ASDIRECTED PRN Peripheral IV Insertion Adult [OM.PC] Routine - Assessment/Plan Last 24 Hours: My Active Orders 09/09/18 15:56 Peripheral IV Care [RC] . DIRECTED Sodium Chloride 0.9% [Saline Flush] 10 ml FLUSH ASDIRECTED PRN Peripheral IV Insertion Adult [OM.PC] Routine
[2018-09-09] MEDS ORDERED: Sodium Chloride 0.9% 10 ML Syringe FLUSH PRN (15:56)
[2018-09-09] MEDS ORDERED: HYDROmorphone 1 MG/ML Syringe IVPUSH ONE (17:12)
[2018-09-09 17:55] VITALS: BP 110/85
== END 2018-09-09 17:50 | disposition home or self-care (01) ==
LOC: JD.ED 13:38
DX: T85.848A Pain due to other internal prosthetic devices, implants and grafts, initial encounter (principal); R11.0 Nausea; E66.9 Obesity, unspecified; F41.9 Anxiety disorder, unspecified; Z90.49 Acquired absence of other specified parts of digestive tract; Z98.84 Bariatric surgery status; Z98.890 Other specified postprocedural states; Z91.018 Allergy to other foods; Z88.1 Allergy status to other antibiotic agents; Z91.040 Latex allergy status
CPT/HCPCS: 36415; 80053; 85007; 85027; 96361; 96374; 96375; 96376; 99284; J1170; J2060; J2405; J7040

== ENCOUNTER 2018-10-04 20:32 | Emergency (ER) | payer BC ==
[2018-10-04 20:39] VITALS: BP 132/83
[2018-10-04] MEDS ORDERED: Sodium Chloride 0.9% 1,000 ML IV SCH (21:00)
[2018-10-04] MEDS ORDERED: Sodium Chloride 0.9% 10 ML Syringe FLUSH PRN (21:00)
[2018-10-04] MEDS ORDERED: Ondansetron 4 MG/2 ML SDV IVPUSH ONE (21:00)
[2018-10-04] MEDS ORDERED: HYDROmorphone 1 MG/ML Syringe IVPUSH ONE ×2 (21:02→22:00)
--- NOTE | 2018-10-04 21:11 | EDM.PDOC ---
ED HPI GENERAL MEDICAL PROBLEM - General Chief Complaint: Chest Pain Stated Complaint: CHEST PAIN Time Seen by Provider: 10/04/18 20:40 Source of Information: Reports: Patient History Limitations: Reports: No Limitations - History of Present Illness INITIAL COMMENTS - FREE TEXT/NARRATIVE: The patient presents with chest pain. This started last night. She has no shortness of breath. She says taking a deep breath makes the pain worse. She has nausea and vomiting with this. She has a history of bariatric surgery. After the surgery she lost to much weight and needed a feeding tube. She had ulcers at that time to and had trouble getting food down. That has been much better but some food did get stuck last night. She can still drink water. She has no fever, chills, cough, congestion and runny nose. She has no diarrhea or dysuria. Onset: Gradual Duration: Day(s): (Last night) Location: Reports: Chest Quality: Reports: Sharp Severity: Moderate Improves with: Reports: None Worsens with: Reports: Breathing Associated Symptoms: Reports: Chest Pain, Nausea/Vomiting. Denies: Cough, Fever /Chills, Headaches, Shortness of Breath Chest Pain Score (Numeric/FACES): 8 - Related Data Allergies Allergy/AdvReac Type Severity Reaction Status Date / Time strawberry [[place]] Allergy Severe Shortness Verified 10/04/18 20:37 of Breath clarithromycin [From Biaxin] Allergy Unknown Hives Verified 10/04/18 20:37 latex Allergy Unknown Airway Verified 10/04/18 20:37 Tightness mark flavor Allergy Unknown Airway Verified 10/04/18 20:37 Tightness gabapentin [From Neurontin] Allergy Anaphylactic Verified 10/04/18 20:37 Shock metoclopramide HCl AdvReac "Panic Verified 10/04/18 20:37 [From Reglan] Attack" Home Meds: Home Meds Pregabalin [Lyrica] 225 mg PO BID 10/27/15 [History] EPINEPHrine [Auvi-Q] 0.3 mg IJ ONETIME PRN #2 auto.injct 11/20/16 [Rx] Orphenadrine [Norflex] 100 mg PO Q12H 09/27/17 [History] Divalproex Sodium [Depakote] 500 mg PO BID 04/05/18 [History] Ondansetron [Zofran ODT] 4 mg PO Q6H PRN #20 tab.dis 06/09/18 [Rx] Doxycycline [Vibramycin] 100 mg PO BID 10 Days #20 cap 08/23/18 [Rx] Nutritional Supplement [Osmolite 1.2 [place]] 5 vial PEGTUBE DAILY 08/23/18 [History ] Pantoprazole Sodium 40 mg PO BID 08/23/18 [History] Sucralfate [Carafate] 10 ml PEGTUBE QID PRN 08/23/18 [History] fluvoxaMINE [fluvoxaMINE Maleate] 150 mg PO BID 08/23/18 [History] hydrOXYzine HCl [Atarax] 50 - 100 mg PO QID PRN 08/23/18 [History] oxyCODONE HCl/Acetaminophen [Percocet 5-325 mg Tablet] 1 - 2 each PO Q6HR PRN 4 Days #16 tablet 08/23/18 [Rx] traZODone HCl [Trazodone HCl] 50 mg PO BEDTIME PRN 08/23/18 [History] oxyCODONE HCl/Acetaminophen [Oxycodone-Acetaminophen 5-325] 1 each PO Q8H PRN # 15 tablet 09/09/18 [Rx] Past Medical History HEENT History: Reports: Impaired Vision Other HEENT History: sinus problems Cardiovascular History: Reports: Syncope Respiratory History: Reports: Asthma Gastrointestinal History: Reports: PUD Other Gastrointestinal History: ABDOMINAL PAIN/SCAR TISSUES Other Genitourinary History: kidney failure, resolved PESTICIDE CHEMIST History: Reports: Other PESTICIDE CHEMIST History: x2, 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 Musculoskeletal History: Reports: Back Pain, Chronic, Fracture Other Musculoskeletal History: right hip fx Neurological History: Reports: Seizure, Other (See Below) Other Neuro History: epilepsy Psychiatric History: Reports: Anxiety, Depression, Suicidal Ideation Endocrine/Metabolic History: Reports: Obesity/BMI 30+ Other Endocrine/Metabolic History: Blood sugar low Dermatologic History: Reports: Other (See Below) Other Dermatologic History: ALLERGIES - Infectious Disease History Infectious Disease History: Reports: None - Past Surgical History Head Surgeries/Procedures: Reports: Craniotomy HEENT Surgical History: Reports: Naso-Sinus Surgery GI Surgical History: Reports: Appendectomy, Bariatric Procedure, Lysis of Adhesions Female Surgical History: Reports: D&C Musculoskeletal Surgical History: Reports: Shoulder Surgery Social & Family History - Family History Family Medical History: Noncontributory - Tobacco Use Smoking Status *Q: Never Smoker - Caffeine Use Caffeine Use: Reports: Soda - Recreational Drug Use Recreational Drug Use: No - Living Situation & Occupation Living situation: Reports: , with Spouse, with Family (1 adult child) Occupation: Employed ([employer]) ED ROS GENERAL - Review of Systems Review Of Systems: See Below Constitutional: Reports: No Symptoms HEENT: Reports: No Symptoms Respiratory: Reports: No Symptoms Cardiovascular: Reports: Chest Pain Endocrine: Reports: No Symptoms GI/Abdominal: Reports: Nausea, Vomiting. Denies: Abdominal Pain : Reports: No Symptoms Musculoskeletal: Reports: No Symptoms ED EXAM, GENERAL - Physical Exam Exam: See Below Exam Limited By: No Limitations General Appearance: Alert, No Apparent Distress Ears: Normal External Exam Nose: Normal Inspection Head: Atraumatic, Normocephalic Neck: Normal Inspection Respiratory/Chest: No Respiratory Distress, Lungs Clear, Normal Breath Sounds Cardiovascular: Regular Rate, Rhythm, No Edema, No Murmur GI/Abdominal: Soft, Non-Tender, No Organomegaly, No Mass Back Exam: Normal Inspection Extremities: Normal Inspection EKG INTERPRETATION EKG Date: 10/04/18 Time: 20:37 Rhythm: NSR Rate (Beats/Min): 84 [place]: Normal P-Wave: Present QRS: Normal ST-T: Normal QT: Prolonged Course - Vital Signs Last Recorded V/S: Last Vital Signs Temp 97.5 F 10/04/18 20:37 Pulse 88 10/04/18 20:37 Resp 14 10/04/18 20:37 BP 132/83 10/04/18 20:37 Pulse Ox 100 10/04/18 20:37 - Orders/Labs/Meds Orders: Active Orders 24 hr Category Date Time Status Cardiac Monitoring [RC] . DIRECTED Care 10/04/18 21:00 Active EKG Documentation Completion [RC] STAT Care 10/04/18 21:01 Active Peripheral IV Care [RC] . DIRECTED Care 10/04/18 21:00 Active Chest 1V Frontal [CR] Stat Exams 10/04/18 21:01 Taken Sodium Chloride 0.9% [Normal Saline] 1,000 ml Med 10/04/18 21:00 Active IV .BOLUS Sodium Chloride 0.9% [Saline Flush] Med 10/04/18 21:00 Active 10 ml FLUSH ASDIRECTED PRN ED Antiemetic Medication Reflex [OM.PC] Stat Oth 10/04/18 21:01 Ordered Peripheral IV Insertion Adult [OM.PC] Stat Oth 10/04/18 21:00 Ordered Medication Orders Sodium Chloride (Normal Saline) 1,000 mls @ 1,000 mls/hr IV .BOLUS ANA Last Admin: 10/04/18 21:12 Dose: 1,000 mls/hr Sodium Chloride (Saline Flush) 10 ml FLUSH ASDIRECTED PRN PRN Reason: Keep Vein Open Last Admin: 10/04/18 21:15 Dose: 10 ml Labs: Laboratory Tests 10/04/18 10/04/18 10/04/18 Range/Units 20:40 20:40 20:40 WBC 5.31 (3.98-10.04) K/mm3 RBC 3.67 L (3.98-5.22) M/mm3 Hgb 11.3 (11.2-15.7) gm/L Hct 35.2 (34.1-44.9) % MCV 95.9 H D (79.4-94.8) fl MCH 30.8 (25.6-32.2) pg MCHC 32.1 L (32.2-35.5) g/dl RDW Std Deviation 52.3 H (36.4-46.3) fL Plt Count 296 (182-369) K/mm3 MPV 8.3 L (9.4-12.3) fl Neut % (Auto) 48.0 (34.0-71.1) % Lymph % (Auto) 40.1 (19.3-51.7) % [place] % (Auto) 6.0 (4.7-12.5) % Eos % (Auto) 4.0 (0.7-5.8) Baso % (Auto) 0.6 (0.1-1.2) % Neut # (Auto) 2.55 (1.56-6.13) K/mm3 Lymph # (Auto) 2.13 (1.18-3.74) K/mm3 Rankin # (Auto) 0.32 (0.24-0.36) K/mm3 Eos # (Auto) 0.21 (0.04-0.36) K/mm3 Baso # (Auto) 0.03 (0.01-0.08) K/mm3 D-Dimer, Quantitative 0.44 (0.19-0.50) mg/L Sodium 137 (136-145) mEq/L Potassium 3.7 (3.5-5.1) mEq/L Chloride 101 (98-107) mEq/L Carbon Dioxide 31 (21-32) mEq/L Anion Gap 8.7 (5-15) BUN 11 (7-18) mg/dL Creatinine 0.8 (0.55-1.02) mg/dL Est Cr Clr Drug Dosing TNP Estimated GFR (MDRD) > 60 (>60) mL/min BUN/Creatinine Ratio 13.8 L (14-18) Glucose 78 (74-106) mg/dL Calcium 8.8 (8.5-10.1) mg/dL Total Bilirubin 0.2 (0.2-1.0) mg/dL AST 13 L (15-37) U/L ALT 16 (14-59) U/L Alkaline Phosphatase 74 (46-116) U/L Troponin I < 0.017 (0.00-0.056) ng/mL Total Protein 6.6 (6.4-8.2) g/dl Albumin 3.5 (3.4-5.0) g/dl Globulin 3.1 gm/dL Albumin/Globulin Ratio 1.1 (1-2) Lipase 226 (73-393) U/L Meds: Medications Generic Name Dose Route Start Last Admin Trade Name Freq PRN Reason Stop Dose Admin Sodium Chloride 1,000 mls @ 1,000 mls/hr 10/04/18 21:00 10/04/18 21:12 Normal Saline IV 1,000 mls/hr .BOLUS ANA Administration Sodium Chloride 10 ml 10/04/18 21:00 10/04/18 21:15 Saline Flush FLUSH 10 ml ASDIRECTED PRN Administration Keep Vein Open Discontinued Medications Generic Name Dose Route Start Last Admin Trade Name Freq PRN Reason Stop Dose Admin Hydromorphone HCl 1 mg 10/04/18 21:02 10/04/18 21:15 Dilaudid IVPUSH 10/04/18 21:03 1 mg ONETIME ONE Administration Hydromorphone HCl 1 mg 10/04/18 22:00 10/04/18 22:21 Dilaudid IVPUSH 10/04/18 22:01 1 mg ONETIME ONE Administration Ondansetron HCl 4 mg 10/04/18 21:00 10/04/18 21:13 Zofran IVPUSH 10/04/18 21:01 4 mg ONETIME ONE Administration - Re-Assessments/Exams Free Text/Narrative Re-Assessment/Exam: 10/04/18 21:12 I ordered an IV NS 1L bolus, zofran 4mg IV, dilaudid 1mg IV, EKG, CXR and labs. Her EKG shows a NSR with no acute changes. 10/04/18 22:49 Her CXR looks good. Her CBC and CMP look good. Her lipase and troponin were negative. She had more pain so I ordered more dilaudid. She feels better after that. I will discharge her home. Departure - Departure Time of Disposition: 22:50 Disposition: Home, Self-Care 01 Condition: Good Clinical Impression: Atypical chest pain Nausea & vomiting Qualifiers: Vomiting type: unspecified Vomiting Intractability: non-intractable Qualified Code(s): R11.2 - Nausea with vomiting, unspecified Referrals: Verónica Gamino, [employer] [Primary Care Provider] - 1 Week Forms: ED Department Discharge Additional Instructions: Use your phenergan or zofran for the nausea and vomiting. Take the hydrocodone as needed for pain. Please return if you are worse. - My Orders Last 24 Hours: My Active Orders 10/04/18 21:00 Cardiac Monitoring [RC] . DIRECTED Peripheral IV Care [RC] . DIRECTED Sodium Chloride 0.9% [Normal Saline] 1,000 ml IV .BOLUS Sodium Chloride 0.9% [Saline Flush] 10 ml FLUSH ASDIRECTED PRN Peripheral IV Insertion Adult [OM.PC] Stat 10/04/18 21:01 EKG Documentation Completion [RC] STAT Chest 1V Frontal [CR] Stat ED Antiemetic Medication Reflex [OM.PC] Stat - Assessment/Plan Last 24 Hours: My Active Orders 10/04/18 21:00 Cardiac Monitoring [RC] . DIRECTED Peripheral IV Care [RC] . DIRECTED Sodium Chloride 0.9% [Normal Saline] 1,000 ml IV .BOLUS Sodium Chloride 0.9% [Saline Flush] 10 ml FLUSH ASDIRECTED PRN Peripheral IV Insertion Adult [OM.PC] Stat 10/04/18 21:01 EKG Documentation Completion [RC] STAT Chest 1V Frontal [CR] Stat ED Antiemetic Medication Reflex [OM.PC] Stat
--- NOTE | 2018-10-05 08:08 | CR ---
Chest: Frontal view of the chest was obtained. Comparison: Previous chest x-ray of 06/23/18. Heart size and mediastinum are normal. Lungs are clear. Minimal scoliosis is noted within the spine. Previous right shoulder surgery is noted. Impression: 1. Incidental findings. Nothing acute is appreciated. Diagnostic code #2
== END 2018-10-04 23:00 | disposition home or self-care (01) ==
LOC: JD.ED 20:32
DX: R07.89 Other chest pain (principal); R11.2 Nausea with vomiting, unspecified; F41.9 Anxiety disorder, unspecified; F32.9 Major depressive disorder, single episode, unspecified; J45.909 Unspecified asthma, uncomplicated; Z79.899 Other long term (current) drug therapy; Z91.040 Latex allergy status; Z91.018 Allergy to other foods; Z88.8 Allergy status to other drugs, medicaments and biological substances
CPT/HCPCS: 36415; 71045; 80053; 83690; 84484; 85025; 85379; 93005; 96361; 96374; 96375; 96376; 99285; J1170; J2405; J7040; 93010; 99284

== ENCOUNTER 2019-01-05 13:56 | Emergency (ER) | payer SELFPAY ==
[2019-01-05 14:06] VITALS: BP 129/86; PULSE 109
[2019-01-05] MEDS ORDERED: Sodium Chloride 0.9% 1,000 ML IV SCH (15:00)
[2019-01-05] MEDS ORDERED: diphenhydrAMINE 50 MG/ML SDV IVPUSH ONE (15:01)
[2019-01-05] MEDS ORDERED: methylPREDNISolone Sodium Succinate 125 MG/2 ML SDV IVPUSH ONE (15:01)
[2019-01-05] MEDS ORDERED: Famotidine 20 MG/2 ML SDV IVPUSH ONE (15:01)
--- NOTE | 2019-01-05 15:02 | EDM.PDOC ---
ED HPI GENERAL MEDICAL PROBLEM - General Chief Complaint: Allergic Reaction Stated Complaint: ALLERGIC REACTION Time Seen by Provider: 01/05/19 14:55 Source of Information: Reports: Patient History Limitations: Reports: No Limitations - History of Present Illness INITIAL COMMENTS - FREE TEXT/NARRATIVE: 48-year-old female attends the ED for evaluation of allergic reaction that developed about 10 minutes after she started eating food at a local restaurant. This would is no [place] it was a local [place] restaurant. 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 Within 10 minutes of eating the meal she started to appreciate tongue tingling swelling throat closure or trouble breathing with a large amount of pressure central chest with no audible wheezing. She developed generalized pruritus and no urticaria. She states even her scalp is itching. Feels a bit of trouble swallowing with pressure in the back of her throat. Patient did give herself a injection through one of her EpiPen's. And provide some relief of the symptoms particularly in her throat and chest and perhaps slightly of the pruritus. Onset: Today Onset Date: 01/05/19 Onset Time: 13:30 Duration: Minutes: Location: Reports: Generalized (Generalized pruritus and mild erythema without hive development.), Other (Elling of throat closure heaviness in her central chest burning of her tongue swelling of her throat.) Quality: Reports: Other Severity: Moderate (As above.) Improves with: Reports: None Worsens with: Reports: None Context: Reports: Other (Suspect foodborne allergy as it occurred within 10 minutes of eating at a [place] restaurant where she had not eaten before. She has known allergies to strawberries but it's unlikely that her food was contaminated with strawberries at the restaurant.). Denies: Activity, Exercise , Lifting, Sick Contact, Trauma Associated Symptoms: Reports: Chest Pain (Central chest pressure discomfort up) , Headaches, Loss of Appetite, Weakness. 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 below) (She give herself an injection of adrenaline through her EpiPen.) - Related Data Allergies Allergy/AdvReac Type Severity Reaction Status Date / Time strawberry [Sarepta] Allergy Severe Anaphylactic Verified 01/05/19 14:06 Shock clarithromycin [From Biaxin] Allergy Unknown Hives Verified 01/05/19 14:06 metoclopramide HCl AdvReac "Panic Verified 01/05/19 14:06 [From Reglan] Attack" Home Meds: Home Meds EPINEPHrine [Auvi-Q] 0.3 mg IJ ONETIME PRN #2 auto.injct 11/20/16 [Rx] Pantoprazole Sodium 40 mg PO BID 08/23/18 [History] hydrOXYzine HCl [hydrOXYzine] 50 - 100 mg PO QID PRN 08/23/18 [History] Promethazine [Phenergan] 25 mg PO ASDIRECTED PRN 10/24/18 [History] Desvenlafaxine Succinate [Desvenlafaxine Succinate ER] 50 - 100 mg PO DAILY 03/09 [History] Divalproex Sodium [Depakote] 500 mg PO ASDIRECTED 11/29/18 [History] Orphenadrine Citrate [Orphenadrine Citrate ER] 100 mg PO BID PRN 11/29/18 [ History] Pregabalin [Lyrica] 225 mg PO BID 11/29/18 [History] busPIRone [Buspar] 10 mg PO TID 11/29/18 [History] Divalproex Sodium [Depakote] 1,500 mg PO BEDTIME 11/30/18 [History] Cholecalciferol (Vitamin D3) [Vitamin D3] 5,000 unit PO DAILY #30 tablet [Rx] LORazepam [Ativan] 1 mg PO BID tablet 12/03/18 [Rx] Mirtazapine [Remeron] 45 mg PO BEDTIME tablet 12/03/18 [Rx] QUEtiapine [SEROquel] 150 mg PO BEDTIME tablet 12/03/18 [Rx] busPIRone [Buspar] 15 mg PO TID tablet 12/03/18 [Rx] EPINEPHrine [Epipen 2-Collin] 0.3 mg IJ ASDIRECTED #1 pack 01/05/19 [Rx] Past Medical History HEENT History: Reports: Impaired Vision Other HEENT History: sinus problems Cardiovascular History: Reports: Syncope Respiratory History: Reports: Asthma Gastrointestinal History: Reports: PUD Other Gastrointestinal History: ABDOMINAL PAIN/SCAR TISSUES Other Genitourinary History: kidney failure, resolved 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, 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 Musculoskeletal History: Reports: Back Pain, Chronic, Fracture Other Musculoskeletal History: right hip fx Neurological History: Reports: Seizure, Other (See Below) Other Neuro History: epilepsy Psychiatric History: Reports: Anxiety, Depression, Suicidal Ideation Endocrine/Metabolic History: Reports: Obesity/BMI 30+ Other Endocrine/Metabolic History: Blood sugar low Hematologic History: Reports: None Immunologic History: Reports: None Oncologic (Cancer) History: Reports: None Dermatologic History: Reports: Other (See Below) Other Dermatologic History: ALLERGIES - Infectious Disease History Infectious Disease History: Reports: None - Past Surgical History Head Surgeries/Procedures: Reports: Craniotomy HEENT Surgical History: Reports: Naso-Sinus Surgery GI Surgical History: Reports: Appendectomy, Bariatric Procedure, Lysis of Adhesions Female Surgical History: Reports: D&C Musculoskeletal Surgical History: Reports: Shoulder Surgery Social & Family History - Family History Family Medical History: Noncontributory - Caffeine Use Caffeine Use: Reports: Soda - Living Situation & Occupation Living situation: Reports: , with Spouse, with Family (1 adult child) Occupation: Employed ([employer]) ED ROS ALLERGIC REACTION - Review of Systems Review Of Systems: See Below Constitutional: Reports: Decreased Appetite. Denies: Fever, Chills, Malaise, Weakness, Fatigue, Weight Loss HEENT: Reports: Throat Swelling, Other. Denies: Ear Pain, Eye Discharge, Eye Pain, Glasses, Hearing Loss, Nosebleed, Nose Pain, Sinus Problem, Vertigo Respiratory: Reports: Shortness of Breath, Other. Denies: Wheezing (Central upper chest pressure discomfort without wheezing) Cardiovascular: Reports: Chest Pain (Central chest pressure discomfort which I believe is due to bronchospasm.). Denies: Blood Pressure Problem, Claudication , Dyspnea on Exertion, Edema, Lightheadedness, Orthopnea, Palpitations Endocrine: Reports: Fatigue (Her voice is normal.) GI/Abdominal: Reports: Constipation. Denies: Diarrhea : Reports: Frequency Musculoskeletal: Reports: Neck Pain, Back Pain Skin: Reports: Pruritis ( no hive development.generalized ), Other (Chronic neck and low back pain. Mild generalized erythema generalized pruritus) Neurological: Reports: Dizziness, Tremors. Denies: Confusion, Headache, Numbness, Pre-Existing Deficit, Seizure, Syncope, Tingling, Trouble Speaking, Difficulty Walking, Weakness Psychiatric: Reports: Anxiety, Depression (Much more tremulous and she gave herself the adrenaline shot.) Hematologic/Lymphatic: Reports: No Symptoms Immunologic: Reports: No Symptoms ED EXAM GENERAL NO PERIP PULSE - Physical Exam Exam: See Below Exam Limited By: No Limitations General Appearance: Alert, WD/WN, Anxious, Moderate Distress, Other (Vital signs reveal a temperature 37.3. Pulse is 109 not unexpected to have a tachycardia after give yourself adrenaline shot. Respiratory is 19 BP was 190 29 /86 pulse ox 99%.) Eye Exam: Bilateral Eye: Normal Inspection (There is no swelling of the upper or lower eyelids and no injection of the conjunctiva.) Ears: Normal TMs Nose: Other (Mild nasal congestion of her turbinates meet middle and superior bilaterally.) Throat/Mouth: Other Head: Atraumatic (Uvula is not swollen. Mouth is normal tongue is not swollen. Voice is normal.), Normocephalic Neck: Normal Inspection, Supple, Non-Tender, Full Range of Motion. No: Lymphadenopathy (L), Lymphadenopathy (R) Respiratory/Chest: No Respiratory Distress, Lungs Clear, Normal Breath Sounds, No Accessory Muscle Use, Other. No: Respiratory Distress, Wheezing Cardiovascular: Normal Peripheral Pulses (Complaints of central chest pressure discomfort which I believe is due to bronchospasm.), Regular Rate, Rhythm, No Edema, No Gallop, No Murmur, No Rub GI/Abdominal: Normal Bowel Sounds, Soft, Non-Tender, No Organomegaly, No Abnormal Bruit, No Mass, Pelvis Stable Extremities: Normal Inspection, Normal Range of Motion, Non-Tender, No Pedal Edema, Normal Capillary Refill, Pedal Edema, Other Neurological: Alert, Oriented, CN II-XII Intact, Normal Cognition, Other ( Diffusely tremulous particularly in her hands.) Psychiatric: Anxious Skin Exam: Warm, Dry, Intact, Erythema (Mild generalized erythema without urticaria.) Course - Vital Signs Last Recorded V/S: Last Vital Signs Temp 37.3 C 01/05/19 14:02 Pulse 109 H 01/05/19 14:02 Resp 19 01/05/19 14:02 BP 129/86 01/05/19 14:02 Pulse Ox 99 01/05/19 14:02 - Orders/Labs/Meds Meds: Medications Discontinued Medications Generic Name Dose Route Start Last Admin Trade Name Román PRN Reason Stop Dose Admin Diphenhydramine HCl 50 mg 01/05/19 15:01 01/05/19 15:18 Benadryl IVPUSH 01/05/19 15:02 50 mg ONETIME ONE Administration Famotidine 20 mg 01/05/19 15:01 01/05/19 15:15 Pepcid IVPUSH 01/05/19 15:02 20 mg ONETIME ONE Administration Hydromorphone HCl 0.5 mg 01/05/19 16:07 01/05/19 16:25 Dilaudid IVPUSH 01/05/19 16:08 0.5 mg ONETIME ONE Administration Sodium Chloride 1,000 mls @ 500 mls/hr 01/05/19 15:00 01/05/19 15:00 Normal Saline IV 500 mls/hr ASDIRECTED ANA Administration Methylprednisolone Sodium Succinate 125 mg 01/05/19 15:01 01/05/19 15:18 Solu-Medrol IVPUSH 01/05/19 15:02 125 mg ONETIME ONE Administration Ondansetron HCl 4 mg 01/05/19 16:07 01/05/19 16:23 Zofran IVPUSH 01/05/19 16:08 4 mg ONETIME ONE Administration - Radiology Interpretation Free Text/Narrative:: 48-year-old female presents to the ED with an acute allergic reaction to food borne substances. She nor she is allergic to strawberries. She was eating at a local [place] restaurant she's not eaten at before. She states within 10 minutes of starting teach she started to develop allergic symptoms with his burning of her tongue swelling of her throat felt like he was closing in and then generalized pruritus and erythema. Develop any hives. She did have an associated heavy pressure sensation she is sensation in her upper chest which I quite to bronchospasm. She did have her EpiPen with her and she did give herself an injection of 0.3 mg of epinephrine subcutaneously in her right thigh. She states the dentist did help relieve some of the throat pressure discomfort and chest discomfort and perhaps slightly the pruritus. On examination in nose and throat exam shows nasal congestion from allergic rhinitis. The uvula is intact for the mouth is normal tongue is normal. Phonation is normal. Lungs are clear without any wheezing. Plan IV will be established she will be given normal saline at open. Given Benadryl 50 mg IV with Pepcid 20 mg IV and Solu-Medrol 125 mg IV. - Re-Assessments/Exams Free Text/Narrative Re-Assessment/Exam: 01/05/19 16:00: Is feeling better. Feels that the pruritus is easing up substantially skin is no longer erythematous. The pressure in her central chest is dissipating. To watch her for another half an hour so and if she is okay will discharge her to home. 01/05/19 16:54: Allergic reaction symptoms seem to be the most part completely resolved. No further pruritus. No skin erythema. No pressure in her chest. She reports that she still has a bad headache. She remains mildly tremulous likely from the effect of medication. Her Dilaudid 0.5 mg IV with Zofran 4 mg IV for headache and nausea relief. Her is here and he can drive her home. 01/05/19 17:15: He is doing much better. Headache is for the most part gone. She 'll be discharged to home in the care of her . I will refill her EpiPen and she is now out. She will continue Benadryl 50 mg every 6 hours. For recurrence of symptoms if she needs to. The Solu-Medrol will prevent any late stage reactions. Departure - Departure Time of Disposition: 16:10 Disposition: Home, Self-Care 01 Condition: Fair Clinical Impression: Acute allergic reaction Qualifiers: Encounter type: initial encounter Qualified Code(s): T78.40XA - Allergy, unspecified, initial encounter - Discharge Information *PRESCRIPTION DRUG MONITORING PROGRAM REVIEWED*: Not Applicable *COPY OF PRESCRIPTION DRUG MONITORING REPORT IN PATIENT IGGY: Not Applicable Prescriptions: EPINEPHrine [Epipen 2-Collin] 0.3 mg IJ ASDIRECTED #1 pack Instructions: Allergies, Adult, [id number] Referrals: Veróinca Gamino, FAMILY SERVICES SPECIALIST [Primary Care Provider] - Forms: ED Department Discharge Additional Instructions: Evaluation the emergency room today in regards to development of acute allergy symptoms after about 10 minutes of eating food that would be new to you. you were eating [place] restaurant food with unknown herbs, spices and ingredients. He developed acute onset of symptoms with tingling of your tongue mouth and then development of generalized itching and pressure in the center of your chest compatible with acute allergic response . You used her EpiPen at the restaurant and believe that it started to help ease chest pressure discomfort and some of the itching. In the ED vital signs were stable. You were eventually treated with intravenous Benadryl 50 mg Pepcid 20 mg and Solu-Cortef 125 mg for acute allergic reaction. Unfortunately he developed a headache while in the department and also were given Dilaudid 0.5 mg with Zofran 4 mg IV for headache and nausea relief. Knee Benadryl 50 mg every 6 hours if you develop any recurrence of itching or central chest discomfort. I did refill your EpiPen so that it may be available to you in case you have further allergic reactions. The Solu-Medrol that was given in the ED starts to work in 4-6 hours and should prevent any late reactions over the next 2-3 days.
[2019-01-05] MEDS ORDERED: HYDROmorphone 0.5 MG/0.5 ML Syringe IVPUSH ONE (16:07)
[2019-01-05] MEDS ORDERED: Ondansetron 4 MG/2 ML SDV IVPUSH ONE (16:07)
== END 2019-01-05 16:35 | disposition home or self-care (01) ==
LOC: JD.ED 13:56
DX: T78.40XA Allergy, unspecified, initial encounter (principal); F41.9 Anxiety disorder, unspecified; F32.9 Major depressive disorder, single episode, unspecified; E66.9 Obesity, unspecified; Z68.30 Body mass index [BMI] 30.0-30.9, adult; Z79.899 Other long term (current) drug therapy; Z90.49 Acquired absence of other specified parts of digestive tract; Z88.8 Allergy status to other drugs, medicaments and biological substances; Z91.018 Allergy to other foods
CPT/HCPCS: 96361; 96374; 96375; 99283; J1170; J1200; J2405; J2930; J3490; J7040

== ENCOUNTER 2019-08-04 16:04 | Emergency (ER) | payer BC ==
[2019-08-04 16:28] VITALS: BP 149/99; PULSE 74
[2019-08-04] MEDS ORDERED: Sodium Chloride 0.9% 1,000 ML IV ONE (16:34)
[2019-08-04] MEDS ORDERED: methylPREDNISolone Sodium Succinate 125 MG/2 ML SDV IVPUSH ONE (16:34)
[2019-08-04] MEDS ORDERED: diphenhydrAMINE 50 MG/ML SDV IVPUSH ONE ×2 (16:34→18:22)
[2019-08-04] MEDS ORDERED: Sodium Chloride 0.9% 10 ML Syringe FLUSH PRN (16:34)
[2019-08-04] MEDS ORDERED: Famotidine 20 MG/2 ML SDV IVPUSH ONE (16:34)
[2019-08-04] MEDS ORDERED: LORazepam 2 MG/ML SDV IVPUSH ONE (16:42)
--- NOTE | 2019-08-04 16:48 | EDM.PDOC ---
ED HPI GENERAL MEDICAL PROBLEM - General Chief Complaint: Allergic Reaction Stated Complaint: SKIN COMPLAINT/POSS ALLERGIC REACTION Time Seen by Provider: 08/04/19 16:22 Source of Information: Reports: Patient, RN Notes Reviewed History Limitations: Reports: No Limitations - History of Present Illness INITIAL COMMENTS - FREE TEXT/NARRATIVE: Patient is a 48-year-old female who presents to the ED for a possible allergic reaction. The patient states that she has not changed any skin or perfume products. She states that she did try a new fruit today, a few hours ago and this was dragon fruit. Patient states that she had a drink with this from [employer], so she has been drinking it all day. Her lungs feel tight, she has a red rash to her face neck and chest, and it is very itchy. Patient states that she is very itchy all over but her O2 sats are 100% on room air. The patient did take 50 mg of Benadryl about 1 hour prior to arrival to the ER. Patient states that she does have a prescription for an EpiPen and an inhaler , but did not use these today she did not have them with her. Patient has a primary care provider out of this area, she does state that she has a history of anxiety as well, and states that she has been staying home and this is the first time she has been out of her house since the government shutdown, and she believes that she is also anxious due to the societal changes that she witnessed today. Patient is not complaining of any other sick-like symptoms. 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 (see below) Other Treatments BENDING MACHINE OPERATOR: benadryl Generalized Pain Score (Numeric/FACES): 7 - Related Data Allergies Allergy/AdvReac Type Severity Reaction Status Date / Time strawberry [[place]] Allergy Severe Anaphylactic Verified 08/04/19 16:29 Shock clarithromycin [From Biaxin] Allergy Unknown Hives Verified 08/04/19 16:29 metoclopramide HCl AdvReac "Panic Verified 08/04/19 16:29 [From Reglan] Attack" Home Meds: Home Meds Pantoprazole Sodium 40 mg PO BID 08/23/18 [History] hydrOXYzine HCL [hydrOXYzine] 50 - 100 mg PO QID PRN 08/23/18 [History] Promethazine [Phenergan] 25 mg PO ASDIRECTED PRN 10/24/18 [History] Desvenlafaxine Succinate [Desvenlafaxine Succinate ER] 50 - 100 mg PO DAILY 03/09 [History] Pregabalin [Lyrica] 225 mg PO BID 11/29/18 [History] Divalproex Sodium [Depakote] 1,000 mg PO BID 11/30/18 [History] Cholecalciferol (Vitamin D3) [Vitamin D3] 5,000 unit PO DAILY #30 tablet [Rx] EPINEPHrine [Epipen 2-Collin] 0.3 mg IJ ASDIRECTED #1 pack 01/05/19 [Rx] predniSONE 20 mg PO ASDIRECTED #15 tab 08/04/19 [Rx] Past Medical History HEENT History: Reports: Impaired Vision, Other (See Below) Other HEENT History: sinus problems Cardiovascular History: Reports: Syncope Respiratory History: Reports: Asthma Gastrointestinal History: Reports: PUD Other Gastrointestinal History: ABDOMINAL PAIN/SCAR TISSUES 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, 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 Musculoskeletal History: Reports: Back Pain, Chronic, Fracture Other Musculoskeletal History: right hip fx Neurological History: Reports: Seizure, Other (See Below) Other Neuro History: epilepsy Psychiatric History: Reports: Anxiety, Depression, Suicidal Ideation, Other ( See Below) Other Psychiatric History: addiction in past Endocrine/Metabolic History: Reports: Obesity/BMI 30+ Other Endocrine/Metabolic History: Blood sugar low Immunologic History: Reports: Other (See Below) (environmental/food allergies) - Past Surgical History Head Surgeries/Procedures: Reports: Craniotomy HEENT Surgical History: Reports: Naso-Sinus Surgery GI Surgical History: Reports: Appendectomy, Bariatric Procedure, Lysis of Adhesions Female Surgical History: Reports: D&C Musculoskeletal Surgical History: Reports: Shoulder Surgery Social & Family History - Family History Family Medical History: Noncontributory - Tobacco Use Smoking Status *Q: Never Smoker - Caffeine Use Caffeine Use: Reports: Coffee, Soda - Recreational Drug Use Recreational Drug Use: No - Living Situation & Occupation Living situation: Reports: , with Spouse, with Family (1 adult child) Occupation: Employed ([employer]) ED ROS ALLERGIC REACTION - Review of Systems Review Of Systems: Comprehensive ROS is negative, except as noted in HPI. ED EXAM GENERAL NO PERIP PULSE - Physical Exam Exam: See Below Exam Limited By: No Limitations General Appearance: Alert, WD/WN, No Apparent Distress, Anxious (patient does appear very anxious) Ears: Normal External Exam Nose: Normal Inspection Throat/Mouth: Normal Inspection, Normal Lips, Normal Teeth, Normal Gums, Normal Oropharynx, Normal Voice, No Airway Compromise Head: Atraumatic, Normocephalic Neck: Normal Inspection, Supple, Non-Tender, Full Range of Motion Respiratory/Chest: No Respiratory Distress, Lungs Clear, Normal Breath Sounds, No Accessory Muscle Use, Chest Non-Tender Cardiovascular: Normal Peripheral Pulses, Regular Rate, Rhythm, No Murmur GI/Abdominal: Normal Bowel Sounds, Soft, Non-Tender, No Distention, No Mass Extremities: Normal Inspection, Normal Capillary Refill Neurological: Alert, Oriented, Normal Cognition, No Motor/Sensory Deficits Psychiatric: Normal Affect, Normal Mood, Anxious (generalized) Skin Exam: Warm, Dry, Intact, Normal Color, Erythema (to neck/chest/upper arms no hive features), Excoriations (on neck/upper arms/chest) Course - Vital Signs Last Recorded V/S: Last Vital Signs Temp 97.5 F 08/04/19 16:19 Pulse 74 08/04/19 16:19 Resp 20 08/04/19 16:19 BP 149/99 H 08/04/19 16:19 Pulse Ox 100 08/04/19 16:19 - Orders/Labs/Meds Orders: Active Orders 24 hr Category Date Time Status Peripheral IV Care [RC] . DIRECTED Care 08/04/19 16:34 Ordered Ketorolac [Toradol] Med 08/04/19 17:48 Once 30 mg IVPUSH ONETIME ONE Sodium Chloride 0.9% [Normal Saline] 1,000 ml Med 08/04/19 16:34 Active IV ONETIME Sodium Chloride 0.9% [Saline Flush] Med 08/04/19 16:34 Active 10 ml FLUSH ASDIRECTED PRN Peripheral IV Insertion Adult [OM.PC] Stat Oth 08/04/19 16:34 Ordered Medication Orders Sodium Chloride (Normal Saline) 1,000 mls @ 500 mls/hr IV ONETIME ONE Stop: 08/04/19 18:33 Last Admin: 08/04/19 17:10 Dose: 500 mls/hr Ketorolac Tromethamine (Toradol) 30 mg IVPUSH ONETIME ONE Stop: 08/04/19 17:49 Sodium Chloride (Saline Flush) 10 ml FLUSH ASDIRECTED PRN PRN Reason: Keep Vein Open Last Admin: 08/04/19 17:12 Dose: 10 ml Meds: Medications Generic Name Dose Route Start Last Admin Trade Name Freq PRN Reason Stop Dose Admin Sodium Chloride 1,000 mls @ 500 mls/hr 08/04/19 16:34 08/04/19 17:10 Normal Saline IV 08/04/19 18:33 500 mls/hr ONETIME ONE Administration Ketorolac Tromethamine 30 mg 08/04/19 17:48 Toradol IVPUSH 08/04/19 17:49 ONETIME ONE Sodium Chloride 10 ml 08/04/19 16:34 08/04/19 17:12 Saline Flush FLUSH 10 ml ASDIRECTED PRN Administration Keep Vein Open Discontinued Medications Generic Name Dose Route Start Last Admin Trade Name Freq PRN Reason Stop Dose Admin Diphenhydramine HCl 50 mg 08/04/19 16:34 Benadryl IVPUSH 08/04/19 16:35 ONETIME ONE Famotidine 20 mg 08/04/19 16:34 08/04/19 17:10 Pepcid IVPUSH 08/04/19 16:35 20 mg ONETIME ONE Administration Lorazepam 1 mg 08/04/19 16:42 08/04/19 17:26 Ativan IVPUSH 08/04/19 16:43 1 mg ONETIME ONE Administration Methylprednisolone Sodium Succinate 125 mg 08/04/19 16:34 08/04/19 17:10 Solu-Medrol IVPUSH 08/04/19 16:35 125 mg ONETIME ONE Administration - Re-Assessments/Exams Free Text/Narrative Re-Assessment/Exam: 08/04/19 16:49 Patient does appear to be suffering from allergic reaction. I will order IV to be placed with some fluids, I ordered 125 mg of Solu-Medrol, 50 mg of Benadryl, and 20 mg famotidine initially. As the patient did take the 50 mg of Benadryl at home already, we will hold off on this at this time. The patient does have an anxiety component she will be given 1 mg Ativan for this as well. Patient will likely be sent home with prednisone on outpatient basis and have her follow -up with her regular provider sometime this week and have her stay away from dragon fruit. 08/04/19 17:49 patient states that she has a mild headache now, I did order 30 mg Toradol for management of this. Will re-assess after this and likely discharge home. Departure - Departure Time of Disposition: 17:50 Disposition: Home, Self-Care 01 Condition: Good Clinical Impression: Anxiety Acute allergic reaction Qualifiers: Encounter type: initial encounter Qualified Code(s): T78.40XA - Allergy, unspecified, initial encounter - Discharge Information *PRESCRIPTION DRUG MONITORING PROGRAM REVIEWED*: No *COPY OF PRESCRIPTION DRUG MONITORING REPORT IN PATIENT IGGY: No Prescriptions: predniSONE 20 mg PO ASDIRECTED #15 tab Instructions: Allergies, Adult, [id number] Referrals: PCP,None [Primary Care Provider] - Forms: ED Department Discharge Additional Instructions: You were evaluated in the ER today regarding your allergic reaction. You were given some IV fluids, and IV medications, and this did seem to help your allergic reaction. Since the only thing you change in your diet today was the ingestion of dragon fruit, highly and strongly recommend that you stay away from dragon fruit or anything flavored like dragon fruit to prevent further allergic issues. You have been given a prescription for prednisone, please take as directed. This was electronically prescribed to the [place] pharmacy, you will need to go there tomorrow and pick this up and start to take as prescribed. You may take Benadryl, 25 mg every 4 hours as needed for further symptom relief. If you are not already doing so, taking an [id number] antacid like Pepcid or Zantac is also advisable. Please return to the ED at any time if symptoms should change or worsen. Sepsis Event Note - Evaluation Sepsis Screening Result: No Definite Risk - Focused Exam Vital Signs: Vital Signs Temp Pulse Resp BP Pulse Ox 08/04/19 16:19 97.5 F 74 20 149/99 H 100 Date Exam was Performed: 08/04/19 Time Exam was Performed: 17:50 - My Orders Last 24 Hours: My Active Orders 08/04/19 16:34 Peripheral IV Care [RC] . DIRECTED Sodium Chloride 0.9% [Normal Saline] 1,000 ml IV ONETIME Sodium Chloride 0.9% [Saline Flush] 10 ml FLUSH ASDIRECTED PRN Peripheral IV Insertion Adult [OM.PC] Stat 08/04/19 17:48 Ketorolac [Toradol] 30 mg IVPUSH ONETIME ONE - Assessment/Plan Last 24 Hours: My Active Orders 08/04/19 16:34 Peripheral IV Care [RC] . DIRECTED Sodium Chloride 0.9% [Normal Saline] 1,000 ml IV ONETIME Sodium Chloride 0.9% [Saline Flush] 10 ml FLUSH ASDIRECTED PRN Peripheral IV Insertion Adult [OM.PC] Stat 08/04/19 17:48 Ketorolac [Toradol] 30 mg IVPUSH ONETIME ONE
[2019-08-04] MEDS ORDERED: Ketorolac 30 MG/ML SDV IVPUSH ONE (17:48)
== END 2019-08-04 19:10 | disposition home or self-care (01) ==
LOC: JD.ED 16:04
DX: T78.40XA Allergy, unspecified, initial encounter (principal); F41.9 Anxiety disorder, unspecified; Z91.018 Allergy to other foods; J45.909 Unspecified asthma, uncomplicated; R56.9 Unspecified convulsions; F32.9 Major depressive disorder, single episode, unspecified; E66.9 Obesity, unspecified; Z68.39 Body mass index [BMI] 39.0-39.9, adult; Z88.1 Allergy status to other antibiotic agents; Z88.8 Allergy status to other drugs, medicaments and biological substances
CPT/HCPCS: 96361; 96374; 96375; 99283-25; J1200; J1885; J2060; J2930; J3490; J7030

== ENCOUNTER 2019-08-16 20:46 | Emergency (ER) | payer BC ==
[2019-08-16] MEDS ORDERED: Sodium Chloride 0.9% 10 ML Syringe FLUSH PRN (20:48)
[2019-08-16] MEDS ORDERED: LORazepam 2 MG/ML SDV IVPUSH ONE (20:49)
[2019-08-16] MEDS ORDERED: HYDROmorphone 1 MG/ML Syringe IVPUSH ONE (20:50)
[2019-08-16] MEDS ORDERED: diphenhydrAMINE 50 MG/ML SDV IVPUSH ONE (20:50)
[2019-08-16 20:54] VITALS: BP 152/104; PULSE 135
[2019-08-16] MEDS ORDERED: Sodium Chloride 0.9% 1,000 ML IV SCH (21:00)
--- NOTE | 2019-08-16 21:17 | EDM.PDOC ---
ED HPI GENERAL MEDICAL PROBLEM - General Chief Complaint: Allergic Reaction Stated Complaint: [facility] Time Seen by Provider: 08/16/19 20:48 Source of Information: Reports: Patient, EMS History Limitations: Reports: No Limitations - History of Present Illness INITIAL COMMENTS - FREE TEXT/NARRATIVE: The patient presents by [facility] for an allergic reaction. She said this all started earlier today when [place] and she was evaluated at the ER there. She had trouble breathing, swelling in her throat, headache, and hive. She is allergic to strawberries and she had some fruit snacks that may have had flavoring. She took her epipen and had solumedrol, pepcid and benadryl. She also had some dilaudid for her headache and ativan for her anxiety. She felt good when she left there. She was driving home to [place] at about 7:30 when the symptoms started again. She was given epinephrine 1mg and toradol for her headache. She is anxious again and shaking. She says she has some trouble breathing. She has no fever, chills, cough, chest pain or shortness of breath. Onset: Sudden Duration: Hour(s): Severity: Moderate Improves with: Reports: None Worsens with: Reports: None Associated Symptoms: Reports: Shortness of Breath. Denies: Chest Pain, Cough, Fever/Chills, Headaches, Nausea/Vomiting Headache Pain Score (Numeric/FACES): 8 - Related Data Allergies Allergy/AdvReac Type Severity Reaction Status Date / Time strawberry [[place]] Allergy Severe Anaphylactic Verified 08/16/19 20:56 Shock clarithromycin [From Biaxin] Allergy Unknown Hives Verified 08/16/19 20:56 erythromycin base Allergy Other Verified 08/16/19 20:56 metoclopramide HCl AdvReac "Panic Verified 08/16/19 20:56 [From Reglan] Attack" Home Meds: Home Meds Pantoprazole Sodium 40 mg PO BID 08/23/18 [History] hydrOXYzine HCL [hydrOXYzine] 50 - 100 mg PO QID PRN 08/23/18 [History] Promethazine [Phenergan] 25 mg PO ASDIRECTED PRN 10/24/18 [History] Desvenlafaxine Succinate [Desvenlafaxine Succinate ER] 50 - 100 mg PO BID [History] Pregabalin [Lyrica] 225 mg PO BID 11/29/18 [History] Divalproex Sodium [Depakote] 1,000 mg PO BID 11/30/18 [History] Cholecalciferol (Vitamin D3) [Vitamin D3] 5,000 unit PO DAILY #30 tablet [Rx] EPINEPHrine [Epipen 2-Collin] 0.3 mg IJ ASDIRECTED PRN 08/16/19 [History] Ziprasidone HCl [Geodon] 80 mg PO BEDTIME 08/16/19 [History] cloNIDine [Catapres] 0.1 mg PO BID 08/16/19 [History] predniSONE [Prednisone] 40 mg PO DAILY #10 tablet 08/17/19 [Rx] Past Medical History HEENT History: Reports: Impaired Vision, Other (See Below) Other HEENT History: sinus problems Cardiovascular History: Reports: Syncope Respiratory History: Reports: Asthma Gastrointestinal History: Reports: PUD Other Gastrointestinal History: ABDOMINAL PAIN/SCAR TISSUES Other Genitourinary History: kidney failure, resolved 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, 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 Musculoskeletal History: Reports: Back Pain, Chronic, Fracture Other Musculoskeletal History: right hip fx Neurological History: Reports: Seizure, Other (See Below) Other Neuro History: epilepsy Psychiatric History: Reports: Addiction, Anxiety, Depression, Suicidal Ideation , Other (See Below) Other Psychiatric History: addiction in past Endocrine/Metabolic History: Reports: Obesity/BMI 30+ Other Endocrine/Metabolic History: Blood sugar low Hematologic History: Reports: None Immunologic History: Reports: Other (See Below) Oncologic (Cancer) History: Reports: None Dermatologic History: Reports: Other (See Below) Other Dermatologic History: ALLERGIES - Infectious Disease History Infectious Disease History: Reports: Chicken Pox - Past Surgical History Head Surgeries/Procedures: Reports: Craniotomy HEENT Surgical History: Reports: Naso-Sinus Surgery GI Surgical History: Reports: Appendectomy, Bariatric Procedure, Lysis of Adhesions Female Surgical History: Reports: D&C Musculoskeletal Surgical History: Reports: Shoulder Surgery Social & Family History - Family History Family Medical History: Noncontributory - Tobacco Use Smoking Status *Q: Never Smoker - Caffeine Use Caffeine Use: Reports: Coffee, Energy Drinks, Soda, Tea - Recreational Drug Use Recreational Drug Use: No - Living Situation & Occupation Living situation: Reports: , with Spouse, with Family (1 adult child) Occupation: Employed ([employer]) ED ROS ALLERGIC REACTION - Review of Systems Review Of Systems: See Below Constitutional: Reports: No Symptoms HEENT: Reports: No Symptoms Respiratory: Reports: Shortness of Breath Cardiovascular: Reports: No Symptoms Endocrine: Reports: No Symptoms GI/Abdominal: Reports: No Symptoms : Reports: No Symptoms Musculoskeletal: Reports: No Symptoms Skin: Reports: Rash ED EXAM GENERAL NO PERIP PULSE - Physical Exam Exam: See Below Exam Limited By: No Limitations General Appearance: Alert, No Apparent Distress Ears: Normal External Exam Nose: Normal Inspection Throat/Mouth: Normal Inspection Head: Atraumatic, Normocephalic Neck: Normal Inspection Respiratory/Chest: No Respiratory Distress, Lungs Clear, Normal Breath Sounds Cardiovascular: No Edema, No Murmur, Tachycardia GI/Abdominal: Soft, Non-Tender, No Organomegaly, No Mass Neurological: Alert, Oriented Skin Exam: Other (Redness to her neck) Course - Vital Signs Last Recorded V/S: Last Vital Signs Temp 98.9 F 08/16/19 20:49 Pulse 135 H 08/16/19 20:49 Resp 22 H 08/16/19 20:49 BP 152/104 H 08/16/19 20:49 Pulse Ox 96 08/16/19 20:49 - Orders/Labs/Meds Orders: Active Orders 24 hr Category Date Time Status Cardiac Monitoring [RC] . DIRECTED Care 08/16/19 20:48 Active Peripheral IV Care [RC] . DIRECTED Care 08/16/19 20:49 Active Head wo Cont [CT] Stat Exams 08/16/19 20:50 Taken Sodium Chloride 0.9% [Normal Saline] 1,000 ml Med 08/16/19 21:00 Active IV ASDIRECTED Sodium Chloride 0.9% [Saline Flush] Med 08/16/19 20:48 Active 10 ml FLUSH ASDIRECTED PRN Peripheral IV Insertion Adult [OM.PC] Stat Oth 08/16/19 20:48 Ordered Medication Orders Sodium Chloride (Normal Saline) 1,000 mls @ 125 mls/hr IV ASDIRECTED ANA Last Admin: 08/16/19 21:41 Dose: 125 mls/hr Sodium Chloride (Saline Flush) 10 ml FLUSH ASDIRECTED PRN PRN Reason: Keep Vein Open Last Admin: 08/16/19 21:41 Dose: 10 ml Labs: Laboratory Tests 08/16/19 08/16/19 Range/Units 21:03 21:03 WBC 18.38 H (3.98-10.04) K/mm3 RBC 4.22 (3.98-5.22) M/mm3 Hgb 12.5 (11.2-15.7) gm/dl Hct 38.8 (34.1-44.9) % MCV 91.9 D (79.4-94.8) fl MCH 29.6 (25.6-32.2) pg MCHC 32.2 (32.2-35.5) g/dl RDW Std Deviation 48.0 H (36.4-46.3) fL Plt Count 260 (182-369) K/mm3 MPV 8.3 L (9.4-12.3) fl Neut % (Auto) 84.1 H (34.0-71.1) % Lymph % (Auto) 9.2 L (19.3-51.7) % [place] % (Auto) 3.9 L (4.7-12.5) % Eos % (Auto) 0.1 L (0.7-5.8) Baso % (Auto) 0.3 (0.1-1.2) % Neut # (Auto) 15.44 H (1.56-6.13) K/mm3 Lymph # (Auto) 1.70 (1.18-3.74) K/mm3 [place] # (Auto) 0.72 H (0.24-0.36) K/mm3 Eos # (Auto) 0.02 L (0.04-0.36) K/mm3 Baso # (Auto) 0.05 (0.01-0.08) K/mm3 Manual Slide Review Abnormal smear Sodium 130 L (136-145) mEq/L Potassium 3.8 (3.5-5.1) mEq/L Chloride 93 L (98-107) mEq/L Carbon Dioxide 20 L D (21-32) mEq/L Anion Gap 20.8 H (5-15) BUN 12 (7-18) mg/dL Creatinine 1.3 H (0.55-1.02) mg/dL Est Cr Clr Drug Dosing 46.20 mL/min Estimated GFR (MDRD) 44 (>60) mL/min BUN/Creatinine Ratio 9.2 L (14-18) Glucose 262 H (74-106) mg/dL Calcium 8.8 (8.5-10.1) mg/dL Total Bilirubin 0.2 (0.2-1.0) mg/dL AST 16 (15-37) U/L ALT 18 (14-59) U/L Alkaline Phosphatase 62 (46-116) U/L Total Protein 7.5 (6.4-8.2) g/dl Albumin 3.6 (3.4-5.0) g/dl Globulin 3.9 gm/dL Albumin/Globulin Ratio 0.9 L (1-2) Meds: Medications Generic Name Dose Route Start Last Admin Trade Name Freq PRN Reason Stop Dose Admin Sodium Chloride 1,000 mls @ 125 mls/hr 08/16/19 21:00 08/16/19 21:41 Normal Saline IV 125 mls/hr ASDIRECTED ANA Administration Sodium Chloride 10 ml 08/16/19 20:48 08/16/19 21:41 Saline Flush FLUSH 10 ml ASDIRECTED PRN Administration Keep Vein Open Discontinued Medications Generic Name Dose Route Start Last Admin Trade Name Freq PRN Reason Stop Dose Admin Diphenhydramine HCl 50 mg 08/16/19 20:50 08/16/19 21:09 Benadryl IVPUSH 08/16/19 20:51 50 mg ONETIME ONE Administration Hydromorphone HCl 1 mg 08/16/19 20:50 08/16/19 21:10 Dilaudid IVPUSH 08/16/19 20:51 1 mg ONETIME ONE Administration Hydromorphone HCl 0.5 mg 08/17/19 05:47 08/17/19 05:53 Dilaudid IVPUSH 08/17/19 05:48 0.5 mg ONETIME ONE Administration Lorazepam 1 mg 08/16/19 20:49 08/16/19 21:09 Ativan IVPUSH 08/16/19 20:50 1 mg ONETIME ONE Administration Methylprednisolone Sodium Succinate 40 mg 08/16/19 22:59 08/16/19 23:08 Solu-Medrol IVPUSH 08/16/19 23:00 40 mg ONETIME ONE Administration - Re-Assessments/Exams Free Text/Narrative Re-Assessment/Exam: 08/16/19 21:17 She has an IV so I ordered benadryl, dilaudid 1mg IV, ativan 1mg IV, labs and a CT of her head. 08/16/19 23:[address] of her head looks good. Her WBC was elevated at 18.38. Her Na is low at 130. Her anion gap is elevated at 20.8. Her creatinine is slightly elevated at 1.3. Her glucose is 262. She had 2 doses of epi today. I feel it would be a good idea to observe her tonight. I have ordered another dose of solu-medrol of 40mg IV. 08/17/19 06:03 She did good through the night. I will get her on some prednisone. Departure - Departure Time of Disposition: 06:05 Disposition: Home, Self-Care 01 Condition: Good Clinical Impression: Allergic reaction Qualifiers: Encounter type: initial encounter Qualified Code(s): T78.40XA - Allergy, unspecified, initial encounter - Discharge Information *PRESCRIPTION DRUG MONITORING PROGRAM REVIEWED*: Not Applicable *COPY OF PRESCRIPTION DRUG MONITORING REPORT IN PATIENT IGGY: Not Applicable Prescriptions: predniSONE [Prednisone] 40 mg PO DAILY #10 tablet Referrals: Verónica Gamino [employer]BL[employer] [Primary Care Provider] - 1 Week Forms: ED Department Discharge Additional Instructions: Take the prednisone 40mg daily for 5 days. Take benadryl 50mg every 6 hours as needed for any allergy symptoms. Take pepcid daily for 5 days. Please return if you are worse. Sepsis Event Note - Evaluation Sepsis Screening Result: No Definite Risk - Focused Exam Vital Signs: Vital Signs Temp Pulse Resp BP Pulse Ox 08/16/19 20:49 98.9 F 135 H 22 H 152/104 H 96 Date Exam was Performed: 08/17/19 Time Exam was Performed: 06:02 - My Orders Last 24 Hours: My Active Orders 08/16/19 20:48 Cardiac Monitoring [RC] . DIRECTED Sodium Chloride 0.9% [Saline Flush] 10 ml FLUSH ASDIRECTED PRN Peripheral IV Insertion Adult [OM.PC] Stat 08/16/19 20:49 Peripheral IV Care [RC] . DIRECTED 08/16/19 20:50 Head wo Cont [CT] Stat 08/16/19 21:00 Sodium Chloride 0.9% [Normal Saline] 1,000 ml IV ASDIRECTED - Assessment/Plan Last 24 Hours: My Active Orders 08/16/19 20:48 Cardiac Monitoring [RC] . DIRECTED Sodium Chloride 0.9% [Saline Flush] 10 ml FLUSH ASDIRECTED PRN Peripheral IV Insertion Adult [OM.PC] Stat 08/16/19 20:49 Peripheral IV Care [RC] . DIRECTED 08/16/19 20:50 Head wo Cont [CT] Stat 08/16/19 21:00 Sodium Chloride 0.9% [Normal Saline] 1,000 ml IV ASDIRECTED
[2019-08-16] MEDS ORDERED: methylPREDNISolone Sodium Succinate 40 MG/1 ML SDV IVPUSH ONE (22:59)
[2019-08-17] MEDS ORDERED: HYDROmorphone 0.5 MG/0.5 ML Syringe IVPUSH ONE (05:47)
--- NOTE | 2019-08-17 09:20 | CT ---
Head CT Technique: Multiple axial sections through the brain were obtained. Intravenous contrast was not utilized. Comparison: Prior head CT exam of 11/29/18. Findings: Ventricles along with basal cisterns and sulci over the convexities are within normal limits for the patient's age. No abnormal parenchymal densities are seen. No evidence of intracranial hemorrhage. No midline shift or mass-effect is seen. 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 Stable suboccipital craniotomy is noted. No evidence of intracranial hemorrhage. No midline shift or mass-effect is seen. Visualized paranasal sinuses and mastoid sinuses show nothing acute. No acute calvarial abnormality is appreciated. Impression: 1. Stable findings as noted above. 2. No acute intracranial abnormality is appreciated. Diagnostic code #2 This report was dictated in MDT I agree with preliminary report from [facility], finalized on 08/16/19, 11:11 PM Central Daylight Time
== END 2019-08-17 07:10 | disposition home or self-care (01) ==
LOC: JD.ED 20:46
DX: T78.1XXA Other adverse food reactions, not elsewhere classified, initial encounter (principal); R00.0 Tachycardia, unspecified; E66.9 Obesity, unspecified; Z91.048 Other nonmedicinal substance allergy status; Z88.8 Allergy status to other drugs, medicaments and biological substances; Z88.1 Allergy status to other antibiotic agents; Z79.899 Other long term (current) drug therapy; Z68.42 Body mass index [BMI] 45.0-49.9, adult
CPT/HCPCS: 36415; 70450; 80053; 85025; 96374; 96375; 99285; J1170; J1200; J2060; J2920; J7030; 99283

== ENCOUNTER 2019-08-21 12:13 | Emergency (ER) | payer BC ==
[2019-08-21 12:24] VITALS: BP 132/86; PULSE 90
[2019-08-21] MEDS ORDERED: HYDROmorphone 1 MG/ML Syringe IM ONE (12:37)
[2019-08-21] MEDS ORDERED: Diazepam 5 MG Tab PO ONE (12:38)
--- NOTE | 2019-08-21 14:34 | EDM.PDOC ---
ED HPI GENERAL MEDICAL PROBLEM - General Chief Complaint: Neurological Problem Stated Complaint: [facility] Time Seen by Provider: 08/21/19 12:22 Source of Information: Reports: Patient, EMS History Limitations: Reports: No Limitations - History of Present Illness INITIAL COMMENTS - FREE TEXT/NARRATIVE: The patient presents by [facility] for a seizure. She was at the grocery store and she was talking to a friend and she started not to feel well and she was going to leave and then she had the seizure. She did fall and hit her head and hurt her neck on the left side. She has a history of seizures and she is on valproic acid. There has been no changes to her medications. She has been under lots of stress this past week. She had an allergic reaction this week and she is on prednisone for that. She has a headache now and neck pain. She is in a c-collar. She has no fever, chills, cough, congestion, runny nose, chest pain, shortness of breath, abdominal pain, nausea or vomiting. She has no numbness or weakness. Onset: Sudden Duration: Minutes: Location: Reports: Head, Neck Quality: Reports: Sharp Severity: Moderate Improves with: Reports: Immobilization Worsens with: Reports: Movement Associated Symptoms: Reports: Headaches. Denies: Chest Pain, Cough, Fever/ Chills, Nausea/Vomiting, Shortness of Breath Treatments R PROGRAMMER: Reports: Cervical Collar, Oxygen Left Headache Pain Score (Numeric/FACES): 7 - Related Data Allergies Allergy/AdvReac Type Severity Reaction Status Date / Time strawberry [[place]] Allergy Severe Anaphylactic Verified 08/16/19 20:56 Shock clarithromycin [From Biaxin] Allergy Unknown Hives Verified 08/16/19 20:56 erythromycin base Allergy Other Verified 08/16/19 20:56 metoclopramide HCl AdvReac "Panic Verified 08/16/19 20:56 [From Reglan] Attack" Home Meds: Home Meds Pantoprazole Sodium 40 mg PO BID 08/23/18 [History] hydrOXYzine HCL [hydrOXYzine] 50 - 100 mg PO QID PRN 08/23/18 [History] Promethazine [Phenergan] 25 mg PO ASDIRECTED PRN 10/24/18 [History] Desvenlafaxine Succinate [Desvenlafaxine Succinate ER] 50 - 100 mg PO BID [History] Pregabalin [Lyrica] 225 mg PO BID 11/29/18 [History] Divalproex Sodium [Depakote] 1,000 mg PO BID 11/30/18 [History] Cholecalciferol (Vitamin D3) [Vitamin D3] 5,000 unit PO DAILY #30 tablet [Rx] EPINEPHrine [Epipen 2-Collin] 0.3 mg IJ ASDIRECTED PRN 08/16/19 [History] Ziprasidone HCl [Geodon] 80 mg PO BEDTIME 08/16/19 [History] cloNIDine [Catapres] 0.1 mg PO BID 08/16/19 [History] predniSONE [Prednisone] 40 mg PO DAILY #10 tablet 08/17/19 [Rx] diazePAM [Valium] 5 mg PO TID PRN #15 tab 08/21/19 [Rx] Past Medical History HEENT History: Reports: Impaired Vision, Other (See Below) Other HEENT History: sinus problems Cardiovascular History: Reports: Syncope Respiratory History: Reports: Asthma Gastrointestinal History: Reports: PUD Other Gastrointestinal History: ABDOMINAL PAIN/SCAR TISSUES Other Genitourinary History: kidney failure, resolved DEVIL TENDER History: Reports: Other DEVIL TENDER History: x2, 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 Musculoskeletal History: Reports: Back Pain, Chronic, Fracture Other Musculoskeletal History: right hip fx Neurological History: Reports: Seizure, Other (See Below) Other Neuro History: epilepsy Psychiatric History: Reports: Anxiety, Depression, Suicidal Ideation, Other ( See Below) Other Psychiatric History: addiction in past Endocrine/Metabolic History: Reports: Obesity/BMI 30+ Other Endocrine/Metabolic History: Blood sugar low Hematologic History: Reports: None Immunologic History: Reports: Other (See Below) Oncologic (Cancer) History: Reports: None Dermatologic History: Reports: Other (See Below) Other Dermatologic History: ALLERGIES - Infectious Disease History Infectious Disease History: Reports: Chicken Pox - Past Surgical History Head Surgeries/Procedures: Reports: Craniotomy HEENT Surgical History: Reports: Naso-Sinus Surgery GI Surgical History: Reports: Appendectomy, Bariatric Procedure, Lysis of Adhesions Female Surgical History: Reports: D&C Musculoskeletal Surgical History: Reports: Shoulder Surgery Social & Family History - Family History Family Medical History: Noncontributory - Tobacco Use Smoking Status *Q: Never Smoker - Caffeine Use Caffeine Use: Reports: Coffee, Soda - Recreational Drug Use Recreational Drug Use: No - Living Situation & Occupation Living situation: Reports: , with Spouse, with Family (1 adult child) Occupation: Employed ([employer]) ED ROS GENERAL - Review of Systems Review Of Systems: See Below Constitutional: Reports: No Symptoms HEENT: Reports: No Symptoms Respiratory: Reports: No Symptoms Cardiovascular: Reports: No Symptoms Endocrine: Reports: No Symptoms GI/Abdominal: Reports: No Symptoms : Reports: No Symptoms Musculoskeletal: Reports: Neck Pain (left side) Neurological: Reports: Headache - Physical Exam Exam: See Below Exam Limited By: No Limitations General Appearance: Alert, No Apparent Distress Ears: Normal External Exam Nose: Normal Inspection Throat/Mouth: Normal Inspection Head Exam: Other (Pain upon palpation to the left occipital region) Neck: Tender Lateral (left) Respiratory/Chest: No Respiratory Distress, Lungs Clear, Normal Breath Sounds Cardiovascular: Regular Rate, Rhythm, No Edema, No Murmur GI/Abdominal: Soft, Non-Tender, No Organomegaly, No Mass Neuro Exam (Abbreviated): Alert, Oriented, No Motor/Sensory Deficits Course - Vital Signs Last Recorded V/S: Last Vital Signs Temp 97.3 F 08/21/19 12:19 Pulse 90 08/21/19 12:19 Resp 18 08/21/19 12:19 BP 132/86 08/21/19 12:19 Pulse Ox 98 08/21/19 12:19 - Orders/Labs/Meds Orders: Active Orders 24 hr Category Date Time Status Cardiac Monitoring [RC] . DIRECTED Care 08/21/19 12:36 Active Cervical Spine wo Cont [CT] Stat Exams 08/21/19 12:38 Ordered Head wo Cont [CT] Stat Exams 08/21/19 12:38 Ordered Lumbar Spine 2 or 3V [CR] Stat Exams 08/21/19 12:39 Taken Labs: Laboratory Tests 08/21/19 08/21/19 Range/Units 13:50 13:50 WBC 10.94 H (3.98-10.04) K/mm3 RBC 4.00 (3.98-5.22) M/mm3 Hgb 11.8 (11.2-15.7) gm/dl Hct 36.1 (34.1-44.9) % MCV 90.3 (79.4-94.8) fl MCH 29.5 (25.6-32.2) pg MCHC 32.7 (32.2-35.5) g/dl RDW Std Deviation 46.1 (36.4-46.3) fL Plt Count 225 (182-369) K/mm3 MPV 7.7 L (9.4-12.3) fl Neut % (Auto) 73.8 H (34.0-71.1) % Lymph % (Auto) 14.3 L (19.3-51.7) % [place] % (Auto) 8.2 (4.7-12.5) % Eos % (Auto) 1.5 (0.7-5.8) Baso % (Auto) 0.5 (0.1-1.2) % Neut # (Auto) 8.08 H (1.56-6.13) K/mm3 Lymph # (Auto) 1.56 (1.18-3.74) K/mm3 [place] # (Auto) 0.90 H (0.24-0.36) K/mm3 Eos # (Auto) 0.16 (0.04-0.36) K/mm3 Baso # (Auto) 0.05 (0.01-0.08) K/mm3 Manual Slide Review Normal smear Sodium 133 L (136-145) mEq/L Potassium 4.5 (3.5-5.1) mEq/L Chloride 97 L (98-107) mEq/L Carbon Dioxide 31 D (21-32) mEq/L Anion Gap 9.5 (5-15) BUN 14 (7-18) mg/dL Creatinine 0.8 (0.55-1.02) mg/dL Est Cr Clr Drug Dosing 75.07 mL/min Estimated GFR (MDRD) > 60 (>60) mL/min BUN/Creatinine Ratio 17.5 (14-18) Glucose 80 (74-106) mg/dL Calcium 8.3 L (8.5-10.1) mg/dL Magnesium 2.2 (1.8-2.4) mg/dl Total Bilirubin 0.3 (0.2-1.0) mg/dL AST 14 L (15-37) U/L ALT 21 (14-59) U/L Alkaline Phosphatase 57 (46-116) U/L Total Protein 6.6 (6.4-8.2) g/dl Albumin 3.5 (3.4-5.0) g/dl Globulin 3.1 gm/dL Albumin/Globulin Ratio 1.1 (1-2) Valproic Acid 71.1 (50.0-100.0) ug/mL Meds: Medications Discontinued Medications Generic Name Dose Route Start Last Admin Trade Name Freq PRN Reason Stop Dose Admin Diazepam 5 mg 08/21/19 12:38 08/21/19 12:55 Valium. PO 08/21/19 12:39 5 mg ONETIME ONE Administration Hydromorphone HCl 1 mg 08/21/19 12:37 08/21/19 12:54 Dilaudid IM 08/21/19 12:38 1 mg ONETIME ONE Administration - Re-Assessments/Exams Free Text/Narrative Re-Assessment/Exam: 08/21/19 14:32 The patient was in a c-collar. I ordered a CT of her head and cervical spine, labs, dilaudid 1mg IM and valium 5mg PO. The CT of her cervical spine shows nonspecific reversal of the normal cervical lordosis. No evidence of acute fracture. The cervical spine demonstrates mild degenerative changes at multiple levels. The CT of her head shows no hemorrhage , mass effect or midline shift. 08/21/19 14:35 Her WBC was elevated at 10.94. Her Na was a little low at 133. Her valproic acid is normal at 71.1. Departure - Departure Time of Disposition: 14:45 Disposition: Home, Self-Care 01 Condition: Good Clinical Impression: Seizure - Discharge Information *PRESCRIPTION DRUG MONITORING PROGRAM REVIEWED*: No *COPY OF PRESCRIPTION DRUG MONITORING REPORT IN PATIENT IGGY: No Prescriptions: diazePAM [Valium] 5 mg PO TID PRN #15 tab PRN Reason: Anxiety Referrals: Verónica Gamino HITCH TECHNICIAN [Primary Care Provider] - 1 Week Forms: ED Department Discharge Additional Instructions: Take your medication as prescribed. Take the valium as needed for anxiety. Take tylenol or motrin for pain. Please return if you are worse. Sepsis Event Note - Evaluation Sepsis Screening Result: No Definite Risk - Focused Exam Vital Signs: Vital Signs Temp Pulse Resp BP Pulse Ox 08/21/19 12:19 97.3 F 90 18 132/86 98 Date Exam was Performed: 08/21/19 Time Exam was Performed: 14:40 - My Orders Last 24 Hours: My Active Orders 08/21/19 12:36 Cardiac Monitoring [RC] . DIRECTED 08/21/19 12:38 Cervical Spine wo Cont [CT] Stat Head wo Cont [CT] Stat 08/21/19 12:39 Lumbar Spine 2 or 3V [CR] Stat - Assessment/Plan Last 24 Hours: My Active Orders 08/21/19 12:36 Cardiac Monitoring [RC] . DIRECTED 08/21/19 12:38 Cervical Spine wo Cont [CT] Stat Head wo Cont [CT] Stat 08/21/19 12:39 Lumbar Spine 2 or 3V [CR] Stat
--- NOTE | 2019-08-22 11:09 | CT ---
CT cervical spine Technique: Multiple axial sections were obtained from above C1 inferiorly to the bottom of T3. Reconstructed sagittal and coronal images were obtained. Comparison: Prior cervical spine CT study of 11/29/18. Findings: Slight disc space narrowing is noted see C5-6 and C5-6. Minimal anterior osteophytes are noted at C4-5 and C5-6. Slight degenerative change is noted between the dens and anterior arch of C1. Small soft tissue opacity seen within the posterior soft tissues which is chronic. This may represent minimal ligamentum nuchal calcification. No acute fracture or abnormal subluxation is seen. Slight straightening of the normal cervical kyphosis is seen either positional or due to mild muscle spasm. Incomplete posterior arch of C1 is noted which is felt to be a normal variant. Impression: 1. Mild degenerative change. 2. Nothing acute is identified. Diagnostic code #2 This report was dictated in MDT I agree with preliminary report from [facility], finalized on 08/21/19, 2:24 PM Central Daylight Time
--- NOTE | 2019-08-22 11:10 | CT ---
Head CT Technique: Multiple axial sections through the brain were obtained. Intravenous contrast was not utilized. Comparison: Prior head CT study of 08/16/19. Findings: Ventricles along with basal cisterns and sulci over the convexities are within normal limits for the patient's age. No abnormal parenchymal densities are seen. No evidence of intracranial hemorrhage. No midline shift or mass-effect is seen. Bone window settings were reviewed. Slight mucosal thickening and retention cyst is noted within both inferior maxillary sinuses. Visualized mastoid sinuses are clear. No acute calvarial abnormality is appreciated. Impression: 1. Chronic appearing sinus findings. 2. Nothing acute is appreciated on noncontrast head CT study. Diagnostic code #2 This report was dictated in MDT I agree with preliminary report from [facility], finalized on 08/21/19, 2:21 PM Central Daylight Time
--- NOTE | 2019-08-22 11:11 | CR ---
Lumbar spine: AP, lateral and coned-down lateral view centered to the lumbosacral junction were obtained. Comparison: Previous lumbar spine study of 04/22/18. Vertebral body heights and disc spaces are maintained. Very minimal scattered endplate osteophytes are seen within L3-L5. Pedicles are intact. Visualized transverse and spinous processes are intact. Previous abdominal surgery is noted. Scattered bowel gas is noted within the colon which does not appear obstructive. Impression: 1. Findings which are believed to be incidental as noted above. 2. No acute abnormality is appreciated on three-view lumbar spine study. Diagnostic code #2 This report was dictated in MDT
== END 2019-08-21 15:18 | disposition home or self-care (01) ==
LOC: JD.ED 12:13
DX: G40.909 Epilepsy, unspecified, not intractable, without status epilepticus (principal); J45.909 Unspecified asthma, uncomplicated; F32.9 Major depressive disorder, single episode, unspecified; F41.9 Anxiety disorder, unspecified; E66.9 Obesity, unspecified; Z68.42 Body mass index [BMI] 45.0-49.9, adult; Z91.018 Allergy to other foods; Z88.1 Allergy status to other antibiotic agents; Z88.8 Allergy status to other drugs, medicaments and biological substances; Z79.899 Other long term (current) drug therapy
CPT/HCPCS: 36415; 70450; 72100; 72125; 80053; 80164; 83735; 85025; 96372; 99285; A9270; J1170; 99284

== ENCOUNTER 2019-09-04 19:51 | Emergency (ER) | payer OTHER, BC ==
[2019-09-04 20:01] VITALS: BP 145/97; PULSE 104
[2019-09-04] MEDS ORDERED: diphenhydrAMINE 50 MG/ML SDV IVPUSH ONE (20:03)
[2019-09-04] MEDS ORDERED: Sodium Chloride 0.9% 1,000 ML IV ONE (20:03)
[2019-09-04] MEDS ORDERED: Sodium Chloride 0.9% 10 ML Syringe FLUSH PRN (20:03)
[2019-09-04] MEDS ORDERED: Ketorolac 30 MG/ML SDV IVPUSH ONE (20:03)
[2019-09-04] MEDS ORDERED: Dexamethasone 10 MG/ML SDV IM ONE (20:05)
[2019-09-04] MEDS ORDERED: LORazepam 2 MG/ML SDV IVPUSH ONE ×2 (20:19→21:46)
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
[2019-09-04] MEDS ORDERED: HYDROmorphone 0.5 MG/0.5 ML Syringe IVPUSH ONE (21:46)
== END 2019-09-04 22:19 | disposition home or self-care (01) ==
LOC: JD.ED 19:51
DX: G44.229 Chronic tension-type headache, not intractable (principal); F41.9 Anxiety disorder, unspecified; J45.909 Unspecified asthma, uncomplicated; E66.9 Obesity, unspecified; R56.9 Unspecified convulsions; F32.9 Major depressive disorder, single episode, unspecified; Z68.42 Body mass index [BMI] 45.0-49.9, adult; Z91.018 Allergy to other foods; Z88.1 Allergy status to other antibiotic agents; Z88.8 Allergy status to other drugs, medicaments and biological substances
CPT/HCPCS: 36415; 80164; 96361; 96372; 96374; 96375; 96376; 99284; J1100; J1170; J1200; J1885; J2060; J7030

== ENCOUNTER 2019-09-25 14:10 | Emergency (ER) | payer BC, OTHER ==
[2019-09-25 14:31] VITALS: BP 126/86
[2019-09-25] MEDS ORDERED: Ondansetron 4 MG/2 ML SDV IVPUSH ONE (14:37)
[2019-09-25] MEDS ORDERED: Sodium Chloride 0.9% 10 ML Syringe FLUSH PRN (14:37)
[2019-09-25] MEDS ORDERED: Ketorolac 30 MG/ML SDV IVPUSH ONE (14:38)
[2019-09-25] MEDS ORDERED: HYDROmorphone 1 MG/ML Syringe IVPUSH ONE (14:39)
[2019-09-25] MEDS ORDERED: Sodium Chloride 0.9% 1,000 ML IV SCH (14:45)
--- NOTE | 2019-09-25 14:46 | EDM.PDOC ---
ED HPI GENERAL MEDICAL PROBLEM - General Chief Complaint: Genitourinary Problem Stated Complaint: FLANK PAIN Time Seen by Provider: 09/25/19 14:24 Source of Information: Reports: Patient History Limitations: Reports: No Limitations - History of Present Illness INITIAL COMMENTS - FREE TEXT/NARRATIVE: The patient presents with bilateral flank pain and dysuria. This has been going on for a couple of days. She has nausea and vomiting also. She has ne fever, chills, cough, congestion, runny nose, chest pain or shortness of breath. She does not have a history of kidney stones. Onset: Sudden Duration: Day(s): Location: Reports: Back Quality: Reports: Sharp Severity: Severe Improves with: Reports: None Worsens with: Reports: None Associated Symptoms: Reports: Nausea/Vomiting. Denies: Chest Pain, Cough, Fever /Chills, Headaches, Shortness of Breath Bilateral Lower Back Pain Score (Numeric/FACES): 8 - Related Data Allergies Allergy/AdvReac Type Severity Reaction Status Date / Time strawberry [Sharon] Allergy Severe Anaphylactic Verified 09/25/19 14:31 Shock clarithromycin [From Biaxin] Allergy Unknown Hives Verified 09/25/19 14:31 erythromycin base Allergy Other Verified 09/25/19 14:31 metoclopramide HCl AdvReac "Panic Verified 09/25/19 14:31 [From Reglan] Attack" Home Meds: Home Meds Pantoprazole Sodium 40 mg PO BID 08/23/18 [History] Promethazine [Phenergan] 25 mg PO ASDIRECTED PRN 10/24/18 [History] Desvenlafaxine Succinate [Desvenlafaxine Succinate ER] 50 - 100 mg PO BID [History] Pregabalin [Lyrica] 225 mg PO BID 11/29/18 [History] Divalproex Sodium [Depakote] 500 mg PO BID 11/30/18 [History] Cholecalciferol (Vitamin D3) [Vitamin D3] 5,000 unit PO DAILY #30 tablet [Rx] EPINEPHrine [Epipen 2-Collin] 0.3 mg IJ ASDIRECTED PRN 08/16/19 [History] cloNIDine [Catapres] 0.2 mg PO BID 08/16/19 [History] Cyclobenzaprine [Flexeril] 1 cap PO ASDIRECTED PRN 09/04/19 [History] Lurasidone HCl [Latuda] 60 mg PO BEDTIME 09/04/19 [History] Prazosin HCl [Prazosin] 2 mg PO BEDTIME 09/04/19 [History] lamoTRIgine [Lamictal] 225 mg PO BID 09/04/19 [History] cephALEXin [Keflex] 500 mg PO BID #10 capsule 09/25/19 [Rx] Past Medical History HEENT History: Reports: Impaired Vision, Other (See Below) Other HEENT History: sinus problems Cardiovascular History: Reports: Syncope Respiratory History: Reports: Asthma Gastrointestinal History: Reports: PUD Other Gastrointestinal History: ABDOMINAL PAIN/SCAR TISSUES Genitourinary History: Reports: Other (See Below) Other Genitourinary History: kidney failure, resolved 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, 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 Musculoskeletal History: Reports: Back Pain, Chronic, Fracture Other Musculoskeletal History: right hip fx Neurological History: Reports: Seizure, Other (See Below) Other Neuro History: epilepsy Psychiatric History: Reports: Anxiety, Depression, Suicidal Ideation, Other ( See Below) Other Psychiatric History: addiction in past Endocrine/Metabolic History: Reports: Obesity/BMI 30+ Other Endocrine/Metabolic History: Blood sugar low Hematologic History: Reports: None Immunologic History: Reports: Other (See Below) Oncologic (Cancer) History: Reports: None Dermatologic History: Reports: Other (See Below) Other Dermatologic History: ALLERGIES - Infectious Disease History Infectious Disease History: Reports: Chicken Pox - Past Surgical History Head Surgeries/Procedures: Reports: Craniotomy HEENT Surgical History: Reports: Naso-Sinus Surgery GI Surgical History: Reports: Appendectomy, Bariatric Procedure, Lysis of Adhesions Female Surgical History: Reports: D&C Musculoskeletal Surgical History: Reports: Shoulder Surgery Social & Family History - Family History Family Medical History: Noncontributory - Tobacco Use Smoking Status *Q: Never Smoker Second Hand Smoke Exposure: No - Caffeine Use Caffeine Use: Reports: Coffee - Recreational Drug Use Recreational Drug Use: No - Living Situation & Occupation Living situation: Reports: , with Spouse, with Family (1 adult child) Occupation: Employed ([employer]) ED ROS GENERAL - Review of Systems Review Of Systems: See Below Constitutional: Reports: No Symptoms HEENT: Reports: No Symptoms Respiratory: Reports: No Symptoms Cardiovascular: Reports: No Symptoms Endocrine: Reports: No Symptoms GI/Abdominal: Reports: Abdominal Pain, Nausea, Vomiting : Reports: Dysuria, Flank Pain Musculoskeletal: Reports: Back Pain Skin: Reports: No Symptoms ED EXAM, GI/ABD - Physical Exam Exam: See Below Exam Limited By: No Limitations General Appearance: Alert, No Apparent Distress Ears: Normal External Exam Nose: Normal Inspection Head: Atraumatic, Normocephalic Neck: Normal Inspection Respiratory/Chest: No Respiratory Distress, Lungs Clear, Normal Breath Sounds Cardiovascular: Regular Rate, Rhythm, No Edema, No Murmur GI/Abdominal Exam: Soft, Non-Tender, No Organomegaly, No Mass Back Exam: Other (Pain upon palpation to bilateral flanks and low back) Extremities: Other (Edema to both legs) Neurological: Alert, Oriented, No Motor/Sensory Deficits Course - Vital Signs Last Recorded V/S: Last Vital Signs Temp 98.8 F 09/25/19 14:28 Pulse 100 09/25/19 14:28 Resp 16 09/25/19 14:28 BP 126/86 09/25/19 14:28 Pulse Ox 96 09/25/19 14:28 - Orders/Labs/Meds Orders: Active Orders 24 hr Category Date Time Status Peripheral IV Care [RC] . DIRECTED Care 09/25/19 14:38 Active CULTURE URINE [RM] Stat Lab 09/25/19 14:30 Received UA W/MICROSCOPIC [URIN] Stat Lab 09/25/19 14:45 Ordered Sodium Chloride 0.9% [Normal Saline] 1,000 ml Med 09/25/19 14:45 Active IV ASDIRECTED Sodium Chloride 0.9% [Saline Flush] Med 09/25/19 14:37 Active 10 ml FLUSH ASDIRECTED PRN ED Antiemetic Medication Reflex [OM.PC] Stat Oth 09/25/19 14:37 Ordered Peripheral IV Insertion Adult [OM.PC] Stat Oth 09/25/19 14:37 Ordered Medication Orders Sodium Chloride (Normal Saline) 1,000 mls @ 125 mls/hr IV ASDIRECTED ANA Last Admin: 09/25/19 14:55 Dose: 125 mls/hr Sodium Chloride (Saline Flush) 10 ml FLUSH ASDIRECTED PRN PRN Reason: Keep Vein Open Last Admin: 09/25/19 14:58 Dose: 10 ml Labs: Laboratory Tests 09/25/19 09/25/19 09/25/19 Range/Units 14:30 14:50 14:50 WBC 7.03 (3.98-10.04) K/mm3 RBC 4.04 (3.98-5.22) M/mm3 Hgb 11.8 (11.2-15.7) gm/dl Hct 36.9 (34.1-44.9) % MCV 91.3 (79.4-94.8) fl MCH 29.2 (25.6-32.2) pg MCHC 32.0 L (32.2-35.5) g/dl RDW Std Deviation 49.9 H (36.4-46.3) fL Plt Count 212 (182-369) K/mm3 MPV 8.5 L (9.4-12.3) fl Neut % (Auto) 59.0 (34.0-71.1) % Lymph % (Auto) 21.6 (19.3-51.7) % Rabun % (Auto) 14.1 H (4.7-12.5) % Eos % (Auto) 4.0 (0.7-5.8) Baso % (Auto) 0.7 (0.1-1.2) % Neut # (Auto) 4.15 (1.56-6.13) K/mm3 Lymph # (Auto) 1.52 (1.18-3.74) K/mm3 Rabun # (Auto) 0.99 H (0.24-0.36) K/mm3 Eos # (Auto) 0.28 (0.04-0.36) K/mm3 Baso # (Auto) 0.05 (0.01-0.08) K/mm3 Sodium 136 (136-145) mEq/L Potassium 4.5 (3.5-5.1) mEq/L Chloride 100 (98-107) mEq/L Carbon Dioxide 30 (21-32) mEq/L Anion Gap 10.5 (5-15) BUN 9 (7-18) mg/dL Creatinine 0.8 (0.55-1.02) mg/dL Est Cr Clr Drug Dosing 78.23 mL/min Estimated GFR (MDRD) > 60 (>60) mL/min BUN/Creatinine Ratio 11.3 L (14-18) Glucose 89 (74-106) mg/dL Calcium 8.5 (8.5-10.1) mg/dL Total Bilirubin 0.2 (0.2-1.0) mg/dL AST 14 L (15-37) U/L ALT 16 (14-59) U/L Alkaline Phosphatase 59 (46-116) U/L Total Protein 6.3 L (6.4-8.2) g/dl Albumin 3.1 L (3.4-5.0) g/dl Globulin 3.2 gm/dL Albumin/Globulin Ratio 1.0 (1-2) Lipase 84 (73-393) U/L Urine Color Yellow (Yellow) Urine Appearance Clear (Clear) Urine pH 6.0 (5.0-8.0) Ur Specific Morris 1.025 (1.005-1.030) Urine Protein Negative (Negative) Urine Glucose (UA) Negative (Negative) Urine Ketones Negative (Negative) Urine Occult Blood Negative (Negative) Urine Nitrite Negative (Negative) Urine Bilirubin Negative (Negative) Urine Urobilinogen 1.0 (0.2-1.0) Ur Leukocyte Esterase 1+ H (Negative) Urine RBC Not seen (0-5) /hpf Urine WBC 10-20 H (0-5) /hpf Ur Squamous Epith Cells 5-10 H (0-5) /hpf Urine Bacteria Rare (FEW) /hpf Urine Mucus Not seen (FEW) /hpf Meds: Medications Generic Name Dose Route Start Last Admin Trade Name Oseasq PRN Reason Stop Dose Admin Sodium Chloride 1,000 mls @ 125 mls/hr 09/25/19 14:45 09/25/19 14:55 Normal Saline IV 125 mls/hr ASDIRECTED ANA Administration Sodium Chloride 10 ml 09/25/19 14:37 09/25/19 14:58 Saline Flush FLUSH 10 ml ASDIRECTED PRN Administration Keep Vein Open Discontinued Medications Generic Name Dose Route Start Last Admin Trade Name Freq PRN Reason Stop Dose Admin Hydromorphone HCl 1 mg 09/25/19 14:39 09/25/19 14:56 Dilaudid IVPUSH 09/25/19 14:40 1 mg ONETIME ONE Administration Ketorolac Tromethamine 30 mg 09/25/19 14:38 09/25/19 14:56 Toradol IVPUSH 09/25/19 14:39 30 mg ONETIME ONE Administration Ondansetron HCl 4 mg 09/25/19 14:37 09/25/19 14:56 Zofran IVPUSH 09/25/19 14:38 4 mg ONETIME ONE Administration - Re-Assessments/Exams Free Text/Narrative Re-Assessment/Exam: 09/25/19 14:46 I ordered an IV NS at 125mL/hr, zofran 4mg IV, toradol 30mg IV, dilaudid 1mg IV , labs, UA and a CT of her abdomen and pelvis without contrast to look for a kidney stone. 09/25/19 15:32 Her CBC and CMP look good. Her UA shows a UTI. Her CT shows mild increased stool within the colon. Other findings which are stable. No renal calculi, ureteral dilatation or ureteral stone is seen. Departure - Departure Time of Disposition: 15:40 Disposition: Home, Self-Care 01 Condition: Good Clinical Impression: UTI, Urinary tract infectious disease - Discharge Information *PRESCRIPTION DRUG MONITORING PROGRAM REVIEWED*: Not Applicable *COPY OF PRESCRIPTION DRUG MONITORING REPORT IN PATIENT IGGY: Not Applicable Prescriptions: cephALEXin [Keflex] 500 mg PO BID #10 capsule Referrals: Verónica Gamino HAIR DRESSER [Primary Care Provider] - 1 Week Forms: ED Department Discharge Additional Instructions: Drink plenty of fluids. Take keflex 2 times per day for 5 days. Take tylenol or motrin for pain. Please return if you are worse. Sepsis Event Note - Evaluation Sepsis Screening Result: No Definite Risk - Focused Exam Vital Signs: Vital Signs Temp Pulse Resp BP Pulse Ox 09/25/19 14:28 98.8 F 100 16 126/86 96 Date Exam was Performed: 09/25/19 Time Exam was Performed: 15:32 - My Orders Last 24 Hours: My Active Orders 09/25/19 14:30 CULTURE URINE [RM] Stat 09/25/19 14:37 Sodium Chloride 0.9% [Saline Flush] 10 ml FLUSH ASDIRECTED PRN ED Antiemetic Medication Reflex [OM.PC] Stat Peripheral IV Insertion Adult [OM.PC] Stat 09/25/19 14:38 Peripheral IV Care [RC] . DIRECTED 09/25/19 14:45 UA W/MICROSCOPIC [URIN] Stat Sodium Chloride 0.9% [Normal Saline] 1,000 ml IV ASDIRECTED - Assessment/Plan Last 24 Hours: My Active Orders 09/25/19 14:30 CULTURE URINE [RM] Stat 09/25/19 14:37 Sodium Chloride 0.9% [Saline Flush] 10 ml FLUSH ASDIRECTED PRN ED Antiemetic Medication Reflex [OM.PC] Stat Peripheral IV Insertion Adult [OM.PC] Stat 09/25/19 14:38 Peripheral IV Care [RC] . DIRECTED 09/25/19 14:45 UA W/MICROSCOPIC [URIN] Stat Sodium Chloride 0.9% [Normal Saline] 1,000 ml IV ASDIRECTED
--- NOTE | 2019-09-25 15:22 | CT ---
CT abdomen and pelvis Technique: Multiple axial sections were obtained from above the dome of the diaphragm inferiorly through the pubic symphysis. Intravenous and oral contrast not utilized. Study has been performed as a ureteral stone protocol. Comparison: Prior CT abdomen and pelvis exam of 05/19/19. Findings: Visualized lung bases show nothing acute. Prior stomach surgery is seen as well as prior cholecystectomy. Liver contains no focal parenchymal abnormality. Spleen appears within normal limits. Pancreas is unremarkable. Aorta shows no aneurysm. No retroperitoneal adenopathy or mesenteric abnormalities are seen. No pelvic mass or adenopathy is seen. Single surgical clip is seen within the pelvis. Appendix not seen with certainty. Mild increased stool is noted throughout the colon. Kidneys show no abnormal calcifications. No ureteral dilatation or ureteral stone is seen. Bone window settings were reviewed. No acute osseous finding is appreciated. Impression: 1. Mild increased within the colon. Other findings as noted above which are stable. 2. No renal calculi, ureteral dilatation or ureteral stone is seen. Diagnostic code #2 This report was dictated in MDT
[2019-09-25 15:51] VITALS: PULSE 90
== END 2019-09-25 15:45 | disposition home or self-care (01) ==
LOC: JD.ED 14:10
DX: N39.0 Urinary tract infection, site not specified (principal); F41.9 Anxiety disorder, unspecified; F32.9 Major depressive disorder, single episode, unspecified; G40.909 Epilepsy, unspecified, not intractable, without status epilepticus; E66.9 Obesity, unspecified; Z68.42 Body mass index [BMI] 45.0-49.9, adult; Z91.018 Allergy to other foods; Z88.1 Allergy status to other antibiotic agents; Z88.8 Allergy status to other drugs, medicaments and biological substances; Z79.899 Other long term (current) drug therapy
CPT/HCPCS: 36415; 74176; 80053; 81001; 83690; 85025; 87086; 96361; 96374; 96375; 99284; J1170; J1885; J2405; J7030; 99283

== ENCOUNTER 2019-09-26 09:24 | Emergency (ER) | payer BC ==
[2019-09-26 09:36] VITALS: BP 141/85; PULSE 120
[2019-09-26] MEDS ORDERED: Ketorolac 60 MG/2 ML SDV IM ONE (09:57)
[2019-09-26] MEDS ORDERED: HYDROmorphone 1 MG/ML Syringe IM ONE (09:57)
[2019-09-26] MEDS ORDERED: Cyclobenzaprine 10 MG Tab PO ONE (09:57)
--- NOTE | 2019-09-26 11:01 | EDM.PDOC ---
ED HPI GENERAL MEDICAL PROBLEM - General Chief Complaint: Back Pain or Injury Stated Complaint: BACK PAIN Time Seen by Provider: 09/26/19 09:42 Source of Information: Reports: Patient History Limitations: Reports: No Limitations - History of Present Illness INITIAL COMMENTS - FREE TEXT/NARRATIVE: The patient presents with sever low back pain. She was here yesterday with the same and she had a CT, labs and UA. She had no kidney stones but she had a UTI. She is being treated with keflex. The pain was more intense in her back. She has no numbness or weakness in her legs. She has no fever, chills, cough , congestion, runny nose, abdominal pain, nausea and vomiting. Onset: Gradual Duration: Day(s): Location: Reports: Back Quality: Reports: Sharp Severity: Severe Improves with: Reports: Immobilization Worsens with: Reports: Movement Context: Denies: Trauma Associated Symptoms: Reports: No Other Symptoms back Pain Score (Numeric/FACES): 9 - Related Data Allergies Allergy/AdvReac Type Severity Reaction Status Date / Time strawberry [Leola] Allergy Severe Anaphylactic Verified 09/26/19 09:36 Shock clarithromycin [From Biaxin] Allergy Unknown Hives Verified 09/26/19 09:36 erythromycin base Allergy Other Verified 09/26/19 09:36 metoclopramide HCl AdvReac "Panic Verified 09/26/19 09:36 [From Reglan] Attack" Home Meds: Home Meds Pantoprazole Sodium 40 mg PO BID 08/23/18 [History] Promethazine [Phenergan] 25 mg PO ASDIRECTED PRN 10/24/18 [History] Desvenlafaxine Succinate [Desvenlafaxine Succinate ER] 50 - 100 mg PO BID [History] Pregabalin [Lyrica] 225 mg PO BID 11/29/18 [History] Divalproex Sodium [Depakote] 500 mg PO BID 11/30/18 [History] Cholecalciferol (Vitamin D3) [Vitamin D3] 5,000 unit PO DAILY #30 tablet [Rx] EPINEPHrine [Epipen 2-Collin] 0.3 mg IJ ASDIRECTED PRN 08/16/19 [History] cloNIDine [Catapres] 0.2 mg PO BID 08/16/19 [History] Cyclobenzaprine [Flexeril] 1 cap PO ASDIRECTED PRN 09/04/19 [History] Lurasidone HCl [Latuda] 60 mg PO BEDTIME 09/04/19 [History] Prazosin HCl [Prazosin] 2 mg PO BEDTIME 09/04/19 [History] lamoTRIgine [Lamictal] 225 mg PO BID 09/04/19 [History] cephALEXin [Keflex] 500 mg PO BID #10 capsule 09/25/19 [Rx] Hydrocodone/Acetaminophen [Hydrocodone-Acetamin 5-325 mg] 1 - 2 each PO Q6HR PRN #20 tablet 09/26/19 [Rx] Past Medical History HEENT History: Reports: Impaired Vision, Other (See Below) Other HEENT History: sinus problems Cardiovascular History: Reports: Syncope Respiratory History: Reports: Asthma Gastrointestinal History: Reports: PUD Other Gastrointestinal History: ABDOMINAL PAIN/SCAR TISSUES Genitourinary History: Reports: Other (See Below) Other Genitourinary History: kidney failure, resolved 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, 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 Musculoskeletal History: Reports: Back Pain, Chronic, Fracture Other Musculoskeletal History: right hip fx Neurological History: Reports: Seizure, Other (See Below) Other Neuro History: epilepsy Psychiatric History: Reports: Anxiety, Depression, Suicidal Ideation, Other ( See Below) Other Psychiatric History: addiction in past Endocrine/Metabolic History: Reports: Obesity/BMI 30+ Other Endocrine/Metabolic History: Blood sugar low Hematologic History: Reports: None Immunologic History: Reports: Other (See Below) Oncologic (Cancer) History: Reports: None Dermatologic History: Reports: Other (See Below) Other Dermatologic History: ALLERGIES - Infectious Disease History Infectious Disease History: Reports: Chicken Pox - Past Surgical History Head Surgeries/Procedures: Reports: Craniotomy HEENT Surgical History: Reports: Naso-Sinus Surgery GI Surgical History: Reports: Appendectomy, Bariatric Procedure, Lysis of Adhesions Female Surgical History: Reports: D&C Musculoskeletal Surgical History: Reports: Shoulder Surgery Social & Family History - Family History Family Medical History: Noncontributory - Tobacco Use Smoking Status *Q: Never Smoker - Caffeine Use Caffeine Use: Reports: None - Recreational Drug Use Recreational Drug Use: No - Living Situation & Occupation Living situation: Reports: , with Spouse, with Family (1 adult child) Occupation: Employed ([employer]) ED [facility] GENERAL - Review of Systems Review Of Systems: See Below Constitutional: Reports: No Symptoms HEENT: Reports: No Symptoms Respiratory: Reports: No Symptoms Cardiovascular: Reports: No Symptoms Endocrine: Reports: No Symptoms GI/Abdominal: Reports: No Symptoms : Reports: No Symptoms Musculoskeletal: Reports: Back Pain ED EXAM,LOWER BACK PAIN/INJURY - Physical Exam Exam: See Below Exam Limited By: No Limitations General Appearance: Alert, No Apparent Distress Ears: Normal External Exam Nose: Normal Inspection Head: Atraumatic, Normocephalic Neck: Normal Inspection Respiratory/Chest: No Respiratory Distress, Lungs Clear, Normal Breath Sounds Cardiovascular: Regular Rate, Rhythm, No Edema, No Murmur GI/Abdominal: Soft, Non-Tender, No Organomegaly, No Mass Back Exam: Other (Pain upon palpation to the low back) Extremities: Normal Inspection Neurological: Alert, No Motor/Sensory Deficits, Oriented x 3 Course - Vital Signs Last Recorded V/S: Last Vital Signs Temp 97.4 F 09/26/19 09:33 Pulse 120 H 09/26/19 09:33 Resp 19 09/26/19 09:33 BP 141/85 H 09/26/19 09:33 Pulse Ox 92 L 09/26/19 09:33 - Orders/Labs/Meds Meds: Medications Discontinued Medications Generic Name Dose Route Start Last Admin Trade Name Román PRN Reason Stop Dose Admin Cyclobenzaprine HCl 10 mg 09/26/19 09:57 09/26/19 10:26 Flexeril PO 09/26/19 09:58 10 mg ONETIME ONE Administration Hydromorphone HCl 1 mg 09/26/19 09:57 09/26/19 10:27 Dilaudid IM 09/26/19 09:58 1 mg ONETIME ONE Administration Ketorolac Tromethamine 60 mg 09/26/19 09:57 09/26/19 10:26 Toradol IM 09/26/19 09:58 60 mg ONETIME ONE Administration - Re-Assessments/Exams Free Text/Narrative Re-Assessment/Exam: 09/26/19 10:59 I ordered dilaudid 1mg IM, toradol 60mg IM, and flexeril 10mg PO. She feels better. I will discharge her home. Departure - Departure Time of Disposition: 23:00 Disposition: Home, Self-Care 01 Condition: Good Clinical Impression: UTI, Urinary tract infectious disease Back pain Qualifiers: Back pain location: low back pain Chronicity: acute Back pain laterality: bilateral Sciatica presence: without sciatica Qualified Code(s): M54.5 - Low back pain - Discharge Information *PRESCRIPTION DRUG MONITORING PROGRAM REVIEWED*: No *COPY OF PRESCRIPTION DRUG MONITORING REPORT IN PATIENT IGGY: No Prescriptions: Hydrocodone/Acetaminophen [Hydrocodone-Acetamin 5-325 mg] 1 - 2 each PO Q6HR PRN #20 tablet PRN Reason: Pain Referrals: Verónica Gamino FIRE CHIEF DEPUTY [Primary Care Provider] - 1 Week Additional Instructions: Take your medication as prescribed. Try the hydrocodone and see if that helps with the pain. Try ice to your back for 15 minutes 3 to 5 times per day. Please return if you are worse. Sepsis Event Note - Evaluation Sepsis Screening Result: No Definite Risk - Focused Exam Vital Signs: Vital Signs Temp Pulse Resp BP Pulse Ox 09/26/19 09:33 97.4 F 120 H 19 141/85 H 92 L Date Exam was Performed: 09/26/19 Time Exam was Performed: 10:56
== END 2019-09-26 11:13 | disposition home or self-care (01) ==
LOC: JD.ED 09:24
DX: N39.0 Urinary tract infection, site not specified (principal); F41.9 Anxiety disorder, unspecified; F32.9 Major depressive disorder, single episode, unspecified; E66.9 Obesity, unspecified; R56.9 Unspecified convulsions; Z91.018 Allergy to other foods; Z88.1 Allergy status to other antibiotic agents; Z79.899 Other long term (current) drug therapy; Z68.42 Body mass index [BMI] 45.0-49.9, adult
CPT/HCPCS: 96372; 99283; A9270; J1170; J1885

== ENCOUNTER 2019-09-28 01:19 | Emergency (ER) | payer BC ==
[2019-09-28] MEDS ORDERED: LORazepam 2 MG/ML SDV ONE (01:46)
[2019-09-28] MEDS ORDERED: LORazepam 2 MG/ML SDV IVPUSH ONE (01:50)
[2019-09-28] MEDS ORDERED: ceFAZolin 2 GM in Premix Bag 1 BAG IV ONE (02:50)
--- NOTE | 2019-09-28 02:57 | EDM.PDOC ---
ED HPI GENERAL MEDICAL PROBLEM - General Chief Complaint: Trauma Stated Complaint: [facility] Time Seen by Provider: 09/28/19 01:23 Source of Information: Reports: EMS History Limitations: Reports: Other (POSTICTAL) - History of Present Illness INITIAL COMMENTS - FREE TEXT/NARRATIVE: TRIAGE NOTE -- Pt believes she may have had a seizure at home. Hx of epilepsy. pt is postictal. Pt has open ankle fracture/dislocation to R) foot. +) CMS. [ End ] Additional immediate history is not known. Seizure disorder. Other risk factors include morbid obesity. Treatment prior to arrival supportive care by EMS. Right Ankle Pain Score (Numeric/FACES): 10 - Related Data Allergies Allergy/AdvReac Type Severity Reaction Status Date / Time strawberry [[place]] Allergy Severe Anaphylactic Verified 09/28/19 01:22 Shock clarithromycin [From Biaxin] Allergy Unknown Hives Verified 09/28/19 01:22 erythromycin base Allergy Other Verified 09/28/19 01:22 metoclopramide HCl AdvReac "Panic Verified 09/28/19 01:22 [From Reglan] Attack" Home Meds: Home Meds Pantoprazole Sodium 40 mg PO BID 08/23/18 [History] Promethazine [Phenergan] 25 mg PO ASDIRECTED PRN 10/24/18 [History] Desvenlafaxine Succinate [Desvenlafaxine Succinate ER] 50 - 100 mg PO BID [History] Pregabalin [Lyrica] 225 mg PO BID 11/29/18 [History] Divalproex Sodium [Depakote] 500 mg PO BID 11/30/18 [History] Cholecalciferol (Vitamin D3) [Vitamin D3] 5,000 unit PO DAILY #30 tablet [Rx] EPINEPHrine [Epipen 2-Collin] 0.3 mg IJ ASDIRECTED PRN 08/16/19 [History] cloNIDine [Catapres] 0.2 mg PO BID 08/16/19 [History] Cyclobenzaprine [Flexeril] 1 cap PO ASDIRECTED PRN 09/04/19 [History] Lurasidone HCl [Latuda] 60 mg PO BEDTIME 09/04/19 [History] Prazosin HCl [Prazosin] 2 mg PO BEDTIME 09/04/19 [History] lamoTRIgine [Lamictal] 225 mg PO BID 09/04/19 [History] cephALEXin [Keflex] 500 mg PO BID #10 capsule 09/25/19 [Rx] Hydrocodone/Acetaminophen [Hydrocodone-Acetamin 5-325 mg] 1 - 2 each PO Q6HR PRN #20 tablet 09/26/19 [Rx] Past Medical History HEENT History: Reports: Impaired Vision, Other (See Below) Other HEENT History: sinus problems Cardiovascular History: Reports: Syncope Respiratory History: Reports: Asthma Gastrointestinal History: Reports: PUD Other Gastrointestinal History: ABDOMINAL PAIN/SCAR TISSUES Genitourinary History: Reports: Other (See Below) Other Genitourinary History: kidney failure, resolved 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 CRANE HOOKER History: x2, 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 Musculoskeletal History: Reports: Back Pain, Chronic, Fracture Other Musculoskeletal History: right hip fx Neurological History: Reports: Seizure, Other (See Below) Other Neuro History: epilepsy Psychiatric History: Reports: Anxiety, Depression, Suicidal Ideation, Other ( See Below) Other Psychiatric History: addiction in past Endocrine/Metabolic History: Reports: Obesity/BMI 30+ Other Endocrine/Metabolic History: Blood sugar low Hematologic History: Reports: None Immunologic History: Reports: Other (See Below) Oncologic (Cancer) History: Reports: None Dermatologic History: Reports: Other (See Below) Other Dermatologic History: ALLERGIES - Infectious Disease History Infectious Disease History: Reports: Chicken Pox - Past Surgical History Head Surgeries/Procedures: Reports: Craniotomy HEENT Surgical History: Reports: Naso-Sinus Surgery GI Surgical History: Reports: Appendectomy, Bariatric Procedure, Lysis of Adhesions Female Surgical History: Reports: D&C Musculoskeletal Surgical History: Reports: Shoulder Surgery Social & Family History - Family History Family Medical History: Noncontributory - Tobacco Use Smoking Status *Q: Unknown Ever Smoked - Caffeine Use Caffeine Use: Reports: None - Living Situation & Occupation Living situation: Reports: , with Spouse, with Family (1 adult child) Occupation: Employed ([employer]) Review of Systems - Review of Systems Review Of Systems: Unable To Obtain Reason Not Obtained: Postictal ED EXAM, GENERAL - Physical Exam Exam: See Below Exam Limited By: No Limitations General Appearance: Obtunded Eye Exam: Bilateral Eye: PERRL Ears: Normal External Exam Nose: Normal Inspection Throat/Mouth: Normal Inspection Head: Atraumatic, Normocephalic Neck: Normal Inspection, Supple, Non-Tender Respiratory/Chest: No Respiratory Distress, No Accessory Muscle Use Cardiovascular: Regular Rate, Rhythm GI/Abdominal: Soft, Non-Tender Back Exam: No: CVA Tenderness (L), CVA Tenderness (R) Extremities: Other (Open fracture dislocation right ankle with bone protruding through opening. Open skin is medial. Palpable dorsalis pedis pulses bilaterally) Neurological: Inattentive, Slow to Respond, Other (no obvious focality) Skin Exam: Warm, Dry Course - Vital Signs Last Recorded V/S: Last Vital Signs Temp 36.2 C 09/28/19 01:22 Pulse 118 H 09/28/19 01:22 Resp 16 09/28/19 01:22 BP 133/74 09/28/19 01:22 Pulse Ox 75 L 09/28/19 01:22 - Orders/Labs/Meds Orders: Active Orders 24 hr Category Date Time Status Ankle 2V Rt [CR] Stat Exams 09/28/19 02:49 Ordered Ankle Min 3V Rt [CR] Stat Exams 09/28/19 02:23 Taken CORONAVIRUS COVID-19 TRISH [MOLEC] Stat Lab 09/28/19 02:41 Ordered ceFAZolin [Ancef] 2 gm Med 09/28/19 02:50 Ordered Premix Bag 1 bag IV ONETIME Medication Orders Cefazolin Sodium/Dextrose 2 gm (/ Premix) 50 mls @ 100 mls/hr IV ONETIME ONE Stop: 09/28/19 03:19 Meds: Medications Generic Name Dose Route Start Last Admin Trade Name Freq PRN Reason Stop Dose Admin Cefazolin Sodium/Dextrose 2 gm 50 mls @ 100 mls/hr 09/28/19 02:50 / Premix IV 09/28/19 03:19 ONETIME ONE Discontinued Medications Generic Name Dose Route Start Last Admin Trade Name Freq PRN Reason Stop Dose Admin Lorazepam Confirm 09/28/19 01:46 09/28/19 01:52 Ativan Administered 09/28/19 01:47 Not Given Dose 2 mg .ROUTE .STK-MED ONE Lorazepam 2 mg 09/28/19 01:50 09/28/19 01:52 Ativan IVPUSH 09/28/19 01:51 2 mg ONETIME ONE Administration - Re-Assessments/Exams Free Text/Narrative Re-Assessment/Exam: 09/28/19 02:58 The patient has received some Ativan for seizure activity. She has remained stable. The open fracture right ankle was washed out with normal saline and reduction was done. As patient was already somewhat obtunded from the Ativan given for her seizures no additional sedation was given. Patient tolerated well. Splinted. The patient is being transferred to [facility]. Accepted by Dr. Hart orthopedist electrical high tension tester. Departure - Departure Time of Disposition: 03:00 Disposition: DC/Tfer to Acute Hospital 02 Condition: Fair Clinical Impression: Breakthrough seizure, Morbid obesity with BMI of 40.0-44.9, adult Open fracture dislocation of ankle joint Qualifiers: Encounter type: initial encounter Open fracture type: open type III Laterality : right Qualified Code(s): S82.891C - Other fracture of right lower leg, initial encounter for open fracture type IIIA, IIIB, or IIIC - Discharge Information Referrals: PCP,None [Primary Care Provider] - Sepsis Event Note - Evaluation Sepsis Screening Result: No Definite Risk - Focused Exam Vital Signs: Vital Signs Temp Pulse Resp BP Pulse Ox 09/28/19 01:22 36.2 C 118 H 16 133/74 75 L Date Exam was Performed: 09/28/19 Time Exam was Performed: 02:52 - My Orders Last 24 Hours: My Active Orders 09/28/19 02:23 Ankle Min 3V Rt [CR] Stat 09/28/19 02:41 CORONAVIRUS COVID-19 TRISH [MOLEC] Stat 09/28/19 02:49 Ankle 2V Rt [CR] Stat 09/28/19 02:50 ceFAZolin [Ancef] 2 gm Premix Bag 1 bag IV ONETIME - Assessment/Plan Last 24 Hours: My Active Orders 09/28/19 02:23 Ankle Min 3V Rt [CR] Stat 09/28/19 02:41 CORONAVIRUS COVID-19 TRISH [MOLEC] Stat 09/28/19 02:49 Ankle 2V Rt [CR] Stat 09/28/19 02:50 ceFAZolin [Ancef] 2 gm Premix Bag 1 bag IV ONETIME
[2019-09-28 03:35] VITALS: BP 133/78; PULSE 120
--- NOTE | 2019-09-28 08:08 | CR ---
Right ankle: 4 views of the right ankle were obtained. Comparison: No prior right ankle study is noted. Bimalleolar fracture is noted showing significant dislocation. Dislocation is in a medial direction. Soft tissue swelling is noted. Posterior malleolus not well seen on this study but fracture is suspected Impression: 1. Dislocated ankle at the tibiotalar joint with bimalleolar fracture. 2. Possible posterior malleolus fracture. Diagnostic code #3 This report was dictated in MDT
--- NOTE | 2019-09-28 08:09 | CR ---
Right ankle: 2 views of the right ankle were obtained. Dislocation shows improvement but considerable displacement remains. Trimalleolar fracture is seen on this study. Fiberglass splint is present. Impression: 1. Improve dislocation with considerable displacement remaining. 2. Displaced bimalleolar fracture is noted. Diagnostic code #3 This report was dictated in MDT
== END 2019-09-28 03:34 ==
LOC: JD.ED 01:19
DX: S82.841C Displaced bimalleolar fracture of right lower leg, initial encounter for open fracture type IIIA, IIIB, or IIIC (principal); G40.909 Epilepsy, unspecified, not intractable, without status epilepticus; E66.9 Obesity, unspecified; Z68.41 Body mass index [BMI] 40.0-44.9, adult; F41.9 Anxiety disorder, unspecified; F32.9 Major depressive disorder, single episode, unspecified; Z88.1 Allergy status to other antibiotic agents; Z88.8 Allergy status to other drugs, medicaments and biological substances; Z91.018 Allergy to other foods; Z79.899 Other long term (current) drug therapy; Z20.828 Contact with and (suspected) exposure to other viral communicable diseases; X58.XXXA Exposure to other specified factors, initial encounter
CPT/HCPCS: 27810; 73600-26-RT; 73600-RT; 73610-26-RT; 73610-RT; 96365; 96375; 99285; 99285-25; J0690; J2060; U0002

== ENCOUNTER 2020-03-09 17:48 | Emergency (ER) | payer BC ==
[2020-03-09 17:55] VITALS: BP 170/124; PULSE 100
[2020-03-09] MEDS ORDERED: HYDROmorphone 0.5 MG/0.5 ML Syringe IVPUSH ONE (18:02)
--- NOTE | 2020-03-09 19:16 | EDM.PDOC ---
ED HPI GENERAL MEDICAL PROBLEM - General Chief Complaint: Lower Extremity Injury/Pain Stated Complaint: [facility] Time Seen by Provider: 03/09/20 17:57 Source of Information: Reports: Patient, EMS History Limitations: Reports: No Limitations - History of Present Illness INITIAL COMMENTS - FREE TEXT/NARRATIVE: The patient presents by [facility] for right leg pain. The patient walking in her house and she turned and felt and heard a pop and had sever pain in her right knee that radiated up her right leg. She then fell but did not hid her head or hurt her neck. She has no chest pain or abdominal pain. She has a walking boot on her right foot. She had a fracture dislocation of her right ankle months ago and she still has to use the walking boot due to some complications. Onset: Sudden Duration: Minutes: Location: Reports: Lower Extremity, Right Quality: Reports: Sharp Severity: Severe Improves with: Reports: None Worsens with: Reports: None Associated Symptoms: Reports: No Other Symptoms Right Leg Pain Score (Numeric/FACES): 6 - Related Data Allergies Allergy/AdvReac Type Severity Reaction Status Date / Time strawberry [[place]] Allergy Severe Anaphylactic Verified 03/09/20 17:55 Shock clarithromycin [From Biaxin] Allergy Unknown Hives Verified 03/09/20 17:55 erythromycin base Allergy Other Verified 03/09/20 17:55 metoclopramide HCl AdvReac "Panic Verified 03/09/20 17:55 [From Reglan] Attack" Home Meds: Home Meds Pantoprazole Sodium 40 mg PO BID 08/23/18 [History] Promethazine [Phenergan] 25 mg PO ASDIRECTED PRN 10/24/18 [History] Desvenlafaxine Succinate [Desvenlafaxine Succinate ER] 50 - 100 mg PO BID 03/09 [History] Pregabalin [Lyrica] 225 mg PO BID 11/29/18 [History] Divalproex Sodium [Depakote] 500 mg PO BID 11/30/18 [History] Cholecalciferol (Vitamin D3) [Vitamin D3] 5,000 unit PO DAILY #30 tablet 12/03/18 [Rx] EPINEPHrine [Epipen 2-Collin] 0.3 mg IJ ASDIRECTED PRN 08/16/19 [History] cloNIDine [Catapres] 0.2 mg PO BID 08/16/19 [History] Cyclobenzaprine [Flexeril] 1 cap PO ASDIRECTED PRN 09/04/19 [History] Lurasidone HCl [Latuda] 60 mg PO BEDTIME 09/04/19 [History] Prazosin HCl [Prazosin] 2 mg PO BEDTIME 09/04/19 [History] lamoTRIgine [Lamictal] 225 mg PO BID 09/04/19 [History] cephALEXin [Keflex] 500 mg PO BID #10 capsule 09/25/19 [Rx] Hydrocodone/Acetaminophen [Hydrocodone-Acetamin 5-325 mg] 1 - 2 each PO Q6HR PRN #20 tablet 09/26/19 [Rx] Hydrocodone/Acetaminophen [Hydrocodone-Acetamin 5-325 mg] 1 - 2 each PO Q6HR PRN #20 tablet 03/09/20 [Rx] Past Medical History HEENT History: Reports: Impaired Vision, Other (See Below) Other HEENT History: sinus problems Cardiovascular History: Reports: Syncope Respiratory History: Reports: Asthma Gastrointestinal History: Reports: PUD Other Gastrointestinal History: ABDOMINAL PAIN/SCAR TISSUES Genitourinary History: Reports: Other (See Below) Other Genitourinary History: kidney failure, resolved 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 History: x2, 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 Musculoskeletal History: Reports: Back Pain, Chronic, Fracture Other Musculoskeletal History: right hip fx, R akle fx Neurological History: Reports: Seizure, Other (See Below) Other Neuro History: epilepsy Psychiatric History: Reports: Anxiety, Depression, Suicidal Ideation, Other (See Below) Other Psychiatric History: addiction in past Endocrine/Metabolic History: Reports: Obesity/BMI 30+ Other Endocrine/Metabolic History: Blood sugar low Hematologic History: Reports: None Immunologic History: Reports: Other (See Below) Oncologic (Cancer) History: Reports: None Dermatologic History: Reports: Other (See Below) Other Dermatologic History: ALLERGIES - Infectious Disease History Infectious Disease History: Reports: Chicken Pox - Past Surgical History Head Surgeries/Procedures: Reports: Craniotomy HEENT Surgical History: Reports: Naso-Sinus Surgery Other HEENT Surgeries/Procedures: sinus surgery GI Surgical History: Reports: Appendectomy, Bariatric Procedure, Lysis of Adhesions Other GI Surgeries/Procedures: Pt had feeding tube placed due to not gaining any weight. Feeding tube was removed in July 2018 and pt has had an infection at the site since. Female Surgical History: Reports: D&C Neurological Surgical History: Reports: Other (See Below) Other Neurological Surgeries/Procedures: Craniotomy Musculoskeletal Surgical History: Reports: Shoulder Surgery Dermatological Surgical History: Reports: None Social & Family History - Family History Family Medical History: No Pertinent Family History - Tobacco Use Tobacco Use Status *Q: Never Tobacco User Second Hand Smoke Exposure: No - Caffeine Use Caffeine Use: Reports: Soda - Recreational Drug Use Recreational Drug Use: No - Living Situation & Occupation Living situation: Reports: , with Spouse, with Family (1 adult child) Occupation: Employed ([employer]) Review of Systems - Review of Systems Review Of Systems: See Below Constitutional: Reports: No Symptoms Eyes: Reports: No Symptoms Ears: Reports: No Symptoms Nose: Reports: No Symptoms Mouth/Throat: Reports: No Symptoms Respiratory: Reports: No Symptoms Cardiovascular: Reports: No Symptoms GI/Abdominal: Reports: No Symptoms Genitourinary: Reports: No Symptoms Musculoskeletal: Reports: Other (right leg pain) ED EXAM, GENERAL - Physical Exam Exam: See Below Exam Limited By: No Limitations General Appearance: Alert, No Apparent Distress Ears: Normal External Exam Nose: Normal Inspection Head: Atraumatic, Normocephalic Neck: Normal Inspection Respiratory/Chest: No Respiratory Distress, Lungs Clear, Normal Breath Sounds Cardiovascular: Regular Rate, Rhythm, No Edema, No Murmur GI/Abdominal: Soft, Non-Tender, No Organomegaly, No Mass Extremities: Other (Pain upon palpation to the right knee and upper her thigh to the hip. Good sensation and pulses distally.) Course - Vital Signs Last Recorded V/S: Last Vital Signs Temp 97.6 F 03/09/20 17:51 Pulse 100 03/09/20 17:51 Resp 20 03/09/20 17:51 BP 170/124 H 03/09/20 17:51 Pulse Ox 92 L 03/09/20 17:51 - Orders/Labs/Meds Orders: Active Orders 24 hr Category Date Time Status Femur Min 2V Rt [CR] Stat Exams 03/09/20 18:02 Taken Meds: Medications Discontinued Medications Generic Name Dose Route Start Last Admin Trade Name Freq PRN Reason Stop Dose Admin Hydromorphone HCl 0.5 mg 03/09/20 18:02 03/09/20 18:28 Dilaudid IVPUSH 03/09/20 18:03 0.5 mg ONETIME ONE Administration - Re-Assessments/Exams Free Text/Narrative Re-Assessment/Exam: 03/09/20 19:18 I ordered an IV saline lock, dilaudid and an x-ray of her femur. The x-ray looks good. I feel she may have had a dislocation and then reduction of her patella. I cannot get the right brace on for her knee due to the walking boot so I will get her an PREETHI wrap and have her follow up with Dr Carranza. Departure - Departure Time of Disposition: Disposition: Home, Self-Care 01 Condition: Good Clinical Impression: Right knee sprain Qualifiers: Encounter type: initial encounter Involved ligament of knee: unspecified ligament Qualified Code(s): S83.91XA - Sprain of unspecified site of right knee, initial encounter - Discharge Information *PRESCRIPTION DRUG MONITORING PROGRAM REVIEWED*: Not Applicable *COPY OF PRESCRIPTION DRUG MONITORING REPORT IN PATIENT IGGY: Not Applicable Prescriptions: Hydrocodone/Acetaminophen [Hydrocodone-Acetamin 5-325 mg] 1 - 2 each PO Q6HR PRN #20 tablet PRN Reason: Pain Referrals: Lyn Hahn NP [Primary Care Provider] - Long Carranza MD [Physician] - 1 Week Additional Instructions: Ice your knee for 15 minutes 3 times per day for 2 days. Take tylenol or motrin for pain. If that does not help, try the hydrocodone. Follow up with Dr Carranza within a week. Please return if you are worse. Sepsis Event Note (ED) - Evaluation Sepsis Screening Result: No Definite Risk - Focused Exam Vital Signs: Vital Signs Temp Pulse Resp BP Pulse Ox 03/09/20 17:51 97.6 F 100 20 170/124 H 92 L - My Orders Last 24 Hours: My Active Orders 03/09/20 18:02 Femur Min 2V Rt [CR] Stat - Assessment/Plan Last 24 Hours: My Active Orders 03/09/20 18:02 Femur Min 2V Rt [CR] Stat
--- NOTE | 2020-03-10 08:50 | CR ---
PROCEDURE INFORMATION: Exam: XR Right Femur Exam date and time: 03/09/2020 6:38 PM Age: 49 years old Clinical indication: Pain; Hip and knee; Right; Patient HX: Patient heard a pop TECHNIQUE: Imaging protocol: XR Right femur. Views: 2 views. COMPARISON: No relevant prior studies available. FINDINGS: Bones/joints: Unremarkable. No acute fracture. Soft tissues: Unremarkable. IMPRESSION: No acute findings. Thank you for allowing us to participate in the care of your patient. Dictated and Authenticated by: Doni Song MD 03/09/2020 8:02 PM Central Time ([place] & [place]) [place]
== END 2020-03-09 19:53 | disposition home or self-care (01) ==
LOC: JD.ED 17:48
DX: S83.91XA Sprain of unspecified site of right knee, initial encounter (principal); J45.909 Unspecified asthma, uncomplicated; R56.9 Unspecified convulsions; F41.9 Anxiety disorder, unspecified; F32.9 Major depressive disorder, single episode, unspecified; E66.9 Obesity, unspecified; Z68.42 Body mass index [BMI] 45.0-49.9, adult; Z91.018 Allergy to other foods; Z88.1 Allergy status to other antibiotic agents; Z88.8 Allergy status to other drugs, medicaments and biological substances; Z79.899 Other long term (current) drug therapy; X58.XXXA Exposure to other specified factors, initial encounter
CPT/HCPCS: 73552; 96374; 99284; J1170; 99283

== ENCOUNTER 2020-03-10 15:08 | Emergency (ER) | payer BC ==
--- NOTE | 2020-03-10 15:41 | EDM.PDOC ---
ED HPI GENERAL MEDICAL PROBLEM - General Chief Complaint: Neuro Symptoms/Deficits Stated Complaint: HEAD INJURY/FALL Time Seen by Provider: 03/10/20 15:13 Source of Information: Reports: Patient, RN Notes Reviewed History Limitations: Reports: No Limitations - History of Present Illness INITIAL COMMENTS - FREE TEXT/NARRATIVE: Patient is a 49-year-old female presenting to the emergency department with complaints of headache and blurred vision in her right eye. She states she awoke with it this morning. She was seen in this emergency department yesterday after falling. She thinks she may have hit her head when this occurred. She is also had nausea and vomiting, however after further probing, she states she is actually had this for a few days and that it is not new since her fall. She denies a known history of migraines, however in review of her chart, she has been seen in the ER numerous times for headaches. Patient does have a history significant for epilepsy and is on Depakote. She is unsure when her valproic acid levels were last checked. Right Knee Pain Score (Numeric/FACES): 8 - Related Data Allergies Allergy/AdvReac Type Severity Reaction Status Date / Time strawberry [[place]] Allergy Severe Anaphylactic Verified 03/10/20 15:24 Shock clarithromycin [From Biaxin] Allergy Unknown Hives Verified 03/10/20 15:24 erythromycin base Allergy Other Verified 03/10/20 15:24 metoclopramide HCl AdvReac "Panic Verified 03/10/20 15:24 [From Reglan] Attack" Home Meds: Home Meds Pantoprazole Sodium 40 mg PO BID 08/23/18 [History] Promethazine [Phenergan] 25 mg PO ASDIRECTED PRN 10/24/18 [History] Desvenlafaxine Succinate [Desvenlafaxine Succinate ER] 50 - 100 mg PO BID 11/29/18 [History] Pregabalin [Lyrica] 225 mg PO BID 11/29/18 [History] Divalproex Sodium [Depakote] 500 mg PO BID 11/30/18 [History] Cholecalciferol (Vitamin D3) [Vitamin D3] 5,000 unit PO DAILY #30 tablet 12/03/18 [Rx] EPINEPHrine [Epipen 2-Collin] 0.3 mg IJ ASDIRECTED PRN 08/16/19 [History] cloNIDine [Catapres] 0.2 mg PO BID 08/16/19 [History] Cyclobenzaprine [Flexeril] 1 cap PO ASDIRECTED PRN 09/04/19 [History] Lurasidone HCl [Latuda] 60 mg PO BEDTIME 09/04/19 [History] Prazosin HCl [Prazosin] 2 mg PO BEDTIME 09/04/19 [History] lamoTRIgine [Lamictal] 225 mg PO BID 09/04/19 [History] cephALEXin [Keflex] 500 mg PO BID #10 capsule 09/25/19 [Rx] Hydrocodone/Acetaminophen [Hydrocodone-Acetamin 5-325 mg] 1 - 2 each PO Q6HR PRN #20 tablet 09/26/19 [Rx] Hydrocodone/Acetaminophen [Hydrocodone-Acetamin 5-325 mg] 1 - 2 each PO Q6HR PRN #20 tablet 03/09/20 [Rx] Past Medical History HEENT History: Reports: Impaired Vision, Other (See Below) Other HEENT History: sinus problems Cardiovascular History: Reports: Syncope Respiratory History: Reports: Asthma Gastrointestinal History: Reports: PUD Other Gastrointestinal History: ABDOMINAL PAIN/SCAR TISSUES Genitourinary History: Reports: Other (See Below) Other Genitourinary History: kidney failure, resolved 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 CLERK History: x2, 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 Musculoskeletal History: Reports: Back Pain, Chronic, Fracture Other Musculoskeletal History: right hip fx, R akle fx Neurological History: Reports: Seizure, Other (See Below) Other Neuro History: epilepsy Psychiatric History: Reports: Anxiety, Depression, Suicidal Ideation, Other (See Below) Other Psychiatric History: addiction in past Endocrine/Metabolic History: Reports: Obesity/BMI 30+ Other Endocrine/Metabolic History: Blood sugar low Hematologic History: Reports: None Immunologic History: Reports: Other (See Below) Oncologic (Cancer) History: Reports: None Dermatologic History: Reports: Other (See Below) Other Dermatologic History: ALLERGIES - Infectious Disease History Infectious Disease History: Reports: Chicken Pox - Past Surgical History Head Surgeries/Procedures: Reports: Craniotomy HEENT Surgical History: Reports: Naso-Sinus Surgery Other HEENT Surgeries/Procedures: sinus surgery GI Surgical History: Reports: Appendectomy, Bariatric Procedure, Lysis of Adhesions Other GI Surgeries/Procedures: Pt had feeding tube placed due to not gaining any weight. Feeding tube was removed in July 2018 and pt has had an infection at the site since. Female Surgical History: Reports: D&C Neurological Surgical History: Reports: Other (See Below) Other Neurological Surgeries/Procedures: Craniotomy Musculoskeletal Surgical History: Reports: Shoulder Surgery Dermatological Surgical History: Reports: None Social & Family History - Family History Family Medical History: No Pertinent Family History - Tobacco Use Tobacco Use Status *Q: Never Tobacco User Second Hand Smoke Exposure: No - Caffeine Use Caffeine Use: Reports: Soda - Recreational Drug Use Recreational Drug Use: No - Living Situation & Occupation Living situation: Reports: , with Spouse, with Family (1 adult child) Occupation: Employed ([employer]) ED ROS GENERAL - Review of Systems Review Of Systems: See Below Constitutional: Reports: No Symptoms HEENT: Reports: Vision Change Respiratory: Reports: No Symptoms Cardiovascular: Reports: No Symptoms Endocrine: Reports: No Symptoms GI/Abdominal: Reports: Nausea, Vomiting : Reports: No Symptoms Musculoskeletal: Reports: No Symptoms Skin: Reports: No Symptoms Neurological: Reports: Headache Psychiatric: Reports: No Symptoms Hematologic/Lymphatic: Reports: No Symptoms Immunologic: Reports: No Symptoms ED EXAM, NEURO - Physical Exam Exam: See Below General Appearance: Alert, WD/WN, No Apparent Distress Eye Exam: Bilateral Eye: PERRL Respiratory/Chest: No Respiratory Distress, Lungs Clear, Normal Breath Sounds, No Accessory Muscle Use, Chest Non-Tender Cardiovascular: Normal Peripheral Pulses, Regular Rate, Rhythm, No Edema, No Gallop, No JVD, No Murmur, No Rub GI/Abdominal: Normal Bowel Sounds, Soft, Non-Tender, No Organomegaly, No Distention, No Abnormal Bruit, No Mass Neurological: Alert, Normal Mood/Affect, Normal Dorsiflexion, CN II-XII Intact, Normal Plantar Flexion, Normal Gait, Normal Reflexes, No Motor/Sensory Deficits, Oriented x 3 Psychiatric: Normal Affect, Normal Mood Skin Exam: Warm, Dry, Intact, Normal Color, No Rash Course - Vital Signs Last Recorded V/S: Last Vital Signs Temp 96.8 F L 03/10/20 15:20 Pulse 88 03/10/20 15:20 Resp 20 03/10/20 15:20 BP 153/105 H 03/10/20 15:20 Pulse Ox 90 L 03/10/20 15:20 - Orders/Labs/Meds Orders: Active Orders 24 hr Category Date Time Status Head wo Cont [CT] Stat Exams 03/10/20 15:24 Taken Labs: Laboratory Tests 03/10/20 03/10/20 Range/Units 16:00 16:00 WBC 6.27 (3.98-10.04) K/mm3 RBC 4.11 (3.98-5.22) M/mm3 Hgb 12.1 (11.2-15.7) gm/dl Hct 39.0 (34.1-44.9) % MCV 94.9 H D (79.4-94.8) fl MCH 29.4 (25.6-32.2) pg MCHC 31.0 L (32.2-35.5) g/dl RDW Std Deviation 54.2 H (36.4-46.3) fL Plt Count 228 (182-369) K/mm3 MPV 8.3 L (9.4-12.3) fl Neut % (Auto) 41.9 (34.0-71.1) % Lymph % (Auto) 37.0 (19.3-51.7) % Woodward % (Auto) 14.4 H (4.7-12.5) % Eos % (Auto) 4.3 (0.7-5.8) Baso % (Auto) 0.6 (0.1-1.2) % Neut # (Auto) 2.63 (1.56-6.13) K/mm3 Lymph # (Auto) 2.32 (1.18-3.74) K/mm3 Woodward # (Auto) 0.90 H (0.24-0.36) K/mm3 Eos # (Auto) 0.27 (0.04-0.36) K/mm3 Baso # (Auto) 0.04 (0.01-0.08) K/mm3 Manual Slide Review Abnormal smear Sodium 141 (136-145) mEq/L Potassium 4.4 (3.5-5.1) mEq/L Chloride 103 (98-107) mEq/L Carbon Dioxide 28 (21-32) mEq/L Anion Gap 14.4 (5-15) BUN 15 (7-18) mg/dL Creatinine 1.2 H (0.55-1.02) mg/dL Est Cr Clr Drug Dosing 49.51 mL/min Estimated GFR (MDRD) 48 (>60) mL/min BUN/Creatinine Ratio 12.5 L (14-18) Glucose 95 (74-106) mg/dL Calcium 8.7 (8.5-10.1) mg/dL Total Bilirubin 0.3 (0.2-1.0) mg/dL AST 20 (15-37) U/L ALT 24 (14-59) U/L Alkaline Phosphatase 72 (46-116) U/L Total Protein 6.9 (6.4-8.2) g/dl Albumin 3.5 (3.4-5.0) g/dl Globulin 3.4 gm/dL Albumin/Globulin Ratio 1.0 (1-2) Valproic Acid 62.4 (50.0-100.0) ug/mL Meds: Medications Discontinued Medications Generic Name Dose Route Start Last Admin Trade Name Freq PRN Reason Stop Dose Admin Sodium Chloride 1,000 mls @ 999 mls/hr 03/10/20 16:08 03/10/20 16:41 Normal Saline IV 03/10/20 17:08 999 mls/hr NOW STA Administration Ketorolac Tromethamine 30 mg 03/10/20 16:08 03/10/20 16:41 Toradol IVPUSH 03/10/20 16:09 30 mg ONETIME ONE Administration Ondansetron HCl 4 mg 03/10/20 16:08 03/10/20 16:41 Zofran IVPUSH 03/10/20 16:09 4 mg ONETIME ONE Administration - Re-Assessments/Exams Free Text/Narrative Re-Assessment/Exam: Patient is a 49-year-old female presenting to the emergency department with complaints of headache and blurry vision in her right eye. He had fallen yesterday. She was seen in this emergency department for right knee pain. She is concerned that she may have hit her head when she fell. She is also had nausea and vomiting, however, this has been going on for quite some time prior to her fall. Denies known history of migraines, however she has been seen in this ER numerous times for headaches. On exam, her pupils are equal and reactive, she does hold her right eyes closed because she states her vision is blurry if she opens it. Neurologic exam is grossly unremarkable. I have ordered CBC, CMP, CRP, valproic acid, and a CT scan of her head. We will give her 1 L bolus of normal saline, Zofran for nausea, and Toradol for pain. 03/10/20 17:58 Hematology was grossly unremarkable. CT scan of the head showed no acute intracranial abnormalities. Patient is feeling better after the medications. States her vision is no longer blurry. Discussed that she may be suffering from migraines which is causing the blurry vision. If she should have recurrence of this, she should follow-up with her primary care provider to discuss possible referral to neurology. She is in agreement with this plan. Discharge inst ructions as documented. Departure - Departure Time of Disposition: 18:00 Disposition: Home, Self-Care 01 Condition: Good Clinical Impression: Blurred vision Headache Qualifiers: Headache type: tension-type Headache chronicity pattern: chronic headache Intractability: not intractable Qualified Code(s): G44.229 - Chronic tension-t ype headache, not intractable - Discharge Information *PRESCRIPTION DRUG MONITORING PROGRAM REVIEWED*: No *COPY OF PRESCRIPTION DRUG MONITORING REPORT IN PATIENT IGGY: No Referrals: Lyn Hahn NP [Primary Care Provider] - Forms: ED Department Discharge Additional Instructions: You were seen in the emergency department today for headache with blurred vision in your right eye after falling yesterday. Work-up included blood work, and a CT scan of your head. Results of your work-up were found to be normal. Your valproic acid level is therapeutic. CT scan your head showed no abnormalities. While in the ER, you received IV fluids, Zofran for nausea, and Toradol for pain. You verbalized that this did resolve your symptoms. Recommend that you go home and rest. Continue to use the pain medications you have as previously prescribed. If you have recurrence of the headaches and blurred vision, would recommend that you follow-up with your primary care provider, as you may require a referral to neurology. Return to ER as needed. Sepsis Event Note (ED) - Evaluation Sepsis Screening Result: No Definite Risk - Focused Exam Vital Signs: Vital Signs Temp Pulse Resp BP Pulse Ox 03/10/20 15:20 96.8 F L 88 20 153/105 H 90 L - My Orders Last 24 Hours: My Active Orders 03/10/20 15:24 Head wo Cont [CT] Stat - Assessment/Plan Last 24 Hours: My Active Orders 11/20/20 15:24 Head wo Cont [CT] Stat
[2020-03-10] MEDS ORDERED: Ketorolac 30 MG/ML SDV IVPUSH ONE (16:08)
[2020-03-10] MEDS ORDERED: Ondansetron 4 MG/2 ML SDV IVPUSH ONE (16:08)
[2020-03-10] MEDS ORDERED: Sodium Chloride 0.9% 1,000 ML IV STA (16:08)
[2020-03-10 18:40] VITALS: BP 123/85; PULSE 98
--- NOTE | 2020-03-13 08:35 | CT ---
PROCEDURE INFORMATION: Exam: CT Head Without Contrast Exam date and time: 03/10/2020 3:31 PM Age: 49 years old Clinical indication: Dizziness and other: Blurred vision, fell and hit had yesterday, headache TECHNIQUE: Imaging protocol: Computed tomography of the head without contrast. COMPARISON: CT Head wo Cont 08/21/2019 12:52 PM FINDINGS: Brain: Right cerebellar tonsil ectopia again noted. Cerebral ventricles: No ventriculomegaly. Bones/joints: Suboccipital craniotomy again noted. Paranasal sinuses: Visualized sinuses are unremarkable. No fluid levels. Mastoid air cells: Visualized mastoid air cells are well aerated. Soft tissues: Unremarkable. IMPRESSION: No evidence for acute intracranial process. Thank you for allowing us to participate in the care of your patient. Dictated and Authenticated by: Doni Song MD 03/10/2020 4:59 PM Central Time ([place] & [place]) [place]
== END 2020-03-10 18:26 | disposition home or self-care (01) ==
LOC: JD.ED 15:08
DX: G44.229 Chronic tension-type headache, not intractable (principal); H53.8 Other visual disturbances; J45.909 Unspecified asthma, uncomplicated; R56.9 Unspecified convulsions; F41.9 Anxiety disorder, unspecified; F32.9 Major depressive disorder, single episode, unspecified; E66.9 Obesity, unspecified; Z68.42 Body mass index [BMI] 45.0-49.9, adult; Z91.018 Allergy to other foods; Z88.1 Allergy status to other antibiotic agents; Z88.8 Allergy status to other drugs, medicaments and biological substances
CPT/HCPCS: 36415; 70450; 80053; 80164; 85025; 96374; 96375; 99284; J1885; J2405; J7030

== ENCOUNTER 2020-03-13 14:04 | Emergency (ER) | payer BC ==
[2020-03-13 15:14] VITALS: BP 151/103; PULSE 97
--- NOTE | 2020-03-13 15:34 | EDM.PDOC ---
ED HPI GENERAL MEDICAL PROBLEM - General Chief Complaint: Lower Extremity Injury/Pain Stated Complaint: RT KNEE PAIN Time Seen by Provider: 03/13/20 15:10 Source of Information: Reports: Patient, RN Notes Reviewed History Limitations: Reports: No Limitations - History of Present Illness INITIAL COMMENTS - FREE TEXT/NARRATIVE: Patient is a 49-year-old female presenting to the emergency department with continued right knee pain. She had fallen 4 days ago. She was seen in the emergency department after the injury and was found to have no bony abnormalities. She states she had worsening of pain symptoms today. She is out of her hydrocodone that she was previously prescribed, therefore she has been using Tylenol and ibuprofen. She has an appointment with orthopedist, Dr. Carranza on Friday. She is using crutches for ambulation. Denies any new injuries to the knee. Right Knee Pain Score (Numeric/FACES): 8 - Related Data Allergies Allergy/AdvReac Type Severity Reaction Status Date / Time strawberry [[employer] [place]] Allergy Severe Anaphylactic Verified 03/13/20 15:14 Shock clarithromycin [From Biaxin] Allergy Unknown Hives Verified 03/13/20 15:14 erythromycin base Allergy Other Verified 03/13/20 15:14 metoclopramide HCl AdvReac "Panic Verified 03/13/20 15:14 [From Reglan] Attack" Home Meds: Home Meds Pantoprazole Sodium 40 mg PO BID 08/23/18 [History] Promethazine [Phenergan] 25 mg PO ASDIRECTED PRN 10/24/18 [History] Desvenlafaxine Succinate [Desvenlafaxine Succinate ER] 50 - 100 mg PO BID 11/29/18 [History] Pregabalin [Lyrica] 225 mg PO BID 11/29/18 [History] Divalproex Sodium [Depakote] 500 mg PO BID 11/30/18 [History] Cholecalciferol (Vitamin D3) [Vitamin D3] 5,000 unit PO DAILY #30 tablet 12/03/18 [Rx] EPINEPHrine [Epipen 2-Collin] 0.3 mg IJ ASDIRECTED PRN 08/16/19 [History] cloNIDine [Catapres] 0.2 mg PO BID 08/16/19 [History] Cyclobenzaprine [Flexeril] 1 cap PO ASDIRECTED PRN 09/04/19 [History] Lurasidone HCl [Latuda] 60 mg PO BEDTIME 09/04/19 [History] Prazosin HCl [Prazosin] 2 mg PO BEDTIME 09/04/19 [History] lamoTRIgine [Lamictal] 225 mg PO BID 09/04/19 [History] cephALEXin [Keflex] 500 mg PO BID #10 capsule 09/25/19 [Rx] Hydrocodone/Acetaminophen [Hydrocodone-Acetamin 5-325 mg] 1 - 2 each PO Q6HR PRN #20 tablet 09/26/19 [Rx] Hydrocodone/Acetaminophen [Hydrocodone-Acetamin 5-325 mg] 1 - 2 each PO Q6HR PRN #20 tablet 03/09/20 [Rx] Acetaminophen/HYDROcodone [Endicott 325-5 MG] 1 tab PO Q4H PRN #20 tablet 03/13/20 [Rx] Past Medical History HEENT History: Reports: Impaired Vision, Other (See Below) Other HEENT History: sinus problems Cardiovascular History: Reports: Syncope Respiratory History: Reports: Asthma Gastrointestinal History: Reports: PUD Other Gastrointestinal History: ABDOMINAL PAIN/SCAR TISSUES Genitourinary History: Reports: Other (See Below) Other Genitourinary History: kidney failure, resolved 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: x2, 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 Musculoskeletal History: Reports: Back Pain, Chronic, Fracture Other Musculoskeletal History: right hip fx, R akle fx Neurological History: Reports: Seizure, Other (See Below) Other Neuro History: epilepsy Psychiatric History: Reports: Anxiety, Depression, Suicidal Ideation, Other (See Below) Other Psychiatric History: addiction in past Endocrine/Metabolic History: Reports: Obesity/BMI 30+ Other Endocrine/Metabolic History: Blood sugar low Hematologic History: Reports: None Immunologic History: Reports: Other (See Below) Oncologic (Cancer) History: Reports: None Dermatologic History: Reports: Other (See Below) Other Dermatologic History: ALLERGIES - Infectious Disease History Infectious Disease History: Reports: Chicken Pox - Past Surgical History Head Surgeries/Procedures: Reports: Craniotomy HEENT Surgical History: Reports: Naso-Sinus Surgery Other HEENT Surgeries/Procedures: sinus surgery GI Surgical History: Reports: Appendectomy, Bariatric Procedure, Lysis of Adhesions Other GI Surgeries/Procedures: Pt had feeding tube placed due to not gaining any weight. Feeding tube was removed in July 2018 and pt has had an infection at the site since. Female Surgical History: Reports: D&C Neurological Surgical History: Reports: Other (See Below) Other Neurological Surgeries/Procedures: Craniotomy Musculoskeletal Surgical History: Reports: Shoulder Surgery Dermatological Surgical History: Reports: None Social & Family History - Family History Family Medical History: No Pertinent Family History - Caffeine Use Caffeine Use: Reports: Soda - Living Situation & Occupation Living situation: Reports: , with Spouse, with Family (1 adult child) Occupation: Employed ([employer]) Review of Systems - Review of Systems Review Of Systems: Comprehensive ROS is negative, except as noted in HPI. ED EXAM, GENERAL - Physical Exam Exam: See Below General Appearance: Alert, WD/WN, No Apparent Distress Respiratory/Chest: No Respiratory Distress, Lungs Clear, Normal Breath Sounds, No Accessory Muscle Use, Chest Non-Tender Cardiovascular: Normal Peripheral Pulses, Regular Rate, Rhythm, No Edema, No Gallop, No JVD, No Murmur, No Rub Extremities: Other (Mild swelling and tenderness to palpation throughout the right knee. CMS intact distally.) Neurological: Alert, Oriented, CN II-XII Intact, Normal Cognition, Normal Gait, Normal Reflexes, No Motor/Sensory Deficits Psychiatric: Normal Affect, Normal Mood Skin Exam: Warm, Dry, Intact, Normal Color, No Rash Course - Vital Signs Last Recorded V/S: Last Vital Signs Temp 97.9 F 03/13/20 15:10 Pulse 97 03/13/20 15:10 Resp 18 03/13/20 15:10 BP 151/103 H 03/13/20 15:10 Pulse Ox 99 03/13/20 15:10 - Re-Assessments/Exams Free Text/Narrative Re-Assessment/Exam: 03/13/20 15:37 Patient is a 49-year-old female presenting to the emergency department with worsening of right knee pain. She was seen 4 days ago at the time of the injury. X-rays were completed pleated and showed no acute findings. She is out of her Endicott that was previously prescribed for pain. She is scheduled to see the orthopedist, Dr. Carranza on Friday. I will send a prescription for enough Endicott to get her through till this visit. She is in agreement with this plan. Discharge instructions as documented. Departure - Departure Time of Disposition: 15:37 Disposition: Home, Self-Care 01 Condition: Good Clinical Impression: Right knee sprain Qualifiers: Encounter type: initial encounter Involved ligament of knee: unspecified ligament Qualified Code(s): S83.91XA - Sprain of unspecified site of right knee, initial encounter - Discharge Information *PRESCRIPTION DRUG MONITORING PROGRAM REVIEWED*: Yes *COPY OF PRESCRIPTION DRUG MONITORING REPORT IN PATIENT IGGY: No Prescriptions: Acetaminophen/HYDROcodone [Endicott 325-5 MG] 1 tab PO Q4H PRN #20 tablet PRN Reason: Pain Instructions: Knee Sprain, Adult, [id number] Referrals: Long Carranza MD [Primary Care Provider] - Forms: ED Department Discharge Additional Instructions: You were seen in the emergency department today for setting of right knee pain. [place]. Take this medication as prescribed. Keep your appointment with orthopedist, Dr. Carranza on Friday. Return to ER as needed. Sepsis Event Note (ED) - Evaluation Sepsis Screening Result: No Definite Risk
== END 2020-03-13 15:56 | disposition home or self-care (01) ==
LOC: JD.ED 14:04
DX: S83.91XA Sprain of unspecified site of right knee, initial encounter (principal); J45.909 Unspecified asthma, uncomplicated; R56.9 Unspecified convulsions; F41.9 Anxiety disorder, unspecified; F32.9 Major depressive disorder, single episode, unspecified; E66.9 Obesity, unspecified; Z68.42 Body mass index [BMI] 45.0-49.9, adult; Z88.1 Allergy status to other antibiotic agents; Z91.018 Allergy to other foods; Z88.8 Allergy status to other drugs, medicaments and biological substances; Z79.899 Other long term (current) drug therapy; W19.XXXA Unspecified fall, initial encounter
CPT/HCPCS: 99283

== ENCOUNTER 2020-09-28 15:00 | Emergency (ER) | payer BC ==
[2020-09-28] MEDS ORDERED: Sodium Chloride 0.9% 10 ML Syringe FLUSH PRN (15:27)
--- NOTE | 2020-09-28 15:39 | EDM.PDOC ---
<Enid Mendiola M - Last Filed: 09/28/20 15:40> ED HPI GENERAL MEDICAL PROBLEM - General Chief Complaint: Chest Pain Time Seen by Provider: 09/28/20 15:10 Source of Information: Reports: Patient, Family History Limitations: Reports: No Limitations - History of Present Illness INITIAL COMMENTS - FREE TEXT/NARRATIVE: 49-year-old female presents the emergency department today. She was arriving to the hospital to have an x-ray of her right ankle that was ordered by her primary care physician for chronic pain issues. As she was getting out of her car outside of the emergency department apparently she fell out and collapsed. A CODE BLUE was called on the patient however she was arousable and there was a palpable pulse noted so a code did not ensue. The patient states that she has had an intermittent cough for about the past week and some chills and some intermittent chest pain associated with this. Pain is midsternal with radiation into her left jaw. She states it is much worse when taking a deep breath and with any palpation. She denies any fever, nausea, vomiting, diarrhea, or headache. She states she has had sore throat for the past couple of days. She states her appetite has been normal. Of note, she did have her Covid vaccination today. She has not had Covid in the past. She states she does have a history of hypertension, but she has been able to control this without medications. She is obese with a BMI of 41.5. She denies any issues with high cholesterol or diabetes. Middle Chest Pain Score (Numeric/FACES): 7 - Related Data Allergies Allergy/AdvReac Type Severity Reaction Status Date / Time strawberry [[place]] Allergy Severe Anaphylactic Verified 09/30/20 10:31 Shock clarithromycin [From Biaxin] Allergy Unknown Hives Verified 09/30/20 10:31 erythromycin base Allergy Other Verified 09/30/20 10:31 metoclopramide HCl AdvReac "Panic Verified 09/30/20 10:31 [From Reglan] Attack" Home Meds: Home Meds Pantoprazole Sodium 40 mg PO BID 08/23/18 [History] Promethazine [Phenergan] 25 mg PO ASDIRECTED PRN 10/24/18 [History] Desvenlafaxine Succinate [Desvenlafaxine Succinate ER] 50 - 100 mg PO BID 11/29/18 [History] Pregabalin [Lyrica] 225 mg PO BID 11/29/18 [History] Divalproex Sodium [Depakote] 500 mg PO BID 11/30/18 [History] Cholecalciferol (Vitamin D3) [Vitamin D3] 5,000 unit PO DAILY #30 tablet 12/03/18 [Rx] EPINEPHrine [Epipen 2-Collin] 0.3 mg IJ ASDIRECTED PRN 08/16/19 [History] cloNIDine [Catapres] 0.2 mg PO BID 08/16/19 [History] Cyclobenzaprine [Flexeril] 1 cap PO ASDIRECTED PRN 09/04/19 [History] Lurasidone HCl [Latuda] 60 mg PO BEDTIME 09/04/19 [History] Prazosin HCl [Prazosin] 2 mg PO BEDTIME 09/04/19 [History] lamoTRIgine [Lamictal] 225 mg PO BID 09/04/19 [History] cephALEXin [Keflex] 500 mg PO BID #10 capsule 09/25/19 [Rx] Hydrocodone/Acetaminophen [Hydrocodone-Acetamin 5-325 mg] 1 - 2 each PO Q6HR PRN #20 tablet 09/26/19 [Rx] Hydrocodone/Acetaminophen [Hydrocodone-Acetamin 5-325 mg] 1 - 2 each PO Q6HR PRN #20 tablet 03/09/20 [Rx] Acetaminophen/HYDROcodone [[place] 325-5 MG] 1 tab PO Q4H PRN #20 tablet 03/13/20 [Rx] LORazepam [Ativan] 0.5 mg PO Q4H PRN #12 tab 09/28/20 [Rx] Ondansetron [Zofran ODT] 4 mg PO Q6H PRN #10 tab.dis 09/28/20 [Rx] Past Medical History HEENT History: Reports: Impaired Vision, Other (See Below) Other HEENT History: sinus problems Cardiovascular History: Reports: Syncope Respiratory History: Reports: Asthma Gastrointestinal History: Reports: PUD Other Gastrointestinal History: ABDOMINAL PAIN/SCAR TISSUES Genitourinary History: Reports: Other (See Below) Other Genitourinary History: kidney failure, resolved HEREDITARY CANCER PROGRAM COORDINATOR History: Reports: Other HEREDITARY CANCER PROGRAM COORDINATOR History: x2, 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 Musculoskeletal History: Reports: Back Pain, Chronic, Fracture Other Musculoskeletal History: right hip fx, R akle fx Neurological History: Reports: Seizure, Other (See Below) Other Neuro History: epilepsy Psychiatric History: Reports: Anxiety, Depression, Suicidal Ideation, Other (See Below) Other Psychiatric History: addiction in past Endocrine/Metabolic History: Reports: Obesity/BMI 30+ Other Endocrine/Metabolic History: Blood sugar low Hematologic History: Reports: None Immunologic History: Reports: Other (See Below) Oncologic (Cancer) History: Reports: None Dermatologic History: Reports: Other (See Below) Other Dermatologic History: ALLERGIES - Infectious Disease History Infectious Disease History: Reports: Chicken Pox - Past Surgical History Head Surgeries/Procedures: Reports: Craniotomy HEENT Surgical History: Reports: Naso-Sinus Surgery Other HEENT Surgeries/Procedures: sinus surgery GI Surgical History: Reports: Appendectomy, Bariatric Procedure, Lysis of Adhesions Other GI Surgeries/Procedures: Pt had feeding tube placed due to not gaining any weight. Feeding tube was removed in July 2018 and pt has had an infection at the site since. Female Surgical History: Reports: D&C Neurological Surgical History: Reports: Other (See Below) Other Neurological Surgeries/Procedures: Craniotomy Musculoskeletal Surgical History: Reports: Shoulder Surgery Dermatological Surgical History: Reports: None Social & Family History - Family History Family Medical History: No Pertinent Family History - Caffeine Use Caffeine Use: Reports: None - Living Situation & Occupation Living situation: Reports: , with Spouse, with Family (1 adult child) Occupation: Employed ([employer]) ED ROS GENERAL - Review of Systems Review Of Systems: Comprehensive ROS is negative, except as noted in HPI. ED EXAM, GENERAL - Physical Exam Exam: See Below Exam Limited By: No Limitations General Appearance: Alert, WD/WN, Mild Distress Ears: Normal External Exam, Hearing Grossly Normal Nose: Normal Inspection Throat/Mouth: Normal Inspection, Normal Lips, Normal Voice, No Airway Compromise Head: Atraumatic Neck: Normal Inspection Respiratory/Chest: No Respiratory Distress, Lungs Clear, Normal Breath Sounds, No Accessory Muscle Use, Decreased Breath Sounds (Due to body habitus). No: Chest Non-Tender (Significant tenderness with palpation and inspiration.) Cardiovascular: Normal Peripheral Pulses, Regular Rate, Rhythm, No Edema, No Murmur Peripheral Pulses: 2+: Radial (L), Radial (R) GI/Abdominal: Normal Bowel Sounds, Soft, Non-Tender, No Distention (Female) Exam: Deferred Rectal (Female) Exam: Deferred Back Exam: Normal Inspection Extremities: Normal Inspection, Normal Range of Motion, No Pedal Edema, Normal Capillary Refill Neurological: Alert, Oriented, Normal Cognition Psychiatric: Anxious Skin Exam: Warm, Dry, Intact, Normal Color, No Rash Lymphatic: No Adenopathy #1 Interpretation EKG Date: 09/28/20 Time: 15:05 Rhythm: NSR Rate (Beats/Min): 81 [place]: Normal P-Wave: Present QRS: Normal ST-T: Normal QT: Normal EKG Interpretation Comments: Per Dr. Villegas interpretation: Anterior septal T wave flattening; no change from previous EKG from 11/29/2018 other than QT improvement. Course - Vital Signs Text/Narrative:: Upon assessment, the patient is awake alert and oriented. She is complaining of pain to the middle of her chest. She states that it radiates to her jaw. Pain is worse with deep breathing or any palpation. Lung sounds are clear but diminished due to body habitus. She denies any abdominal pain. She denies smoking. I have ordered an EKG, chest x-ray, x-ray of her right ankle as this is what she was previously coming to the hospital for, CBC, CMP, C-reactive protein, troponin, magnesium and a D-dimer. Patient is complaining of significant amount of pain to her left chest so I will order for her to have some Dilaudid as I was initially going to prescribe Toradol however her last ER visit her creatinine was 1.2. Departure - Departure Disposition: Home, Self-Care 01 Clinical Impression: Anxiety, Atypical chest pain Headache Qualifiers: Headache type: tension-type Headache chronicity pattern: chronic headache Intractability: not intractable Qualified Code(s): G44.229 - Chronic tension- type headache, not intractable Prescriptions: LORazepam [Ativan] 0.5 mg PO Q4H PRN #12 tab PRN Reason: Anxiety Ondansetron [Zofran ODT] 4 mg PO Q6H PRN #10 tab.dis PRN Reason: Nausea/Vomiting Instructions: General Headache Without Cause, Chest Wall Pain, [id number] Referrals: Lyn Hahn NP [Primary Care Provider] - Forms: ED Department Discharge Additional Instructions: You were seen in the emergency department today after having a syncopal episode as well as for recurrent chest pain for the last few days. Work-up included blood work, EKG of your heart, chest x-ray, and a CT scan of your head. While in the ER, you received anxiety medication, pain medication, and motion sickness medication which you state did improve your symptoms. Your work-up was found to be completely normal. You are not having a heart attack and you do not have a blood clot in your lungs. Your head CT showed no evidence of bleeding in your brain or any other abnormalities. Recommend that you go home and rest this evening. You have been provided medication for nausea as well as anxiety. Uses medications as prescribed. Follow-up with your primary care provider tomorrow. If you should experience any new or worsening symptoms, please do not hesitate to return to the emergency department for reevaluation. Sepsis Event Note (ED) - Evaluation Sepsis Screening Result: No Definite Risk <Maddy Rivera - Last Filed: 10/02/20 21:56> Course - Vital Signs Last Recorded V/S: Last Vital Signs Temp 97.8 F 09/28/20 18:45 Pulse 70 09/28/20 18:45 Resp 16 09/28/20 18:45 BP 120/87 09/28/20 18:45 Pulse Ox 98 09/28/20 18:45 - Orders/Labs/Meds Labs: Laboratory Tests 09/28/20 09/28/20 09/28/20 Range/Units 15:23 15:23 15:23 WBC 6.37 (3.98-10.04) K/mm3 RBC 4.15 (3.98-5.22) M/mm3 Hgb 12.9 (11.2-15.7) gm/dl Hct 39.5 (34.1-44.9) % MCV 95.2 H (79.4-94.8) fl MCH 31.1 (25.6-32.2) pg MCHC 32.7 (32.2-35.5) g/dl RDW Std Deviation 51.1 H (36.4-46.3) fL Plt Count 167 L (182-369) K/mm3 MPV 9.2 L (9.4-12.3) fl Neut % (Auto) 49.1 (34.0-71.1) % Lymph % (Auto) 33.3 (19.3-51.7) % [place] % (Auto) 7.5 (4.7-12.5) % Eos % (Auto) 7.7 H (0.7-5.8) Baso % (Auto) 0.5 (0.1-1.2) % Neut # (Auto) 3.13 (1.56-6.13) K/mm3 Lymph # (Auto) 2.12 (1.18-3.74) K/mm3 [place] # (Auto) 0.48 H (0.24-0.36) K/mm3 Eos # (Auto) 0.49 H (0.04-0.36) K/mm3 Baso # (Auto) 0.03 (0.01-0.08) K/mm3 Manual Slide Review Abnormal smear D-Dimer, Quantitative (0.19-0.50) mg/L Sodium 143 (136-145) mEq/L Potassium 4.1 (3.5-5.1) mEq/L Chloride 105 (98-107) mEq/L Carbon Dioxide 27 (21-32) mEq/L Anion Gap 15.1 H (5-15) BUN 6 L (7-18) mg/dL Creatinine 0.9 (0.55-1.02) mg/dL Est Cr Clr Drug Dosing 74.34 mL/min Estimated GFR (MDRD) > 60 (>60) mL/min BUN/Creatinine Ratio 6.7 L (14-18) Glucose 75 (70-99) mg/dL Calcium 8.6 (8.5-10.1) mg/dL Magnesium 2.3 (1.8-2.4) mg/dL Total Bilirubin 0.3 (0.2-1.0) mg/dL AST 12 L (15-37) U/L ALT 13 L (14-59) U/L Alkaline Phosphatase 82 (46-116) U/L Troponin I < 0.017 (0.00-0.056) ng/mL C-Reactive Protein <0.2 (<1.0) mg/dL Total Protein 6.6 (6.4-8.2) g/dl Albumin 3.1 L (3.4-5.0) g/dl Globulin 3.5 gm/dL Albumin/Globulin Ratio 0.9 L (1-2) 06//21 Range/Units 15:54 WBC (3.98-10.04) K/mm3 RBC (3.98-5.22) M/mm3 Hgb (11.2-15.7) gm/dl Hct (34.1-44.9) % MCV (79.4-94.8) fl MCH (25.6-32.2) pg MCHC (32.2-35.5) g/dl RDW Std Deviation (36.4-46.3) fL Plt Count (182-369) K/mm3 MPV (9.4-12.3) fl Neut % (Auto) (34.0-71.1) % Lymph % (Auto) (19.3-51.7) % [place] % (Auto) (4.7-12.5) % Eos % (Auto) (0.7-5.8) Baso % (Auto) (0.1-1.2) % Neut # (Auto) (1.56-6.13) K/mm3 Lymph # (Auto) (1.18-3.74) K/mm3 [place] # (Auto) (0.24-0.36) K/mm3 Eos # (Auto) (0.04-0.36) K/mm3 Baso # (Auto) (0.01-0.08) K/mm3 Manual Slide Review D-Dimer, Quantitative < 0.19 L (0.19-0.50) mg/L Sodium (136-145) mEq/L Potassium (3.5-5.1) mEq/L Chloride (98-107) mEq/L Carbon Dioxide (21-32) mEq/L Anion Gap (5-15) BUN (7-18) mg/dL Creatinine (0.55-1.02) mg/dL Est Cr Clr Drug Dosing mL/min Estimated GFR (MDRD) (>60) mL/min BUN/Creatinine Ratio (14-18) Glucose (70-99) mg/dL Calcium (8.5-10.1) mg/dL Magnesium (1.8-2.4) mg/dL Total Bilirubin (0.2-1.0) mg/dL AST (15-37) U/L ALT (14-59) U/L Alkaline Phosphatase (46-116) U/L Troponin I (0.00-0.056) ng/mL C-Reactive Protein (<1.0) mg/dL Total Protein (6.4-8.2) g/dl Albumin (3.4-5.0) g/dl Globulin gm/dL Albumin/Globulin Ratio (1-2) Meds: Medications Discontinued Medications Generic Name Dose Route Start Last Admin Trade Name Freq PRN Reason Stop Dose Admin Hydromorphone HCl 0.5 mg 09/28/20 15:42 09/28/20 16:01 Hydromorphone 0.5 Mg/0.5 Ml Syringe IVPUSH 09/28/20 15:43 0.5 mg ONETIME ONE Administration Lorazepam 1 mg 09/28/20 16:26 09/28/20 16:34 Lorazepam 1 Mg Tab PO 09/28/20 16:27 1 mg ONETIME ONE Administration Meclizine HCl 25 mg 09/28/20 17:14 09/28/20 17:25 Meclizine 25 Mg Tab.Chew PO 09/28/20 17:15 25 mg ONETIME ONE Administration Ondansetron HCl 4 mg 09/28/20 15:42 09/28/20 18:11 Ondansetron 4 Mg/2 Ml Sdv IVPUSH 09/28/20 15:43 Not Given ONETIME ONE Ondansetron HCl 4 mg 09/28/20 18:11 09/28/20 16:00 Ondansetron 4 Mg Tab.Dis PO 09/28/20 18:12 4 mg ONETIME ONE Administration Sodium Chloride 10 ml 09/28/20 15:27 Sodium Chloride 0.9% 10 Ml Syringe FLUSH ASDIRECTED PRN Keep Vein Open - Re-Assessments/Exams Free Text/Narrative Re-Assessment/Exam: 09/28/20 4540 Care was assumed from Ana M Garber NP. Hematology is grossly unremarkable. D-dimer and troponin are both undetectable. EKG shows no evidence acute ischemia. Patient reports that she feels very anxious like she is about to have a panic attack. I ordered Ativan 1 mg p.o. to be given now. 09/28/20 17:19 In to check on the patient. Patient was lying on the floor. States she "had a charley horse "in her leg and had to get up and then got dizzy and fell. She was able to get up from the floor without assistance. Nursing staff who were at the desk report that there was no sound of her falling. She reports feeling like the room is spinning. She also reports headache she states started about 1 hour ago. Denies any injury or pain associated with this fall. She reports she has been having ear pain for quite some time. I have ordered meclizine as well as a CT scan of the head. 09/28/200 The head showed no acute intracranial abnormalities. Her dizziness did improve with the meclizine. She was able to get up and use the bedside commode with little difficulty. She would like to go home and rest. I will send p rescription Zofran for nausea as well as Ativan for anxiety. Recommend follow- up with her primary care provider tomorrow. Discussed return precautions. Discharge instructions as documented. Departure - Departure Time of Disposition: 18:54 Condition: Good
[2020-09-28] MEDS ORDERED: HYDROmorphone 0.5 MG/0.5 ML Syringe IVPUSH ONE (15:42)
[2020-09-28] MEDS ORDERED: Ondansetron 4 MG/2 ML SDV IVPUSH ONE (15:42)
[2020-09-28] MEDS ORDERED: LORazepam 1 MG Tab PO ONE (16:26)
--- NOTE | 2020-09-28 17:45 | CT ---
Head CT Technique: Multiple axial sections through the brain were obtained. Intravenous contrast was not utilized. Reconstructed coronal and sagittal images were obtained. Comparison: Prior head CT study of 03/10/20. Findings: Ventricles along with basal cisterns and sulci over the convexities appear within normal limits for the patient's age. No abnormal parenchymal densities are seen. No evidence of intracranial hemorrhage. No midline shift or mass-effect is seen. Bone window settings were reviewed which shows no acute calvarial abnormality. Visualized mastoid and paranasal sinuses show nothing acute. Impression: 1. Nothing acute is seen on noncontrast head CT study. 2. No change is seen from prior study. Diagnostic code #1
[2020-09-28] MEDS ORDERED: Ondansetron 4 MG Tab.DIS PO ONE (18:11)
[2020-09-28 19:14] VITALS: BP 120/87; PULSE 70
--- NOTE | 2020-09-28 19:58 | CR ---
Right ankle: 4 views of the right ankle were obtained. Comparison: Prior right ankle study of 09/28/19. Old healed fractures are noted within the medial and lateral malleolus. Orthopedic hardware is seen within both of these malleoli. Ankle mortise is symmetric. Plantar spur is noted. Spur is noted at the attachment of the Achilles tendon to the calcaneus. No acute fracture or other abnormality is seen. Impression: 1. Old healed fractures with orthopedic hardware. 2. Calcaneal spurs as noted above. 3. No acute abnormality is otherwise seen. Diagnostic code #2
--- NOTE | 2020-09-28 19:59 | CR ---
Chest: Portable supine view of the chest was obtained. Comparison: Prior chest x-ray of 10/04/18. Heart size and mediastinum are within normal limits for supine technique. Lungs are clear with no acute parenchymal change. Slight scoliosis is noted within the spine. No acute osseous abnormality is seen. Surgical clips are seen within the left upper abdomen. Impression: 1. Findings as noted above. 2. Nothing acute is seen on supine chest x-ray. Diagnostic code #2
== END 2020-09-28 19:00 | disposition home or self-care (01) ==
LOC: JD.ED 15:00
DX: F41.9 Anxiety disorder, unspecified (principal); G44.229 Chronic tension-type headache, not intractable; E66.9 Obesity, unspecified; Z68.30 Body mass index [BMI] 30.0-30.9, adult; Z91.018 Allergy to other foods; Z88.1 Allergy status to other antibiotic agents; Z88.8 Allergy status to other drugs, medicaments and biological substances
CPT/HCPCS: 36415; 70450; 71045; 73610; 80053; 83735; 84484; 85025; 85379; 86140; 93005; 96374; 99285; A9270; J1170; 93010; 99284

== ENCOUNTER 2020-09-30 10:19 | Emergency (ER) | payer BC ==
[2020-09-30 10:31] VITALS: BP 133/79; PULSE 65
[2020-09-30] MEDS ORDERED: Sodium Chloride 0.9% 10 ML Syringe FLUSH PRN (11:04)
[2020-09-30] MEDS ORDERED: Cyclobenzaprine 10 MG Tab PO ONE (11:06)
--- NOTE | 2020-09-30 12:03 | CT ---
Head CT Technique: Multiple axial sections through the brain were obtained. Intravenous contrast was not utilized. Reconstructed coronal and sagittal images were obtained. Comparison: Prior head CT study of 09/28/20. Findings: Ventricles along with basal cisterns and sulci over the convexities are within normal limits for the patient's age. No abnormal parenchymal densities are seen. No evidence of intracranial hemorrhage. No midline shift or mass-effect is seen. Bone window settings were reviewed which show no acute abnormality within the visualized mastoid sinuses or visualized paranasal sinuses. No acute calvarial abnormality is seen. Impression: 1. Nothing acute is seen on noncontrast head CT study. 2. No change is seen from previous head CT exam. Diagnostic code #1
--- NOTE | 2020-09-30 13:50 | EDM.PDOC ---
ED HPI GENERAL MEDICAL PROBLEM - General Chief Complaint: Syncope Stated Complaint: [facility] Time Seen by Provider: 09/30/20 10:29 Source of Information: Reports: Patient, EMS History Limitations: Reports: No Limitations - History of Present Illness INITIAL COMMENTS - FREE TEXT/NARRATIVE: The patient presents by [facility] for syncope. She was making some yris p and she got lightheaded and passed out. She has a headache and some chest pain. She also may have hurt her back. She said she has not felt well since getting her COVID shot last week. She was seen here a couple days ago. She has no fever, chills, cough, shortness of breath, abdominal pain, nausea or vomiting. Onset: Sudden Duration: Minutes: Location: Reports: Head, Chest, Back Quality: Reports: Sharp Severity: Moderate Improves with: Reports: None Worsens with: Reports: None Associated Symptoms: Reports: Chest Pain, Headaches. Denies: Cough, Fever/Chills, Nausea/Vomiting, Shortness of Breath - Related Data Allergies Allergy/AdvReac Type Severity Reaction Status Date / Time strawberry [[place]] Allergy Severe Anaphylactic Verified 09/30/20 10:31 Shock clarithromycin [From Biaxin] Allergy Unknown Hives Verified 09/30/20 10:31 erythromycin base Allergy Other Verified 09/30/20 10:31 metoclopramide HCl AdvReac "Panic Verified 09/30/20 10:31 [From Reglan] Attack" Home Meds: Home Meds Pantoprazole Sodium 40 mg PO BID 08/23/18 [History] Promethazine [Phenergan] 25 mg PO ASDIRECTED PRN 10/24/18 [History] Desvenlafaxine Succinate [Desvenlafaxine Succinate ER] 50 - 100 mg PO BID 11/29/18 [History] Pregabalin [Lyrica] 225 mg PO BID 11/29/18 [History] Divalproex Sodium [Depakote] 500 mg PO BID 11/30/18 [History] Cholecalciferol (Vitamin D3) [Vitamin D3] 5,000 unit PO DAILY #30 tablet 12/03/18 [Rx] EPINEPHrine [Epipen 2-Collin] 0.3 mg IJ ASDIRECTED PRN 08/16/19 [History] cloNIDine [Catapres] 0.2 mg PO BID 08/16/19 [History] Cyclobenzaprine [Flexeril] 1 cap PO ASDIRECTED PRN 09/04/19 [History] Lurasidone HCl [Latuda] 60 mg PO BEDTIME 09/04/19 [History] Prazosin HCl [Prazosin] 2 mg PO BEDTIME 09/04/19 [History] lamoTRIgine [Lamictal] 225 mg PO BID 09/04/19 [History] cephALEXin [Keflex] 500 mg PO BID #10 capsule 09/25/19 [Rx] Hydrocodone/Acetaminophen [Hydrocodone-Acetamin 5-325 mg] 1 - 2 each PO Q6HR PRN #20 tablet 09/26/19 [Rx] Hydrocodone/Acetaminophen [Hydrocodone-Acetamin 5-325 mg] 1 - 2 each PO Q6HR PRN #20 tablet 03/09/20 [Rx] Acetaminophen/HYDROcodone [[place] 325-5 MG] 1 tab PO Q4H PRN #20 tablet 03/13/20 [Rx] LORazepam [Ativan] 0.5 mg PO Q4H PRN #12 tab 09/28/20 [Rx] Ondansetron [Zofran ODT] 4 mg PO Q6H PRN #10 tab.dis 09/28/20 [Rx] Past Medical History HEENT History: Reports: Impaired Vision, Other (See Below) Other HEENT History: sinus problems Cardiovascular History: Reports: Syncope Respiratory History: Reports: Asthma Gastrointestinal History: Reports: PUD Other Gastrointestinal History: ABDOMINAL PAIN/SCAR TISSUES Genitourinary History: Reports: Other (See Below) Other Genitourinary History: kidney failure, resolved 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 UTILIZATION SUPERVISOR History: x2, 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 Musculoskeletal History: Reports: Back Pain, Chronic, Fracture Other Musculoskeletal History: right hip fx, R akle fx Neurological History: Reports: Seizure, Other (See Below) Other Neuro History: epilepsy Psychiatric History: Reports: Anxiety, Depression, Suicidal Ideation, Other (See Below) Other Psychiatric History: addiction in past Endocrine/Metabolic History: Reports: Obesity/BMI 30+ Other Endocrine/Metabolic History: Blood sugar low Hematologic History: Reports: None Immunologic History: Reports: Other (See Below) Oncologic (Cancer) History: Reports: None Dermatologic History: Reports: Other (See Below) Other Dermatologic History: ALLERGIES - Infectious Disease History Infectious Disease History: Reports: Chicken Pox - Past Surgical History Head Surgeries/Procedures: Reports: Craniotomy HEENT Surgical History: Reports: Naso-Sinus Surgery Other HEENT Surgeries/Procedures: sinus surgery GI Surgical History: Reports: Appendectomy, Bariatric Procedure, Lysis of Adhesions Other GI Surgeries/Procedures: Pt had feeding tube placed due to not gaining any weight. Feeding tube was removed in July 2018 and pt has had an infection at the site since. Female Surgical History: Reports: D&C Neurological Surgical History: Reports: Other (See Below) Other Neurological Surgeries/Procedures: Craniotomy Musculoskeletal Surgical History: Reports: Shoulder Surgery Dermatological Surgical History: Reports: None Social & Family History - Family History Family Medical History: No Pertinent Family History - Tobacco Use Tobacco Use Status *Q: Never Tobacco User - Caffeine Use Caffeine Use: Reports: None - Recreational Drug Use Recreational Drug Use: No - Living Situation & Occupation Living situation: Reports: , with Spouse, with Family (1 adult child) Occupation: Employed ([employer]) ED ROS GENERAL - Review of Systems Review Of Systems: See Below Constitutional: Reports: No Symptoms HEENT: Reports: No Symptoms Respiratory: Reports: No Symptoms Cardiovascular: Reports: Chest Pain, Syncope Endocrine: Reports: No Symptoms GI/Abdominal: Reports: No Symptoms : Reports: No Symptoms Musculoskeletal: Reports: Back Pain ED EXAM, GENERAL - Physical Exam Exam: See Below Exam Limited By: No Limitations General Appearance: Alert, No Apparent Distress Ears: Normal External Exam Nose: Normal Inspection Head: Atraumatic, Normocephalic Neck: Normal Inspection Respiratory/Chest: No Respiratory Distress, Lungs Clear, Normal Breath Sounds Cardiovascular: Regular Rate, Rhythm, No Edema, No Murmur GI/Abdominal: Soft, Non-Tender, No Organomegaly, No Mass Back Exam: Other (Mild tenderness to the low back) Extremities: Normal Inspection Neurological: Alert, Oriented, No Motor/Sensory Deficits #1 Interpretation EKG Date: 09/30/20 Time: 11:14 Rhythm: NSR Rate (Beats/Min): 58 [place]: Normal P-Wave: Present QRS: Normal ST-T: Normal QT: Normal Course - Vital Signs Last Recorded V/S: Last Vital Signs Temp 98.1 F 09/30/20 10:25 Pulse 65 09/30/20 10:25 Resp 18 09/30/20 10:25 BP 133/79 09/30/20 10:25 Pulse Ox 98 09/30/20 10:25 - Orders/Labs/Meds Orders: Active Orders 24 hr Category Date Time Status Cardiac Monitoring [RC] . DIRECTED Care 09/30/20 11:04 Active EKG Documentation Completion [RC] STAT Care 09/30/20 11:05 Active Holter Monitor 48 Hours [RC] .PRN Care 09/30/20 14:44 Ordered Peripheral IV Care [RC] . DIRECTED Care 09/30/20 11:05 Active Cyclobenzaprine [Flexeril] Med 09/30/20 11:06 Once 10 mg PO ONETIME ONE Sodium Chloride 0.9% [Saline Flush] Med 09/30/20 11:04 Active 10 ml FLUSH ASDIRECTED PRN Peripheral IV Insertion Adult [OM.PC] Stat Oth 09/30/20 11:04 Ordered Medication Orders Cyclobenzaprine HCl (Cyclobenzaprine 10 Mg Tab) 10 mg PO ONETIME ONE Stop: 09/30/20 11:07 Last Admin: 09/30/20 12:03 Dose: 10 mg Documented by: EVANGELISTA Sodium Chloride (Sodium Chloride 0.9% 10 Ml Syringe) 10 ml FLUSH ASDIRECTED PRN PRN Reason: Keep Vein Open Last Admin: 09/30/20 12:04 Dose: 10 ml Documented by: EVANGELISTA Labs: Laboratory Tests 09/30/20 09/30/20 Range/Units 13:30 13:34 WBC 5.21 (3.98-10.04) K/mm3 RBC 4.24 (3.98-5.22) M/mm3 Hgb 13.3 (11.2-15.7) gm/dl Hct 41.0 (34.1-44.9) % MCV 96.7 H (79.4-94.8) fl MCH 31.4 (25.6-32.2) pg MCHC 32.4 (32.2-35.5) g/dl RDW Std Deviation 51.1 H (36.4-46.3) fL Plt Count 181 L (182-369) K/mm3 MPV 9.1 L (9.4-12.3) fl Neut % (Auto) 48.4 (34.0-71.1) % Lymph % (Auto) 34.4 (19.3-51.7) % Centre % (Auto) 13.4 H (4.7-12.5) % Eos % (Auto) 1.9 (0.7-5.8) Baso % (Auto) 0.6 (0.1-1.2) % Neut # (Auto) 2.52 (1.56-6.13) K/mm3 Lymph # (Auto) 1.79 (1.18-3.74) K/mm3 [place] # (Auto) 0.70 H (0.24-0.36) K/mm3 Eos # (Auto) 0.10 (0.04-0.36) K/mm3 Baso # (Auto) 0.03 (0.01-0.08) K/mm3 Sodium 142 (136-145) mEq/L Potassium 4.9 (3.5-5.1) mEq/L Chloride 105 (98-107) mEq/L Carbon Dioxide 28 (21-32) mEq/L Anion Gap 13.9 (5-15) BUN 6 L (7-18) mg/dL Creatinine 0.9 (0.55-1.02) mg/dL Est Cr Clr Drug Dosing 68.79 mL/min Estimated GFR (MDRD) > 60 (>60) mL/min BUN/Creatinine Ratio 6.7 L (14-18) Glucose 75 (70-99) mg/dL Calcium 9.1 (8.5-10.1) mg/dL Total Bilirubin 0.3 (0.2-1.0) mg/dL AST 10 L (15-37) U/L ALT 10 L (14-59) U/L Alkaline Phosphatase 100 (46-116) U/L Troponin I < 0.017 (0.00-0.056) ng/mL Total Protein 7.0 (6.4-8.2) g/dl Albumin 3.3 L (3.4-5.0) g/dl Globulin 3.7 gm/dL Albumin/Globulin Ratio 0.9 L (1-2) Meds: Medications Generic Name Dose Route Start Last Admin Trade Name Freq PRN Reason Stop Dose Admin Cyclobenzaprine HCl 10 mg 09/30/20 11:06 09/30/20 12:03 Cyclobenzaprine 10 Mg Tab PO 09/30/20 11:07 10 mg ONETIME ONE Administration Sodium Chloride 10 ml 06/12/21 11:04 09/30/20 12:04 Sodium Chloride 0.9% 10 Ml Syringe FLUSH 10 ml ASDIRECTED PRN Administration Keep Vein Open - Re-Assessments/Exams Free Text/Narrative Re-Assessment/Exam: 09/30/20 13:48 I ordered an IV saline lock, EKG, CT of her head, CXR and labs. Her EKG shows a NSR with no acute changes. Her CXR looks good. The CT of her head shows nothing acute. It took awhile to get labs. She was a touch draw. 09/30/20 14:41 Her labs look good and troponin is negative. I will discharge her home. Departure - Departure Time of Disposition: 14:50 Disposition: Home, Self-Care 01 Condition: Good Clinical Impression: Syncope Qualifiers: Syncope type: unspecified Qualified Code(s): R55 - Syncope and collapse Referrals: Lyn Hahn [facility] [Primary Care Provider] - 1 Week Forms: ED Department Discharge Additional Instructions: Wear the holter monitor for 48 hours. Take your medication as prescribed. Follow up with your doctor within a week. Please return if you are worse. Sepsis Event Note (ED) - Evaluation Sepsis Screening Result: No Definite Risk - Focused Exam Vital Signs: Vital Signs Temp Pulse Resp BP Pulse Ox 09/30/20 10:25 98.1 F 65 18 133/79 98 - My Orders Last 24 Hours: My Active Orders 09/30/20 11:04 Cardiac Monitoring [RC] . DIRECTED Sodium Chloride 0.9% [Saline Flush] 10 ml FLUSH ASDIRECTED PRN Peripheral IV Insertion Adult [OM.PC] Stat 09/30/20 11:05 EKG Documentation Completion [RC] STAT Peripheral IV Care [RC] . DIRECTED 09/30/20 11:06 Cyclobenzaprine [Flexeril] 10 mg PO ONETIME ONE 09/30/20 14:44 Holter Monitor 48 Hours [RC] .PRN - Assessment/Plan Last 24 Hours: My Active Orders 09/30/20 11:04 Cardiac Monitoring [RC] . DIRECTED Sodium Chloride 0.9% [Saline Flush] 10 ml FLUSH ASDIRECTED PRN Peripheral IV Insertion Adult [OM.PC] Stat 09/30/20 11:05 EKG Documentation Completion [RC] STAT Peripheral IV Care [RC] . DIRECTED 09/30/20 11:06 Cyclobenzaprine [Flexeril] 10 mg PO ONETIME ONE 09/30/20 14:44 Holter Monitor 48 Hours [RC] .PRN
--- NOTE | 2020-09-30 13:58 | CR ---
Chest: Portable view of the chest was obtained. Comparison: Prior chest x-ray of 09/28/20. Heart size and mediastinum are normal. Lungs are clear with no acute parenchymal change. No acute osseous abnormality is appreciated. Prior surgery appears to be present within the right shoulder. Impression: 1. Incidental finding. 2. Nothing acute is seen. Diagnostic code #2
== END 2020-09-30 15:31 | disposition home or self-care (01) ==
LOC: JD.ED 10:19
DX: R55 Syncope and collapse (principal); J45.909 Unspecified asthma, uncomplicated; R56.9 Unspecified convulsions; E66.9 Obesity, unspecified; Z68.41 Body mass index [BMI] 40.0-44.9, adult; Z91.018 Allergy to other foods; Z88.1 Allergy status to other antibiotic agents; Z88.8 Allergy status to other drugs, medicaments and biological substances
CPT/HCPCS: 36415; 70450; 71045; 80053; 84484; 85025; 93005; 93225; 93226; 99284; A9270; 93010

== ENCOUNTER 2020-10-03 10:08 | Emergency (ER) | payer BC ==
[2020-10-03] MEDS ORDERED: Ondansetron 4 MG Tab.DIS PO ONE (10:44)
[2020-10-03] MEDS ORDERED: Acetaminophen 325 MG Tab PO ONE (11:39)
--- NOTE | 2020-10-03 11:42 | EDM.PDOC ---
ED HPI GENERAL MEDICAL PROBLEM - General Chief Complaint: Syncope Stated Complaint: [facility] Time Seen by Provider: 10/03/20 10:22 Source of Information: Reports: Patient, RN Notes Reviewed - History of Present Illness INITIAL COMMENTS - FREE TEXT/NARRATIVE: 49 yr old female has been brought here by [facility] after reported syncope. She states she was sitting in a chair, began to feel dizzy and lightheaded, tried to stand up and she than passed out. She has had multiple similar syncopal episodes over the past week or so as well as prior episodes. Hx of seizures. On multiple meds for that. Has been on a lot of pain meds as well for [place]'s, neck and back pain.. Bilateral Lower Back Pain Score (Numeric/FACES): 8 - Related Data Allergies Allergy/AdvReac Type Severity Reaction Status Date / Time strawberry [[place]] Allergy Severe Anaphylactic Verified 10/03/20 10:12 Shock clarithromycin [From Biaxin] Allergy Unknown Hives Verified 10/03/20 10:12 erythromycin base Allergy Other Verified 10/03/20 10:12 metoclopramide HCl AdvReac "Panic Verified 10/03/20 10:12 [From Reglan] Attack" Home Meds: Home Meds Pantoprazole Sodium 40 mg PO BID 08/23/18 [History] Promethazine [Phenergan] 25 mg PO ASDIRECTED PRN 10/24/18 [History] Pregabalin [Lyrica] 225 mg PO BID 11/29/18 [History] Divalproex Sodium [Depakote] 500 mg PO BID 11/30/18 [History] Cholecalciferol (Vitamin D3) [Vitamin D3] 5,000 unit PO DAILY #30 tablet 12/03/18 [Rx] EPINEPHrine [Epipen 2-[place]] 0.3 mg IJ ASDIRECTED PRN 08/16/19 [History] cloNIDine [Catapres] 0.2 mg PO BID 08/16/19 [History] Cyclobenzaprine [Flexeril] 1 cap PO ASDIRECTED PRN 09/04/19 [History] Lurasidone HCl [Latuda] 60 mg PO BEDTIME 09/04/19 [History] Prazosin HCl [Prazosin] 2 mg PO BEDTIME 09/04/19 [History] lamoTRIgine [Lamictal] 225 mg PO BID 09/04/19 [History] Acetaminophen/HYDROcodone [[place] 325-5 MG] 1 tab PO Q4H PRN #20 tablet 03/13/20 [Rx] LORazepam [Ativan] 0.5 mg PO Q4H PRN #12 tab 09/28/20 [Rx] Ondansetron [Zofran ODT] 4 mg PO Q6H PRN #10 tab.dis 09/28/20 [Rx] Desvenlafaxine [Desvenlafaxine ER] 100 mg PO DAILY 10/03/20 [History] FLUoxetine HCl [Prozac] 20 mg PO DAILY 10/03/20 [History] QUEtiapine Fumarate [Quetiapine Fumarate ER] 300 mg PO DAILY 10/03/20 [History] busPIRone [Buspar] 15 mg PO BID 10/03/20 [History] tiZANidine [Zanaflex] 4 mg PO BEDTIME PRN 10/03/20 [History] Past Medical History HEENT History: Reports: Impaired Vision, Other (See Below) Other HEENT History: sinus problems Cardiovascular History: Reports: Syncope Respiratory History: Reports: Asthma Gastrointestinal History: Reports: PUD Other Gastrointestinal History: ABDOMINAL PAIN/SCAR TISSUES Genitourinary History: Reports: Other (See Below) Other Genitourinary History: kidney failure, resolved 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 History: x2, 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 Musculoskeletal History: Reports: Back Pain, Chronic, Fracture Other Musculoskeletal History: right hip fx, R akle fx Neurological History: Reports: Seizure, Other (See Below) Other Neuro History: epilepsy Psychiatric History: Reports: Anxiety, Depression, Suicidal Ideation, Other (See Below) Other Psychiatric History: addiction in past Endocrine/Metabolic History: Reports: Obesity/BMI 30+ Other Endocrine/Metabolic History: Blood sugar low Hematologic History: Reports: None Immunologic History: Reports: Other (See Below) Oncologic (Cancer) History: Reports: None Dermatologic History: Reports: Other (See Below) Other Dermatologic History: ALLERGIES - Infectious Disease History Infectious Disease History: Reports: Chicken Pox - Past Surgical History Head Surgeries/Procedures: Reports: Craniotomy HEENT Surgical History: Reports: Naso-Sinus Surgery Other HEENT Surgeries/Procedures: sinus surgery GI Surgical History: Reports: Appendectomy, Bariatric Procedure, Lysis of Adhesions Other GI Surgeries/Procedures: Pt had feeding tube placed due to not gaining any weight. Feeding tube was removed in July 2018 and pt has had an infection at the site since. Female Surgical History: Reports: D&C Neurological Surgical History: Reports: Other (See Below) Other Neurological Surgeries/Procedures: Craniotomy Musculoskeletal Surgical History: Reports: Shoulder Surgery Dermatological Surgical History: Reports: None Social & Family History - Family History Family Medical History: No Pertinent Family History - Tobacco Use Tobacco Use Status *Q: Unknown Ever Used Tobacco - Caffeine Use Caffeine Use: Reports: None - Living Situation & Occupation Living situation: Reports: , with Spouse, with Family (1 adult child) Occupation: Employed ([employer]) ED ROS GENERAL - Review of Systems Review Of Systems: See Below Constitutional: Denies: Fever, Chills HEENT: Denies: Throat Pain Respiratory: Denies: Shortness of Breath Cardiovascular: Denies: Chest Pain GI/Abdominal: Reports: Nausea. Denies: Abdominal Pain, Diarrhea, Vomiting Musculoskeletal: Reports: Back Pain. Denies: Shoulder Pain, Arm Pain Skin: Reports: No Symptoms Neurological: Reports: Dizziness. Denies: Trouble Speaking - Physical Exam Exam: See Below General Appearance: Alert, No Apparent Distress Eye Exam: Bilateral Eye: PERRL Ears: Normal External Exam Nose: Normal Inspection Throat/Mouth: Normal Inspection Head Exam: Atraumatic Neck: Supple, Non-Tender Respiratory/Chest: No Respiratory Distress, Lungs Clear, Normal Breath Sounds Cardiovascular: Regular Rate, Rhythm GI/Abdominal: Soft, Non-Tender. No: Guarding Neuro Exam (Abbreviated): Alert, Oriented, No Motor/Sensory Deficits, Other (no drift, finger to nose normal) Back Exam: No: CVA Tenderness (L), CVA Tenderness (R) Extremities: Normal Inspection, Normal Range of Motion Skin Exam: Warm, Dry, Normal Color #1 Interpretation EKG Date: 10/03/20 Rhythm: NSR [place]: Normal P-Wave: Present QRS: Normal ST-T: Normal QT: Normal Course - Vital Signs Last Recorded V/S: Last Vital Signs Temp 96.5 F L 10/03/20 13:36 Pulse 92 10/03/20 13:36 Resp 16 10/03/20 13:36 BP 137/85 10/03/20 13:36 Pulse Ox 96 10/03/20 13:36 Orthostatic Blood Pressure [ 124/102 Standing] Orthostatic Blood Pressure [ 133/95 Supine] - Orders/Labs/Meds Labs: Laboratory Tests 10/03/20 Range/Units 10:50 POC Glucose 72 (70-99) mg/dL Meds: Medications Discontinued Medications Generic Name Dose Route Start Last Admin Trade Name Román PRN Reason Stop Dose Admin Acetaminophen 975 mg 10/03/20 11:39 10/03/20 11:45 Acetaminophen 325 Mg Tab PO 10/03/20 11:40 975 mg NOW ONE Administration Ketorolac Tromethamine 30 mg 10/03/20 11:45 Ketorolac 30 Mg/Ml Sdv IVPUSH ONETIME ANA Ketorolac Tromethamine 60 mg 10/03/20 11:54 10/03/20 11:57 Ketorolac 60 Mg/2 Ml Sdv IM 10/03/20 11:55 60 mg ONETIME ONE Administration Lorazepam 1 mg 10/03/20 12:57 10/03/20 13:01 Lorazepam 1 Mg Tab PO 10/03/20 12:58 1 mg ONETIME ONE Administration Ondansetron HCl 4 mg 10/03/20 10:44 10/03/20 10:51 Ondansetron 4 Mg Tab.Dis PO 10/03/20 10:45 4 mg ONETIME ONE Administration - Re-Assessments/Exams Free Text/Narrative Re-Assessment/Exam: 10/03/20 13:46 Have reviewed labs from 3 days ago, glucose was mildly low at 77. EKG today is normal, BP is good, sinus rythm, no ectopy. Glucose is again low at 75. Have given her something to eat and drink. We have given torodol and tylenol for her back pain. Have spent considerable time visiting with her and her about the importance of regular meals and snacks and to try avoid simple carbs and the insulin spike that goes with that. Was crying and anxious at time of discharge so did also give ativan 1 mg PO. Departure - Departure Time of Disposition: 13:21 Disposition: Home, Self-Care 01 Condition: Fair Clinical Impression: Anxiety, Hypoglycemia Syncope Qualifiers: Syncope type: unspecified Qualified Code(s): R55 - Syncope and collapse - Discharge Information Instructions: Hypoglycemia, Managing Anxiety, Adult, Syncope Referrals: Lyn Hahn NP [Primary Care Provider] - Forms: ED Department Discharge Additional Instructions: Rest. Eat regular meals and snacks. Try avoid flour and sugar foods, simple carbohydrate foods as discussed as much as possible. Your glucose was somewhat low when you were here 3 days ago and more low at 75 today. Check your blood sugar when you do start feeling weak, dizzy or lightheaded and keep a log for your medical provider at the clinic. Follow up clinic or Friday. Call for appointment. Sepsis Event Note (ED) - Evaluation Sepsis Screening Result: No Definite Risk - Focused Exam Vital Signs: Vital Signs Temp Pulse Resp BP Pulse Ox 10/03/20 13:36 96.5 F L 92 16 137/85 96 10/03/20 10:12 96.8 F L 91 14 134/83 97
[2020-10-03] MEDS ORDERED: Ketorolac 30 MG/ML SDV IVPUSH SCH (11:45)
[2020-10-03] MEDS ORDERED: Ketorolac 60 MG/2 ML SDV IM ONE (11:54)
[2020-10-03] MEDS ORDERED: LORazepam 1 MG Tab PO ONE (12:57)
[2020-10-03 13:38] VITALS: BP 137/85; PULSE 92
== END 2020-10-03 13:38 | disposition home or self-care (01) ==
LOC: JD.ED 10:08
DX: R55 Syncope and collapse (principal); F41.9 Anxiety disorder, unspecified; E16.2 Hypoglycemia, unspecified; J45.909 Unspecified asthma, uncomplicated; E66.9 Obesity, unspecified; R56.9 Unspecified convulsions; Z91.018 Allergy to other foods; Z88.1 Allergy status to other antibiotic agents; Z88.8 Allergy status to other drugs, medicaments and biological substances; Z68.41 Body mass index [BMI] 40.0-44.9, adult
CPT/HCPCS: 82947; 93005; 96372; 99284; A9270; J1885; 93010

== ENCOUNTER 2020-11-02 17:38 | Emergency (ER) | payer BC ==
[2020-11-02 18:11] VITALS: BP 148/122; PULSE 79
[2020-11-02] MEDS ORDERED: Ondansetron 4 MG/2 ML SDV IVPUSH ONE (19:05)
[2020-11-02] MEDS ORDERED: LORazepam 2 MG/ML SDV IVPUSH STA (19:05)
--- NOTE | 2020-11-02 19:12 | EDM.PDOC ---
ED HPI GENERAL MEDICAL PROBLEM - General Chief Complaint: Chest Pain Stated Complaint: CHEST PAIN Time Seen by Provider: 11/02/20 18:37 Source of Information: Reports: Patient History Limitations: Reports: No Limitations - History of Present Illness INITIAL COMMENTS - FREE TEXT/NARRATIVE: Mrs. Mccord is a pleasant 50-year-old woman who now presents to the ED stating that she has been experiencing sharp upper right chest pain on and off since mid-day today. When present, the pain typically lasts about 2 minutes, then recurs after about 2 minutes. The pain does not radiate. She has not identified any modifiers. She has been experiencing nausea and vomiting since yesterday. She states that she feels dyspneic, insofar as the pain takes her breath away. She reports feeling diaphoretic and anxious, as well. The patient also reports recent episodes of syncope, confusion, vomiting, and diarrhea since approximately 10/20/2020. She states that she was hospitalized in [place] last week, during which time she was told that she has either [place] disease or [place] syndrome. She was prescribed oral cortisol, but states that due to vomiting that began yesterday, she has been unable to keep the last 3 or 4 doses down. She states that she was prescribed a single dose of a cortisol injection which she gave herself this past 10/30/2020, when she experienced confusion and hypoglycemia. She acknowledges that her Superintendent General does not want to prescribe her any more cortisol until she follows up with him on 11/08/2020. The patient is concerned that the symptoms that she developed mid-day today are due to an adrenal crisis. Here in the ED, the patient's initial BP is found to be mildly elevated at 148/122, otherwise, she is hemodynamically stable, afebrile, saturating 100% on room air. She appears to be anxious, but is in no acute distress. The patient denies having a recent fever, chills, sore throat, ear pain, nasal or sinus congestion, cough, palpitations, constipation, abdominal pain, urinary symptoms, recent weight gain or weight loss, recent bloody bowel movements or black bowel movements, recent joint aches, headaches, or rashes. The patient's PCP is CHONG Porras, at the [facility]. Her Superintendent General is Dr. Sada Guo. Her Psychiatrist is Dr. Inman, that she meets with by telemedicine. Right Upper Chest Pain Score (Numeric/FACES): 8 - Related Data Allergies Allergy/AdvReac Type Severity Reaction Status Date / Time erythromycin base Allergy Severe Other Verified 11/02/20 18:06 strawberry [[place]] Allergy Severe Anaphylactic Verified 10/03/20 10:12 Shock clarithromycin [From Biaxin] Allergy Unknown Hives Verified 10/03/20 10:12 metoclopramide HCl AdvReac Severe "Panic Verified 11/02/20 18:06 [From Reglan] Attack" Home Meds: Home Meds Pantoprazole Sodium 40 mg PO BID 08/23/18 [History] Promethazine [Phenergan] 25 mg PO ASDIRECTED PRN 10/24/18 [History] Pregabalin [Lyrica] 225 mg PO BID 11/29/18 [History] Divalproex Sodium [Depakote] 500 mg PO BID 11/30/18 [History] Cholecalciferol (Vitamin D3) [Vitamin D3] 5,000 unit PO DAILY #30 tablet 12/03/18 [Rx] EPINEPHrine [Epipen 2-Collin] 0.3 mg IJ ASDIRECTED PRN 08/16/19 [History] cloNIDine [Catapres] 0.2 mg PO BID 08/16/19 [History] Cyclobenzaprine [Flexeril] 1 cap PO ASDIRECTED PRN 09/04/19 [History] Lurasidone HCl [Latuda] 60 mg PO BEDTIME 09/04/19 [History] Prazosin HCl [Prazosin] 2 mg PO BEDTIME 09/04/19 [History] lamoTRIgine [Lamictal] 225 mg PO BID 09/04/19 [History] Acetaminophen/HYDROcodone [[place] 325-5 MG] 1 tab PO Q4H PRN #20 tablet 03/13/20 [Rx] LORazepam [Ativan] 0.5 mg PO Q4H PRN #12 tab 09/28/20 [Rx] Ondansetron [Zofran ODT] 4 mg PO Q6H PRN #10 tab.dis 09/28/20 [Rx] Desvenlafaxine [Desvenlafaxine ER] 100 mg PO DAILY 10/03/20 [History] FLUoxetine HCl [Prozac] 20 mg PO DAILY 10/03/20 [History] QUEtiapine Fumarate [Quetiapine Fumarate ER] 300 mg PO DAILY 10/03/20 [History] busPIRone [Buspar] 15 mg PO BID 10/03/20 [History] tiZANidine [Zanaflex] 4 mg PO BEDTIME PRN 10/03/20 [History] Past Medical History HEENT History: Reports: Impaired Vision Respiratory History: Reports: Asthma (PFT-proven) Gastrointestinal History: Reports: [employer] History: Reports: Spontaneous (x 1) : 2 Para: 1 Musculoskeletal History: Reports: Fracture (right ankle) Neurological History: Reports: Other (See Below) (Chiari I malformation, s/p craniotomy) Psychiatric History: Reports: Addiction, Anxiety, Depression, Suicidal Ideation, Other (See Below) (Pseudoseizures - multiple EEGs found no epileptiform activity) Endocrine/Metabolic History: Reports: Obesity/BMI 30+ - Infectious Disease History Infectious Disease History: Reports: Chicken Pox - Past Surgical History Head Surgeries/Procedures: Reports: Craniotomy HEENT Surgical History: Reports: Naso-Sinus Surgery (Rhinoplasty) GI Surgical History: Reports: Appendectomy, Bariatric Procedure (gastric bypass 2013), Lysis of Adhesions (x 2), Other (See Below) (PEG tube placed, removed) Female Surgical History: Reports: D&C (x 1) Musculoskeletal Surgical History: Reports: ORIF (right ankle), Shoulder Surgery (right, arthroscopic) Social & Family History - Tobacco Use Tobacco Use Status *Q: Former Tobacco User Years of Tobacco use: 11 Packs/Tins Daily: 0.2 Month/Year Tobacco Last Used: Quit September 1999 Tobacco Use Comment: Started smoking 1988 - Caffeine Use Caffeine Use: Reports: Soda - Alcohol Use Alcohol Use History: No - Recreational Drug Use Recreational Drug Use: Yes Drug Use in Last 12 Months: No - Living Situation & Occupation Living situation: Reports: , with Spouse, with Family (1 adult son) Occupation: Unemployed ED ROS GENERAL - Review of Systems Review Of Systems: Comprehensive ROS is negative, except as noted in HPI. Musculoskeletal: Reports: Back Pain (chronic) ED EXAM, GENERAL - Physical Exam Exam: See Below Exam Limited By: No Limitations General Appearance: Alert, WD/WN, No Apparent Distress Eye Exam: Bilateral Eye: EOMI, Normal Inspection Ears: Normal External Exam, Hearing Grossly Normal Nose: Normal Inspection Throat/Mouth: Normal Inspection, Normal Lips, Normal Voice, No Airway Compromise Head: Atraumatic, Normocephalic Neck: Normal Inspection, Full Range of Motion Respiratory/Chest: No Respiratory Distress, Lungs Clear, Normal Breath Sounds, No Accessory Muscle Use. No: Decreased Breath Sounds, Crackles, Rhonchi, Wheezing, Stridor, Prolonged Expiration Cardiovascular: Normal Peripheral Pulses, Regular Rate, Rhythm, No Gallop, No JVD, No Murmur, No Rub Peripheral Pulses: 3+: Radial (L), Radial (R) GI/Abdominal: Normal Bowel Sounds, Soft, No Organomegaly, No Distention, No Abnormal Bruit, No Mass, Tender (Generalized, non-focal) Back Exam: Normal Inspection, Full Range of Motion, NT Extremities: Normal Inspection, Normal Range of Motion, Normal Capillary Refill Neurological: Alert, Oriented, Normal Cognition, No Motor/Sensory Deficits Psychiatric: Anxious Skin Exam: Warm, Dry, Intact, Normal Color, No Rash #1 Interpretation EKG Date: 11/02/20 Time: 18:07 Rhythm: NSR Rate (Beats/Min): 87 [place]: Normal P-Wave: Present QRS: Normal ST-T: Normal QT: Normal Comparison: No Change (10/03/2020) Course - Vital Signs Last Recorded V/S: Last Vital Signs Temp 36.5 C 11/02/20 18:07 Pulse 79 11/02/20 18:07 Resp 20 11/02/20 18:07 BP 148/122 H 11/02/20 18:07 Pulse Ox 100 11/02/20 18:07 Orthostatic Blood Pressure [ 146/112 Standing] Orthostatic Blood Pressure [ 150/106 Sitting] Orthostatic Blood Pressure [ 135/82 Supine] - Orders/Labs/Meds Labs: Laboratory Tests 11/02/20 11/02/20 11/02/20 Range/Units 19:04 19:48 19:50 WBC 8.37 (3.98-10.04) K/mm3 RBC 4.50 (3.98-5.22) M/mm3 Hgb 13.5 (11.2-15.7) gm/dl Hct 42.5 (34.1-44.9) % MCV 94.4 (79.4-94.8) fl MCH 30.0 (25.6-32.2) pg MCHC 31.8 L (32.2-35.5) g/dl RDW Std Deviation 48.1 H (36.4-46.3) fL Plt Count 248 (182-369) K/mm3 MPV 8.9 L (9.4-12.3) fl Neutrophils % (Manual) 58 (40-60) % Band Neutrophils % 0 (0-10) % Lymphocytes % (Manual) 33 (20-40) % Atypical Lymphs % 0 % Monocytes % (Manual) 7 (2-10) % Eosinophils % (Manual) 2 (0.7-5.8) % Basophils % (Manual) 0 L (0.1-1.2) Platelet Estimate Adequate RBC Morph Comment Normal D-Dimer, Quantitative (0.19-0.50) mg/L VBG pH 7.40 (7.30-7.40) VBG pCO2 46.3 (41-51) mmHg VBG pO2 37.0 L (40-80) mmHG VBG HCO3 28.2 H (22-26) meq/L VBG O2 Saturation 60 VBG Base Excess 3.2 H (-4.0-2.0) O2 Delivery Device Room air Sodium (136-145) mEq/L Potassium (3.5-5.1) mEq/L Chloride (98-107) mEq/L Carbon Dioxide (21-32) mEq/L Anion Gap (5-15) BUN (7-18) mg/dL Creatinine (0.55-1.02) mg/dL Est Cr Clr Drug Dosing mL/min Estimated GFR (MDRD) (>60) mL/min BUN/Creatinine Ratio (14-18) Glucose (70-99) mg/dL Calcium (8.5-10.1) mg/dL Magnesium (1.8-2.4) mg/dL Total Bilirubin (0.2-1.0) mg/dL AST (15-37) U/L ALT (14-59) U/L Alkaline Phosphatase (46-116) U/L Troponin I (0.00-0.056) ng/mL NT-Pro-B Natriuret Pep (0-125) pg/mL Total Protein (6.4-8.2) g/dl Albumin (3.4-5.0) g/dl Globulin gm/dL Albumin/Globulin Ratio (1-2) SARS-CoV-2 RNA (TRISH) Negative (NEGATIVE) 11/02/20 11/02/20 11/02/20 Range/Units 19:50 19:50 19:50 WBC (3.98-10.04) K/mm3 RBC (3.98-5.22) M/mm3 Hgb (11.2-15.7) gm/dl Hct (34.1-44.9) % MCV (79.4-94.8) fl MCH (25.6-32.2) pg MCHC (32.2-35.5) g/dl RDW Std Deviation (36.4-46.3) fL Plt Count (182-369) K/mm3 MPV (9.4-12.3) fl Neutrophils % (Manual) (40-60) % Band Neutrophils % (0-10) % Lymphocytes % (Manual) (20-40) % Atypical Lymphs % % Monocytes % (Manual) (2-10) % Eosinophils % (Manual) (0.7-5.8) % Basophils % (Manual) (0.1-1.2) Platelet Estimate RBC Morph Comment D-Dimer, Quantitative 0.51 H (0.19-0.50) mg/L VBG pH (7.30-7.40) VBG pCO2 (41-51) mmHg VBG pO2 (40-80) mmHG VBG HCO3 (22-26) meq/L VBG O2 Saturation VBG Base Excess (-4.0-2.0) O2 Delivery Device Sodium 143 (136-145) mEq/L Potassium 4.5 (3.5-5.1) mEq/L Chloride 104 (98-107) mEq/L Carbon Dioxide 31 (21-32) mEq/L Anion Gap 12.5 (5-15) BUN 7 (7-18) mg/dL Creatinine 1.0 (0.55-1.02) mg/dL Est Cr Clr Drug Dosing 58.76 mL/min Estimated GFR (MDRD) 59 (>60) mL/min BUN/Creatinine Ratio 7.0 L (14-18) Glucose 78 (70-99) mg/dL Calcium 8.8 (8.5-10.1) mg/dL Magnesium 2.4 (1.8-2.4) mg/dL Total Bilirubin 0.2 (0.2-1.0) mg/dL AST 12 L (15-37) U/L ALT 17 (14-59) U/L Alkaline Phosphatase 117 H (46-116) U/L Troponin I < 0.017 (0.00-0.056) ng/mL NT-Pro-B Natriuret Pep 79 (0-125) pg/mL Total Protein 7.3 (6.4-8.2) g/dl Albumin 3.5 (3.4-5.0) g/dl Globulin 3.8 gm/dL Albumin/Globulin Ratio 0.9 L (1-2) SARS-CoV-2 RNA (TRISH) (NEGATIVE) Meds: Medications Discontinued Medications Generic Name Dose Route Start Last Admin Trade Name Freq PRN Reason Stop Dose Admin Sodium Chloride 1,000 mls @ 150 mls/hr 11/02/20 19:15 11/02/20 20:27 Normal Saline IV 150 mls/hr ASDIRECTED ANA Administration Ketorolac Tromethamine 30 mg 11/02/20 21:51 11/02/20 22:03 Ketorolac 30 Mg/Ml Sdv IVPUSH 11/02/20 21:52 30 mg ONETIME STA Administration Lorazepam 1 mg 11/02/20 19:05 11/02/20 20:26 Lorazepam 2 Mg/Ml Sdv IVPUSH 11/02/20 19:06 1 mg ONETIME STA Administration Ondansetron HCl 4 mg 11/02/20 19:05 11/02/20 20:27 Ondansetron 4 Mg/2 Ml Sdv IVPUSH 11/02/20 19:06 4 mg ONETIME ONE Administration - Re-Assessments/Exams Free Text/Narrative Re-Assessment/Exam: 11/02/20 19:07 As above, the patient has been experiencing syncope, confusion, vomiting, and diarrhea since approximately 10/20/2020, and was hospitalized in [place] last week, during which time she was told that she has either [place] disease or [place] syndrome. She was prescribed oral cortisol, but states that due to vomiting that began yesterday, she has been unable to keep about 3 or 4 doses do wn. She states that she used a cortisol (hydrocortisone?) injection on Friday, that she took for confusion and hypoglycemia. She is not permitted to get a refill until she sees her Superintendent General on 11/08/2020. She now presents the ED after developing sharp right upper chest pain mid-day today. It comes and goes, lasting about 2 minutes, then recurring about 2 minutes later, with no identified modifiers. She feels like she cannot take a deep breath in, and feels diaphoretic and anxious. Her oxygen saturation is 100% on room air, and she appears to be somewhat anxious. Her physical exam is remarkable for generalized abdominal tenderness that she states is due to her vomiting. An ECG obtained at triage demonstrates a normal sinus rhythm at 87 bpm with no ischemic changes. I have ordered a work-up that includes orthostatics, numerous blood tests, an ABG, a urinalysis and urine test, a swab for the SARS-CoV-2 virus, and a chest x-ray. In the meantime, the patient will be given IV fluid, IV Zofran, and IV Ativan. 11/02/20 20:17 The patient is not orthostatic. 2-view chest radiograph is read by Dr. Kurtz as: 1. Findings as noted above. Nothing acute is seen on two-view chest x-ray. 11/02/20 21:15 The patient's CBC is unremarkable. Her CMP is remarkable for an alkaline phosphatase slightly elevated at 117, and is otherwise unremarkable. Her magnesium level is within normal limits at 2.4. Her troponin is undetectably low. Her D-dimer is slightly elevated at 0.51. Her pro-BNP is within normal limits at 79. Her venous blood gas represents a primary metabolic alkalosis with secondary respiratory acidosis. Her swab for the SARS-CoV-2 virus is negative. The patient has not yet provided a urine sample for the urinalysis and urine test. 11/02/20 23:12 Test results discussed with the patient. As above, today's work-up is unremarkable. I cannot tell her the cause of her upper right chest pain, but I can tell her that it is not due to a pulmonary embolus, pneumonia, pneumothorax, or MS. The patient stated that she was primarily concerned whether or not her symptoms represented an adrenal crisis, which I can absolutely confirm it does not. She is not hypotensive, orthostatic, hyponatremic, hyperkalemic, hypercalcemic, or hypoglycemic. Additionally, her venous blood gas demonstrated a primary metabolic alkalosis, not acidosis. If her symptoms persist, I recommended that she follow-up with her PCP. Departure - Departure Time of Disposition: 23:19 Disposition: Home, Self-Care 01 Condition: Good Clinical Impression: Intermittent right-sided chest pain, Nausea & vomiting - Discharge Information *PRESCRIPTION DRUG MONITORING PROGRAM REVIEWED*: Not Applicable *COPY OF PRESCRIPTION DRUG MONITORING REPORT IN PATIENT IGGY: Not Applicable Instructions: Nausea and Vomiting, Adult, [id number], Nonspecific Chest Pain, Adult, [id number] Referrals: Julia Valdovinos [Primary Care Provider] - Sada Guo MD [Ordering Only Provider] - Forms: ED Department Discharge Additional Instructions: You were seen in the emergency room after developing upper right chest pain today, along with nausea and vomiting since yesterday. Work-up in the ER included positional blood pressure checks, numerous blood tests, a venous blood gas, a swab for the SARS-CoV-2 virus, a chest x-ray, and an ECG. Your entire work-up was unremarkable, and does not explain the cause of your pain, however, you can be reassured that it does not appear to be due to anything serious. You do not have a pulmonary embolus (blood clot in your lung). You have not suffered a heart attack. You do not have pneumonia or a collapsed lung. Additionally, your work-up showed no signs of an adrenal crisis due to [place] disease. If your symptoms persist, please follow-up with your PCP, CHONG Porras. If any other problems, please do not hesitate to return to the ER. Sepsis Event Note (ED) - Evaluation Sepsis Screening Result: No Definite Risk
[2020-11-02] MEDS ORDERED: Sodium Chloride 0.9% 1,000 ML IV SCH (19:15)
--- NOTE | 2020-11-02 19:57 | CR ---
Chest: 2 views of the chest were obtained. Comparison: Prior chest x-ray of 09/28/20. Heart size and mediastinum are within normal limits. Lungs are clear with no acute parenchymal change. Prior right shoulder surgery is noted. Surgical clips are seen from prior cholecystectomy. No acute osseous abnormality is identified. Impression: 1. Findings as noted above. Nothing acute is seen on 2 view chest x-ray. Diagnostic code #2
[2020-11-02] MEDS ORDERED: Ketorolac 30 MG/ML SDV IVPUSH STA (21:51)
== END 2020-11-02 23:47 | disposition home or self-care (01) ==
LOC: JD.ED 17:38
DX: R07.89 Other chest pain (principal); R11.2 Nausea with vomiting, unspecified; E66.9 Obesity, unspecified; Z68.42 Body mass index [BMI] 45.0-49.9, adult; Z87.891 Personal history of nicotine dependence; Z88.1 Allergy status to other antibiotic agents; Z91.018 Allergy to other foods; Z88.8 Allergy status to other drugs, medicaments and biological substances; Z20.822 Contact with and (suspected) exposure to COVID-19
CPT/HCPCS: 36415; 71046; 80053; 82803; 83735; 83880; 84484; 85007; 85027; 85379; 87635; 93005; 96374; 96375; 99285; J1885; J2060; J2405; J7030; 93010; 99284; U0002

== ENCOUNTER 2020-11-12 19:28 | Emergency (ER) | payer BC ==
[2020-11-12] MEDS ORDERED: diphenhydrAMINE 50 MG/ML SDV IVPUSH ONE (19:55)
[2020-11-12] MEDS ORDERED: Sodium Chloride 0.9% 10 ML Syringe FLUSH PRN (19:55)
[2020-11-12] MEDS ORDERED: Ketorolac 30 MG/ML SDV IVPUSH ONE (19:55)
[2020-11-12] MEDS ORDERED: Sodium Chloride 0.9% 1,000 ML IV ONE (19:55)
[2020-11-12] MEDS ORDERED: Promethazine 25 MG in Sodium Chloride 0.9% 50 ML IV ONE (19:56)
--- NOTE | 2020-11-12 20:00 | EDM.PDOC ---
ED HPI GENERAL MEDICAL PROBLEM - General Chief Complaint: Gastrointestinal Problem Stated Complaint: [facility] Time Seen by Provider: 11/12/20 19:49 Source of Information: Reports: Patient, RN Notes Reviewed History Limitations: Reports: No Limitations - History of Present Illness INITIAL COMMENTS - FREE TEXT/NARRATIVE: Patient is a 50-year-old female brought into the ED by [facility]. Patient states she began having nausea/vomiting/diarrhea last night, and she had been throwing up all night, stopped this morning, but then started back up today. She was not able to keep her hydrocortisone down, for medication purposes, and states she thought she was having an adrenal crisis, so her gave her her IM shot of dexamethasone at about 6 PM tonight. Patient complains about being confused or foggy, and states she does not really know why she is here or how she got here however she was able to answer most of my questions appropriately, and answered RNs questions appropriately at time of triage. She is not having any fevers or chills, cough or shortness of breath, is having some stomach discomfort, and a slight headache. Primary care provider is through the [facility]. Headache Pain Score (Numeric/FACES): 7 - Related Data Allergies Allergy/AdvReac Type Severity Reaction Status Date / Time erythromycin base Allergy Severe Other Verified 11/12/20 19:31 strawberry [[place]] Allergy Severe Anaphylactic Verified 11/12/20 19:31 Shock clarithromycin [From Biaxin] Allergy Unknown Hives Verified 11/12/20 19:31 metoclopramide HCl AdvReac Severe "Panic Verified 11/12/20 19:31 [From Reglan] Attack" Home Meds: Home Meds Pantoprazole Sodium 40 mg PO BID 08/23/18 [History] Promethazine [Phenergan] 25 mg PO ASDIRECTED PRN 10/24/18 [History] Pregabalin [Lyrica] 225 mg PO BID 11/29/18 [History] Divalproex Sodium [Depakote] 500 mg PO BID 11/30/18 [History] Cholecalciferol (Vitamin D3) [Vitamin D3] 5,000 unit PO DAILY #30 tablet 12/03/18 [Rx] EPINEPHrine [Epipen 2-Collin] 0.3 mg IJ ASDIRECTED PRN 08/16/19 [History] cloNIDine [Catapres] 0.2 mg PO BID 08/16/19 [History] Cyclobenzaprine [Flexeril] 1 cap PO ASDIRECTED PRN 09/04/19 [History] Lurasidone HCl [Latuda] 60 mg PO BEDTIME 09/04/19 [History] Prazosin HCl [Prazosin] 2 mg PO BEDTIME 09/04/19 [History] lamoTRIgine [Lamictal] 225 mg PO BID 09/04/19 [History] Acetaminophen/HYDROcodone [[place] 325-5 MG] 1 tab PO Q4H PRN #20 tablet 03/13/20 [Rx] LORazepam [Ativan] 0.5 mg PO Q4H PRN #12 tab 09/28/20 [Rx] Ondansetron [Zofran ODT] 4 mg PO Q6H PRN #10 tab.dis 09/28/20 [Rx] Desvenlafaxine [Desvenlafaxine ER] 100 mg PO DAILY 10/03/20 [History] FLUoxetine HCl [Prozac] 20 mg PO DAILY 10/03/20 [History] QUEtiapine Fumarate [Quetiapine Fumarate ER] 300 mg PO DAILY 10/03/20 [History] busPIRone [Buspar] 15 mg PO BID 10/03/20 [History] tiZANidine [Zanaflex] 4 mg PO BEDTIME PRN 10/03/20 [History] Past Medical History HEENT History: Reports: Impaired Vision Other HEENT History: sinus problems Cardiovascular History: Reports: Syncope Respiratory History: Reports: Asthma Gastrointestinal History: Reports: PUD Other Gastrointestinal History: ABDOMINAL PAIN/SCAR TISSUES Genitourinary History: Reports: Other (See Below) Other Genitourinary History: kidney failure, resolved [employer] ROLLING History: Reports: Spontaneous Other [employer] History: x2, 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 Musculoskeletal History: Reports: Fracture Other Musculoskeletal History: right hip fx, R akle fx Neurological History: Reports: Other (See Below) Other Neuro History: epilepsy Psychiatric History: Reports: Addiction, Anxiety, Depression, Suicidal Ideation, Other (See Below) Other Psychiatric History: addiction in past Endocrine/Metabolic History: Reports: Hypoparathyroidism, Obesity/BMI 30+, Osteopenia, Vitamin D Deficiency Other Endocrine/Metabolic History: Blood sugar low, pt has addisons or cushings - not distinguished yet, adrenal insufficiency Hematologic History: Reports: None Immunologic History: Reports: Other (See Below) Oncologic (Cancer) History: Reports: None Dermatologic History: Reports: Other (See Below) Other Dermatologic History: ALLERGIES - Infectious Disease History Infectious Disease History: Reports: Chicken Pox - Past Surgical History Head Surgeries/Procedures: Reports: Craniotomy HEENT Surgical History: Reports: Naso-Sinus Surgery Other HEENT Surgeries/Procedures: sinus surgery GI Surgical History: Reports: Appendectomy, Bariatric Procedure, Lysis of Adhesions, Other (See Below) Other GI Surgeries/Procedures: Pt had feeding tube placed due to not gaining any weight. Feeding tube was removed in July 2018 and pt has had an infection at the site since. Female Surgical History: Reports: D&C Neurological Surgical History: Reports: Other (See Below) Other Neurological Surgeries/Procedures: Craniotomy Musculoskeletal Surgical History: Reports: ORIF, Shoulder Surgery Dermatological Surgical History: Reports: None Social & Family History - Family History Family Medical History: No Pertinent Family History - Tobacco Use Tobacco Use Status *Q: Unknown Ever Used Tobacco - Caffeine Use Caffeine Use: Reports: Soda - Living Situation & Occupation Living situation: Reports: , with Spouse, with Family (1 adult son) Occupation: Unemployed ED ROS GENERAL - Review of Systems Review Of Systems: Comprehensive ROS is negative, except as noted in HPI. ED EXAM, GI/ABD - Physical Exam Exam: See Below Exam Limited By: No Limitations General Appearance: Alert, WD/WN, No Apparent Distress Respiratory/Chest: No Respiratory Distress, Lungs Clear, Normal Breath Sounds, No Accessory Muscle Use, Chest Non-Tender Cardiovascular: Normal Peripheral Pulses, Regular Rate, Rhythm, No Edema GI/Abdominal Exam: Normal Bowel Sounds, Soft, Non-Tender, No Distention, No Mass Extremities: Normal Inspection, Normal Capillary Refill Neurological: Alert, Oriented, Normal Cognition, No Motor/Sensory Deficits Psychiatric: Normal Affect, Normal Mood Skin Exam: Warm, Dry, Intact, Normal Color, No Rash Course - Vital Signs Last Recorded V/S: Last Vital Signs Temp 97.2 F 11/12/20 19:32 Pulse 87 11/12/20 19:32 Resp 15 11/12/20 19:32 BP 152/99 H 11/12/20 19:32 Pulse Ox 95 11/12/20 19:32 - Orders/Labs/Meds Orders: Active Orders 24 hr Category Date Time Status Peripheral IV Care [RC] . DIRECTED Care 11/12/20 19:55 Ordered Sodium Chloride 0.9% [Saline Flush] Med 11/12/20 19:55 Active 10 ml FLUSH ASDIRECTED PRN Peripheral IV Insertion Adult [OM.PC] Routine Oth 11/12/20 19:55 Ordered Medication Orders Sodium Chloride (Sodium Chloride 0.9% 10 Ml Syringe) 10 ml FLUSH ASDIRECTED PRN PRN Reason: Keep Vein Open Last Admin: 11/12/20 21:00 Dose: 10 ml Documented by: MELANIE Labs: Laboratory Tests 11/12/20 11/12/20 Range/Units 20:26 20:26 WBC 8.46 (3.98-10.04) K/mm3 RBC 3.97 L (3.98-5.22) M/mm3 Hgb 12.0 D (11.2-15.7) gm/dl Hct 37.7 (34.1-44.9) % MCV 95.0 H (79.4-94.8) fl MCH 30.2 (25.6-32.2) pg MCHC 31.8 L (32.2-35.5) g/dl RDW Std Deviation 46.7 H (36.4-46.3) fL Plt Count 267 (182-369) K/mm3 MPV 9.2 L (9.4-12.3) fl Neut % (Auto) 74.7 H (34.0-71.1) % Lymph % (Auto) 16.9 L (19.3-51.7) % [place] % (Auto) 5.2 (4.7-12.5) % Eos % (Auto) 1.9 (0.7-5.8) Baso % (Auto) 0.6 (0.1-1.2) % Neut # (Auto) 6.32 H (1.56-6.13) K/mm3 Lymph # (Auto) 1.43 (1.18-3.74) K/mm3 [place] # (Auto) 0.44 H (0.24-0.36) K/mm3 Eos # (Auto) 0.16 (0.04-0.36) K/mm3 Baso # (Auto) 0.05 (0.01-0.08) K/mm3 Sodium 141 (136-145) mEq/L Potassium 4.5 (3.5-5.1) mEq/L Chloride 105 (98-107) mEq/L Carbon Dioxide 31 (21-32) mEq/L Anion Gap 9.5 (5-15) BUN 8 (7-18) mg/dL Creatinine 1.0 (0.55-1.02) mg/dL Est Cr Clr Drug Dosing 58.76 mL/min Estimated GFR (MDRD) 59 (>60) mL/min BUN/Creatinine Ratio 8.0 L (14-18) Glucose 102 H (70-99) mg/dL Calcium 8.8 (8.5-10.1) mg/dL Total Bilirubin 0.1 L (0.2-1.0) mg/dL AST 13 L (15-37) U/L ALT 19 (14-59) U/L Alkaline Phosphatase 98 (46-116) U/L Total Protein 6.7 (6.4-8.2) g/dl Albumin 3.2 L (3.4-5.0) g/dl Globulin 3.5 gm/dL Albumin/Globulin Ratio 0.9 L (1-2) Meds: Medications Generic Name Dose Route Start Last Admin Trade Name Freq PRN Reason Stop Dose Admin Sodium Chloride 10 ml 11/12/20 19:55 11/12/20 21:00 Sodium Chloride 0.9% 10 Ml Syringe FLUSH 10 ml ASDIRECTED PRN Administration Keep Vein Open Discontinued Medications Generic Name Dose Route Start Last Admin Trade Name Freq PRN Reason Stop Dose Admin Al Hydroxide/Mg Hydroxide 30 0 ml 11/12/20 21:40 11/12/20 21:51 ml/ Lidocaine HCl 15 ml PO 11/12/20 21:41 45 ml ONETIME ONE Administration Diphenhydramine HCl 25 mg 11/12/20 19:55 11/12/20 21:02 Diphenhydramine 50 Mg/Ml Sdv IVPUSH 11/12/20 19:56 25 mg ONETIME ONE Administration Hydromorphone HCl 0.5 mg 11/12/20 22:25 11/12/20 22:33 Hydromorphone 0.5 Mg/0.5 Ml Syringe IVPUSH 11/12/20 22:26 0.5 mg ONETIME ONE Administration Sodium Chloride 1,000 mls @ 999 mls/hr 11/12/20 19:55 11/12/20 21:00 Normal Saline IV 11/12/20 20:55 999 mls/hr ASDIRECTED ONE Administration Promethazine HCl 25 mg/ Sodium 51 mls @ 100 mls/hr 11/12/20 19:56 11/12/20 21:02 Chloride IV 11/12/20 20:26 100 mls/hr ONETIME ONE Administration Ketorolac Tromethamine 30 mg 11/12/20 19:55 11/12/20 21:01 Ketorolac 30 Mg/Ml Sdv IVPUSH 11/12/20 19:56 30 mg ONETIME ONE Administration - Re-Assessments/Exams Free Text/Narrative Re-Assessment/Exam: 11/12/20 19:59 Patient presents to the ER for the evaluation of her nausea and vomiting, and "adrenal crisis". Patient is complaining mostly of a headache, and slight epigastric discomfort, we will go ahead and give her some IV fluids, check some basic labs, give her some medications for her headache and see if this helps relieve most of her symptoms. She did get her IM dexamethasone, so she has received a dose of steroids, which should be sufficient for her disease process. 11/12/20 21:15 Labs have resulted, and are unremarkable for today's purposes. Patient was a hard IV start, so a delayed medications has been appreciated. I will check once the medications have been given some time to make her feel better. 11/12/20 21:40 Have reevaluated the patient, states that her headaches not much better, she still having some throat discomfort/epigastric pain. We will go ahead and give her a GI cocktail see if this helps relieve some of her symptoms. She likely has esophageal irritation due to the ongoing vomiting from last night. 11/12/20 23:04 Patient is feeling much better, with a GI cocktail and the 0.5 mg Dilaudid given to her for her headache. We will go ahead and discharge her home with general recommendations. Departure - Departure Time of Disposition: 23:04 Disposition: Home, Self-Care 01 Condition: Good Clinical Impression: Nausea and vomiting Qualifiers: Vomiting type: unspecified Vomiting Intractability: non-intractable Qualified Code(s): R11.2 - Nausea with vomiting, unspecified Headache Qualifiers: Headache type: tension-type Headache chronicity pattern: chronic headache Intractability: not intractable Qualified Code(s): G44.229 - Chronic tension- type headache, not intractable - Discharge Information *PRESCRIPTION DRUG MONITORING PROGRAM REVIEWED*: No *COPY OF PRESCRIPTION DRUG MONITORING REPORT IN PATIENT IGGY: No Instructions: Nausea and Vomiting, Adult, [id number], General Headache Without Cause, [id number] Forms: ED Department Discharge Additional Instructions: You were evaluated in the ER today for nausea vomiting and generalized headache. You had laboratory evaluation taken, which were in normal limits, and your headache, and nausea/vomiting did resolve with medications given at today's visit. Please continue all of your regular medications as prescribed tomorrow. Recommend following up with your primary care provider, for ER follow-up and to make sure everything is getting better as expected. Do not hesitate to return to the ER any time if symptoms change or worsen. Sepsis Event Note (ED) - Evaluation Sepsis Screening Result: No Definite Risk - Focused Exam Vital Signs: Vital Signs Temp Pulse Resp BP Pulse Ox 11/12/20 19:32 97.2 F 87 15 152/99 H 95 - My Orders Last 24 Hours: My Active Orders 11/12/20 19:55 Peripheral IV Care [RC] . DIRECTED Sodium Chloride 0.9% [Saline Flush] 10 ml FLUSH ASDIRECTED PRN Peripheral IV Insertion Adult [OM.PC] Routine - Assessment/Plan Last 24 Hours: My Active Orders 11/12/20 19:55 Peripheral IV Care [RC] . DIRECTED Sodium Chloride 0.9% [Saline Flush] 10 ml FLUSH ASDIRECTED PRN Peripheral IV Insertion Adult [OM.PC] Routine
[2020-11-12] MEDS ORDERED: Alum Hydrox/Mag Hydrox/Simeth 30 ML, Lidocaine 2% 15 ML PO ONE ×2 (21:40)
[2020-11-12] MEDS ORDERED: HYDROmorphone 0.5 MG/0.5 ML Syringe IVPUSH ONE (22:25)
[2020-11-12 23:24] VITALS: BP 153/96; PULSE 73
== END 2020-11-12 23:29 | disposition home or self-care (01) ==
LOC: JD.ED 19:28
DX: G44.229 Chronic tension-type headache, not intractable (principal); J45.909 Unspecified asthma, uncomplicated; E66.9 Obesity, unspecified; Z68.42 Body mass index [BMI] 45.0-49.9, adult; Z88.1 Allergy status to other antibiotic agents; Z91.018 Allergy to other foods; Z88.8 Allergy status to other drugs, medicaments and biological substances; Z79.899 Other long term (current) drug therapy
CPT/HCPCS: 36415; 80053; 85025; 96365; 96375; 99284; A9270; J1170; J1200; J1885; J2550; J7030

== ENCOUNTER 2020-11-15 17:06 | Emergency (ER) | payer BC ==
--- NOTE | 2020-11-15 17:13 | EDM.PDOC ---
ED HPI GENERAL MEDICAL PROBLEM - General Chief Complaint: Syncope Stated Complaint: [facility] Time Seen by Provider: 11/15/20 17:08 Source of Information: Reports: Patient History Limitations: Reports: No Limitations - History of Present Illness INITIAL COMMENTS - FREE TEXT/NARRATIVE: 50-year-old female presents to the ED per [facility] from [facility] across the street. Apparently she was there having an MRI of her brain in the MRI van. They were able to do the MRI of her brain looking for pituitary adenoma but were not able to establish an IV for contrast component of the MRI. She was let out of the MRI event by a male nurse and then while she was walking down the hallway suddenly collapsed. There is some suggestion she may have had seizure-like activity. She has not showing any signs of postictal changes in the ED. Patient has done this in the past and has a pseudoseizure history. Complaining now of pain left lateral neck and head and left shoulder. Onset: Today, Sudden Onset Date: 11/15/20 Onset Time: 16:50 Duration: Minutes: Location: Reports: Generalized (Fairly suffered a syncopal event after walking out of the MRI van over at [facility] this afternoon. There was some suggestion she may have exhibited seizure-like activity but she carries a pseudoseizure history.) Quality: Reports: Ache Severity: Moderate (Complaining of ache and pain left side of head and neck.) Improves with: Reports: Rest Worsens with: Reports: Movement Context: Reports: Trauma (Syncopal event versus seizure and fall to the floor in a hallway at [facility] today). 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: Reports: Other (see below) - Related Data Allergies Allergy/AdvReac Type Severity Reaction Status Date / Time strawberry [Thaxton] Allergy Severe Anaphylactic Verified 11/15/20 17:21 Shock clarithromycin [From Biaxin] Allergy Intermediate Hives Verified 11/15/20 17:21 erythromycin base Allergy Unknown Other Verified 11/15/20 17:21 metoclopramide HCl AdvReac Intermediate "Panic Verified 11/15/20 17:21 [From Reglan] Attack" Home Meds: Home Meds Pantoprazole Sodium 40 mg PO BID 08/23/18 [History] Promethazine [Phenergan] 25 mg PO ASDIRECTED PRN 10/24/18 [History] Pregabalin [Lyrica] 225 mg PO BID 11/29/18 [History] Divalproex Sodium [Depakote] 500 mg PO BID 11/30/18 [History] Cholecalciferol (Vitamin D3) [Vitamin D3] 5,000 unit PO DAILY #30 tablet 12/03/18 [Rx] EPINEPHrine [Epipen 2-Collin] 0.3 mg IJ ASDIRECTED PRN 08/16/19 [History] cloNIDine [Catapres] 0.2 mg PO BID 08/16/19 [History] Cyclobenzaprine [Flexeril] 1 cap PO ASDIRECTED PRN 09/04/19 [History] Lurasidone HCl [Latuda] 60 mg PO BEDTIME 09/04/19 [History] Prazosin HCl [Prazosin] 2 mg PO BEDTIME 09/04/19 [History] lamoTRIgine [Lamictal] 225 mg PO BID 09/04/19 [History] Acetaminophen/HYDROcodone [[place] 325-5 MG] 1 tab PO Q4H PRN #20 tablet 03/13/20 [Rx] LORazepam [Ativan] 0.5 mg PO Q4H PRN #12 tab 09/28/20 [Rx] Ondansetron [Zofran ODT] 4 mg PO Q6H PRN #10 tab.dis 09/28/20 [Rx] Desvenlafaxine [Desvenlafaxine ER] 100 mg PO DAILY 10/03/20 [History] FLUoxetine HCl [Prozac] 20 mg PO DAILY 10/03/20 [History] QUEtiapine Fumarate [Quetiapine Fumarate ER] 300 mg PO DAILY 10/03/20 [History] busPIRone [Buspar] 15 mg PO BID 10/03/20 [History] tiZANidine [Zanaflex] 4 mg PO BEDTIME PRN 10/03/20 [History] oxyCODONE HCl/Acetaminophen [Percocet 5-325 mg Tablet] 1 - 2 each PO Q4H PRN #12 tablet 11/15/20 [Rx] Past Medical History HEENT History: Reports: Impaired Vision Other HEENT History: sinus problems Cardiovascular History: Reports: Syncope Respiratory History: Reports: Asthma Gastrointestinal History: Reports: PUD Other Gastrointestinal History: ABDOMINAL PAIN/SCAR TISSUES Genitourinary History: Reports: Other (See Below) Other Genitourinary History: kidney failure, resolved FIELD PRODUCER History: Reports: Spontaneous Other FIELD PRODUCER History: x2, 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 Musculoskeletal History: Reports: Fracture Other Musculoskeletal History: right hip fx, R akle fx Neurological History: Reports: Other (See Below) Other Neuro History: epilepsy Psychiatric History: Reports: Addiction, Anxiety, Depression, Suicidal Ideation, Other (See Below) Other Psychiatric History: addiction in past Endocrine/Metabolic History: Reports: Hypoparathyroidism, Obesity/BMI 30+, Osteopenia, Vitamin D Deficiency Other Endocrine/Metabolic History: Blood sugar low, pt has addisons or cushings - not distinguished yet, adrenal insufficiency Hematologic History: Reports: None Immunologic History: Reports: Other (See Below) Oncologic (Cancer) History: Reports: None Dermatologic History: Reports: Other (See Below) Other Dermatologic History: ALLERGIES - Infectious Disease History Infectious Disease History: Reports: Chicken Pox - Past Surgical History Head Surgeries/Procedures: Reports: Craniotomy HEENT Surgical History: Reports: Naso-Sinus Surgery Other HEENT Surgeries/Procedures: sinus surgery GI Surgical History: Reports: Appendectomy, Bariatric Procedure, Lysis of Adhesions, Other (See Below) Other GI Surgeries/Procedures: Pt had feeding tube placed due to not gaining any weight. Feeding tube was removed in July 2018 and pt has had an infection at the site since. Female Surgical History: Reports: D&C Neurological Surgical History: Reports: Other (See Below) Other Neurological Surgeries/Procedures: Craniotomy Musculoskeletal Surgical History: Reports: ORIF, Shoulder Surgery Dermatological Surgical History: Reports: None Social & Family History - Family History Family Medical History: No Pertinent Family History - Caffeine Use Caffeine Use: Reports: Soda - Living Situation & Occupation Living situation: Reports: , with Spouse, with Family (1 adult son) Occupation: Unemployed ED ROS GENERAL - Review of Systems Review Of Systems: See Below Constitutional: Reports: Weakness, Fatigue, Decreased Appetite. Denies: Fever, Chills, Malaise HEENT: Reports: Glasses Respiratory: Reports: No Symptoms Cardiovascular: Reports: No Symptoms, Blood Pressure Problem, Syncope (1 to syncopal events.) Endocrine: Reports: Fatigue, Other (Being worked up for a pituitary adenoma.) GI/Abdominal: Reports: No Symptoms : Reports: Frequency Musculoskeletal: Reports: Neck Pain, Back Pain Skin: Reports: Bruising Neurological: Reports: Dizziness, Headache, Other (I believe the patient has had surgery for Chiari malformation). Denies: Confusion, Numbness, Syncope, Tingling, Weakness Psychiatric: Reports: Anxiety, Depression, Other (Conversion reactions and pseudoseizures) Hematologic/Lymphatic: Reports: No Symptoms Immunologic: Reports: No Symptoms - Physical Exam Exam: See Below Exam Limited By: No Limitations General Appearance: Alert, WD/WN, Anxious, Other (Vital signs are normal. She is alert oriented and answers all questions appropriately.) Eye Exam: Bilateral Eye: Normal Inspection, PERRL Throat/Mouth: Normal Inspection, Normal Lips, Normal Teeth, Normal Oropharynx. No: Evidence of Tongue Biting Head Exam: Normocephalic, Scalp Tenderness (Left parietal scalp), Other (Some tenderness along the left parietal scalp.). No: Scalp Hematoma Neck: Normal Inspection, Other (Tenderness along the left lateral aspect of her neck.). No: Supple, Lymphadenopathy (L), Lymphadenopathy (R) Respiratory/Chest: No Respiratory Distress, Lungs Clear, Normal Breath Sounds, No Accessory Muscle Use, Chest Non-Tender Cardiovascular: Normal Peripheral Pulses, Regular Rate, Rhythm, No Edema, No Gallop, No Murmur, No Rub GI/Abdominal: Normal Bowel Sounds, Soft, Non-Tender, No Organomegaly, No Abnormal Bruit, No Mass, Pelvis Stable Neuro Exam (Abbreviated): Alert, Oriented, CN II-XII Intact, Normal Cognition, No Motor/Sensory Deficits. No: Normal Gait Back Exam: Normal Inspection, Full Range of Motion. No: CVA Tenderness (L), CVA Tenderness (R) Extremities: Other (Ecchymoses that appears to be a day or 2 old almost like someone has grabbed her on the medial aspect of her left elbow and distal humerus) Psychiatric: Flat Affect Skin Exam: Warm, Dry, Intact, No Rash Course - Vital Signs Last Recorded V/S: Last Vital Signs Temp 36.6 C 11/15/20 17:17 Pulse 88 11/15/20 17:17 Resp 20 11/15/20 17:17 BP 153/89 H 11/15/20 17:17 Pulse Ox 95 11/15/20 17:17 - Orders/Labs/Meds Labs: Laboratory Tests 11/15/20 11/15/20 11/15/20 Range/Units 17:27 17:27 17:27 WBC 7.59 (3.98-10.04) K/mm3 RBC 3.90 L (3.98-5.22) M/mm3 Hgb 11.7 (11.2-15.7) gm/dl Hct 37.1 (34.1-44.9) % MCV 95.1 H (79.4-94.8) fl MCH 30.0 (25.6-32.2) pg MCHC 31.5 L (32.2-35.5) g/dl RDW Std Deviation 46.8 H (36.4-46.3) fL Plt Count 239 (182-369) K/mm3 MPV 9.0 L (9.4-12.3) fl Neut % (Auto) 60.9 (34.0-71.1) % Lymph % (Auto) 27.3 (19.3-51.7) % [place] % (Auto) 8.2 (4.7-12.5) % Eos % (Auto) 2.0 (0.7-5.8) Baso % (Auto) 0.7 (0.1-1.2) % Neut # (Auto) 4.63 (1.56-6.13) K/mm3 Lymph # (Auto) 2.07 (1.18-3.74) K/mm3 [place] # (Auto) 0.62 H (0.24-0.36) K/mm3 Eos # (Auto) 0.15 (0.04-0.36) K/mm3 Baso # (Auto) 0.05 (0.01-0.08) K/mm3 Sodium 144 (136-145) mEq/L Potassium 4.1 (3.5-5.1) mEq/L Chloride 107 (98-107) mEq/L Carbon Dioxide 28 (21-32) mEq/L Anion Gap 13.1 (5-15) BUN 8 (7-18) mg/dL Creatinine 1.2 H (0.55-1.02) mg/dL Est Cr Clr Drug Dosing TNP Estimated GFR (MDRD) 48 (>60) mL/min BUN/Creatinine Ratio 6.7 L (14-18) Glucose 86 (70-99) mg/dL Lactic Acid 1.7 (0.4-2.0) mmol/L Calcium 8.6 (8.5-10.1) mg/dL Total Bilirubin 0.2 (0.2-1.0) mg/dL AST 3 L (15-37) U/L ALT 18 (14-59) U/L Alkaline Phosphatase 100 (46-116) U/L Total Protein 6.7 (6.4-8.2) g/dl Albumin 3.3 L (3.4-5.0) g/dl Globulin 3.4 gm/dL Albumin/Globulin Ratio 1.0 (1-2) Meds: Medications Discontinued Medications Generic Name Dose Route Start Last Admin Trade Name Freq PRN Reason Stop Dose Admin Hydromorphone HCl 1 mg 11/15/20 18:00 Hydromorphone 1 Mg/Ml Syringe IVPUSH 11/15/20 18:01 ONETIME ONE Lorazepam 1 mg 11/15/20 17:42 11/15/20 17:50 Lorazepam 2 Mg/Ml Sdv IVPUSH 11/15/20 17:43 1 mg ONETIME ONE Administration - Radiology Interpretation Free Text/Narrative:: 50-year-old female presents to the ED after syncope/collapse after walking out of the MRI van over at [facility] this afternoon. She is walking down the hallway away from the MRI machine when she suddenly collapsed went down to the floor. There was some suggestion she exhibited seepage seizure-like activity but she has a history of pseudoseizure activity and conversion hysteria. She arrives here and is not postictal. She is complaining of pain left side of her neck left side of her head and AC joint of her shoulder but has full range of motion of the shoulder. Plan she will have CT head neck carried out in the ED. - Re-Assessments/Exams Free Text/Narrative Re-Assessment/Exam: 11/15/20 17:[address] of her head and neck. I do not have access to the images at this time. However she is grabbing onto the handrails and shaking them vigorously as a form of conversion hysteria. She is not having any active seizure activity. We will give her Ativan 1 mg IV. 11/15/20 17:53 CT of the head and brain has been completed without contrast. No skull fractures are identified. The brain is within normal limits showing no intracranial swelling or intracranial bleeding. Lateral views to show adequate pituitary gland in the pituitary fossa. Widening of the suboccipital space which appears to be chronic and possibly due to old surgery. The patient has in fact had surgery for Arnold-Chiari my film malformation. CT of the cervical spine reveals loss of the normal lordotic curvature but no fractures or subluxations identified. There is no neuroforaminal stenosis. There is mild disc space narrowing at C6-7 and this C5-C6 levels. Slight scattered anterior osteophytes are seen mostly at the C4-5 and C5-6 levels. Mild degenerative changes seen between the dens and the anterior arch of C1. Incomplete arch of C1 is seen which appears stable. No bony central or bony neuroforaminal stenosis is seen 11/15/20 17:57 discussed the findings with the patient and her . He walked around to the MRI van and then went to get the truck. She then fell or had a syncopal event that was unwitnessed. At present she is complaining of headache pain in the left shoulder over the acromioclavicular joint and of course her left neck. She will be given Dilaudid 1 mg IV. Advised to order picker/assembler a soft tissue collar likely at [facility]. She will be discharged home. Prescription written for Percocet tabs 5/325 mg strength 1 or 2 every 4-6 hours necessary for pain relief x14 tabs. Departure - Departure Time of Disposition: 17:57 Disposition: Home, Self-Care 01 Condition: Fair Clinical Impression: Contusion of left shoulder, initial encounter Contusion of scalp Qualifiers: Encounter type: initial encounter Qualified Code(s): S00.03XA - Contusion of scalp, initial encounter Sprain of cervical neck Qualifiers: Encounter type: initial encounter Qualified Code(s): S13.9XXA - Sprain of joints and ligaments of unspecified parts of neck, initial encounter - Discharge Information *PRESCRIPTION DRUG MONITORING PROGRAM REVIEWED*: Not Applicable *COPY OF PRESCRIPTION DRUG MONITORING REPORT IN PATIENT IGGY: Not Applicable Prescriptions: oxyCODONE HCl/Acetaminophen [Percocet 5-325 mg Tablet] 1 - 2 each PO Q4H PRN #12 tablet PRN Reason: pain relief. Instructions: Facial or Scalp Contusion, Cervical Sprain, [id number] Referrals: Julia Valdovinos [Primary Care Provider] - Forms: ED Department Discharge Additional Instructions: Evaluation in the emergency room today in regards to syncopal event with fall to the floor. Event was unwitnessed essentially. It is suspect that you struck the wall with the side of your left head and neck and shoulder. CT of the head is within normal limits showing no intracranial bleeding or mass-effect or skull fracture. CT of the neck bones reveals no fractures but loss of the normal curvature of the spine indicating strain of the surrounding muscles and ligaments. I would suggest picking up a soft tissue collar to wear for the next 7 to 10 days until ligaments and muscles have time to heal. Ice pack to the area 1/2-hour out of every 4 hours today and tomorrow and after that may use heat in a similar fashion. Continue use current medications at home to ease pain and muscle relaxation. Sepsis Event Note (ED) - Focused Exam Vital Signs: Vital Signs Temp Pulse Pulse Resp BP BP Pulse Ox 11/15/20 17:17 36.6 C 88 20 153/89 H 95 11/15/20 17:16 36.3 C 84 18 151/89 H 100
[2020-11-15] MEDS ORDERED: LORazepam 2 MG/ML SDV IVPUSH ONE (17:42)
[2020-11-15] MEDS ORDERED: HYDROmorphone 1 MG/ML Syringe IVPUSH ONE (18:00)
[2020-11-15 18:03] VITALS: BP 151/89; PULSE 84
--- NOTE | 2020-11-15 18:07 | CT ---
Head CT Technique: Multiple axial sections through the brain were obtained. Intravenous contrast was not utilized. Reconstructed coronal and sagittal images were obtained. Comparison: Prior head CT study of 09/30/20. Findings: Ventricles along with basal cisterns and sulci over the convexities are within normal limits for the patient's age. There is widening of the suboccipital space which appears to be chronic and possibly due to old surgery, please correlate. No abnormal parenchymal densities are seen. No evidence of intracranial hemorrhage is seen. No midline shift or mass-effect is appreciated. Bone window settings were reviewed which show no acute calvarial abnormality. Visualized mastoid sinuses are clear. Retention cyst is partially seen within the left maxillary sinus measuring 1.4 cm. Impression: 1. Small sinus finding which is believed to be chronic. 2. Findings suspicious for suboccipital surgery with widening of the suboccipital space, please correlate clinically. This appears to be old. 3. Nothing acute is appreciated on noncontrast head CT study. Diagnostic code #2
--- NOTE | 2020-11-15 18:12 | CT ---
CT cervical spine Technique: Multiple axial sections were obtained from above C1 inferiorly to the bottom of T3. Reconstructed coronal and sagittal images were obtained. Comparison: Prior CT cervical spine study of 08/21/19. Findings: Disc space narrowing is noted at C5-6 and C6-7. Slight scattered anterior osteophytes are seen mostly at C4-5 and C5-6. Mild degenerative change is seen between the dens and anterior arch of C1. Incomplete arch of C1 is seen which appears stable. No bony central or bony neural foraminal stenosis is seen. Visualized lung apices are clear. No acute fracture or abnormal subluxation is seen. Impression: 1. Mild degenerative change. 2. No acute abnormality is appreciated on CT study of the cervical spine. No change is seen from prior CT cervical spine study. Diagnostic code #2
== END 2020-11-15 18:30 | disposition home or self-care (01) ==
LOC: JD.ED 17:06
DX: S13.4XXA Sprain of ligaments of cervical spine, initial encounter (principal); S00.03XA Contusion of scalp, initial encounter; S40.012A Contusion of left shoulder, initial encounter; R55 Syncope and collapse; Z91.018 Allergy to other foods; E66.9 Obesity, unspecified; Z88.8 Allergy status to other drugs, medicaments and biological substances; Z88.1 Allergy status to other antibiotic agents; Z68.30 Body mass index [BMI] 30.0-30.9, adult; W18.39XA Other fall on same level, initial encounter
CPT/HCPCS: 36415; 70450; 72125; 80053; 83605; 85025; 96374; 96375; 99284; J1170; J2060

== ENCOUNTER 2020-11-21 13:23 | Emergency (ER) | payer BC ==
[2020-11-21] MEDS ORDERED: HYDROmorphone 1 MG/ML Syringe IVPUSH ONE ×2 (16:24→18:32)
[2020-11-21] MEDS ORDERED: Promethazine 25 MG in Sodium Chloride 0.9% 50 ML IV ONE (16:26)
[2020-11-21] MEDS ORDERED: Dexamethasone 10 MG/ML SDV IVPUSH ONE (16:28)
--- NOTE | 2020-11-21 16:29 | EDM.PDOC ---
ED HPI GENERAL MEDICAL PROBLEM - General Chief Complaint: Headache Stated Complaint: HEADACHE Time Seen by Provider: 11/21/20 16:14 Source of Information: Reports: Patient History Limitations: Reports: No Limitations - History of Present Illness INITIAL COMMENTS - FREE TEXT/NARRATIVE: 50-year-old female presents to the ED per family member with chief complaint of generalized headache primarily in the occipital aspect of her head radiating up behind her eyes. This headache is been present for the last 5 days. She fell 5 days ago and was seen through the ED with a minor closed head injury but significant cervical neck strain at that time. She did have CT head and CT cervical spine completed which revealed no abnormalities within the brain other than evidence of previous surgery for Arnold-Chiari malformation at the base of the brain. She had fairly advanced degenerative changes throughout the cervical spine with degenerative joint disease and disc disease. Neck pain is still present and is likely contributing mostly to her headache. She has had mild nausea. She states she can get the headache to go away with medications at home. She has been essentially laying in bed in the position for the last 4 to 5 days with very little oral intake as well. Of note she does not appear to be significantly dehydrated. Onset: Sudden Onset Date: 11/16/20 (Persistent headache since fall with closed head injury and cervical neck strain 5 days ago.) Duration: Day(s):, Constant Location: Reports: Head (.), Neck (Cervical neck strain from fall 5 days ago) Quality: Reports: Ache, Throbbing, Other Severity: Severe (Pulsating. Associated nausea.) Improves with: Reports: None ( 9 out of 10) Worsens with: Reports: Other (Banding) Context: Reports: Trauma (Fell with closed head injury which was felt to be fairly minor with significant cervical neck strain [address] of both were carried out at that time and revealed no fractures or intracranial bleeding or mass-effect.). Denies: Activity ( and walking seems to make the headache worse.), Exercise, Lifting, Sick Contact, Other Associated Symptoms: Reports: Headaches, Loss of Appetite, Malaise, Nausea/Vomiting. 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 Headache Pain Score (Numeric/FACES): 8 - Related Data Allergies Allergy/AdvReac Type Severity Reaction Status Date / Time clarithromycin [From Biaxin] Allergy Severe Hives Verified 11/21/20 14:09 erythromycin base Allergy Severe Other Verified 11/21/20 14:09 strawberry [Cade] Allergy Severe Anaphylactic Verified 11/21/20 14:09 Shock metoclopramide HCl AdvReac Severe "Panic Verified 11/21/20 14:09 [From Reglan] Attack" Home Meds: Home Meds Pantoprazole Sodium 40 mg PO BID 08/23/18 [History] Promethazine [Phenergan] 25 mg PO ASDIRECTED PRN 10/24/18 [History] Pregabalin [Lyrica] 225 mg PO BID 11/29/18 [History] Divalproex Sodium [Depakote] 500 mg PO BID 11/30/18 [History] Cholecalciferol (Vitamin D3) [Vitamin D3] 5,000 unit PO DAILY #30 tablet 12/03/18 [Rx] EPINEPHrine [Epipen 2-Collin] 0.3 mg IJ ASDIRECTED PRN 08/16/19 [History] cloNIDine [Catapres] 0.2 mg PO BID 08/16/19 [History] Lurasidone HCl [Latuda] 60 mg PO BEDTIME 09/04/19 [History] Prazosin HCl [Prazosin] 2 mg PO BEDTIME 09/04/19 [History] lamoTRIgine [Lamictal] 225 mg PO BID 09/04/19 [History] LORazepam [Ativan] 0.5 mg PO Q4H PRN #12 tab 09/28/20 [Rx] Ondansetron [Zofran ODT] 4 mg PO Q6H PRN #10 tab.dis 09/28/20 [Rx] Desvenlafaxine [Desvenlafaxine ER] 100 mg PO DAILY 10/03/20 [History] FLUoxetine HCl [Prozac] 20 mg PO DAILY 10/03/20 [History] QUEtiapine Fumarate [Quetiapine Fumarate ER] 300 mg PO DAILY 10/03/20 [History] busPIRone [Buspar] 15 mg PO BID 10/03/20 [History] tiZANidine [Zanaflex] 4 mg PO BEDTIME PRN 10/03/20 [History] Past Medical History HEENT History: Reports: Impaired Vision Other HEENT History: sinus problems Cardiovascular History: Reports: Syncope Respiratory History: Reports: Asthma Gastrointestinal History: Reports: PUD Other Gastrointestinal History: ABDOMINAL PAIN/SCAR TISSUES Genitourinary History: Reports: Other (See Below) Other Genitourinary History: kidney failure, resolved COMBINATION WELDER History: Reports: Spontaneous Other COMBINATION WELDER History: x2, 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 Musculoskeletal History: Reports: Fracture Other Musculoskeletal History: right hip fx, R akle fx Neurological History: Reports: Other (See Below) Other Neuro History: epilepsy, pseudo seizures Psychiatric History: Reports: Addiction, Anxiety, Depression, Suicidal Ideation, Other (See Below) Other Psychiatric History: addiction in past Endocrine/Metabolic History: Reports: Hypoparathyroidism, Obesity/BMI 30+, Osteopenia, Vitamin D Deficiency Other Endocrine/Metabolic History: Blood sugar low, pt has addisons or cushings - not distinguished yet, adrenal insufficiency Hematologic History: Reports: None Immunologic History: Reports: Other (See Below) Oncologic (Cancer) History: Reports: None Dermatologic History: Reports: Other (See Below) Other Dermatologic History: ALLERGIES - Infectious Disease History Infectious Disease History: Reports: Chicken Pox - Past Surgical History Head Surgeries/Procedures: Reports: Craniotomy HEENT Surgical History: Reports: Naso-Sinus Surgery Other HEENT Surgeries/Procedures: sinus surgery GI Surgical History: Reports: Appendectomy, Bariatric Procedure, Lysis of Adhesions, Other (See Below) Other GI Surgeries/Procedures: Pt had feeding tube placed due to not gaining any weight. Feeding tube was removed in July 2018 and pt has had an infection at the site since. Female Surgical History: Reports: D&C Neurological Surgical History: Reports: Other (See Below) Other Neurological Surgeries/Procedures: Craniotomy Musculoskeletal Surgical History: Reports: ORIF, Shoulder Surgery Social & Family History - Family History Family Medical History: No Pertinent Family History - Tobacco Use Tobacco Use Status *Q: Never Tobacco User - Caffeine Use Caffeine Use: Reports: Soda - Recreational Drug Use Recreational Drug Use: No - Living Situation & Occupation Living situation: Reports: , with Spouse, with Family (1 adult son) Occupation: Unemployed ED ROS GENERAL - Review of Systems Review Of Systems: See Below Constitutional: Reports: Malaise, Decreased Appetite. Denies: Fever, Chills HEENT: Reports: Glasses Respiratory: Reports: No Symptoms Cardiovascular: Reports: Blood Pressure Problem Endocrine: Reports: Fatigue GI/Abdominal: Reports: Constipation, Nausea (There is no nausea) : Reports: Frequency, Incontinence (Mild stress incontinence.) Musculoskeletal: Reports: Neck Pain (Chronic cervical neck pain.), Back Pain (Chronic low back pain.) Skin: Reports: No Symptoms Neurological: Reports: Dizziness, Headache, Difficulty Walking. Denies: Numbness, Paresthesia, Pre-Existing Deficit (Due to the headache severity.), Syncope, Tingling, Tremors, Trouble Speaking, Weakness, Change in Speech, Gait Disturbance Psychiatric: Reports: Anxiety, Depression, Mood Lability (Chronic). Denies: Suicidal Ideation Hematologic/Lymphatic: Reports: No Symptoms Immunologic: Reports: No Symptoms - Physical Exam Exam: See Below Exam Limited By: No Limitations General Appearance: Alert, WD/WN, Mild Distress, Other (Temperature is 37.2 degrees. Heart rate is 92 and sinus. Respiratory to 16 with O2 sats of 98% room air. BP initially was elevated at 149 106 but did come down to 132/92.) Eye Exam: Bilateral Eye: Normal Inspection, PERRL (No blepharal pallor or scleral icterus.) Throat/Mouth: Normal Lips, Normal Teeth, Other (Tongue is mildly dry and coated.) Head Exam: Atraumatic, Normocephalic, Other (Tenderness at the base of her occipital scalp.). No: Scalp Abrasions, Scalp Ecchymosis, Scalp Hematoma, Facial Abrasions, Facial Ecchymosis Neck: Limited Range of Motion, Tender Lateral (Tender throughout the cervical spine bilaterally.), Other (Large scar in the midline from previous Arnold- Chiari malformation surgery). No: Supple, Non-Tender, Full Range of Motion, Lymphadenopathy (L) ( Slightly worse on the left as compared to the right.), Lymphadenopathy (R) Respiratory/Chest: No Respiratory Distress, Lungs Clear, Normal Breath Sounds, No Accessory Muscle Use Cardiovascular: Normal Peripheral Pulses, Regular Rate, Rhythm, No Edema, No Gallop, No Murmur, No Rub GI/Abdominal: Normal Bowel Sounds, Soft, Non-Tender, No Organomegaly, No Mass (Mildly obese.), Pelvis Stable, Other Neuro Exam (Abbreviated): Alert, Oriented, CN II-XII Intact, Normal Cognition, No Motor/Sensory Deficits. No: Normal Gait (Not assessed) DTR: 0: Achilles (R), Achilles (L), 1+: Bicep (R), Bicep (L), Patella (R), Patella (L) Back Exam: Normal Inspection. No: Full Range of Motion, CVA Tenderness (L), CVA Tenderness (R) Extremities: Normal Inspection, Normal Range of Motion, Non-Tender, No Pedal Edema Psychiatric: Normal Affect, Normal Mood Skin Exam: Warm, Dry, Intact, Normal Color, No Rash Course - Vital Signs Last Recorded V/S: Last Vital Signs Temp 37.2 C 11/21/20 14:07 Pulse 92 11/21/20 14:07 Resp 16 11/21/20 14:07 BP 149/106 H 11/21/20 14:07 Pulse Ox 98 11/21/20 14:07 - Orders/Labs/Meds Orders: Active Orders 24 hr Category Date Time Status Dextrose 5%-0.9% NaCl [Dextrose 5%-Normal Saline] 1,000 Med 11/21/20 16:30 Active ml IV ASDIRECTED Ketorolac [Toradol] Med 11/21/20 16:30 Active 30 mg IVPUSH ONETIME Medication Orders Dextrose/Sodium Chloride (Dextrose 5%-Normal Saline) 1,000 mls @ 999 mls/hr IV ASDIRECTED ANA Last Admin: 11/21/20 17:26 Dose: 999 mls/hr Documented by: NEREIDA Ketorolac Tromethamine (Ketorolac 30 Mg/Ml Sdv) 30 mg IVPUSH ONETIME ANA Last Admin: 11/21/20 17:30 Dose: 30 mg Documented by: NEREIDA Meds: Medications Generic Name Dose Route Start Last Admin Trade Name Freq PRN Reason Stop Dose Admin Dextrose/Sodium Chloride 1,000 mls @ 999 mls/hr 11/21/20 16:30 11/21/20 17:26 Dextrose 5%-Normal Saline IV 999 mls/hr ASDIRECTED ANA Administration Ketorolac Tromethamine 30 mg 11/21/20 16:30 11/21/20 17:30 Ketorolac 30 Mg/Ml Sdv IVPUSH 30 mg ONETIME ANA Administration Discontinued Medications Generic Name Dose Route Start Last Admin Trade Name Freq PRN Reason Stop Dose Admin Dexamethasone 10 mg 11/21/20 16:28 11/21/20 17:28 Dexamethasone 10 Mg/Ml Sdv IVPUSH 11/21/20 16:29 10 mg ONETIME ONE Administration Hydromorphone HCl 1 mg 11/21/20 16:24 11/21/20 17:31 Hydromorphone 1 Mg/Ml Syringe IVPUSH 11/21/20 16:25 1 mg ONETIME ONE Administration Hydromorphone HCl 1 mg 11/21/20 18:32 11/21/20 18:39 Hydromorphone 1 Mg/Ml Syringe IVPUSH 11/21/20 18:33 1 mg ONETIME ONE Administration Promethazine HCl 25 mg/ Sodium 51 mls @ 100 mls/hr 11/21/20 16:26 11/21/20 17:26 Chloride IV 11/21/20 16:56 100 mls/hr ONETIME ONE Administration - Radiology Interpretation Free Text/Narrative:: 50-year-old female presents to the ED with a persistent headache mostly in the occipital aspect of her head but radiating behind both eyes since she fell and suffered minor closed head injury and cervical spine strain 5 days ago. She was seen through the ED at that time by me and had a normal CT of the brain with no intracranial bleeding mass-effect or fracture. She also had CT of her cervical spine which revealed fairly advanced degenerative arthritic changes and degenerative disc disease. Patient has had previous surgery for Arnold-Chiari malformation which was evident on CT head. She reports that since the fall with closed head injury she has had a persistent constant headache that responds minimally to Tylenol and Motrin. She has not had much to eat or drink and headache gets worse with standing and walking. She feels off balance with walking. She has not fallen however. Of note the patient has a history of chronic headache disorder. Neuro exam is normal. She is alert oriented and answers all questions appropriately. She does not appear to be significantly volume depleted. Plan IV will be D5 normal saline at open. Will be given Toradol 30 mg IV with Zofran 4 mg IV and Dilaudid 1 mg IV for headache relief. - Re-Assessments/Exams Free Text/Narrative Re-Assessment/Exam: 11/21/20 18:00: Patient reported headache was down to a 5 out of 10 and she was feeling improved. Will review and how far she still has 800 mils of crystalloid to infuse. It took a long time to establish an IV and therefore medication intervention was delayed significantly. 11/21/20 18:32 patient states that he just did not come back. She now rates as a 6-7 out of 10. We will repeat Dilaudid 1 mg IV. She has about 200 mils of crystalloid to further infuse at which time she will be discharged home. 11/21/20 19:00 patient will be discharged home at this point time. Her son is here to drive her back to [facility] ([facility]). Departure - Departure Time of Disposition: 18:55 Disposition: Home, Self-Care 01 Condition: Fair Clinical Impression: Headache Qualifiers: Headache type: tension-type Headache chronicity pattern: chronic headache Intractability: not intractable Qualified Code(s): G44.229 - Chronic tension- type headache, not intractable - Discharge Information *PRESCRIPTION DRUG MONITORING PROGRAM REVIEWED*: Not Applicable *COPY OF PRESCRIPTION DRUG MONITORING REPORT IN PATIENT IGGY: Not Applicable Referrals: Julia Valdovinos [Primary Care Provider] - Forms: ED Department Discharge Additional Instructions: Evaluation in the emergency room today in regards to generalized headache particularly occipital headache since fall last with closed head injury and cervical neck strain. CT scan of the head done at that time revealed evidence of previous surgery at the base of the skull for Arnold-Chiari malformation but no intracranial bleeding or mass-effect. Degenerative changes appreciated throughout the cervical spine without any fractures identified. Headache is likely referred up from the cervical spine due to the jarring effect to the neck. Neuro exam was otherwise normal. He received a liter of intravenous fluids and medications Dilaudid 1 mg x 2 doses as well as Toradol 30 mg and Zofran 4 mg for headache pain relief and nausea relief. Continue plenty of fluids such as Gatorade or Powerade or some other form of electrolyte fluid to make sure you not become dehydrated as this will allow the headache to return. Diet as tolerated. Sepsis Event Note (ED) - Evaluation Sepsis Screening Result: No Definite Risk - Focused Exam Vital Signs: Vital Signs Temp Pulse Resp BP Pulse Ox 11/21/20 14:07 37.2 C 92 16 149/106 H 98 - My Orders Last 24 Hours: My Active Orders 11/21/20 16:30 Dextrose 5%-0.9% NaCl [Dextrose 5%-Normal Saline] 1,000 ml IV ASDIRECTED Ketorolac [Toradol] 30 mg IVPUSH ONETIME - Assessment/Plan Last 24 Hours: My Active Orders 11/21/20 16:30 Dextrose 5%-0.9% NaCl [Dextrose 5%-Normal Saline] 1,000 ml IV ASDIRECTED Ketorolac [Toradol] 30 mg IVPUSH ONETIME
[2020-11-21] MEDS ORDERED: Ketorolac 30 MG/ML SDV IVPUSH SCH (16:30)
[2020-11-21] MEDS ORDERED: Dextrose 5%-0.9% NaCl 1,000 ML IV SCH (16:30)
[2020-11-21 19:19] VITALS: BP 146/72; PULSE 80
== END 2020-11-21 19:15 | disposition home or self-care (01) ==
LOC: JD.ED 13:23
DX: G44.229 Chronic tension-type headache, not intractable (principal); J45.909 Unspecified asthma, uncomplicated; E66.9 Obesity, unspecified; Z68.42 Body mass index [BMI] 45.0-49.9, adult; Z88.1 Allergy status to other antibiotic agents; Z91.018 Allergy to other foods; Z88.8 Allergy status to other drugs, medicaments and biological substances; Z79.899 Other long term (current) drug therapy
CPT/HCPCS: 96374; 96375; 99283; J1100; J1170; J1885; J2550; J7042

== ENCOUNTER 2020-12-03 18:23 | Emergency (ER) | payer BC ==
[2020-12-03] MEDS ORDERED: Promethazine 25 MG in Sodium Chloride 0.9% 50 ML IV ONE (19:14)
[2020-12-03] MEDS ORDERED: Dextrose 5%-0.9% NaCl 1,000 ML IV SCH (19:15)
[2020-12-03] MEDS ORDERED: Dexamethasone 10 MG/ML SDV IVPUSH ONE (19:15)
[2020-12-03] MEDS ORDERED: HYDROmorphone 1 MG/ML Syringe IVPUSH ONE ×2 (19:15→20:30)
--- NOTE | 2020-12-03 19:19 | EDM.PDOC ---
ED HPI GENERAL MEDICAL PROBLEM - General Chief Complaint: Back Pain or Injury Stated Complaint: HEADACHE KIDNEY PAIN Time Seen by Provider: 12/03/20 19:14 Source of Information: Reports: Patient History Limitations: Reports: No Limitations - History of Present Illness INITIAL COMMENTS - FREE TEXT/NARRATIVE: 50-year-old female presents to the ED with complaints of diffuse headache primarily at the base of her skull radiating up towards both frontal scalp behind her eyes. This headache is been fairly chronic for the last 3 weeks. She was seen through the ED about 8 days ago for similar problem. She is also complaining of diffuse mid low back pain particularly worse on the right side as compared to her left. She feels the pain seems to radiate down her back and into her buttocks and lower extremities. It does not radiate down to her knees. It does not hurt to take a deep breath or cough. Denies any recent falls or injuries. Of note patient has fibromyalgia and chronic pain syndrome. She denies any nausea or vomiting. No fever chills and no genitourinary complaints. Onset: Gradual Onset Date: 12/01/20 Duration: Day(s):, Constant, Getting Worse Location: Reports: Neck, Back (Right mid back pain right flank pain.) Quality: Reports: Ache, Burning, Throbbing. Denies: Sharp, Stabbing Severity: Moderate (8 out of 10.) Improves with: Reports: Rest Worsens with: Reports: Movement Context: Denies: Activity, Exercise, Lifting, Sick Contact, Trauma, Other Associated Symptoms: Reports: Headaches, Malaise. 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 - Related Data Allergies Allergy/AdvReac Type Severity Reaction Status Date / Time clarithromycin [From Biaxin] Allergy Severe Hives Verified 12/03/20 18:39 erythromycin base Allergy Severe Other Verified 12/03/20 18:39 strawberry [[place]] Allergy Severe Anaphylactic Verified 12/03/20 18:39 Shock metoclopramide HCl AdvReac Severe "Panic Verified 12/03/20 18:39 [From Reglan] Attack" Home Meds: Home Meds Pantoprazole Sodium 40 mg PO BID 08/23/18 [History] Promethazine [Phenergan] 25 mg PO ASDIRECTED PRN 10/24/18 [History] Pregabalin [Lyrica] 225 mg PO BID 11/29/18 [History] Divalproex Sodium [Depakote] 500 mg PO BID 11/30/18 [History] Cholecalciferol (Vitamin D3) [Vitamin D3] 5,000 unit PO DAILY #30 tablet 12/03/18 [Rx] EPINEPHrine [Epipen 2-Collin] 0.3 mg IJ ASDIRECTED PRN 08/16/19 [History] cloNIDine [Catapres] 0.2 mg PO BID 08/16/19 [History] Lurasidone HCl [Latuda] 60 mg PO BEDTIME 09/04/19 [History] Prazosin HCl [Prazosin] 2 mg PO BEDTIME 09/04/19 [History] lamoTRIgine [Lamictal] 225 mg PO BID 09/04/19 [History] LORazepam [Ativan] 0.5 mg PO Q4H PRN #12 tab 09/28/20 [Rx] Ondansetron [Zofran ODT] 4 mg PO Q6H PRN #10 tab.dis 09/28/20 [Rx] Desvenlafaxine [Desvenlafaxine ER] 100 mg PO DAILY 10/03/20 [History] FLUoxetine HCl [Prozac] 20 mg PO DAILY 10/03/20 [History] QUEtiapine Fumarate [Quetiapine Fumarate ER] 300 mg PO DAILY 10/03/20 [History] busPIRone [Buspar] 15 mg PO BID 10/03/20 [History] tiZANidine [Zanaflex] 4 mg PO BEDTIME PRN 10/03/20 [History] Past Medical History HEENT History: Reports: Impaired Vision Other HEENT History: sinus problems Cardiovascular History: Reports: Syncope Respiratory History: Reports: Asthma Gastrointestinal History: Reports: PUD Other Gastrointestinal History: ABDOMINAL PAIN/SCAR TISSUES Genitourinary History: Reports: Other (See Below) Other Genitourinary History: kidney failure, resolved 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: Reports: Spontaneous Other 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: x2, 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 Musculoskeletal History: Reports: Fracture Other Musculoskeletal History: right hip fx, R akle fx Neurological History: Reports: Other (See Below) Other Neuro History: epilepsy, pseudo seizures Psychiatric History: Reports: Addiction, Anxiety, Depression, Suicidal Ideation, Other (See Below) Other Psychiatric History: addiction in past Endocrine/Metabolic History: Reports: Hypoparathyroidism, Obesity/BMI 30+, Osteopenia, Vitamin D Deficiency Other Endocrine/Metabolic History: Blood sugar low, pt has addisons or cushings - not distinguished yet, adrenal insufficiency Hematologic History: Reports: None Immunologic History: Reports: Other (See Below) Oncologic (Cancer) History: Reports: None Dermatologic History: Reports: Other (See Below) Other Dermatologic History: ALLERGIES - Infectious Disease History Infectious Disease History: Reports: Chicken Pox - Past Surgical History Head Surgeries/Procedures: Reports: Craniotomy HEENT Surgical History: Reports: Naso-Sinus Surgery Other HEENT Surgeries/Procedures: sinus surgery GI Surgical History: Reports: Appendectomy, Bariatric Procedure, Lysis of Adhesions, Other (See Below) Other GI Surgeries/Procedures: Pt had feeding tube placed due to not gaining any weight. Feeding tube was removed in July 2018 and pt has had an infection at the site since. Female Surgical History: Reports: D&C Neurological Surgical History: Reports: Other (See Below) Other Neurological Surgeries/Procedures: Craniotomy Musculoskeletal Surgical History: Reports: ORIF, Shoulder Surgery Social & Family History - Family History Family Medical History: No Pertinent Family History - Tobacco Use Tobacco Use Status *Q: Never Tobacco User Second Hand Smoke Exposure: No - Caffeine Use Caffeine Use: Reports: Soda - Recreational Drug Use Recreational Drug Use: No - Living Situation & Occupation Living situation: Reports: , with Spouse, with Family (1 adult son) Occupation: Unemployed ED ROS GENERAL - Review of Systems Review Of Systems: See Below Constitutional: Reports: No Symptoms, Malaise, Weakness, Fatigue, Decreased Appetite. Denies: Fever, Chills, Weight Loss HEENT: Reports: Glasses Respiratory: Reports: No Symptoms Cardiovascular: Reports: Blood Pressure Problem Endocrine: Reports: Fatigue GI/Abdominal: Reports: Decreased Appetite (Mild decreased appetite.), Nausea. Denies: Abdominal Pain, Anorexia, Black Stool, Bloody Stool, Difficulty Swallowing, Distension, Flatus, Hematemesis, Hematochezia, Melena, Vomiting : Reports: No Symptoms Musculoskeletal: Reports: Neck Pain (Chronic cervical neck pain at the base of her skull. Patient has previous Arnold-Chiari malformation repair.), Back Pain (Currently having mid back pain felt bilaterally worse on the right as compared to the left.) Skin: Reports: No Symptoms Neurological: Reports: Seizure (Seizure disorder.), Weakness, Other (History of). Denies: Confusion, Dizziness, Headache, Numbness, Syncope, Tingling Psychiatric: Reports: Anxiety, Depression. Denies: Hallucinations Hematologic/Lymphatic: Reports: No Symptoms Immunologic: Reports: No Symptoms ED EXAM,LOWER BACK PAIN/INJURY - Physical Exam Exam: See Below Exam Limited By: No Limitations General Appearance: Alert, WD/WN, Mild Distress, Other (Temperature is 36.4. Heart rate 72 and sinus. Respiratory is 16 with O2 sats of 96% room air. BP 1 4897.) Eye Exam: Bilateral Eye: Normal Inspection, PERRL Throat/Mouth: Normal Inspection, Normal Lips, Normal Oropharynx, Other (Tongue is mildly dry.) Head: Atraumatic, Normocephalic Neck: Normal Inspection, Limited Range of Motion (Loss of 10 degrees extension and flexion. Loss of 10 degrees lateral flexion bilaterally.). No: Supple, Carotid Bruit, Lymphadenopathy (L), Lymphadenopathy (R) Respiratory/Chest: No Respiratory Distress, Lungs Clear, Normal Breath Sounds, No Accessory Muscle Use Cardiovascular: Normal Peripheral Pulses, Regular Rate, Rhythm, No Edema, No Gal lop, No Murmur, No Rub GI/Abdominal: Normal Bowel Sounds, Soft, Non-Tender, No Organomegaly, No Distention, Other (Mildly obese.) Back Exam: Normal Inspection, CVA Tenderness (L), CVA Tenderness (R), Other (Pain is noted on the right side of her rib head #10 and 11 and rib head 9 on the left side. This is compared with rib head subluxation. Associated overlying paraspinal muscle spasm.) Extremities: Normal Inspection, Normal Range of Motion, Non-Tender, No Pedal Edema Neurological: Alert, Normal Mood/Affect, Normal Dorsiflexion, CN II-XII Intact, Oriented x 3 Psychiatric: Normal Affect, Normal Mood Skin Exam: Warm, Dry, Intact, Normal Color, No Rash Course - Vital Signs Last Recorded V/S: Last Vital Signs Temp 36.4 C 12/03/20 18:39 Pulse 79 12/03/20 20:57 Resp 16 12/03/20 20:57 BP 124/86 12/03/20 20:57 Pulse Ox 91 L 12/03/20 20:57 - Orders/Labs/Meds Labs: Laboratory Tests 12/03/20 Range/Units 19:34 Urine Color Light yellow (Yellow) Urine Appearance Clear (Clear) Urine pH 6.5 (5.0-8.0) Ur Specific [place] 1.015 (1.005-1.030) Urine Protein Negative (Negative) Urine Glucose (UA) Negative (Negative) Urine Ketones Negative (Negative) Urine Occult Blood Negative (Negative) Urine Nitrite Negative (Negative) Urine Bilirubin Negative (Negative) Urine Urobilinogen 0.2 (0.2-1.0) Ur Leukocyte Esterase Negative (Negative) Urine RBC 0-5 (0-5) /hpf Urine WBC 0-5 (0-5) /hpf Ur Squamous Epith Cells 0-5 (0-5) /hpf Urine Bacteria Occasional (FEW) /hpf Urine Mucus Not seen (FEW) /hpf Meds: Medications Discontinued Medications Generic Name Dose Route Start Last Admin Trade Name Freq PRN Reason Stop Dose Admin Dexamethasone 10 mg 12/03/20 19:15 12/03/20 20:15 Dexamethasone 10 Mg/Ml Sdv IVPUSH 12/03/20 19:16 10 mg ONETIME ONE Administration Hydromorphone HCl 1 mg 12/03/20 19:15 12/03/20 20:16 Hydromorphone 1 Mg/Ml Syringe IVPUSH 12/03/20 19:16 1 mg ONETIME ONE Administration Hydromorphone HCl 1 mg 12/03/20 20:30 12/03/20 20:51 Hydromorphone 1 Mg/Ml Syringe IVPUSH 12/03/20 20:31 1 mg ONETIME ONE Administration Dextrose/Sodium Chloride 1,000 mls @ 999 mls/hr 12/03/20 19:15 12/03/20 20:15 Dextrose 5%-Normal Saline IV 999 mls/hr ASDIRECTED ANA Administration Promethazine HCl 25 mg/ Sodium 51 mls @ 100 mls/hr 12/03/20 19:14 12/03/20 20:16 Chloride IV 12/03/20 19:44 100 mls/hr ONETIME ONE Administration - Radiology Interpretation Free Text/Narrative:: 50-year-old female presents to the ED with complaints of diffuse headache which has been a chronic problem for her for many weeks. Now she is developed mid back pain bilaterally without any trauma or fall. Pain radiates down the back and she feels into the buttocks and down the back of her legs. Examination reveals paraspinal muscle spasm over the costovertebral angles bilaterally slightly worse on the right as compared to the left. There is paraspinal muscle spasm overlying ribs heads #1011 on the right and #9 on the left. She does have reduced range of motion of her cervical spine due to previous Arnold-Chiari malformation many years ago. She tends to have chronic hypertension and chronic pain syndrome including chronic headaches. Neuro exam is otherwise normal. Plan urinalysis will be obtained. She will be given IV fluids D5 normal saline at open. We will give her dexamethasone 10 mg IV for headache relief. Also Dilaudid 1 mg IV for pain in the back and headache relief. Phenergan 25 mg IV for nausea relief. - Re-Assessments/Exams Free Text/Narrative Re-Assessment/Exam: 12/03/20 20:31 patient reports her headache is still 6-7 out of 10. She is to starting to receive her Phenergan IV as well. We will repeat Dilaudid 1 mg IV. Back pain is better. Departure - Departure Time of Disposition: 21:21 Disposition: Home, Self-Care 01 Condition: Fair Clinical Impression: Mid back pain on left side, Mid back pain on right side Headache Qualifiers: Headache type: tension-type Headache chronicity pattern: chronic headache Intractability: not intractable Qualified Code(s): G44.229 - Chronic tension- type headache, not intractable - Discharge Information *PRESCRIPTION DRUG MONITORING PROGRAM REVIEWED*: Not Applicable *COPY OF PRESCRIPTION DRUG MONITORING REPORT IN PATIENT IGGY: Not Applicable Instructions: General Headache Without Cause, Acute Back Pain, Adult Referrals: Lyn Hahn NP [Primary Care Provider] - Forms: ED Department Discharge Additional Instructions: Evaluation in the emergency room tonight in regards to persistent headache for the last several weeks. Associated development of bilateral mid low back pain. Exam revealed paraspinal muscle spasm over the right ninth and 10th and 11th rib heads with localized paraspinal muscle spasm. There is also localized spasm of the ninth rib on the left side. You were treated with intravenous fluids. Dexamethasone 10 mg IV primarily for headache relief but it should help relieve your back pain as well. Dilaudid 1 mg IV x2 doses approximately 45 minutes apart. Phenergan 25 mg IV. 1 L of fluids as well. Suggest home to rest and hopefully some sleep. Suggest follow-up with chiropractor if able tomorrow for repeat adjustment for mid back pain. Follow-up with primary care provider as needed. Sepsis Event Note (ED) - Evaluation Sepsis Screening Result: No Definite Risk - Focused Exam Vital Signs: Vital Signs Temp Pulse Resp BP Pulse Ox 12/03/20 20:57 79 16 124/86 91 L 12/03/20 18:51 71 16 132/86 98 12/03/20 18:39 36.4 C 72 16 148/97 H 96
[2020-12-03 20:58] VITALS: BP 124/86; PULSE 79
== END 2020-12-03 21:30 | disposition home or self-care (01) ==
LOC: JD.ED 18:23
DX: G44.229 Chronic tension-type headache, not intractable (principal); M62.838 Other muscle spasm; J45.909 Unspecified asthma, uncomplicated; E66.9 Obesity, unspecified; Z68.42 Body mass index [BMI] 45.0-49.9, adult; Z88.1 Allergy status to other antibiotic agents; Z88.8 Allergy status to other drugs, medicaments and biological substances; Z91.018 Allergy to other foods; Z79.899 Other long term (current) drug therapy
CPT/HCPCS: 81001; 96365; 96375; 96376; 99284; J1100; J1170; J2550; J7042; 99283

== ENCOUNTER 2020-12-11 21:16 | Emergency (ER) | payer BC ==
[2020-12-11 22:17] VITALS: BP 139/95
[2020-12-11 22:21] VITALS: PULSE 75
[2020-12-11] MEDS ORDERED: Ketorolac 15 MG/ML SDV IVPUSH ONE (22:51)
[2020-12-11] MEDS ORDERED: Lactated Ringers 1,000 ML IV ONE (22:51)
--- NOTE | 2020-12-11 22:58 | EDM.PDOC ---
ED HPI GENERAL MEDICAL PROBLEM - General Chief Complaint: Gastrointestinal Problem Stated Complaint: SYNCOPE/HEADACHE/EXPOSED TO COVID Time Seen by Provider: 12/11/20 22:10 - History of Present Illness INITIAL COMMENTS - FREE TEXT/NARRATIVE: Patient arrived to ED via private vehicle Onset of symptoms was , 12/07/2020 Reports symptoms of vomiting, diarrhea, body aches, headache, malaise Denies shortness of breath or cough or fever Has had difficulty tolerating oral intake, and has not been able to keep medication down since About 2000 tonight she passed out after an episode of vomiting Her administered injection of dexamethasone, and she subsequently regained consciousness States dexamethasone was prescribed for 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 She has been taking hydrocortisone, but unable to keep it down past few days Reports 3 episodes of vomiting today, 2 episodes of diarrhea Headache severity is rated 8/10 She took 2 tablets of naproxen about 1500 today without significant improvement Body aches are rated 6-7/10 Her daughter was diagnosed with COVID-19 on 12/04/2020 Daughter symptoms began approximately 11/30/2020 Patient had been in frequent contact with her between onset of symptoms and positive test Patient notes prior occurrences of fainting "when I get sick like this" Headache Pain Score (Numeric/FACES): 8 - Related Data Allergies Allergy/AdvReac Type Severity Reaction Status Date / Time strawberry [[place]] Allergy Severe Anaphylactic Verified 12/03/20 18:39 Shock clarithromycin [From Biaxin] Allergy Intermediate Hives Verified 12/04/20 16:02 erythromycin base Allergy Unknown Other Verified 12/04/20 16:02 metoclopramide HCl AdvReac Intermediate "Panic Verified 12/04/20 16:02 [From Reglan] Attack" Home Meds: Home Meds Pantoprazole Sodium 40 mg PO BID 08/23/18 [History] Promethazine [Phenergan] 25 mg PO ASDIRECTED PRN 10/24/18 [History] Pregabalin [Lyrica] 225 mg PO BID 11/29/18 [History] Divalproex Sodium [Depakote] 500 mg PO BID 11/30/18 [History] Cholecalciferol (Vitamin D3) [Vitamin D3] 5,000 unit PO DAILY #30 tablet 12/03/18 [Rx] EPINEPHrine [Epipen 2-Collin] 0.3 mg IJ ASDIRECTED PRN 08/16/19 [History] cloNIDine [Catapres] 0.2 mg PO BID 08/16/19 [History] Lurasidone HCl [Latuda] 60 mg PO BEDTIME 09/04/19 [History] Prazosin HCl [Prazosin] 2 mg PO BEDTIME 09/04/19 [History] lamoTRIgine [Lamictal] 225 mg PO BID 09/04/19 [History] LORazepam [Ativan] 0.5 mg PO Q4H PRN #12 tab 09/28/20 [Rx] Ondansetron [Zofran ODT] 4 mg PO Q6H PRN #10 tab.dis 09/28/20 [Rx] Desvenlafaxine [Desvenlafaxine ER] 100 mg PO DAILY 10/03/20 [History] FLUoxetine HCl [Prozac] 20 mg PO DAILY 10/03/20 [History] QUEtiapine Fumarate [Quetiapine Fumarate ER] 300 mg PO DAILY 10/03/20 [History] busPIRone [Buspar] 15 mg PO BID 10/03/20 [History] tiZANidine [Zanaflex] 4 mg PO BEDTIME PRN 10/03/20 [History] Hydrocodone/Acetaminophen [HYDROcodone-Acetaminophen 5-325 MG] 1 - 2 each PO Q6H PRN #10 tab 12/12/20 [Rx] Prochlorperazine Maleate 10 mg PO Q6H PRN #12 tablet 12/12/20 [Rx] Past Medical History HEENT History: Reports: Impaired Vision Other HEENT History: sinus problems Cardiovascular History: Reports: Syncope Respiratory History: Reports: Asthma Gastrointestinal History: Reports: PUD Other Gastrointestinal History: ABDOMINAL PAIN/SCAR TISSUES Genitourinary History: Reports: Other (See Below) Other Genitourinary History: kidney failure, resolved DISTANCE LEARNING COORDINATOR History: Reports: Spontaneous Other DISTANCE LEARNING COORDINATOR History: x2, 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 Musculoskeletal History: Reports: Fracture Other Musculoskeletal History: right hip fx, R akle fx Neurological History: Reports: Other (See Below) Other Neuro History: epilepsy, pseudo seizures Psychiatric History: Reports: Addiction, Anxiety, Depression, Suicidal Ideation, Other (See Below) Other Psychiatric History: addiction in past Endocrine/Metabolic History: Reports: Hypoparathyroidism, Obesity/BMI 30+, Osteopenia, Vitamin D Deficiency Other Endocrine/Metabolic History: Blood sugar low, pt has addisons or cushings - not distinguished yet, adrenal insufficiency Hematologic History: Reports: None Immunologic History: Reports: Other (See Below) Oncologic (Cancer) History: Reports: None Dermatologic History: Reports: Other (See Below) Other Dermatologic History: ALLERGIES - Infectious Disease History Infectious Disease History: Reports: Chicken Pox, Shingles - Past Surgical History Head Surgeries/Procedures: Reports: Craniotomy HEENT Surgical History: Reports: Naso-Sinus Surgery Other HEENT Surgeries/Procedures: sinus surgery GI Surgical History: Reports: Appendectomy, Bariatric Procedure, Lysis of Adhesions, Other (See Below) Other GI Surgeries/Procedures: Pt had feeding tube placed due to not gaining any weight. Feeding tube was removed in July 2018 and pt has had an infection at the site since. Female Surgical History: Reports: D&C Neurological Surgical History: Reports: Other (See Below) Other Neurological Surgeries/Procedures: Craniotomy Musculoskeletal Surgical History: Reports: ORIF, Shoulder Surgery Dermatological Surgical History: Reports: None Social & Family History - Family History Family Medical History: No Pertinent Family History - Caffeine Use Caffeine Use: Reports: Soda Caffeine Use Comment: 5 cans of soda per day - Recreational Drug Use Recreational Drug Use: No - Living Situation & Occupation Living situation: Reports: , with Spouse, with Family (1 adult son) Occupation: Unemployed ED ROS GENERAL - Review of Systems Review Of Systems: See Below Free Text/Narrative/Comment: Constitutional - no fever; malaise/fatigue Eyes - no eye pain; no visual disturbance ENT - no rhinorrhea; no congestion; no epistaxis Cardiovascular - no chest pain; syncope Respiratory - no shortness of breath; no cough Gastrointestinal - abdominal pain; nausea; vomiting; diarrhea Genitourinary - no dysuria Musculoskeletal - no neck pain; no back pain; no extremity injury; myalgia Neurological - headache; no speech disturbance; no weakness ED EXAM, GENERAL - Physical Exam Exam: See Below Free Text/Narrative:: Constitutional - awake; alert; mild pain distress Head - no facial swelling or weakness Eyes - extra ocular motion intact; conjunctiva normal; pupils equal and reactive to light ENT - no nasal deformity; no epistaxis; normal phonation; mucus membranes moist; Neck - no swelling Respiratory - normal respiratory effort; no crackles or wheezing; no stridor Cardiovascular - regular rhythm; normal rate; S1; S2; grade 1/6 systolic murmur GI/Abdomen - normal bowel sounds; soft; left-sided abdominal tenderness on palpation; no rebound; no guarding; no mass Musculoskeletal - grossly normal strength and motion; no swelling or deformity Skin - warm; dry Neurologic - normal speech; no weakness Psychiatric - normal mood and affect; memory and attention normal #1 Interpretation EKG Date: 12/12/20 Time: 23:10 Rhythm: NSR Rate (Beats/Min): 70 Machias: Normal P-Wave: Present QRS: Normal ST-T: Normal EKG Interpretation Comments: Artifact present V5, otherwise no significant change 11/02/2020 Course - Vital Signs Text/Narrative:: . Considered etiologies included: Vomiting, diarrhea, dehydration, metabolic derangement, syncope, vasovagal episode, myalgias, headache, viral syndrome, COVID-19 Symptoms and examination were discussed Investigations were initiated Treatment was initiated with IV fluid infusion and ketorolac Prochlorperazine was also given for nausea She reported persistence of headache after initial treatment Further analgesic treatment was given with morphine At reevaluation she felt much better She tolerated oral fluid intake without further vomiting Results were discussed Syncope was felt likely vasovagal in etiology There were no findings for adrenal insufficiency crisis She was advised of global technical writer's impression of COVID-19 with presumed false negative test result Symptomatic treatment and self-isolation for COVID-19 was reviewed Patient was felt to be stable for outpatient follow-up Return precautions were provided Last Recorded V/S: Last Vital Signs Temp 36.4 C 12/11/20 22:00 Pulse 75 12/11/20 22:00 Resp 16 12/11/20 22:00 BP 139/95 H 12/11/20 22:00 Pulse Ox 98 12/11/20 22:00 - Orders/Labs/Meds Orders: Active Orders 24 hr Category Date Time Status EKG 12 Lead [EK] Stat Ther 12/11/20 22:50 Ordered Labs: Laboratory Tests 12/11/20 12/11/20 12/11/20 Range/Units 23:30 23:54 23:54 WBC 6.32 (3.98-10.04) K/mm3 RBC 4.30 (3.98-5.22) M/mm3 Hgb 12.7 (11.2-15.7) gm/dl Hct 40.0 (34.1-44.9) % MCV 93.0 (79.4-94.8) fl MCH 29.5 (25.6-32.2) pg MCHC 31.8 L (32.2-35.5) g/dl RDW Std Deviation 45.6 (36.4-46.3) fL Plt Count 230 (182-369) K/mm3 MPV 9.2 L (9.4-12.3) fl Neut % (Auto) 78.9 H (34.0-71.1) % Lymph % (Auto) 14.7 L (19.3-51.7) % Wilkes % (Auto) 3.8 L (4.7-12.5) % Eos % (Auto) 0.9 (0.7-5.8) Baso % (Auto) 0.6 (0.1-1.2) % Neut # (Auto) 4.98 (1.56-6.13) K/mm3 Lymph # (Auto) 0.93 L (1.18-3.74) K/mm3 Wilkes # (Auto) 0.24 (0.24-0.36) K/mm3 Eos # (Auto) 0.06 (0.04-0.36) K/mm3 Baso # (Auto) 0.04 (0.01-0.08) K/mm3 Sodium 144 (136-145) mEq/L Potassium 4.5 (3.5-5.1) mEq/L Chloride 107 (98-107) mEq/L Carbon Dioxide 29 (21-32) mEq/L Anion Gap 12.5 (5-15) BUN 5 L (7-18) mg/dL Creatinine 1.1 H (0.55-1.02) mg/dL Est Cr Clr Drug Dosing 53.42 mL/min Estimated GFR (MDRD) 53 (>60) mL/min BUN/Creatinine Ratio 4.5 L (14-18) Glucose 107 H (70-99) mg/dL Calcium 8.6 (8.5-10.1) mg/dL Total Bilirubin 0.2 (0.2-1.0) mg/dL AST 16 (15-37) U/L ALT 22 (14-59) U/L Alkaline Phosphatase 104 (46-116) U/L Troponin I < 0.017 (0.00-0.056) ng/mL Total Protein 6.9 (6.4-8.2) g/dl Albumin 3.3 L (3.4-5.0) g/dl Globulin 3.6 gm/dL Albumin/Globulin Ratio 0.9 L (1-2) SARS-CoV-2 RNA (TRISH) Negative (NEGATIVE) Meds: Medications Discontinued Medications Generic Name Dose Route Start Last Admin Trade Name Freq PRN Reason Stop Dose Admin Lactated Ringer's 1,000 mls @ 999 mls/hr 12/11/20 22:51 12/11/20 23:36 Ringers, Lactated IV 12/11/20 23:51 999 mls/hr .BOLUS ONE Administration Ketorolac Tromethamine 15 mg 12/11/20 22:51 12/11/20 23:36 Ketorolac 15 Mg/Ml Sdv IVPUSH 12/11/20 22:52 15 mg ONETIME ONE Administration Morphine Sulfate 4 mg 12/12/20 00:50 12/12/20 01:04 Morphine 4 Mg/Ml Syringe IVPUSH 12/12/20 00:51 4 mg ONETIME ONE Administration Prochlorperazine Edisylate 10 mg 12/11/20 23:57 12/12/20 00:31 Prochlorperazine 10 Mg/2 Ml Sdv IVPUSH 12/11/20 23:58 10 mg ONETIME ONE Administration Departure - Departure Time of Disposition: 02:14 Disposition: Home, Self-Care 01 Clinical Impression: Clinical diagnosis of COVID-19, Gastroenteritis Syncope Qualifiers: Syncope type: unspecified Qualified Code(s): R55 - Syncope and collapse - Discharge Information *PRESCRIPTION DRUG MONITORING PROGRAM REVIEWED*: Yes *COPY OF PRESCRIPTION DRUG MONITORING REPORT IN PATIENT IGGY: No Prescriptions: Hydrocodone/Acetaminophen [HYDROcodone-Acetaminophen 5-325 MG] 1 - 2 each PO Q6H PRN #10 tab PRN Reason: Headache/Pain Prochlorperazine Maleate 10 mg PO Q6H PRN #12 tablet PRN Reason: Nausea or GI distress Instructions: Syncope, COVID-19: What to Do if You Are Sick - [facility] (04/20/2020) Referrals: Lyn Hahn NP [Primary Care Provider] - Forms: ED Department Discharge Additional Instructions: Your symptoms are highly suspicious for COVID-19 infection A positive COVID-19 test can confirm the infection, however a negative result does not rule it out Self-isolation in accordance with CDC guidelines for COVID-19 is recommended Self-quarantine in accordance with CDC guidelines for COVID-19 is also recommended for all close contacts which have occurred since 12/05/2020 Return if condition worsens May resume general activity and regular diet as tolerated Continue usual medications May use IBUPROFEN 600 mg every 6 hours as needed for pain/inflammation May take PROCHLORPERAZINE as prescribed, as needed for nausea/vomiting May take HYDROCODONE/ACETAMINOPHEN sparingly for severe pain/headache, as prescribed Follow-up with primary care provider is recommended Sepsis Event Note (ED) - Focused Exam Vital Signs: Vital Signs Temp Pulse Resp BP Pulse Ox 12/11/20 22:00 36.4 C 75 16 139/95 H 98 - My Orders Last 24 Hours: My Active Orders 12/11/20 22:50 EKG 12 Lead [EK] Stat - Assessment/Plan Last 24 Hours: My Active Orders 12/11/20 22:50 EKG 12 Lead [EK] Stat
[2020-12-11] MEDS ORDERED: Prochlorperazine 10 MG/2 ML SDV IVPUSH ONE (23:57)
[2020-12-12] MEDS ORDERED: Morphine 4 MG/ML Syringe IVPUSH ONE (00:50)
== END 2020-12-12 02:51 | disposition home or self-care (01) ==
LOC: JD.ED 21:16
DX: U07.1 COVID-19 (principal); K52.9 Noninfective gastroenteritis and colitis, unspecified; R55 Syncope and collapse; J45.909 Unspecified asthma, uncomplicated; E66.9 Obesity, unspecified; Z68.42 Body mass index [BMI] 45.0-49.9, adult; Z91.018 Allergy to other foods; Z88.1 Allergy status to other antibiotic agents; Z88.8 Allergy status to other drugs, medicaments and biological substances; Z79.899 Other long term (current) drug therapy
CPT/HCPCS: 36415; 80053; 84484; 85025; 93005; 93010; 96374; 96375; 99284; 99284-25; J0780; J1885; J2270; J7120; U0002

== ENCOUNTER 2020-12-24 09:50 | Emergency (ER) | payer BC ==
--- NOTE | 2020-12-24 11:20 | EDM.PDOC ---
ED HPI GENERAL MEDICAL PROBLEM - General Chief Complaint: Head Injury Stated Complaint: FELL,HEAD AND FINGER INJURY Time Seen by Provider: 12/24/20 11:16 Source of Information: Reports: Patient History Limitations: Reports: No Limitations - History of Present Illness INITIAL COMMENTS - FREE TEXT/NARRATIVE: 50-year-old female presents to the ED for evaluation of closed head injury and injury to her right 4th finger. She states she had to break up a dog fight in her home last night. She has her own dog and her granddaughters dog is also staying with them. The dogs got into a fight and she tried to break them apart. She had a right 4th finger looked in the dog's collar and strained the right 4th finger to the point that she is not able to flex at the DIP joint. No mal let deformity identified. She states that they knocked her down and she ended up on the concrete floor and believes she may have lost consciousness. She has pain right occipital scalp and throughout her cervical and spine. She states she could not sleep most of last night due to persistent headache pain. Of note previous patient has had previous multiple closed head injuries and surgery at the base of her skull for Arnold-Chiari malformation. She suffers from headaches on a daily basis and occasional headaches are severe as this one is and does not respond to her home medications. She is nauseated but has not vomited. She has not ate or drank this morning. Feels lightheaded dizzy. No visual acuity changes. Denies injuries to her elbows shoulders or hips. Onset: Sudden Onset Date: 12/23/20 Onset Time: 21:00 Duration: Hour(s):, Constant Location: Reports: Head (Severe headache. Pain right occipital scalp), Neck, Upper Extremity, Right (Injury to her right distal 4th finger) Quality: Reports: Ache, Throbbing, Other Severity: Severe (Pulsating 9 out of 10) Improves with: Reports: None Worsens with: Reports: Other, Movement Context: Reports: Trauma (Got tripped up by 2 dogs that were fighting in her home last night and she was trying to separate them and she fell to a concrete floor.). Denies: Activity (Better if she lies still.), Exercise, Lifting, Sick Contact Associated Symptoms: Reports: Headaches, Loss of Appetite, Nausea/Vomiting. 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) (Zofran) Headache Pain Score (Numeric/FACES): 7 Right Finger-Ring Pain Score (Numeric/FACES): 7 - Related Data Allergies Allergy/AdvReac Type Severity Reaction Status Date / Time strawberry [[place]] Allergy Severe Anaphylactic Verified 12/24/20 10:24 Shock clarithromycin [From Biaxin] Allergy Intermediate Hives Verified 12/24/20 10:24 erythromycin base Allergy Unknown Other Verified 12/24/20 10:24 metoclopramide HCl AdvReac Intermediate "Panic Verified 12/24/20 10:24 [From Reglan] Attack" Home Meds: Home Meds Pantoprazole Sodium 40 mg PO BID 08/23/18 [History] Promethazine [Phenergan] 25 mg PO ASDIRECTED PRN 10/24/18 [History] Pregabalin [Lyrica] 225 mg PO BID 11/29/18 [History] Divalproex Sodium [Depakote] 500 mg PO BID 11/30/18 [History] Cholecalciferol (Vitamin D3) [Vitamin D3] 5,000 unit PO DAILY #30 tablet 12/03/18 [Rx] EPINEPHrine [Epipen 2-Collin] 0.3 mg IJ ASDIRECTED PRN 08/16/19 [History] cloNIDine [Catapres] 0.2 mg PO BID 08/16/19 [History] Lurasidone HCl [Latuda] 60 mg PO BEDTIME 09/04/19 [History] Prazosin HCl [Prazosin] 2 mg PO BEDTIME 09/04/19 [History] lamoTRIgine [Lamictal] 225 mg PO BID 09/04/19 [History] LORazepam [Ativan] 0.5 mg PO Q4H PRN #12 tab 09/28/20 [Rx] Ondansetron [Zofran ODT] 4 mg PO Q6H PRN #10 tab.dis 09/28/20 [Rx] Desvenlafaxine [Desvenlafaxine ER] 100 mg PO DAILY 10/03/20 [History] FLUoxetine HCl [Prozac] 20 mg PO DAILY 10/03/20 [History] QUEtiapine Fumarate [Quetiapine Fumarate ER] 300 mg PO DAILY 10/03/20 [History] busPIRone [Buspar] 15 mg PO BID 10/03/20 [History] tiZANidine [Zanaflex] 4 mg PO BEDTIME PRN 10/03/20 [History] Hydrocodone/Acetaminophen [HYDROcodone-Acetaminophen 5-325 MG] 1 - 2 each PO Q6H PRN #10 tab 12/12/20 [Rx] Prochlorperazine Maleate 10 mg PO Q6H PRN #12 tablet 12/12/20 [Rx] Past Medical History HEENT History: Reports: Impaired Vision Other HEENT History: sinus problems Cardiovascular History: Reports: Syncope Respiratory History: Reports: Asthma Gastrointestinal History: Reports: PUD Other Gastrointestinal History: ABDOMINAL PAIN/SCAR TISSUES Genitourinary History: Reports: Other (See Below) Other Genitourinary History: kidney failure, resolved 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 Other GAS MASK ASSEMBLER History: x2, 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 Musculoskeletal History: Reports: Fracture Other Musculoskeletal History: right hip fx, R akle fx Neurological History: Reports: Other (See Below) Other Neuro History: epilepsy, pseudo seizures Psychiatric History: Reports: Addiction, Anxiety, Depression, Suicidal Ideation, Other (See Below) Other Psychiatric History: addiction in past Endocrine/Metabolic History: Reports: Hypoparathyroidism, Obesity/BMI 30+, Osteopenia, Vitamin D Deficiency Other Endocrine/Metabolic History: Blood sugar low, pt has addisons or cushings - not distinguished yet, adrenal insufficiency Hematologic History: Reports: None Immunologic History: Reports: Other (See Below) Oncologic (Cancer) History: Reports: None Dermatologic History: Reports: Other (See Below) Other Dermatologic History: ALLERGIES - Infectious Disease History Infectious Disease History: Reports: Chicken Pox, Shingles - Past Surgical History Head Surgeries/Procedures: Reports: Craniotomy HEENT Surgical History: Reports: Naso-Sinus Surgery Other HEENT Surgeries/Procedures: sinus surgery GI Surgical History: Reports: Appendectomy, Bariatric Procedure, Lysis of Adhesions, Other (See Below) Other GI Surgeries/Procedures: Pt had feeding tube placed due to not gaining any weight. Feeding tube was removed in July 2018 and pt has had an infection at the site since. Female Surgical History: Reports: D&C Neurological Surgical History: Reports: Other (See Below) Other Neurological Surgeries/Procedures: Craniotomy Musculoskeletal Surgical History: Reports: ORIF, Shoulder Surgery Dermatological Surgical History: Reports: None Social & Family History - Family History Family Medical History: No Pertinent Family History - Tobacco Use Tobacco Use Status *Q: Never Tobacco User Second Hand Smoke Exposure: No - Caffeine Use Caffeine Use: Reports: Soda Caffeine Use Comment: 5 cans of soda per day - Recreational Drug Use Recreational Drug Use: No - Living Situation & Occupation Living situation: Reports: , with Spouse, with Family (1 adult son) Occupation: Unemployed ED ROS GENERAL - Review of Systems Review Of Systems: See Below Constitutional: Reports: Fatigue (From not sleeping last night.), Decreased Appetite. Denies: Fever, Chills HEENT: Reports: Glasses Respiratory: Reports: No Symptoms Cardiovascular: Reports: No Symptoms Endocrine: Reports: No Symptoms GI/Abdominal: Reports: Nausea : Reports: No Symptoms Musculoskeletal: Reports: Neck Pain, Joint Pain (Right distal 4th finger joint pain at the DIP joint) Skin: Reports: No Symptoms Neurological: Reports: Dizziness, Headache. Denies: Confusion, Numbness, Syncope, Tingling, Trouble Speaking, Difficulty Walking, Weakness, Change in Speech Psychiatric: Reports: Anxiety, Depression Hematologic/Lymphatic: Reports: No Symptoms ED EXAM, HEAD INJURY - Physical Exam Exam: See Below Exam Limited By: No Limitations General Appearance: Alert, WD/WN, No Apparent Distress, Other (Temperature is 36.2 with a heart rate is 76 and sinus respiratory to 16 with O2 sats of 99% room air. BP 160/99) Head: Scalp Hematoma (Scalp tenderness over the right occipital scalp with minimal hematoma. No open wounds or drainage.). No: Facial Lacerations Nexus Criteria: Posterior, Midline Cervical Tenderness. No: Evidence of Intoxication, Altered Level of Consciousness, Focal Neurological Deficit, Painful Distraction Injuries Eyes: Bilateral Eye: Normal Fundi, Normal Inspection, PERRL Throat/Mouth: Normal Inspection, Normal Lips, Normal Teeth, Normal Oropharynx, Other (No injury to the tongue or dentition.) Neck: Limited Range of Motion, Muscle Spasm, Paraspinous Muscle Tender, Spinous Processes Tender (Very tender throughout the entire midline of her cervical spine. Previous midline cervical spine surgery for Arnold-Chiari malformation.) Respiratory: No Respiratory Distress, Lungs Clear, Normal Breath Sounds, No Accessory Muscle Use, Other (No pain on compression of ribs and sternum.) Cardiovascular: Normal Peripheral Pulses, Regular Rate, Rhythm, No Edema, No Gallop, No Murmur, No Rub GI/Abdominal Exam: Normal Bowel Sounds, Soft, Non-Tender, No Organomegaly, No Distention Back Exam: Normal Inspection, Full Range of Motion. No: CVA Tenderness (L), CVA Tenderness (R) Extremities: Normal Inspection, Normal Range of Motion, No Pedal Edema, Other (Pain and tenderness distal aspect of the right 4th finger with limited ability to flex at the DIP joint. 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 As Tested, No Motor/Sensory Deficits, Alert, Normal Mood/Affect, Oriented x 3 DTR: 0: Achilles (R), Achilles (L), 1+: Bicep (R), Bicep (L), Patella (R), Patella (L) Skin: Normal Color, Warm/Dry - Senait Coma Score Best Eye Response (Senait): (4) Open Spontaneously Best Verbal Response (Senait): (5) Oriented Best Motor Response (Senait): (6) Obeys Commands Rudd Total: 15 Course - Vital Signs Last Recorded V/S: Last Vital Signs Temp 36.4 C 12/24/20 14:02 Pulse 90 12/24/20 14:02 Resp 16 12/24/20 14:02 BP 128/77 12/24/20 14:02 Pulse Ox 96 12/24/20 14:02 - Orders/Labs/Meds Orders: Active Orders 24 hr Category Date Time Status Cervical Spine wo Cont [CT] Stat Exams 12/24/20 11:18 Taken Head wo Cont [CT] Stat Exams 12/24/20 11:17 Taken Ketorolac [Toradol] Med 12/24/20 11:45 Active 30 mg IVPUSH ONETIME Sodium Chloride 0.9% [Normal Saline] 1,000 ml Med 12/24/20 11:45 Active IV ASDIRECTED Medication Orders Sodium Chloride (Normal Saline) 1,000 mls @ 500 mls/hr IV ASDIRECTED [facility] Last Admin: 12/24/20 11:59 Dose: 500 mls/hr Documented by: RAUDEL Ketorolac Tromethamine (Ketorolac 30 Mg/Ml Sdv) 30 mg IVPUSH ONETIME [facility] Last Admin: 12/24/20 11:55 Dose: 30 mg Documented by: RAUDEL Meds: Medications Generic Name Dose Route Start Last Admin Trade Name Román PRN Reason Stop Dose Admin Sodium Chloride 1,000 mls @ 500 mls/hr 12/24/20 11:45 12/24/20 11:59 Normal Saline IV 500 mls/hr ASDIRECTED ANA Administration Ketorolac Tromethamine 30 mg 12/24/20 11:45 12/24/20 11:55 Ketorolac 30 Mg/Ml Sdv IVPUSH 30 mg ONETIME ANA Administration Discontinued Medications Generic Name Dose Route Start Last Admin Trade Name Román PRN Reason Stop Dose Admin Diphenhydramine HCl 50 mg 12/24/20 11:36 12/24/20 11:53 Diphenhydramine 50 Mg/Ml Sdv IVPUSH 12/24/20 11:37 50 mg ONETIME ONE Administration Hydromorphone HCl 1 mg 12/24/20 11:36 12/24/20 11:57 Hydromorphone 1 Mg/Ml Syringe IVPUSH 12/24/20 11:37 1 mg ONETIME ONE Administration Hydromorphone HCl 1 mg 12/24/20 13:07 12/24/20 13:26 Hydromorphone 1 Mg/Ml Syringe IVPUSH 12/24/20 13:08 1 mg ONETIME ONE Administration Ondansetron HCl 4 mg 12/24/20 11:36 12/24/20 11:51 Ondansetron 4 Mg/2 Ml Sdv IVPUSH 12/24/20 11:37 4 mg ONETIME ONE Administration - Radiology Interpretation Free Text/Narrative:: 50-year-old female presents to the ED for evaluation of acute injury to her right 4th distal finger. It was caught in a dog collar as she was trying to pull 2 dogs apart that were fighting in her home last night. This resulted in her getting tripped up and falling and striking the back of her head right occipital scalp on concrete floor. She states she awoke on the floor and believes she was knocked out for a period of time. Complaining of diffuse severe cervical neck pain. She has had previous cervical spine surgery for Arnold-Chiari malformation repair. Has a daily headache. Current headache is rated at 9 out of 10. It kept her awake most of last night. Plan IV D5 normal saline at 500 mils per hour. Will give Benadryl 50 mg IV with Zofran 4 mg IV with Toradol 30 mg IV and Dilaudid 1 mg IV for pain relief. She will have CT of her head and cervical spine and x-ray of her right 4th finger. - Re-Assessments/Exams Free Text/Narrative Re-Assessment/Exam: 12/24/20 12:39 CT scan of the brain has been completed without IV contrast. It reveals normal sulci and convexities. No intracranial bleeding or mass-effect. No skull fractures identified. Very minimal demyelination changes appreciated both basal ganglia. CT of the cervical spine reveals loss of the normal curvature with due to muscle spasm. There is no fractures or subluxations. X- rays of the right fourth finger also did not reveal any fractures. 12/24/20 13:08 patient was advised of the findings of her CT scans and x-ray of her right fourth finger. Headache is improved but still she rates it as a 7 out of 10. We will repeat Dilaudid 1 mg IV. 12/24/20 13:48: Patient reports headache is down to a 3 out of 10. She feels she is ready for discharge. She will be discharged home. Departure - Departure Time of Disposition: 14:02 Disposition: Home, Self-Care 01 Condition: Fair Clinical Impression: Closed head injury Sprain of finger, right Qualifiers: Encounter type: initial encounter Finger: ring finger Sprain of finger site: other site Qualified Code(s): S63.694A - Other sprain of right ring finger, initial encounter Headache Qualifiers: Headache type: tension-type Headache chronicity pattern: chronic headache Intractability: not intractable Qualified Code(s): G44.229 - Chronic tension- type headache, not intractable Sprain of cervical neck Qualifiers: Encounter type: initial encounter Qualified Code(s): S13.9XXA - Sprain of joints and ligaments of unspecified parts of neck, initial encounter - Discharge Information *PRESCRIPTION DRUG MONITORING PROGRAM REVIEWED*: Not Applicable *COPY OF PRESCRIPTION DRUG MONITORING REPORT IN PATIENT IGGY: Not Applicable Instructions: Migraine Headache, [id number], Finger Sprain, Adult, [id number], Head Injury, Adult, [id number], Cervical Sprain, [id number] Referrals: Lyn Hahn NP [Primary Care Provider] - Forms: ED Department Discharge Additional Instructions: Evaluation in the emergency room today in regards to injuries sustained from breaking up 2 dogs fighting in your home last evening. Right finger got hooked in one of the dogs collars and was aggressively pulled and jerked by the dog and resulted in a sprain of the DIP or distal interphalangeal joint of the right fourth finger. X-rays do not reveal any broken bones in this area and no tendon injuries appreciated. Inflammation of the joint may take several weeks to return to normal. Resulted fall to the floor with closed head injury resulted in a worsening of your normal daily headache with associated nausea and injury to your neck. CT of the head and neck do not reveal any broken bones or intracranial bleeding or mass-effect. You were treated with intravenous fluids in the ED with Dilaudid 1 mg IV with Zofran 4 mg IV and Benadryl 50 mg IV and Toradol 30 mg IV. Second dose of Dilaudid 1 mg was given 1 hour later. Suggest home to sleep and rest to break the headache cycle. May continue all your current medications as normal. May splint right fourth finger to the middle finger for the next 2 days to provide relief of discomfort if needed. Sepsis Event Note (ED) - Evaluation Sepsis Screening Result: No Definite Risk - Focused Exam Vital Signs: Vital Signs Temp Pulse Resp BP Pulse Ox 12/24/20 14:02 36.4 C 90 16 128/77 96 12/24/20 10:20 36.2 C 76 16 160/99 H 99 - My Orders Last 24 Hours: My Active Orders 12/24/20 11:17 Head wo Cont [CT] Stat 12/24/20 11:18 Cervical Spine wo Cont [CT] Stat 12/24/20 11:45 Ketorolac [Toradol] 30 mg IVPUSH ONETIME Sodium Chloride 0.9% [Normal Saline] 1,000 ml IV ASDIRECTED - Assessment/Plan Last 24 Hours: My Active Orders 12/24/20 11:17 Head wo Cont [CT] Stat 12/24/20 11:18 Cervical Spine wo Cont [CT] Stat 12/24/20 11:45 Ketorolac [Toradol] 30 mg IVPUSH ONETIME Sodium Chloride 0.9% [Normal Saline] 1,000 ml IV ASDIRECTED
[2020-12-24] MEDS ORDERED: HYDROmorphone 1 MG/ML Syringe IVPUSH ONE ×2 (11:36→13:07)
[2020-12-24] MEDS ORDERED: diphenhydrAMINE 50 MG/ML SDV IVPUSH ONE (11:36)
[2020-12-24] MEDS ORDERED: Ondansetron 4 MG/2 ML SDV IVPUSH ONE (11:36)
[2020-12-24] MEDS ORDERED: Sodium Chloride 0.9% 1,000 ML IV SCH (11:45)
[2020-12-24] MEDS ORDERED: Ketorolac 30 MG/ML SDV IVPUSH SCH (11:45)
--- NOTE | 2020-12-24 12:32 | CR ---
Right fourth finger: 3 views of the right fourth finger were obtained. Comparison: No prior finger studies available. Bony structures show no fracture. No dislocation is noted. No radiopaque for foreign body seen within the soft tissues. Impression: 1. Nothing acute is seen on right fourth finger study. Diagnostic code #1
[2020-12-24 14:03] VITALS: BP 128/77; PULSE 90
--- NOTE | 2020-12-25 16:41 | CT ---
CT cervical spine Technique: Multiple axial sections were obtained from above C1 inferiorly to the bottom of T3. Reconstructed coronal and sagittal images were obtained. Comparison: Prior cervical spine CT of 11/15/20. Findings: Slight disc space narrowing is noted at C4-5 and C5-6. Other disc spaces are fairly well maintained. Slight anterior osteophytes are noted at C4-5 and C5-6. Slight degenerative change is noted between the dens of C1 and the anterior C2 level. 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 No bony central or bony neural foraminal stenosis is seen. Visualized lung apices are clear. No acute fracture or subluxation is seen. Impression: 1. Slight degenerative change. 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 2. No acute fracture or subluxation is seen. Diagnostic code #2 I agree with preliminary report from [facility], finalized on 12/24/20, 1:48 PM CDT, code 1
--- NOTE | 2020-12-25 16:44 | CT ---
Head CT Technique: Multiple axial sections through the brain were obtained. Intravenous and oral contrast was utilized. Comparison: Prior head CT study of 11/15/20. Findings: Ventricles along with basal cisterns and sulci over the convexities are within normal limits for the patient's age. 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 This is stable and please correlate if this is correct. No abnormal parenchymal densities are seen. No evidence of intracranial hemorrhage is seen. No midline shift or mass-effect is seen. Bone window settings were reviewed which show no acute calvarial abnormality. Visualized mastoid sinuses and paranasal sinuses show nothing acute. Impression: 1. 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 This is stable from prior exam. 2. Nothing acute is appreciated on noncontrast head CT study. Diagnostic code #2 I agree with preliminary report from [facility], finalized on 12/24/20, 1:46 PM CDT
== END 2020-12-24 14:10 | disposition home or self-care (01) ==
LOC: JD.ED 09:50
DX: S09.90XA Unspecified injury of head, initial encounter (principal); S63.694A Other sprain of right ring finger, initial encounter; S13.4XXA Sprain of ligaments of cervical spine, initial encounter; G44.229 Chronic tension-type headache, not intractable; J45.909 Unspecified asthma, uncomplicated; E66.9 Obesity, unspecified; Z68.43 Body mass index [BMI] 50.0-59.9, adult; Z91.018 Allergy to other foods; Z88.1 Allergy status to other antibiotic agents; Z88.8 Allergy status to other drugs, medicaments and biological substances; Z79.899 Other long term (current) drug therapy; W18.30XA Fall on same level, unspecified, initial encounter; Y92.009 Unspecified place in unspecified non-institutional (private) residence as the place of occurrence of the external cause
CPT/HCPCS: 70450; 72125; 73140; 96374; 96375; 96376; 99284; J1170; J1200; J1885; J2405; J7030

== ENCOUNTER 2021-01-01 10:12 | Emergency (ER) | payer BC ==
[2021-01-01 11:31] VITALS: BP 165/115; PULSE 89
== END 2021-01-01 14:05 | disposition left against medical advice (07) ==
LOC: JD.ED 10:12
DX: Z53.21 Procedure and treatment not carried out due to patient leaving prior to being seen by health care provider (principal)

== ENCOUNTER 2021-02-27 13:36 | Emergency (ER) | payer BC ==
[2021-02-27 14:01] VITALS: PULSE 74
[2021-02-27] MEDS ORDERED: diphenhydrAMINE 50 MG/ML SDV IVPUSH ONE (14:27)
[2021-02-27] MEDS ORDERED: Lactated Ringers 1,000 ML IV ONE (14:27)
[2021-02-27] MEDS ORDERED: Ondansetron 4 MG/2 ML SDV IVPUSH ONE (14:28)
[2021-02-27] MEDS ORDERED: Sodium Chloride 0.9% 10 ML Syringe FLUSH PRN (15:11)
[2021-02-27] MEDS ORDERED: Iopamidol 755 Mg/ML 100 ML Bottle IVPUSH ONE (15:11)
[2021-02-27] MEDS ORDERED: Sodium Chloride 0.9% 100 ML IV SCH (15:15)
--- NOTE | 2021-02-27 15:18 | EDM.PDOC ---
ED HPI GENERAL MEDICAL PROBLEM - General Chief Complaint: Chest Pain Stated Complaint: [facility] Time Seen by Provider: 02/27/21 18:45 Source of Information: Reports: Patient History Limitations: Reports: No Limitations - History of Present Illness INITIAL COMMENTS - FREE TEXT/NARRATIVE: Patient is a 50-year-old female presented to the emergency room with a complaint of headache and chest pain. Patient is a past medical history of morbid obesity, Arnold-Chiari malformation, chronic headaches, adrenal insufficiency. Patient reports the headache is diffuse over her entire head. Patient states she has received numerous treatments in the past for her headaches including Botox injections, nerve blocks, numerous medical treatments. She had surgery done over 10 years ago for her formation but this did not seem to improve headaches either. Patient states headaches are persistent, not sudden onset. [id number] medication does not seem to revolve headaches. Patient states she was seen in the emergency room yesterday with blood work done which she felt somewhat better but was ultimately discharged. In addition to her headaches, patient is reporting chest pain. Patient reports pain is in the middle of her chest without radiation. The pain seems to be worse with deep breathing but denies any exertional symptoms. Patient denies any associated shortness of breath, nausea, vomiting, diarrhea, abdominal pain. Patient has no prior history of DVT/PE. Patient has no recent hospitalizations. No recent surgeries. Patient states the chest pain has been ongoing for several days and she had this chest pain yesterday when evaluated in the emergency room. 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, EKG, IV/IO Frontal Headache Pain Score (Numeric/FACES): 9 Mid-Sternal Chest Pain Score (Numeric/FACES): 10 - Related Data Allergies Allergy/AdvReac Type Severity Reaction Status Date / Time clarithromycin [From Biaxin] Allergy Severe Hives Verified 01/01/21 11:31 erythromycin base Allergy Severe Other Verified 01/01/21 11:31 strawberry [[place]] Allergy Severe Anaphylactic Verified 01/01/21 11:31 Shock metoclopramide HCl AdvReac Severe "Panic Verified 01/01/21 11:31 [From Reglan] Attack" Home Meds: Home Meds Pantoprazole Sodium 40 mg PO BID 08/23/18 [History] Promethazine [Phenergan] 25 mg PO ASDIRECTED PRN 10/24/18 [History] Pregabalin [Lyrica] 225 mg PO BID 11/29/18 [History] Divalproex Sodium [Depakote] 500 mg PO BID 11/30/18 [History] Cholecalciferol (Vitamin D3) [Vitamin D3] 5,000 unit PO DAILY #30 tablet 12/03/18 [Rx] EPINEPHrine [Epipen 2-Collin] 0.3 mg IJ ASDIRECTED PRN 08/16/19 [History] cloNIDine [Catapres] 0.2 mg PO BID 08/16/19 [History] Lurasidone HCl [Latuda] 60 mg PO BEDTIME 09/04/19 [History] Prazosin HCl [Prazosin] 2 mg PO BEDTIME 09/04/19 [History] lamoTRIgine [Lamictal] 225 mg PO BID 09/04/19 [History] LORazepam [Ativan] 0.5 mg PO Q4H PRN #12 tab 09/28/20 [Rx] Ondansetron [Zofran ODT] 4 mg PO Q6H PRN #10 tab.dis 09/28/20 [Rx] Desvenlafaxine [Desvenlafaxine ER] 100 mg PO DAILY 10/03/20 [History] FLUoxetine HCl [Prozac] 20 mg PO DAILY 10/03/20 [History] QUEtiapine Fumarate [Quetiapine Fumarate ER] 300 mg PO DAILY 10/03/20 [History] busPIRone [Buspar] 15 mg PO BID 10/03/20 [History] tiZANidine [Zanaflex] 4 mg PO BEDTIME PRN 10/03/20 [History] Hydrocodone/Acetaminophen [HYDROcodone-Acetaminophen 5-325 MG] 1 - 2 each PO Q6H PRN #10 tab 12/12/20 [Rx] Prochlorperazine Maleate 10 mg PO Q6H PRN #12 tablet 12/12/20 [Rx] Past Medical History HEENT History: Reports: Impaired Vision Other HEENT History: sinus problems Cardiovascular History: Reports: Syncope Respiratory History: Reports: Asthma Gastrointestinal History: Reports: GI Bleed, PUD Other Gastrointestinal History: ABDOMINAL PAIN/SCAR TISSUES Genitourinary History: Reports: Other (See Below) Other Genitourinary History: kidney failure, resolved ELECTRIC TRUCKER History: Reports: Spontaneous Other ELECTRIC TRUCKER History: x2, 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 Musculoskeletal History: Reports: Fracture Other Musculoskeletal History: right hip fx, R akle fx Neurological History: Reports: Other (See Below) Other Neuro History: epilepsy, pseudo seizures Psychiatric History: Reports: Addiction, Anxiety, Depression, Suicidal Ideation, Other (See Below) Other Psychiatric History: addiction in past Endocrine/Metabolic History: Reports: Hypoparathyroidism, Obesity/BMI 30+, Osteopenia, Vitamin D Deficiency Other Endocrine/Metabolic History: Blood sugar low, pt has addisons or cushings - not distinguished yet, adrenal insufficiency Hematologic History: Reports: None Immunologic History: Reports: Other (See Below) Oncologic (Cancer) History: Reports: None Dermatologic History: Reports: Other (See Below) Other Dermatologic History: ALLERGIES - Infectious Disease History Infectious Disease History: Reports: Chicken Pox, Novel Coronavirus, Shingles - Past Surgical History Head Surgeries/Procedures: Reports: Craniotomy HEENT Surgical History: Reports: Naso-Sinus Surgery Other HEENT Surgeries/Procedures: sinus surgery GI Surgical History: Reports: Appendectomy, Bariatric Procedure, EGD, Lysis of Adhesions, Other (See Below) Other GI Surgeries/Procedures: Pt had feeding tube placed due to not gaining any weight. Feeding tube was removed in July 2018 and pt has had an infection at the site since. Female Surgical History: Reports: D&C Neurological Surgical History: Reports: Other (See Below) Other Neurological Surgeries/Procedures: Craniotomy Musculoskeletal Surgical History: Reports: ORIF, Shoulder Surgery Dermatological Surgical History: Reports: None Social & Family History - Family History Family Medical History: No Pertinent Family History - Tobacco Use Tobacco Use Status *Q: Never Tobacco User Second Hand Smoke Exposure: No - Caffeine Use Caffeine Use: Reports: Coffee, Soda Caffeine Use Comment: 5 cans of soda per day - Recreational Drug Use Recreational Drug Use: No - Living Situation & Occupation Living situation: Reports: , with Spouse, with Family (1 adult son) Occupation: Unemployed ED ROS GENERAL - Review of Systems Review Of Systems: See Below Free Text/Narrative/Comment: In addition to that documented in the HPI above, the additional ROS was obtained: Constitutional: Denies fevers or chills Eyes: Denies vision changes ENMT: Denies sore throat CV: Per HPI Resp: Denies SOB GI: Denies vomiting or diarrhea : Denies painful urination MSK: Denies recent trauma Skin: Denies new rashes Neuro: Denies new numbness or tingling or weakness Endocrine: Denies unexpected weight loss Heme: Denies bleeding disorders ED EXAM, GENERAL - Physical Exam Exam: See Below Free Text/Narrative:: I have reviewed the triage vital signs Const: Well nourished, well developed, appears stated age Eyes: Pupils Equal and reactive to light bilaterally, no conjunctival injection HENT: No signs of trauma or swelling, Neck supple without meningismus CV: Regular Rate Rhythm, Warm, well-perfused extremities RESP: Unlabored respiratory effort GI: soft, non-tender, non-distended, no masses MSK: No gross deformities appreciated Skin: Warm, dry. 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 Sensation and motor function of extremities intact. Psych: Appropriate mood and affect. Course - Vital Signs Last Recorded V/S: Last Vital Signs Temp 37.3 C 02/27/21 19:17 Pulse 74 02/27/21 19:17 Resp 12 02/27/21 19:17 BP 141/101 H 02/27/21 19:17 Pulse Ox 92 L 02/27/21 19:17 - Orders/Labs/Meds Labs: Laboratory Tests 02/27/21 02/27/21 02/27/21 Range/Units 14:05 14:05 14:05 WBC 10.22 H (3.98-10.04) K/mm3 RBC 4.43 (3.98-5.22) M/mm3 Hgb 12.0 (11.2-15.7) gm/dl Hct 38.8 (34.1-44.9) % MCV 87.6 D (79.4-94.8) fl MCH 27.1 (25.6-32.2) pg MCHC 30.9 L (32.2-35.5) g/dl RDW Std Deviation 49.3 H (36.4-46.3) fL Plt Count 285 (182-369) K/mm3 MPV 9.8 (9.4-12.3) fl Neut % (Auto) 65.4 (34.0-71.1) % Lymph % (Auto) 22.9 (19.3-51.7) % [place] % (Auto) 10.2 (4.7-12.5) % Eos % (Auto) 0.4 L (0.7-5.8) Baso % (Auto) 0.4 (0.1-1.2) % Neut # (Auto) 6.69 H (1.56-6.13) K/mm3 Lymph # (Auto) 2.34 (1.18-3.74) K/mm3 [place] # (Auto) 1.04 H (0.24-0.36) K/mm3 Eos # (Auto) 0.04 (0.04-0.36) K/mm3 Baso # (Auto) 0.04 (0.01-0.08) K/mm3 PT 10.2 (9.7-12.0) SECONDS INR < 0.93 D-Dimer, Quantitative 1.82 H (0.19-0.50) mg/L Sodium 143 (136-145) mEq/L Potassium 4.7 (3.5-5.1) mEq/L Chloride 105 (98-107) mEq/L Carbon Dioxide 31 (21-32) mEq/L Anion Gap 11.7 (5-15) BUN 9 (7-18) mg/dL Creatinine 1.1 H (0.55-1.02) mg/dL Est Cr Clr Drug Dosing 53.42 mL/min Estimated GFR (MDRD) 53 (>60) mL/min BUN/Creatinine Ratio 8.2 L (14-18) Glucose 87 (70-99) mg/dL Calcium 9.1 (8.5-10.1) mg/dL Total Bilirubin 0.3 (0.2-1.0) mg/dL AST 21 (15-37) U/L ALT 21 (14-59) U/L Alkaline Phosphatase 101 (46-116) U/L Troponin I < 0.017 (0.00-0.056) ng/mL Total Protein 7.1 (6.4-8.2) g/dl Albumin 3.6 (3.4-5.0) g/dl Globulin 3.5 gm/dL Albumin/Globulin Ratio 1.0 (1-2) SARS-CoV-2 RNA (TRISH) (NEGATIVE) 02/27/21 Range/Units 16:10 WBC (3.98-10.04) K/mm3 RBC (3.98-5.22) M/mm3 Hgb (11.2-15.7) gm/dl Hct (34.1-44.9) % MCV (79.4-94.8) fl MCH (25.6-32.2) pg MCHC (32.2-35.5) g/dl RDW Std Deviation (36.4-46.3) fL Plt Count (182-369) K/mm3 MPV (9.4-12.3) fl Neut % (Auto) (34.0-71.1) % Lymph % (Auto) (19.3-51.7) % [place] % (Auto) (4.7-12.5) % Eos % (Auto) (0.7-5.8) Baso % (Auto) (0.1-1.2) % Neut # (Auto) (1.56-6.13) K/mm3 Lymph # (Auto) (1.18-3.74) K/mm3 [place] # (Auto) (0.24-0.36) K/mm3 Eos # (Auto) (0.04-0.36) K/mm3 Baso # (Auto) (0.01-0.08) K/mm3 PT (9.7-12.0) SECONDS INR D-Dimer, Quantitative (0.19-0.50) mg/L Sodium (136-145) mEq/L Potassium (3.5-5.1) mEq/L Chloride (98-107) mEq/L Carbon Dioxide (21-32) mEq/L Anion Gap (5-15) BUN (7-18) mg/dL Creatinine (0.55-1.02) mg/dL Est Cr Clr Drug Dosing mL/min Estimated GFR (MDRD) (>60) mL/min BUN/Creatinine Ratio (14-18) Glucose (70-99) mg/dL Calcium (8.5-10.1) mg/dL Total Bilirubin (0.2-1.0) mg/dL AST (15-37) U/L ALT (14-59) U/L Alkaline Phosphatase (46-116) U/L Troponin I (0.00-0.056) ng/mL Total Protein (6.4-8.2) g/dl Albumin (3.4-5.0) g/dl Globulin gm/dL Albumin/Globulin Ratio (1-2) SARS-CoV-2 RNA (TRISH) Negative (NEGATIVE) Meds: Medications Discontinued Medications Generic Name Dose Route Start Last Admin Trade Name Freq PRN Reason Stop Dose Admin Diphenhydramine HCl 25 mg 02/27/21 14:27 02/27/21 15:02 Diphenhydramine 50 Mg/Ml Sdv IVPUSH 02/27/21 14:28 25 mg ONETIME ONE Administration Lactated Ringer's 1,000 mls @ 1,000 mls/hr 02/27/21 14:27 02/27/21 15:04 Ringers, Lactated IV 02/27/21 15:26 1,000 mls/hr .BOLUS ONE Administration Sodium Chloride 100 mls @ 75 mls/hr 02/27/21 15:15 02/27/21 15:52 Normal Saline IV 75 mls/hr ASDIRECTED ANA Administration Iopamidol 100 ml 02/27/21 15:11 02/27/21 15:52 Iopamidol 755 Mg/Ml 100 Ml Bottle IVPUSH 02/27/21 15:12 100 ml ONETIME ONE Administration Ketorolac Tromethamine 15 mg 02/27/21 15:58 02/27/21 16:07 Ketorolac 15 Mg/Ml Sdv IVPUSH 02/27/21 15:59 15 mg ONETIME ONE Administration Lorazepam 0.5 mg 02/27/21 16:21 02/27/21 16:42 Lorazepam 2 Mg/Ml Sdv IVPUSH 02/27/21 16:22 0.5 mg ONETIME ONE Administration Morphine Sulfate 4 mg 02/27/21 17:25 02/27/21 18:45 Morphine 4 Mg/Ml Syringe IVPUSH 02/27/21 17:26 4 mg ONETIME ONE Administration Ondansetron HCl 4 mg 02/27/21 14:28 02/27/21 15:00 Ondansetron 4 Mg/2 Ml Sdv IVPUSH 02/27/21 14:29 4 mg ONETIME ONE Administration Sodium Chloride 10 ml 02/27/21 15:11 02/27/21 15:52 Sodium Chloride 0.9% 10 Ml Syringe FLUSH 10 ml ONETIME PRN Administration IV FLUSH Departure - Departure Time of Disposition: 19:02 Disposition: Home, Self-Care 01 Clinical Impression: Headache Qualifiers: Headache type: tension-type Headache chronicity pattern: chronic headache Intractability: not intractable Qualified Code(s): G44.229 - Chronic tension- type headache, not intractable Instructions: General Headache Without Cause, [id number] Referrals: Lyn Hahn NP [Primary Care Provider] - Forms: ED Department Discharge Additional Instructions: Please follow-up with your primary care physician for further management of this headache. Return to the emergency room for worsening symptoms or any other emergent concerns. Sepsis Event Note (ED) - Evaluation Sepsis Screening Result: No Definite Risk - Assessment/Plan Assessment:: Patient 50 old female presenting to the emergency room with a complaint of headache and chest pain. Patient had unremarkable ER course. Her EKG demonstrates normal sinus rhythm without evidence of acute ischemic changes. Patient had laboratory studies and chest x-ray performed as well. Differential diagnosis considered for this patient include ACS, subarachnoid hemorrhage, aortic dissection, pulmonary embolism, pneumonia, COVID-19. D-dimer significantly elevated and patient underwent CT angiogram without significant findings. Patient did feel better after the administration of morphine. She will be discharged with outpatient follow-up. Patient has longstanding headache history this is likely causative factor for this patient's ER visit. All questions were addressed and answered. Patient discharged in stable condition with appropriate return precautions.
--- NOTE | 2021-02-27 15:25 | CR ---
Chest: Frontal view of the chest was obtained. Comparison: Prior chest x-ray of 09/30/20. Heart size and mediastinum are normal. Lungs are clear with no acute parenchymal change. Prior right shoulder surgery is partially seen. Minimal scoliosis is noted within the spine. Impression: 1. Nothing acute is seen on frontal chest x-ray. Diagnostic code #2
[2021-02-27] MEDS ORDERED: Ketorolac 15 MG/ML SDV IVPUSH ONE (15:58)
--- NOTE | 2021-02-27 16:08 | CT ---
CT chest Technique: Multiple axial sections through the chest were obtained. Intravenous contrast was utilized. Study has been performed as a pulmonary angiogram protocol. Comparison: No prior chest CT is available, prior chest x-ray performed earlier on the same day was utilized. Findings: Pulmonary arteries are fairly well opacified. No filling defects are seen to indicate pulmonary embolism. Thoracic aorta shows no aneurysm. Mediastinum shows no adenopathy. No axillary adenopathy is seen. No pericardial thickening is seen. Minimal coronary artery calcification is noted. Visualized upper abdominal structures show prior stomach surgery. Surgical clips are seen from prior cholecystectomy. No acute upper abdominal abnormality is appreciated. Lung window settings were reviewed. No acute parenchymal abnormality is appreciated. Bone window settings were reviewed which appear within normal limits for the patient's age. Impression: 1. No findings of pulmonary embolism. 2. Minimal coronary artery calcification. 3. Prior abdominal surgery as noted above. Nothing acute is seen. Diagnostic code #2
[2021-02-27] MEDS ORDERED: LORazepam 2 MG/ML SDV IVPUSH ONE (16:21)
[2021-02-27] MEDS ORDERED: Morphine 4 MG/ML Syringe IVPUSH ONE (17:25)
[2021-02-27 19:20] VITALS: BP 141/101
== END 2021-02-27 19:19 | disposition home or self-care (01) ==
LOC: JD.ED 13:36
DX: G44.229 Chronic tension-type headache, not intractable (principal); R07.9 Chest pain, unspecified; Z88.2 Allergy status to sulfonamides; Z88.8 Allergy status to other drugs, medicaments and biological substances; Z91.018 Allergy to other foods; Z79.899 Other long term (current) drug therapy; Z20.822 Contact with and (suspected) exposure to COVID-19
CPT/HCPCS: 36415; 71045; 71275; 80053; 84484; 85025; 85379; 85610; 87635; 96374; 96375; 99285; J1200; J1885; J2060; J2270; J2405; J7120; Q9967; 93005; U0002

== ENCOUNTER 2021-03-13 12:59 | Emergency (ER) | payer BC ==
[2021-03-13 13:19] VITALS: BP 116/81; PULSE 52
[2021-03-13] MEDS ORDERED: HYDROmorphone 1 MG/ML Syringe IM ONE ×2 (13:36→15:22)
--- NOTE | 2021-03-13 14:10 | CT ---
Head CT Technique: Multiple axial sections through the brain were obtained. Intravenous contrast was not utilized. Reconstructed coronal and sagittal images were obtained. Comparison: Prior head CT study of 12/24/20. Findings: Ventricles along with basal cisterns and sulci over the convexities appear within normal limits for the patient's age. No abnormal parenchymal densities are seen. No evidence of intracranial hemorrhage is seen. No midline shift or mass-effect is seen. Bone window settings were reviewed which show no acute calvarial abnormality. Mastoid sinuses show nothing acute. Paranasal sinuses show retention cysts within the left and right maxillary sinuses. Impression: 1. Minimal sinus findings which are felt to be incidental. 2. Noncontrast head CT study shows nothing acute. Diagnostic code #2
--- NOTE | 2021-03-13 14:33 | CR ---
Lumbar spine: AP, lateral and coned-down lateral views centered to the lumbosacral junction were obtained. Comparison: Prior lumbar spine study of 08/21/19. Very slight anterior osteophytes are seen within L3-L5 which is stable. Vertebral body heights and disc spaces are maintained. Pedicles are intact. Sacroiliac joints are normal. Surgical material is seen within the left upper abdomen as well as surgical clip within the pelvis. No subluxation or fracture is seen. Impression: 1. Minimal spurring at this L3-L5. 2. Prior abdominal surgery. 3. Other portions of the three-view lumbar spine study appear unremarkable. Diagnostic code #2
--- NOTE | 2021-03-13 15:41 | EDM.PDOC ---
ED HPI GENERAL MEDICAL PROBLEM - General Chief Complaint: Back Pain or Injury Stated Complaint: [facility] Time Seen by Provider: 03/13/21 13:26 Source of Information: Reports: Patient, EMS History Limitations: Reports: No Limitations - History of Present Illness INITIAL COMMENTS - FREE TEXT/NARRATIVE: The patient presents by [facility] for a fall. Her kitten got out and she went to find him and she fell and hit her head. She does not think she had any LOC. She has a contusion to her forehead and low back pain. She thinks she may have gotten dizzy before falling. She has no numbness or weakness in her legs. She has no chest pain, shortness of breath, fever, chills or cough. Onset: Sudden Duration: Hour(s): Location: Reports: Head, Back Quality: Reports: Sharp Severity: Moderate Improves with: Reports: Immobilization Worsens with: Reports: Heat Therapy Context: Reports: Trauma (fall) Associated Symptoms: Reports: Headaches. Denies: Chest Pain, Cough, Fever/Chills, Nausea/Vomiting, Shortness of Breath Middle Back Pain Score (Numeric/FACES): 8 - Related Data Allergies Allergy/AdvReac Type Severity Reaction Status Date / Time clarithromycin [From Biaxin] Allergy Severe Hives Verified 01/01/21 11:31 erythromycin base Allergy Severe Other Verified 01/01/21 11:31 strawberry [Mittie] Allergy Severe Anaphylactic Verified 01/01/21 11:31 Shock metoclopramide HCl AdvReac Severe "Panic Verified 01/01/21 11:31 [From Reglan] Attack" Home Meds: Home Meds Pantoprazole Sodium 40 mg PO BID 08/23/18 [History] Promethazine [Phenergan] 25 mg PO ASDIRECTED PRN 10/24/18 [History] Pregabalin [Lyrica] 225 mg PO BID 11/29/18 [History] Divalproex Sodium [Depakote] 500 mg PO BID 11/30/18 [History] Cholecalciferol (Vitamin D3) [Vitamin D3] 5,000 unit PO DAILY #30 tablet 12/03/18 [Rx] EPINEPHrine [Epipen 2-Collin] 0.3 mg IJ ASDIRECTED PRN 08/16/19 [History] cloNIDine [Catapres] 0.2 mg PO BID 08/16/19 [History] Lurasidone HCl [Latuda] 60 mg PO BEDTIME 09/04/19 [History] Prazosin HCl [Prazosin] 2 mg PO BEDTIME 09/04/19 [History] lamoTRIgine [Lamictal] 225 mg PO BID 09/04/19 [History] LORazepam [Ativan] 0.5 mg PO Q4H PRN #12 tab 09/28/20 [Rx] Ondansetron [Zofran ODT] 4 mg PO Q6H PRN #10 tab.dis 09/28/20 [Rx] Desvenlafaxine [Desvenlafaxine ER] 100 mg PO DAILY 10/03/20 [History] FLUoxetine HCl [Prozac] 20 mg PO DAILY 10/03/20 [History] QUEtiapine Fumarate [Quetiapine Fumarate ER] 300 mg PO DAILY 10/03/20 [History] busPIRone [Buspar] 15 mg PO BID 10/03/20 [History] tiZANidine [Zanaflex] 4 mg PO BEDTIME PRN 10/03/20 [History] Hydrocodone/Acetaminophen [HYDROcodone-Acetaminophen 5-325 MG] 1 - 2 each PO Q6H PRN #10 tab 12/12/20 [Rx] Prochlorperazine Maleate 10 mg PO Q6H PRN #12 tablet 12/12/20 [Rx] Hydrocodone/Acetaminophen [Hydrocodone-Acetamin 5-325 mg] 1 - 2 each PO Q6H PRN #6 tablet 03/13/21 [Rx] Past Medical History HEENT History: Reports: Impaired Vision Other HEENT History: sinus problems Cardiovascular History: Reports: Syncope Respiratory History: Reports: Asthma Gastrointestinal History: Reports: GI Bleed, PUD Other Gastrointestinal History: ABDOMINAL PAIN/SCAR TISSUES Genitourinary History: Reports: Other (See Below) Other Genitourinary History: kidney failure, resolved [employer] 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 Other [employer]BI[employer] ACCESS[employer] SALESPERSON History: x2, 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 Musculoskeletal History: Reports: Fracture Other Musculoskeletal History: right hip fx, R akle fx Neurological History: Reports: Other (See Below) Other Neuro History: epilepsy, pseudo seizures Psychiatric History: Reports: Addiction, Anxiety, Depression, Suicidal Ideation, Other (See Below) Other Psychiatric History: addiction in past Endocrine/Metabolic History: Reports: Hypoparathyroidism, Obesity/BMI 30+, Osteopenia, Vitamin D Deficiency Other Endocrine/Metabolic History: Blood sugar low, pt has addisons or cushings - not distinguished yet, adrenal insufficiency Hematologic History: Reports: None Immunologic History: Reports: Other (See Below) Oncologic (Cancer) History: Reports: None Dermatologic History: Reports: Other (See Below) Other Dermatologic History: ALLERGIES - Infectious Disease History Infectious Disease History: Reports: Chicken Pox, Novel Coronavirus, Shingles - Past Surgical History Head Surgeries/Procedures: Reports: Craniotomy HEENT Surgical History: Reports: Naso-Sinus Surgery Other HEENT Surgeries/Procedures: sinus surgery GI Surgical History: Reports: Appendectomy, Bariatric Procedure, EGD, Lysis of Adhesions, Other (See Below) Other GI Surgeries/Procedures: Pt had feeding tube placed due to not gaining any weight. Feeding tube was removed in July 2018 and pt has had an infection at the site since. Female Surgical History: Reports: D&C Neurological Surgical History: Reports: Other (See Below) Other Neurological Surgeries/Procedures: Craniotomy Musculoskeletal Surgical History: Reports: ORIF, Shoulder Surgery Dermatological Surgical History: Reports: None Social & Family History - Family History Family Medical History: No Pertinent Family History - Tobacco Use Tobacco Use Status *Q: Never Tobacco User - Caffeine Use Caffeine Use: Reports: Soda Caffeine Use Comment: 5 cans of soda per day - Recreational Drug Use Recreational Drug Use: No - Living Situation & Occupation Living situation: Reports: , with Spouse, with Family (1 adult son) Occupation: Unemployed ED ROS GENERAL - Review of Systems Review Of Systems: See Below Constitutional: Reports: No Symptoms HEENT: Reports: No Symptoms Respiratory: Reports: No Symptoms Cardiovascular: Reports: No Symptoms Endocrine: Reports: No Symptoms GI/Abdominal: Reports: No Symptoms : Reports: No Symptoms Musculoskeletal: Reports: Back Pain Neurological: Reports: Headache ED EXAM,LOWER BACK PAIN/INJURY - Physical Exam Exam: See Below Exam Limited By: No Limitations General Appearance: Alert, No Apparent Distress Ears: Normal External Exam Nose: Normal Inspection Head: Other (Contusion to the forehead) Neck: Normal Inspection, Supple, Non-Tender Respiratory/Chest: No Respiratory Distress, Lungs Clear, Normal Breath Sounds Cardiovascular: Regular Rate, Rhythm, No Edema, No Murmur GI/Abdominal: Soft, Non-Tender, No Organomegaly, No Mass Back Exam: Other (Pain upon palpation to the low back) Extremities: Normal Inspection Neurological: Alert, No Motor/Sensory Deficits, Oriented x 3 #1 Interpretation EKG Date: 03/13/21 Time: 14:15 Rhythm: Other (sinus bradycardia) Rate (Beats/Min): 53 [place]: Normal P-Wave: Present QRS: Normal ST-T: Normal QT: Normal Course - Vital Signs Last Recorded V/S: Last Vital Signs Temp 96.7 F L 03/13/21 13:18 Pulse 52 L 03/13/21 13:18 Resp 20 03/13/21 13:18 BP 116/81 03/13/21 13:18 Pulse Ox 100 03/13/21 13:18 - Orders/Labs/Meds Orders: Active Orders 24 hr Category Date Time Status Cardiac Monitoring [RC] . DIRECTED Care 03/13/21 13:37 Active Labs: Laboratory Tests 03/13/21 03/13/21 Range/Units 15:16 15:16 WBC 5.19 (3.98-10.04) K/mm3 RBC 4.52 (3.98-5.22) M/mm3 Hgb 12.1 (11.2-15.7) gm/dl Hct 38.9 (34.1-44.9) % MCV 86.1 (79.4-94.8) fl MCH 26.8 (25.6-32.2) pg MCHC 31.1 L (32.2-35.5) g/dl RDW Std Deviation 50.3 H (36.4-46.3) fL Plt Count 227 (182-369) K/mm3 MPV 9.7 (9.4-12.3) fl Neut % (Auto) 43.5 (34.0-71.1) % Lymph % (Auto) 40.3 (19.3-51.7) % [place] % (Auto) 10.2 (4.7-12.5) % Eos % (Auto) 4.8 (0.7-5.8) Baso % (Auto) 0.6 (0.1-1.2) % Neut # (Auto) 2.26 (1.56-6.13) K/mm3 Lymph # (Auto) 2.09 (1.18-3.74) K/mm3 [place] # (Auto) 0.53 H (0.24-0.36) K/mm3 Eos # (Auto) 0.25 (0.04-0.36) K/mm3 Baso # (Auto) 0.03 (0.01-0.08) K/mm3 Sodium 141 (136-145) mEq/L Potassium 4.4 (3.5-5.1) mEq/L Chloride 107 (98-107) mEq/L Carbon Dioxide 28 (21-32) mEq/L Anion Gap 10.4 (5-15) BUN 7 (7-18) mg/dL Creatinine 1.0 (0.55-1.02) mg/dL Est Cr Clr Drug Dosing 58.76 mL/min Estimated GFR (MDRD) 59 (>60) mL/min BUN/Creatinine Ratio 7.0 L (14-18) Glucose 92 (70-99) mg/dL Calcium 8.3 L (8.5-10.1) mg/dL Total Bilirubin 0.3 (0.2-1.0) mg/dL AST 18 (15-37) U/L ALT 14 (14-59) U/L Alkaline Phosphatase 111 (46-116) U/L Troponin I < 0.017 (0.00-0.056) ng/mL Total Protein 6.0 L (6.4-8.2) g/dl Albumin 3.1 L (3.4-5.0) g/dl Globulin 2.9 gm/dL Albumin/Globulin Ratio 1.1 (1-2) Meds: Medications Discontinued Medications Generic Name Dose Route Start Last Admin Trade Name Román PRN Reason Stop Dose Admin Hydromorphone HCl 1 mg 03/13/21 13:36 03/13/21 14:05 Hydromorphone 1 Mg/Ml Syringe IM 03/13/21 13:37 1 mg ONETIME ONE Administration Hydromorphone HCl 1 mg 03/13/21 15:22 03/13/21 15:33 Hydromorphone 1 Mg/Ml Syringe IM 03/13/21 15:23 1 mg ONETIME ONE Administration - Re-Assessments/Exams Free Text/Narrative Re-Assessment/Exam: 03/13/21 15:43 I ordered an EKG, CT of her head, x-ray of her lumbar spine and labs. Her EKG shows a sinus bradycardia with no acute changes. Her CT shows minimal sinus findings which are felt to be incidental. Noncontrast head CT study shows nothing acute. The x-ray of her lumbar spine shows minimal spurring at L3-L5. Prior abdominal surgery. Other portions of the three view lumbar spine study appear unremarkable. 03/13/21 16:22 Her CBC and CMP look good. Her troponin is negative. I will discharge her home. Departure - Departure Time of Disposition: 16:25 Disposition: Home, Self-Care 01 Condition: Good Clinical Impression: Fall Qualifiers: Encounter type: initial encounter Qualified Code(s): W19.XXXA - Unspecified fall, initial encounter Low back pain Qualifiers: Chronicity: acute Back pain laterality: bilateral Sciatica presence: without sciatica Qualified Code(s): M54.50 - Low back pain, unspecified Head injury Qualifiers: Encounter type: initial encounter Qualified Code(s): S09.90XA - Unspecified injury of head, initial encounter Contusion of forehead Qualifiers: Encounter type: initial encounter Qualified Code(s): S00.83XA - Contusion of other part of head, initial encounter - Discharge Information *PRESCRIPTION DRUG MONITORING PROGRAM REVIEWED*: Not Applicable *COPY OF PRESCRIPTION DRUG MONITORING REPORT IN PATIENT IGGY: Not Applicable Prescriptions: Hydrocodone/Acetaminophen [Hydrocodone-Acetamin 5-325 mg] 1 - 2 each PO Q6H PRN #6 tablet PRN Reason: Pain Referrals: PCP,None [Primary Care Provider] - Forms: ED Department Discharge Additional Instructions: Take your muscle relaxer as prescribed. Take the hydrocodone as needed. Follow up with your provider within a week. Please return if you are worse. Sepsis Event Note (ED) - Focused Exam Vital Signs: Vital Signs Temp Pulse Resp BP Pulse Ox 03/13/21 13:18 96.7 F L 52 L 20 116/81 100 - My Orders Last 24 Hours: My Active Orders 03/13/21 13:37 Cardiac Monitoring [RC] . DIRECTED - Assessment/Plan Last 24 Hours: My Active Orders 03/13/21 13:37 Cardiac Monitoring [RC] . DIRECTED
[2021-03-13] MEDS ORDERED: Cyclobenzaprine 10 MG Tab PO ONE (16:26)
== END 2021-03-13 17:00 | disposition home or self-care (01) ==
LOC: JD.ED 12:59
DX: S09.90XA Unspecified injury of head, initial encounter (principal); S00.83XA Contusion of other part of head, initial encounter; M54.50 Low back pain, unspecified; Z88.1 Allergy status to other antibiotic agents; Z91.018 Allergy to other foods; Z79.899 Other long term (current) drug therapy; W19.XXXA Unspecified fall, initial encounter
CPT/HCPCS: 36415; 70450; 70450-26; 72100; 72100-26; 80053; 84484; 85025; 93005; 93010; 96372; 99284; 99284-25; J1170

== ENCOUNTER 2021-03-19 13:25 | Emergency (ER) | payer BC ==
[2021-03-19 13:34] VITALS: BP 141/102; PULSE 102
[2021-03-19] MEDS ORDERED: HYDROmorphone 1 MG/ML Syringe IM ONE (13:47)
--- NOTE | 2021-03-19 13:53 | EDM.PDOC ---
ED HPI GENERAL MEDICAL PROBLEM - General Chief Complaint: Burn Stated Complaint: [facility] Time Seen by Provider: 03/19/21 13:36 Source of Information: Reports: Patient, EMS, RN Notes Reviewed History Limitations: Reports: No Limitations - History of Present Illness INITIAL COMMENTS - FREE TEXT/NARRATIVE: Patient is a 50-year-old female who presents to the ER via [facility] for the evaluation of her saldivar. States she was emptying of a deep fat fryer, when she became entangled with her cat under her feet, and she ended up pouring the deep fat fryer grease on the lateral aspect of her right arm, and down her right lower leg below the knee. This extends the whole lateral surface of the patient's right leg, all the way down to the lateral ankle. she was given 5 mg morphine via ambulance en route here, she does have water gel dressings applied to the wounds. States that this does make it feel a bit better. States that she is still having quite a bit of pain however. Patient denies any other sick-like symptoms, fever/chills, cough/shortness of breath, nausea/vomiting/diarrhea. Right Leg Pain Score (Numeric/FACES): 9 Right Arm Pain Score (Numeric/FACES): 9 - Related Data Allergies Allergy/AdvReac Type Severity Reaction Status Date / Time clarithromycin [From Biaxin] Allergy Severe Hives Verified 03/19/21 13:30 erythromycin base Allergy Severe Other Verified 03/19/21 13:30 strawberry [Natalia] Allergy Severe Anaphylactic Verified 03/19/21 13:30 Shock metoclopramide HCl AdvReac Severe "Panic Verified 03/19/21 13:30 [From Reglan] Attack" Home Meds: Home Meds Pantoprazole Sodium 40 mg PO BID 08/23/18 [History] Promethazine [Phenergan] 25 mg PO ASDIRECTED PRN 10/24/18 [History] Pregabalin [Lyrica] 225 mg PO BID 11/29/18 [History] Divalproex Sodium [Depakote] 500 mg PO BID 11/30/18 [History] Cholecalciferol (Vitamin D3) [Vitamin D3] 5,000 unit PO DAILY #30 tablet 12/03/18 [Rx] EPINEPHrine [Epipen 2-Collin] 0.3 mg IJ ASDIRECTED PRN 08/16/19 [History] cloNIDine [Catapres] 0.2 mg PO BID 08/16/19 [History] Lurasidone HCl [Latuda] 60 mg PO BEDTIME 09/04/19 [History] Prazosin HCl [Prazosin] 2 mg PO BEDTIME 09/04/19 [History] lamoTRIgine [Lamictal] 225 mg PO BID 09/04/19 [History] LORazepam [Ativan] 0.5 mg PO Q4H PRN #12 tab 09/28/20 [Rx] Ondansetron [Zofran ODT] 4 mg PO Q6H PRN #10 tab.dis 09/28/20 [Rx] Desvenlafaxine [Desvenlafaxine ER] 100 mg PO DAILY 10/03/20 [History] FLUoxetine HCl [Prozac] 20 mg PO DAILY 10/03/20 [History] QUEtiapine Fumarate [Quetiapine Fumarate ER] 300 mg PO DAILY 10/03/20 [History] busPIRone [Buspar] 15 mg PO BID 10/03/20 [History] tiZANidine [Zanaflex] 4 mg PO BEDTIME PRN 10/03/20 [History] Hydrocodone/Acetaminophen [HYDROcodone-Acetaminophen 5-325 MG] 1 - 2 each PO Q6H PRN #10 tab 12/12/20 [Rx] Prochlorperazine Maleate 10 mg PO Q6H PRN #12 tablet 12/12/20 [Rx] Hydrocodone/Acetaminophen [Hydrocodone-Acetamin 5-325 mg] 1 - 2 each PO Q6H PRN #6 tablet 03/13/21 [Rx] Hydrocodone/Acetaminophen [HYDROcodone-Acetaminophen 5-325 MG] 1 tab PO Q6H PRN #12 tablet 03/19/21 [Rx] Past Medical History HEENT History: Reports: Impaired Vision Other HEENT History: sinus problems Cardiovascular History: Reports: Syncope Respiratory History: Reports: Asthma Gastrointestinal History: Reports: GI Bleed, PUD Other Gastrointestinal History: ABDOMINAL PAIN/SCAR TISSUES Genitourinary History: Reports: Other (See Below) Other Genitourinary History: kidney failure, resolved LONG TERM CARE ADMINISTRATOR History: Reports: Spontaneous Other LONG TERM CARE ADMINISTRATOR History: x2, 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 Musculoskeletal History: Reports: Fracture Other Musculoskeletal History: right hip fx, R akle fx Neurological History: Reports: Other (See Below) Other Neuro History: epilepsy, pseudo seizures Psychiatric History: Reports: Addiction, Anxiety, Depression, Suicidal Ideation, Other (See Below) Other Psychiatric History: addiction in past Endocrine/Metabolic History: Reports: Hypoparathyroidism, Obesity/BMI 30+, Osteopenia, Vitamin D Deficiency Other Endocrine/Metabolic History: Blood sugar low, pt has addisons or cushings - not distinguished yet, adrenal insufficiency Hematologic History: Reports: None Immunologic History: Reports: Other (See Below) Oncologic (Cancer) History: Reports: None Dermatologic History: Reports: Other (See Below) Other Dermatologic History: ALLERGIES - Infectious Disease History Infectious Disease History: Reports: Chicken Pox, Novel Coronavirus, Shingles - Past Surgical History Head Surgeries/Procedures: Reports: Craniotomy HEENT Surgical History: Reports: Naso-Sinus Surgery Other HEENT Surgeries/Procedures: sinus surgery GI Surgical History: Reports: Appendectomy, Bariatric Procedure, EGD, Lysis of Adhesions, Other (See Below) Other GI Surgeries/Procedures: Pt had feeding tube placed due to not gaining any weight. Feeding tube was removed in July 2018 and pt has had an infection at the site since. Female Surgical History: Reports: D&C Neurological Surgical History: Reports: Other (See Below) Other Neurological Surgeries/Procedures: Craniotomy Musculoskeletal Surgical History: Reports: ORIF, Shoulder Surgery Dermatological Surgical History: Reports: None Social & Family History - Family History Family Medical History: No Pertinent Family History - Caffeine Use Caffeine Use: Reports: Soda Caffeine Use Comment: 5 cans of soda per day - Living Situation & Occupation Living situation: Reports: , with Spouse, with Family (1 adult son) Occupation: Unemployed ED ROS GENERAL - Review of Systems Review Of Systems: Comprehensive ROS is negative, except as noted in HPI. ED EXAM, BURN/SMOKE INHALATION - Physical Exam Exam: See Below Exam Limited By: No Limitations General Appearance: Alert, WD/WN, No Apparent Distress Respiratory: No Respiratory Distress, Lungs Clear, Normal Breath Sounds, No Accessory Muscle Use, Chest Non-Tender Cardiovascular: Normal Peripheral Pulses, Regular Rate, Rhythm, No Edema Peripheral Pulses: 2+: Radial (L), Radial (R), Dorsalis Pedis (L), Dorsalis Pedis (R) Extremities: Normal Range of Motion, Normal Capillary Refill Neurological: Alert, Oriented, Normal Cognition, No Motor/Sensory Deficits Psychiatric: Normal Affect, Normal Mood Skin Exam: Warm, Dry, Intact, No Rash, Erythema (Patient has what appears to be superficial or first-degree saldivar to the lateral surface of her right forearm, and the lateral surface of her right lower leg below her knee that extends to her ankle. Looks to be about 18% BSA), Increased Warmth Course - Vital Signs Last Recorded V/S: Last Vital Signs Temp 98.1 F 03/19/21 13:31 Pulse 102 H 03/19/21 13:31 Resp 18 03/19/21 13:31 BP 141/102 H 03/19/21 13:31 Pulse Ox 100 03/19/21 13:31 - Orders/Labs/Meds Meds: Medications Discontinued Medications Generic Name Dose Route Start Last Admin Trade Name Román PRN Reason Stop Dose Admin Hydromorphone HCl 1 mg 03/19/21 13:47 Hydromorphone 1 Mg/Ml Syringe IM 03/19/21 13:48 ONETIME ONE - Re-Assessments/Exams Free Text/Narrative Re-Assessment/Exam: 03/19/21 13:53 Patient presents to the ER for the evaluation of her grease saldivar on her lateral portion of her right forearm, and right lower leg. These do appear to be superficial in nature at this time however they may worsen into partial or second-degree due to them being thermal saldivar. Appears to be about 18% total BSA. We will give the patient 1 mg Dilaudid, and have the nurse dressed these in an appropriate manner and have her follow-up with a provider in clinic sometime this week. I will give her a small prescription of stronger pain medications for outpatient management. Departure - Departure Time of Disposition: 13:54 Disposition: Home, Self-Care 01 Condition: Good Clinical Impression: Saldivar of multiple specified sites - Discharge Information *PRESCRIPTION DRUG MONITORING PROGRAM REVIEWED*: No *COPY OF PRESCRIPTION DRUG MONITORING REPORT IN PATIENT IGGY: No Instructions: Burn Care, Adult, [id number], Pain Medicine Instructions, [id number] Referrals: PCP,None [Primary Care Provider] - Additional Instructions: You were evaluated in the ER today for your saldivar on your right forearm, and right lower leg. Management of these saldivar will be topical bacitracin ointment to the area that is burned, with nonstick gauze over the burned area. The saldivar will likely be tender and sore for the next day or 2, You were given a prescription for a strong pain medication, hydrocodone/Acetaminophen 5/325 mg, please take 1 tab every 6 hours as needed for pain not relieved by Tylenol or ibuprofen alone. Please note this medication does contain Tylenol in it, so do not take more than 4000 mg in a 24-hour time span. These medications can be addictive, so please take as few as possible to achieve adequate pain control. These meds can also be quite constipating, recommend that you increase your oral fluid intake and take a stool softener like MiraLAX while taking these medications. Do not drive while taking this medication. This medication was electronically sent to the [facility]. Recommend that you try first 500 mg Tylenol or 600 mg ibuprofen every 6 hours as needed for ongoing pain management and then utilize the hydrocodone/acetaminophen tablets if pain is not managed by Tylenol or ibuprofen initially. Do not exceed 4000 mg Tylenol or 3200 mg ibuprofen in a 24-hour time span. You will need to follow-up with a provider sometime this week so they can reexamine the saldivar to make sure that they are getting better as expected. You may do this at the [facility], or at any other clinic that would be able to have an appointment to see you. Do not hesitate to return to the ER at any time if symptoms change or worsen. Thank you for allowing and choosing us to be involved in your healthcare needs. Sepsis Event Note (ED) - Evaluation Sepsis Screening Result: No Definite Risk - Focused Exam Vital Signs: Vital Signs Temp Pulse Resp BP Pulse Ox 03/19/21 13:31 98.1 F 102 H 18 141/102 H 100
== END 2021-03-19 15:04 | disposition home or self-care (01) ==
LOC: JD.ED 13:25
DX: T22.111A Burn of first degree of right forearm, initial encounter (principal); T24.101A Burn of first degree of unspecified site of right lower limb, except ankle and foot, initial encounter; J45.909 Unspecified asthma, uncomplicated; E66.9 Obesity, unspecified; Z68.42 Body mass index [BMI] 45.0-49.9, adult; Z88.1 Allergy status to other antibiotic agents; Z91.018 Allergy to other foods; Z88.8 Allergy status to other drugs, medicaments and biological substances; Z79.899 Other long term (current) drug therapy; X08.8XXA Exposure to other specified smoke, fire and flames, initial encounter
CPT/HCPCS: 96372; 99284; J1170

== ENCOUNTER 2021-03-23 10:45 | Day surgery (SDC) | payer BC ==
[2021-03-23] MEDS ORDERED: Sodium Chloride 0.9% 10 ML Syringe FLUSH PRN (10:49)
[2021-03-23] MEDS ORDERED: Lidocaine 1%/Sod Bicarbonate in NS 8.4% 1 ML Syringe IDERM PRN (10:49)
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
[2021-03-23] MEDS ORDERED: Lactated Ringers 1,000 ML IV SCH (11:00)
[2021-03-23] MEDS ORDERED: Lidocaine 1% 4 ML ONE (11:16)
[2021-03-23] MEDS ORDERED: Ondansetron 4 MG/2 ML SDV ONE (11:16)
[2021-03-23] MEDS ORDERED: Propofol 200 MG/20 ML SDV ONE (11:17)
[2021-03-23] MEDS ORDERED: fentaNYL 100 MCG/2 ML SDV ONE (11:17)
[2021-03-23] MEDS ORDERED: Midazolam 1 MG/ML 2 ML SDV ONE ×2 (11:17→12:37)
[2021-03-23] MEDS ORDERED: Ketamine 500 mg/10 ML MDV ONE (11:18)
[2021-03-23] MEDS ORDERED: Dexamethasone 4 MG/ML 5 ML MDV ONE (12:37)
[2021-03-23] MEDS ORDERED: Midazolam 1 MG/ML 2 ML SDV IVPUSH PRN (12:38)
[2021-03-23] MEDS ORDERED: HYDROmorphone 0.5 MG/0.5 ML Syringe IVPUSH PRN (12:38)
[2021-03-23] MEDS ORDERED: diphenhydrAMINE 50 MG/ML SDV IVPUSH PRN (12:38)
[2021-03-23] MEDS ORDERED: HYDROmorphone 0.5 MG/0.5 ML Syringe ONE (12:50)
--- NOTE | 2021-03-23 13:19 | PCM48HPAN ---
Post Anesthesia Note - EVALUATION WITHIN 48HRS OF ANESTHETIC Vital Signs in Normal Range: Yes Patient Participated in Evaluation: Yes Respiratory Function Stable: Yes Airway Patent: Yes Cardiovascular Function Stable: Yes Hydration Status Stable: Yes Pain Control Satisfactory: Yes Nausea and Vomiting Control Satisfactory: Yes Mental Status Recovered: Yes
[2021-03-23] MEDS: fentaNYL 100 MCG/2 ML SDV IVPUSH PRN ×2 (13:20→13:55)
[2021-03-23] MEDS ORDERED: oxyCODONE 5 MG Tab PO STA (13:24)
[2021-03-23 15:13] VITALS: BP 168/100; PULSE 95
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
== END 2021-03-23 14:30 | disposition home or self-care (01) ==
LOC: JD.SDS 10:45
PROVIDERS: ATTEND Surgery
DX: T24.001A Burn of unspecified degree of unspecified site of right lower limb, except ankle and foot, initial encounter (principal); T31.0 Burns involving less than 10% of body surface; J44.9 Chronic obstructive pulmonary disease, unspecified; K21.9 Gastro-esophageal reflux disease without esophagitis; E66.01 Morbid (severe) obesity due to excess calories; F17.210 Nicotine dependence, cigarettes, uncomplicated; Z91.040 Latex allergy status; Z91.018 Allergy to other foods; Z01.812 Encounter for preprocedural laboratory examination; Z88.8 Allergy status to other drugs, medicaments and biological substances; Z98.890 Other specified postprocedural states; Z20.822 Contact with and (suspected) exposure to COVID-19; X10.2XXA Contact with fats and cooking oils, initial encounter; Z68.42 Body mass index [BMI] 45.0-49.9, adult
CPT/HCPCS: 16020; 87635; A9270; J1100; J1170; J2250; J2405; J2704; J3010; J7120; U0002

== ENCOUNTER 2021-04-03 18:05 | Emergency (ER) | payer BC ==
[2021-04-03] MEDS ORDERED: LORazepam 0.5 MG Tab PO ONE (19:50)
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
[2021-04-03] MEDS ORDERED: Pregabalin 75 MG Cap PO ONE (21:20)
[2021-04-03] MEDS ORDERED: QUEtiapine 100 MG Tab PO SCH (21:21)
[2021-04-03 22:36] VITALS: BP 151/101; PULSE 82
[2021-04-04] MEDS ORDERED: QUEtiapine 100 MG Tab PO ONE (21:57)
== END 2021-04-03 21:45 | disposition other institution (70) ==
LOC: JD.ED 18:05
DX: F32.A Depression, unspecified (principal); J45.909 Unspecified asthma, uncomplicated; E66.9 Obesity, unspecified; Z91.018 Allergy to other foods; Z88.1 Allergy status to other antibiotic agents; Z88.8 Allergy status to other drugs, medicaments and biological substances; Z79.899 Other long term (current) drug therapy
CPT/HCPCS: 99284; A9270

== ENCOUNTER 2021-06-11 17:02 | Emergency (ER) | payer BC ==
[2021-06-11 17:13] VITALS: PULSE 60
[2021-06-11] MEDS ORDERED: Ketorolac 30 MG/ML SDV IVPUSH ONE (17:29)
[2021-06-11] MEDS ORDERED: HYDROmorphone 0.5 MG/0.5 ML Syringe IVPUSH ONE ×2 (17:29→18:57)
[2021-06-11] MEDS ORDERED: Sodium Chloride 0.9% 1,000 ML IV STA (17:29)
[2021-06-11] MEDS ORDERED: Ondansetron 4 MG/2 ML SDV IVPUSH ONE (17:29)
[2021-06-11] MEDS ORDERED: diphenhydrAMINE 50 MG/ML SDV IVPUSH ONE (17:30)
[2021-06-11] MEDS ORDERED: Dexamethasone 4 MG/ML SDV IVPUSH ONE (17:30)
[2021-06-11] MEDS ORDERED: Sodium Chloride 0.9% 10 ML Syringe FLUSH PRN (17:32)
[2021-06-11] MEDS ORDERED: Acetaminophen 325 MG Tab PO ONE (20:17)
[2021-06-11 20:29] VITALS: BP 123/78
== END 2021-06-11 20:35 | disposition home or self-care (01) ==
LOC: JD.ED 17:02
DX: G43.909 Migraine, unspecified, not intractable, without status migrainosus (principal); J45.909 Unspecified asthma, uncomplicated; Z91.018 Allergy to other foods; Z88.1 Allergy status to other antibiotic agents; Z91.040 Latex allergy status; Z91.048 Other nonmedicinal substance allergy status
CPT/HCPCS: 36415; 70450; 80053; 81001; 83690; 85025; 86140; 96374; 96375; 96376; 99284; A9270; J1100; J1170; J1200; J1885; J2405; J7030; 99285

== ENCOUNTER 2021-07-19 19:00 | Emergency (ER) | payer BC ==
[2021-07-19] MEDS ORDERED: Sodium Chloride 0.9% 10 ML Syringe FLUSH PRN (19:38)
[2021-07-19] MEDS ORDERED: Ondansetron 4 MG/2 ML SDV IVPUSH ONE (19:38)
[2021-07-19] MEDS ORDERED: HYDROmorphone 1 MG/ML Syringe IVPUSH STA (19:38)
[2021-07-19] MEDS ORDERED: Magnesium Citrate Solution 296 ML Bottle PO ONE (19:41)
[2021-07-19] MEDS ORDERED: Sodium Chloride 0.9% 1,000 ML IV SCH (19:45)
[2021-07-19] MEDS ORDERED: Sodium Chloride 0.9% 10 ML Syringe FLUSH ONE (19:58)
[2021-07-19] MEDS ORDERED: Iopamidol 612 MG/ML 100 ML Bottle IVPUSH ONE (19:58)
[2021-07-19] MEDS ORDERED: Sodium Chloride 0.9% 100 ML IV SCH (20:00)
[2021-07-19] MEDS ORDERED: HYDROmorphone 1 MG/ML Syringe IVPUSH ONE (21:56)
[2021-07-19] MEDS ORDERED: Metoclopramide 10 MG/2 ML SDV IVPUSH ONE (21:56)
[2021-07-19] MEDS ORDERED: diphenhydrAMINE 50 MG/ML SDV IVPUSH ONE (22:10)
[2021-07-19 22:52] VITALS: BP 140/109; PULSE 76
== END 2021-07-19 23:00 | disposition home or self-care (01) ==
LOC: JD.ED 19:00
DX: K59.03 Drug induced constipation (principal); T50.905A Adverse effect of unspecified drugs, medicaments and biological substances, initial encounter; K64.8 Other hemorrhoids; E66.9 Obesity, unspecified; Z68.42 Body mass index [BMI] 45.0-49.9, adult; Z91.040 Latex allergy status; Z91.018 Allergy to other foods; Z88.1 Allergy status to other antibiotic agents; Z88.5 Allergy status to narcotic agent; Z88.8 Allergy status to other drugs, medicaments and biological substances
CPT/HCPCS: 36415; 74177; 80053; 81001; 83690; 85025; 86140; 96374; 96375; 96376; 99284; A9270; J1170; J1200; J2405; J2765; J3490; J7030; Q9967; 99283

== ENCOUNTER 2021-08-29 14:34 | Emergency (ER) | payer BC ==
[2021-08-29 14:43] VITALS: BP 88/60; PULSE 60
[2021-08-29] MEDS ORDERED: Acetaminophen/HYDROcodone 325-5 MG Tab PO ONE (14:58)
[2021-08-29] MEDS ORDERED: HYDROmorphone 1 MG/ML Syringe IM ONE (17:35)
== END 2021-08-29 18:30 | disposition home or self-care (01) ==
LOC: JD.ED 14:34
DX: S82.842A Displaced bimalleolar fracture of left lower leg, initial encounter for closed fracture (principal); E66.9 Obesity, unspecified; Z68.30 Body mass index [BMI] 30.0-30.9, adult; Z91.018 Allergy to other foods; Z88.1 Allergy status to other antibiotic agents; Z91.040 Latex allergy status; Z91.048 Other nonmedicinal substance allergy status; Z88.8 Allergy status to other drugs, medicaments and biological substances; W01.0XXA Fall on same level from slipping, tripping and stumbling without subsequent striking against object, initial encounter; Y92.009 Unspecified place in unspecified non-institutional (private) residence as the place of occurrence of the external cause
CPT/HCPCS: 73020; 73590; 73610; 96372; 99283; A9270; J1170

== ENCOUNTER 2021-11-28 18:53 | Emergency (ER) | payer BC ==
[2021-11-28 19:19] VITALS: BP 116/75; PULSE 70
[2021-11-28] MEDS ORDERED: Ketorolac 15 MG/ML SDV IM ONE (19:36)
[2021-11-28] MEDS ORDERED: Cyclobenzaprine 10 MG Tab PO ONE (19:37)
== END 2021-11-28 21:14 | disposition home or self-care (01) ==
LOC: JD.ED 18:53
DX: M54.16 Radiculopathy, lumbar region (principal); E66.9 Obesity, unspecified; Z68.42 Body mass index [BMI] 45.0-49.9, adult; Z88.1 Allergy status to other antibiotic agents; Z88.5 Allergy status to narcotic agent; Z91.018 Allergy to other foods; Z91.040 Latex allergy status; Z91.048 Other nonmedicinal substance allergy status
CPT/HCPCS: 36415; 80053; 85025; 85610; 93970; 96372; 99284; A9270; J1885

== ENCOUNTER 2022-02-17 14:15 | Emergency (ER) | payer BC ==
[2022-02-17 14:33] VITALS: BP 115/76; PULSE 64
[2022-02-17] MEDS ORDERED: Lactated Ringers 1,000 ML IV ONE (15:36)
[2022-02-17] MEDS ORDERED: Acetaminophen/HYDROcodone 325-5 MG Tab PO ONE ×2 (18:07→19:11)
== END 2022-02-17 19:22 | disposition home or self-care (01) ==
LOC: JD.ED 14:15
DX: S92.322A Displaced fracture of second metatarsal bone, left foot, initial encounter for closed fracture (principal); S93.622A Sprain of tarsometatarsal ligament of left foot, initial encounter; E66.9 Obesity, unspecified; Z68.41 Body mass index [BMI] 40.0-44.9, adult; Z91.018 Allergy to other foods; Z88.1 Allergy status to other antibiotic agents; Z88.8 Allergy status to other drugs, medicaments and biological substances; Z91.040 Latex allergy status; Z79.899 Other long term (current) drug therapy; Z86.16 Personal history of COVID-19; Z90.49 Acquired absence of other specified parts of digestive tract; W01.10XA Fall on same level from slipping, tripping and stumbling with subsequent striking against unspecified object, initial encounter
CPT/HCPCS: 29515; 36415; 70450; 71045; 73562; 73590; 73630; 80053; 84484; 85025; 85610; 85730; 93005; 96360; 99284; A9270; J7120

== ENCOUNTER 2022-03-15 15:30 | Emergency (ER) | payer BC ==
[2022-03-15 17:37] VITALS: PULSE 48
[2022-03-15] MEDS ORDERED: Atropine 0.4 MG/ML SDV IVPUSH ONE (17:49)
[2022-03-15 18:49] LABS: ESTIMATED GFR 55 mL/min (>60)
[2022-03-15] MEDS ORDERED: Sodium Chloride 0.9% 1,000 ML IV ONE (18:53)
[2022-03-15 19:07] VITALS: BP 121/81
[2022-03-15] MEDS ORDERED: Acetaminophen 325 MG Tab PO ONE (19:24)
== END 2022-03-15 20:25 ==
LOC: JD.ED 15:30
DX: R55 Syncope and collapse (principal); R00.1 Bradycardia, unspecified; F41.9 Anxiety disorder, unspecified; F32.A Depression, unspecified; E20.9 Hypoparathyroidism, unspecified; E66.9 Obesity, unspecified; Z79.899 Other long term (current) drug therapy; Z91.018 Allergy to other foods; Z88.1 Allergy status to other antibiotic agents; Z88.8 Allergy status to other drugs, medicaments and biological substances
CPT/HCPCS: 36415; 71045; 80053; 80306; 81003; 83605; 83880; 84484; 85025; 85610; 93005; 96361; 96374; 99285; A9270; J0461; J7030

== ENCOUNTER 2022-05-06 17:42 | Emergency (ER) | payer BC ==
[2022-05-06] MEDS ORDERED: Sodium Chloride 0.9% 10 ML Syringe FLUSH PRN (18:15)
[2022-05-06 18:17] VITALS: BP 116/83; PULSE 76
[2022-05-06] MEDS ORDERED: Sodium Chloride 0.9% 1,000 ML IV ONE (18:27)
[2022-05-06] MEDS ORDERED: Ondansetron 4 MG/2 ML SDV IVPUSH ONE (18:27)
[2022-05-06] MEDS ORDERED: Ondansetron 4 MG/2 ML SDV ONE (21:44)
[2022-05-06] MEDS ORDERED: Sodium Chloride 0.9% 1,000 ML ONE (21:45)
[2022-05-06] MEDS ORDERED: HYDROmorphone 1 MG/ML Syringe IVPUSH STA (21:53)
== END 2022-05-06 23:05 | disposition home or self-care (01) ==
LOC: JD.ED 17:42
DX: R42 Dizziness and giddiness (principal); R10.9 Unspecified abdominal pain; E66.9 Obesity, unspecified; Z68.41 Body mass index [BMI] 40.0-44.9, adult; Z91.018 Allergy to other foods; Z88.1 Allergy status to other antibiotic agents; Z88.8 Allergy status to other drugs, medicaments and biological substances; Z91.040 Latex allergy status; Z79.899 Other long term (current) drug therapy; Z88.4 Allergy status to anesthetic agent; Z86.16 Personal history of COVID-19; Z90.49 Acquired absence of other specified parts of digestive tract
CPT/HCPCS: 36415; 71045; 80053; 83690; 83735; 83880; 84484; 85025; 85379; 85610; 85730; 93005; 96361; 96374; 96375; 99285; J1170; J2405; J7030

== ENCOUNTER 2022-05-12 12:01 | Emergency (ER) | payer BC ==
[2022-05-12] MEDS ORDERED: Sodium Chloride 0.9% 10 ML Syringe FLUSH PRN (12:49)
[2022-05-12] MEDS ORDERED: Sodium Chloride 0.9% 1,000 ML IV SCH (13:00)
[2022-05-12] MEDS ORDERED: Sodium Chloride 0.9% 10 ML Syringe FLUSH ONE (13:14)
[2022-05-12] MEDS ORDERED: Iopamidol 612 MG/ML 100 ML Bottle IVPUSH ONE (13:14)
[2022-05-12] MEDS ORDERED: HYDROmorphone 0.5 MG/0.5 ML Syringe IVPUSH ONE ×2 (16:01→18:20)
[2022-05-12] MEDS ORDERED: cefTRIAXone 1 GM in Sodium Chloride 0.9% 100 ML IV ONE (17:20)
[2022-05-12 19:05] VITALS: BP 117/86; PULSE 90
== END 2022-05-12 19:05 | disposition home or self-care (01) ==
LOC: JD.ED 12:01
DX: K11.20 Sialoadenitis, unspecified (principal); D64.9 Anemia, unspecified; E20.9 Hypoparathyroidism, unspecified; E66.9 Obesity, unspecified; Z68.41 Body mass index [BMI] 40.0-44.9, adult; Z88.1 Allergy status to other antibiotic agents; Z91.018 Allergy to other foods; Z88.8 Allergy status to other drugs, medicaments and biological substances; Z91.040 Latex allergy status; Z79.899 Other long term (current) drug therapy
CPT/HCPCS: 36415; 70487; 70491; 80053; 85025; 86140; 96361; 96365; 96375; 96376; 99284; J0696; J1170; J3490; J7030; Q9967

== ENCOUNTER 2022-05-13 23:56 | Emergency (ER) | payer BC ==
[2022-05-14] MEDS ORDERED: Sodium Chloride 0.9% 10 ML Syringe FLUSH PRN (00:11)
[2022-05-14] MEDS ORDERED: Sodium Chloride 0.9% 1,000 ML IV SCH ×3 (00:15→04:00)
[2022-05-14] MEDS ORDERED: Naloxone 2 MG/2 ML Syringe IVPUSH ONE (00:17)
[2022-05-14] MEDS ORDERED: Hydrocortisone Sodium Succinate 100 MG/2 ML SDV IVPUSH ONE (01:14)
[2022-05-14 01:20] LABS: ESTIMATED GFR 90 mL/min (>60)
[2022-05-14] MEDS ORDERED: Lactated Ringers 1,000 ML IV ONE (02:36)
[2022-05-14] MEDS ORDERED: Acetylcysteine 15,000 MG in Dextrose 5% in Water 200 ML IV STA ×2 (03:03)
[2022-05-14 04:28] LABS: CORONAVIRUS COVID-19 NAA NEGATIVE (NEGATIVE)
[2022-05-14] MEDS ORDERED: Acetylcysteine 5,000 MG in Dextrose 5% in Water 500 ML IV ONE ×2 (04:30)
[2022-05-14 05:53] VITALS: PULSE 80
[2022-05-14 06:28] VITALS: BP 112/80
[2022-05-14] MEDS ORDERED: Acetylcysteine 10,000 MG in Dextrose 5% in Water 1,000 ML IV ONE ×2 (08:30)
== END 2022-05-14 06:24 | disposition critical access hospital (66) ==
LOC: JD.ED 23:56
DX: T39.1X1A Poisoning by 4-Aminophenol derivatives, accidental (unintentional), initial encounter (principal); S36.119A Unspecified injury of liver, initial encounter; R40.1 Stupor; E03.9 Hypothyroidism, unspecified; E66.9 Obesity, unspecified; Z20.822 Contact with and (suspected) exposure to COVID-19; Z91.040 Latex allergy status; Z88.1 Allergy status to other antibiotic agents; Z91.018 Allergy to other foods; Z88.8 Allergy status to other drugs, medicaments and biological substances; Z91.048 Other nonmedicinal substance allergy status; Z79.899 Other long term (current) drug therapy; Z68.41 Body mass index [BMI] 40.0-44.9, adult
CPT/HCPCS: 0241U; 36415; 70450; 71045; 80053; 80143; 80179; 80306; 80307; 81001; 82024; 82533; 83605; 83735; 84443; 85025; 85610; 86140; 87040; 87077; 87154; 87186; 96361; 96365; 96366; 96375; 99285; C1751; J0132; J1720; J2310; J3490; J7030; J7060; J7120; 36556; 99291

== ENCOUNTER 2022-06-15 01:52 | Inpatient (IN) | payer BC ==
[2022-06-15] MEDS ORDERED: Sodium Chloride 0.9% 1,000 ML IV ONE ×2 (02:59→07:03)
[2022-06-15 04:29] LABS: ACETAMINOPHEN 5 ug/mL (10-30); ESTIMATED GFR 69 mL/min (>60)
[2022-06-15] MEDS ORDERED: Ibuprofen 400 MG Tab PO ONE (06:24)
[2022-06-15] MEDS ORDERED: Nitrofurantoin Monohydrate/Macrocrystalline 100 MG Cap PO STA (06:55)
[2022-06-15] MEDS ORDERED: Sodium Chloride 0.9% 500 ML IV ONE (07:29)
[2022-06-15] MEDS ORDERED: HYDROmorphone 1 MG/ML Syringe IVPUSH ONE (07:29)
[2022-06-15] MEDS ORDERED: Iopamidol 755 Mg/ML 100 ML Bottle IVPUSH ONE (07:59)
[2022-06-15] MEDS ORDERED: Sodium Chloride 0.9% 10 ML Syringe FLUSH ONE (08:00)
[2022-06-15] MEDS ORDERED: Enoxaparin 100 MG/1 ML Syringe SUBCUT ONE (09:26)
[2022-06-15] MEDS ORDERED: cefTRIAXone 1 GM in Sodium Chloride 0.9% 100 ML IV ONE (09:27)
[2022-06-15] MEDS ORDERED: HYDROmorphone 0.5 MG/0.5 ML Syringe IVPUSH ONE (15:11)
[2022-06-15] MEDS ORDERED: Psyllium Husk Powder Sugar Free 5.85 GM Packet PO PRN (16:06)
[2022-06-15] MEDS ORDERED: hydrALAZINE 20 MG/ML SDV IVPUSH PRN (16:06)
[2022-06-15] MEDS: Potassium Chloride 20 MEQ Tab.ER PO SCH (16:18)
[2022-06-15] MEDS ORDERED: LACTOBACILLUS RHAMNOSUS GG PO SCH (17:00)
[2022-06-15] MEDS: Levothyroxine 25 MCG Tab PO SCH (17:10)
[2022-06-15] MEDS: Acetaminophen/oxyCODONE 325-5 MG Tab PO PRN (17:17)
[2022-06-15] MEDS: Fludrocortisone 0.1 MG Tab PO SCH (17:17)
[2022-06-15] MEDS: Pantoprazole 40 MG Tab.CR PO PRN (17:18)
[2022-06-15] MEDS: Midodrine 5 MG Tab PO SCH ×2 (17:18→21:22)
[2022-06-15] MEDS: tiZANidine 4 MG Tab PO PRN (17:19)
[2022-06-15] MEDS: Docusate Sodium 100 MG Cap PO PRN (17:19)
[2022-06-15 17:36] LABS: CORONAVIRUS COVID-19 NAA NEGATIVE (NEGATIVE)
[2022-06-15] MEDS ORDERED: Enoxaparin 100 MG/1 ML Syringe SUBCUT SCH (18:30)
[2022-06-15] MEDS: Enoxaparin 100 MG/1 ML Syringe SUBCUT SCH (21:22)
[2022-06-15] MEDS: Ondansetron 4 MG/2 ML SDV IVPUSH PRN (21:23)
[2022-06-15] MEDS: HYDROmorphone 0.5 MG/0.5 ML Syringe IVPUSH PRN (23:07)
[2022-06-16] MEDS: Ondansetron 4 MG/2 ML SDV IVPUSH PRN ×2 (03:42→14:14)
[2022-06-16] MEDS: Levothyroxine 25 MCG Tab PO SCH (05:33)
[2022-06-16] MEDS: Acetaminophen/oxyCODONE 325-5 MG Tab PO PRN (07:25)
[2022-06-16] MEDS: Midodrine 5 MG Tab PO SCH ×4 (09:00→21:26)
[2022-06-16] MEDS: Potassium Chloride 20 MEQ Tab.ER PO SCH (09:00)
[2022-06-16] MEDS: Enoxaparin 100 MG/1 ML Syringe SUBCUT SCH ×2 (09:00→21:27)
[2022-06-16] MEDS: Fludrocortisone 0.1 MG Tab PO SCH (09:00)
[2022-06-16] MEDS: Thiamine 100 MG Tab PO SCH (09:00)
[2022-06-16] MEDS: Docusate Sodium 100 MG Cap PO PRN (09:01)
[2022-06-16] MEDS: LORazepam 1 MG Tab PO SCH ×3 (09:01→21:26)
[2022-06-16] MEDS: cefTRIAXone 1 GM in Sodium Chloride 0.9% 100 ML IV SCH (09:01)
[2022-06-16] MEDS: Saccharomyces Boulardii (Probiotic) 250 MG Cap PO SCH (09:01)
[2022-06-16] MEDS: HYDROmorphone 0.5 MG/0.5 ML Syringe IVPUSH PRN ×3 (09:26→21:13)
[2022-06-16] MEDS: Pantoprazole 40 MG Tab.CR PO PRN (14:15)
[2022-06-16] MEDS: Calcium Carbonate/Vitamin D3 600 MG-200 Units Tab PO SCH (17:55)
[2022-06-16] MEDS: Nitroglycerin 0.4 MG Tab.SL ONE ×2 (20:47→20:52)
[2022-06-16] MEDS ORDERED: Pantoprazole 40 MG Vial IVPUSH ONE (20:55)
[2022-06-16] MEDS ORDERED: Aspirin 81 MG Tab.Chew PO ONE (21:03)
[2022-06-16] MEDS ORDERED: atorvaSTATin 40 MG Tab PO ONE (21:04)
[2022-06-16] MEDS: Sodium Chloride 0.9% 1,000 ML IV SCH (21:13)
[2022-06-17] MEDS: LORazepam 1 MG Tab PO SCH ×4 (00:16→20:26)
[2022-06-17] MEDS: Acetaminophen/oxyCODONE 325-5 MG Tab PO PRN ×3 (04:11→15:51)
[2022-06-17] MEDS: Sodium Chloride 0.9% 1,000 ML IV SCH ×2 (05:12→20:27)
[2022-06-17] MEDS: Levothyroxine 25 MCG Tab PO SCH (06:28)
[2022-06-17] MEDS: Calcium Carbonate/Vitamin D3 600 MG-200 Units Tab PO SCH ×2 (06:28→17:46)
[2022-06-17] MEDS: Enoxaparin 100 MG/1 ML Syringe SUBCUT SCH ×2 (08:46→20:26)
[2022-06-17] MEDS: Fludrocortisone 0.1 MG Tab PO SCH (08:47)
[2022-06-17] MEDS: cefTRIAXone 1 GM in Sodium Chloride 0.9% 100 ML IV SCH (08:47)
[2022-06-17] MEDS: Midodrine 5 MG Tab PO SCH ×4 (08:47→20:26)
[2022-06-17] MEDS: Saccharomyces Boulardii (Probiotic) 250 MG Cap PO SCH (08:47)
[2022-06-17] MEDS: Potassium Chloride 20 MEQ Tab.ER PO SCH (08:47)
[2022-06-17] MEDS: Thiamine 100 MG Tab PO SCH (08:47)
[2022-06-17] MEDS ORDERED: Diclofenac Sodium 1% Gel 100 GM Tube TOP PRN (14:34)
[2022-06-18] MEDS: Acetaminophen/oxyCODONE 325-5 MG Tab PO PRN ×4 (03:21→23:26)
[2022-06-18] MEDS: Sodium Chloride 0.9% 1,000 ML IV SCH ×3 (03:22→23:26)
[2022-06-18] MEDS: Levothyroxine 25 MCG Tab PO SCH (05:59)
[2022-06-18] MEDS: Fludrocortisone 0.1 MG Tab PO SCH (08:05)
[2022-06-18] MEDS: Potassium Chloride 20 MEQ Tab.ER PO SCH (08:05)
[2022-06-18] MEDS: LORazepam 1 MG Tab PO SCH ×2 (08:05→21:18)
[2022-06-18] MEDS: Sertraline 25 MG Tab PO SCH (08:05)
[2022-06-18] MEDS: Saccharomyces Boulardii (Probiotic) 250 MG Cap PO SCH (08:05)
[2022-06-18] MEDS: Calcium Carbonate/Vitamin D3 600 MG-200 Units Tab PO SCH ×2 (08:05→17:20)
[2022-06-18] MEDS: Thiamine 100 MG Tab PO SCH (08:05)
[2022-06-18] MEDS: Midodrine 5 MG Tab PO SCH ×4 (08:05→21:18)
[2022-06-18] MEDS: cefTRIAXone 1 GM in Sodium Chloride 0.9% 100 ML IV SCH (08:05)
[2022-06-18] MEDS: Enoxaparin 100 MG/1 ML Syringe SUBCUT SCH ×2 (08:06→21:19)
[2022-06-18] MEDS: Ondansetron 4 MG/2 ML SDV IVPUSH PRN (11:11)
[2022-06-18] MEDS ORDERED: LORazepam 1 MG Tab PO ONE (12:30)
[2022-06-18] MEDS: tiZANidine 4 MG Tab PO PRN (21:17)
[2022-06-19] MEDS: Levothyroxine 25 MCG Tab PO SCH (05:04)
[2022-06-19] MEDS: Acetaminophen/oxyCODONE 325-5 MG Tab PO PRN (05:05)
[2022-06-19] MEDS: Calcium Carbonate/Vitamin D3 600 MG-200 Units Tab PO SCH (07:58)
[2022-06-19] MEDS: cefTRIAXone 1 GM in Sodium Chloride 0.9% 100 ML IV SCH (07:59)
[2022-06-19] MEDS: Fludrocortisone 0.1 MG Tab PO SCH (08:00)
[2022-06-19] MEDS: Midodrine 5 MG Tab PO SCH (08:00)
[2022-06-19] MEDS: Sertraline 25 MG Tab PO SCH (08:01)
[2022-06-19] MEDS: Enoxaparin 100 MG/1 ML Syringe SUBCUT SCH (08:01)
[2022-06-19] MEDS: Saccharomyces Boulardii (Probiotic) 250 MG Cap PO SCH (08:01)
[2022-06-19] MEDS: Thiamine 100 MG Tab PO SCH (08:01)
[2022-06-19] MEDS: LORazepam 1 MG Tab PO SCH (08:01)
[2022-06-19 08:31] VITALS: BP 94/58; PULSE 90
== END 2022-06-19 09:50 | disposition other institution (70) | DRG 134 ==
LOC: JD.ED 01:52 → JD.MS 12:06
PROVIDERS: ADMIT Internal Medicine; ATTEND Internal Medicine
PROC: 02HV33Z Insertion of Infusion Device into Superior Vena Cava, Percutaneous Approach (ICD-10-PCS; principal; 2022-06-16)
DX: I26.94 Multiple subsegmental thrombotic pulmonary emboli without acute cor pulmonale (principal); J45.909 Unspecified asthma, uncomplicated; F19.20 Other psychoactive substance dependence, uncomplicated; E03.9 Hypothyroidism, unspecified; E66.9 Obesity, unspecified; M85.80 Other specified disorders of bone density and structure, unspecified site; E55.9 Vitamin D deficiency, unspecified; F41.9 Anxiety disorder, unspecified; F32.A Depression, unspecified; F43.10 Post-traumatic stress disorder, unspecified; J98.11 Atelectasis; M81.0 Age-related osteoporosis without current pathological fracture; B96.1 Klebsiella pneumoniae [K. pneumoniae] as the cause of diseases classified elsewhere; I95.1 Orthostatic hypotension; N39.0 Urinary tract infection, site not specified; E87.6 Hypokalemia; K59.00 Constipation, unspecified; Z20.822 Contact with and (suspected) exposure to COVID-19; W18.30XA Fall on same level, unspecified, initial encounter; Y92.098 Other place in other non-institutional residence as the place of occurrence of the external cause; Z88.1 Allergy status to other antibiotic agents; Z87.11 Personal history of peptic ulcer disease; Z79.890 Hormone replacement therapy; Z79.899 Other long term (current) drug therapy; Z91.040 Latex allergy status; Z98.890 Other specified postprocedural states; Z90.49 Acquired absence of other specified parts of digestive tract; Z98.84 Bariatric surgery status; Z87.891 Personal history of nicotine dependence; Z88.0 Allergy status to penicillin; Z91.018 Allergy to other foods; Z68.38 Body mass index [BMI] 38.0-38.9, adult
CPT/HCPCS: 0241U; 36415; 36556; 70450; 70450-26; 71045; 71045-26; 71275; 71275-26; 72125; 72125-26; 80048; 80053; 80143; 80179; 80306; 80307; 81001; 82550; 83605; 83735; 84484; 85025; 85379; 86140; 87040; 87086; 87088; 87186; 93005; 93010; 93306; 94760; 94762; 97112-GP; 97116-GP; 97161-GP; 97166-GO; 97530-GO; 97535-GO; 99284; A9270-GY; C1751; C9113; J0696; J1170; J1650; J2405; J3490; J7030

== ENCOUNTER 2022-07-08 12:29 | Emergency (ER) | payer BC ==
[2022-07-08] MEDS ORDERED: Sodium Chloride 0.9% 10 ML Syringe FLUSH PRN (13:05)
[2022-07-08] MEDS ORDERED: Furosemide 40 MG/4 ML VIAL IVPUSH ONE (14:01)
[2022-07-08] MEDS ORDERED: Ondansetron 4 MG/2 ML SDV IVPUSH ONE (15:20)
[2022-07-08] MEDS ORDERED: Acetaminophen 325 MG Tab PO ONE (16:28)
[2022-07-08] MEDS ORDERED: Potassium Chloride 20 MEQ Tab.ER PO ONE (18:04)
[2022-07-08 19:38] VITALS: BP 101/64; PULSE 103
== END 2022-07-08 20:41 | disposition home or self-care (01) ==
LOC: JD.ED 12:29
DX: R60.0 Localized edema (principal); E87.6 Hypokalemia; D64.9 Anemia, unspecified; E77.8 Other disorders of glycoprotein metabolism; J45.909 Unspecified asthma, uncomplicated; E03.9 Hypothyroidism, unspecified; E66.9 Obesity, unspecified; Z68.37 Body mass index [BMI] 37.0-37.9, adult; Z91.018 Allergy to other foods; Z88.1 Allergy status to other antibiotic agents; Z88.8 Allergy status to other drugs, medicaments and biological substances; Z91.040 Latex allergy status; Z79.899 Other long term (current) drug therapy; Z79.01 Long term (current) use of anticoagulants
CPT/HCPCS: 36415; 36430; 80053; 85025; 85610; 86850; 86900; 86901; 86922; 99285; A9270; J1940; J2405; J3490; P9016; 36410; 93010; 99284

== ENCOUNTER 2022-08-07 13:05 | Emergency (ER) | payer BC ==
[2022-08-07 13:29] VITALS: BP 124/62; PULSE 100
[2022-08-07] MEDS ORDERED: HYDROmorphone 1 MG/ML Syringe IVPUSH ONE (13:51)
[2022-08-07] MEDS ORDERED: Ondansetron 4 MG/2 ML SDV IVPUSH ONE (14:38)
[2022-08-07] MEDS ORDERED: Hydrocortisone Sodium Succinate 100 MG/2 ML SDV IVPUSH ONE (14:38)
[2022-08-07] MEDS ORDERED: Orphenadrine 100 MG Tab.ER PO ONE (14:41)
[2022-08-07] MEDS ORDERED: Acetaminophen 325 MG Tab PO ONE (15:53)
== END 2022-08-07 17:24 | disposition home or self-care (01) ==
LOC: JD.ED 13:05
DX: S16.1XXA Strain of muscle, fascia and tendon at neck level, initial encounter (principal); S70.02XA Contusion of left hip, initial encounter; E27.1 Primary adrenocortical insufficiency; E03.9 Hypothyroidism, unspecified; E66.9 Obesity, unspecified; Z68.30 Body mass index [BMI] 30.0-30.9, adult; Z91.018 Allergy to other foods; Z88.1 Allergy status to other antibiotic agents; Z91.040 Latex allergy status; Z91.048 Other nonmedicinal substance allergy status; Z79.01 Long term (current) use of anticoagulants; Z86.16 Personal history of COVID-19; W18.30XA Fall on same level, unspecified, initial encounter
CPT/HCPCS: 70450; 72125; 72131; 72192; 82947; 96374; 96375; 99285; A9270; J1170; J1720; J2405; 99283

== ENCOUNTER 2022-08-24 19:00 | Emergency (ER) | payer BC ==
[2022-08-24] MEDS ORDERED: Acetaminophen 325 MG Tab PO ONE (19:32)
[2022-08-24 19:38] LABS: BASOPHILS ABSOLUTE AUTO 0.01 K/mm3 (0.01-0.08); BASOPHILS PERCENT AUTO 0.2 % (0.1-1.2); EOSINOPHILS ABSOLUTE AUTO 0.03 K/mm3 (0.04-0.36); EOSINOPHILS PERCENT AUTO 0.7 (0.7-5.8); HEMOGLOBIN 13.6 gm/dl (11.2-15.7); IMMATURE GRAN ABSOLUTE AUTO 0.04 K/mm3 (0.00-0.10); IMMATURE GRAN PERCENT AUTO 0.9 % (<=1.0); LYMPHOCYTES ABSOLUTE AUTO 1.39 K/mm3 (1.18-3.74); LYMPHOCYTES PERCENT AUTO 32.3 % (19.3-51.7); MEAN CORPUSCULAR HEMOGLOBIN 33.2 pg (25.6-32.2); MEAN CORPUSCULAR HGB CONC 31.6 g/dl (32.2-35.5); MEAN CORPUSCULAR VOLUME 104.9 fl (79.4-94.8); MEAN PLATELET VOLUME 12.6 fl (9.4-12.3); MONOCYTES ABSOLUTE AUTO 0.43 K/mm3 (0.24-0.36); NEUTROPHILS ABSOLUTE AUTO 2.41 K/mm3 (1.56-6.13); NEUTROPHILS PERCENT AUTO 55.9 % (34.0-71.1); PLATELET COUNT,PLT 98 K/mm3 (182-369); WHITE BLOOD CELL COUNT,WBC 4.31 K/mm3 (3.98-10.04)
[2022-08-24 19:49] LABS: A/G RATIO 0.6 (1-2); ANION GAP 14.6 (5-15); BILIRUBIN TOTAL 4.6 mg/dL (0.2-1.0); BUN/CREATININE RATIO 9.3 (14-18); CALCIUM 8.5 mg/dL (8.5-10.1); EST CRCL DRUG DOSING (CG) 38.75 mL/min; MAGNESIUM 1.9 mg/dL (1.8-2.4)
[2022-08-24 19:59] LABS: POTASSIUM,K 3.6 mEq/L (3.5-5.1); PROTEIN TOTAL,TP 5.3 g/dl (6.4-8.2)
[2022-08-24 20:00] LABS: CREATININE 1.5 mg/dL (0.55-1.02)
[2022-08-24 20:00] LABS: APPEARANCE,URINE CLEAR (Clear); BILIRUBIN,URINE 3+ (Negative); COLOR,URINE AMBER (Yellow); GLUCOSE,URINE NEGATIVE (Negative); KETONES,URINE TRACE (Negative); LEUKOCYTE ESTERASE,URINE NEGATIVE (Negative); NITRITE,URINE NEGATIVE (Negative); OCCULT BLOOD,URINE NEGATIVE (Negative); PH,URINE 5.5 (5.0-8.0); PROTEIN,URINE 1+ (Negative); UROBILINOGEN,URINE >=8.0 (0.2-1.0)
[2022-08-24 20:13] LABS: RBC,URINE 0-5 /hpf (0-5); WBC,URINE 0-5 /hpf (0-5)
[2022-08-24 20:14] LABS: BACTERIA,URINE MODERATE /hpf (FEW); HYALINE CASTS,URINE 20-30 /lpf (0-5); MUCUS,URINE MODERATE /hpf (FEW); SQUAMOUS EPITHELIAL CELLS,UR 0-5 /hpf (0-5)
[2022-08-24 20:35] LABS: SLIDE REVIEW ABNORMAL SMEAR
[2022-08-24] MEDS ORDERED: Acetaminophen/Butalbital/Caffeine 325-50-40 MG Tab PO ONE (20:53)
[2022-08-24 21:01] VITALS: BP 119/79; PULSE 91
== END 2022-08-24 21:18 | disposition home or self-care (01) ==
LOC: JD.ED 19:00
DX: S00.03XA Contusion of scalp, initial encounter (principal); K21.9 Gastro-esophageal reflux disease without esophagitis; J45.909 Unspecified asthma, uncomplicated; E80.6 Other disorders of bilirubin metabolism; E66.9 Obesity, unspecified; Z68.34 Body mass index [BMI] 34.0-34.9, adult; Z91.018 Allergy to other foods; Z88.1 Allergy status to other antibiotic agents; Z91.040 Latex allergy status; Z88.8 Allergy status to other drugs, medicaments and biological substances; Z91.048 Other nonmedicinal substance allergy status; Z79.01 Long term (current) use of anticoagulants; Z79.899 Other long term (current) drug therapy; Z86.16 Personal history of COVID-19; W18.09XA Striking against other object with subsequent fall, initial encounter; Y92.009 Unspecified place in unspecified non-institutional (private) residence as the place of occurrence of the external cause
CPT/HCPCS: 36415; 70450; 72125; 80053; 81001; 83735; 85025; 99285; A9270; 99284

== ENCOUNTER 2022-08-27 21:29 | Emergency (ER) | payer BC ==
[2022-08-27 21:56] VITALS: PULSE 100
[2022-08-27] MEDS ORDERED: Sodium Chloride 0.9% 10 ML Syringe FLUSH PRN (22:12)
[2022-08-27 22:56] LABS: BASOPHILS ABSOLUTE AUTO 0.01 K/mm3 (0.01-0.08); BASOPHILS PERCENT AUTO 0.2 % (0.1-1.2); EOSINOPHILS ABSOLUTE AUTO 0.03 K/mm3 (0.04-0.36); EOSINOPHILS PERCENT AUTO 0.5 (0.7-5.8); HEMATOCRIT 35.4 % (34.1-44.9); HEMOGLOBIN 11.5 gm/dl (11.2-15.7); IMMATURE GRAN ABSOLUTE AUTO 0.02 K/mm3 (0.00-0.10); IMMATURE GRAN PERCENT AUTO 0.3 % (<=1.0); LYMPHOCYTES ABSOLUTE AUTO 1.43 K/mm3 (1.18-3.74); LYMPHOCYTES PERCENT AUTO 24.3 % (19.3-51.7); MEAN CORPUSCULAR HEMOGLOBIN 34.2 pg (25.6-32.2); MEAN CORPUSCULAR HGB CONC 32.5 g/dl (32.2-35.5); MEAN CORPUSCULAR VOLUME 105.4 fl (79.4-94.8); MEAN PLATELET VOLUME 11.8 fl (9.4-12.3); MONOCYTES ABSOLUTE AUTO 0.65 K/mm3 (0.24-0.36); MONOCYTES PERCENT AUTO 11.1 % (4.7-12.5); NEUTROPHILS ABSOLUTE AUTO 3.74 K/mm3 (1.56-6.13); NEUTROPHILS PERCENT AUTO 63.6 % (34.0-71.1); PLATELET COUNT,PLT 81 K/mm3 (182-369); RED BLOOD CELL COUNT 3.36 M/mm3 (3.98-5.22); WHITE BLOOD CELL COUNT,WBC 5.88 K/mm3 (3.98-10.04)
[2022-08-27 23:14] LABS: SLIDE REVIEW ABNORMAL SMEAR
[2022-08-27 23:29] LABS: A/G RATIO 0.7 (1-2); ALBUMIN 1.9 g/dl (3.4-5.0); ANION GAP 13.6 (5-15); BILIRUBIN TOTAL 4.1 mg/dL (0.2-1.0); BUN/CREATININE RATIO 9.3 (14-18); CALCIUM 8.5 mg/dL (8.5-10.1); EST CRCL DRUG DOSING (CG) 41.51 mL/min
[2022-08-27 23:33] LABS: CREATININE 1.4 mg/dL (0.55-1.02); POTASSIUM,K 3.6 mEq/L (3.5-5.1); PROTEIN TOTAL,TP 4.6 g/dl (6.4-8.2)
[2022-08-28 01:17] VITALS: BP 129/85
== END 2022-08-28 00:27 | disposition home or self-care (01) ==
LOC: JD.ED 21:29
DX: R41.0 Disorientation, unspecified (principal); K21.9 Gastro-esophageal reflux disease without esophagitis; E03.9 Hypothyroidism, unspecified; J45.909 Unspecified asthma, uncomplicated; Z86.16 Personal history of COVID-19; Z91.018 Allergy to other foods; Z88.1 Allergy status to other antibiotic agents; Z79.01 Long term (current) use of anticoagulants; Z79.899 Other long term (current) drug therapy
CPT/HCPCS: 36415; 70450; 70450-26; 80053; 83735; 84484; 85025; 99285

== ENCOUNTER 2022-08-29 14:22 | Inpatient (IN) | payer MEDICARE, BC ==
[2022-08-29] MEDS ORDERED: 50% Dextrose in Water 50 ML Syringe ONE (14:35)
[2022-08-29] MEDS ORDERED: 50% Dextrose in Water 50 ML Syringe IVPUSH ONE (14:43)
[2022-08-29 15:27] LABS: BASOPHILS ABSOLUTE AUTO 0.01 K/mm3 (0.01-0.08); BASOPHILS PERCENT AUTO 0.1 % (0.1-1.2); EOSINOPHILS ABSOLUTE AUTO 0.03 K/mm3 (0.04-0.36); EOSINOPHILS PERCENT AUTO 0.3 (0.7-5.8); HEMATOCRIT 33.8 % (34.1-44.9); HEMOGLOBIN 11.1 gm/dl (11.2-15.7); IMMATURE GRAN ABSOLUTE AUTO 0.02 K/mm3 (0.00-0.10); IMMATURE GRAN PERCENT AUTO 0.2 % (<=1.0); LYMPHOCYTES ABSOLUTE AUTO 1.31 K/mm3 (1.18-3.74); LYMPHOCYTES PERCENT AUTO 12.5 % (19.3-51.7); MEAN CORPUSCULAR HEMOGLOBIN 34.7 pg (25.6-32.2); MEAN CORPUSCULAR HGB CONC 32.8 g/dl (32.2-35.5); MEAN CORPUSCULAR VOLUME 105.6 fl (79.4-94.8); MONOCYTES ABSOLUTE AUTO 0.28 K/mm3 (0.24-0.36); MONOCYTES PERCENT AUTO 2.7 % (4.7-12.5); NEUTROPHILS ABSOLUTE AUTO 8.83 K/mm3 (1.56-6.13); NEUTROPHILS PERCENT AUTO 84.2 % (34.0-71.1); WHITE BLOOD CELL COUNT,WBC 10.48 K/mm3 (3.98-10.04)
[2022-08-29 15:35] LABS: PLATELET COUNT,PLT 52 K/mm3 (182-369)
[2022-08-29 16:22] LABS: SLIDE REVIEW ABNORMAL SMEAR
[2022-08-29 16:30] LABS: A/G RATIO 0.6 (1-2); ALANINE AMINOTRANSFERASE,ALT 72 U/L (14-59); ALBUMIN 1.7 g/dl (3.4-5.0); ALKALINE PHOSPHATASE 101 U/L (46-116); ANION GAP 17.3 (5-15); BILIRUBIN TOTAL 5.7 mg/dL (0.2-1.0); BLOOD UREA NITROGEN,BUN 15 mg/dL (7-18); BUN/CREATININE RATIO 11.5 (14-18); CALCIUM 8.5 mg/dL (8.5-10.1); CARBON DIOXIDE,CO2 23 mEq/L (21-32); CHLORIDE,CL 110 mEq/L (98-107); ESTIMATED GFR 50 mL/min (>60); GLUCOSE RANDOM 69 mg/dL (70-99); SODIUM,NA 146 mEq/L (136-145)
[2022-08-29 16:38] LABS: CREATININE 1.3 mg/dL (0.55-1.02); POTASSIUM,K 4.3 mEq/L (3.5-5.1)
[2022-08-29 16:39] LABS: ASPARTATE AMNIOTRANSFERASE,AST 42 U/L (15-37); PROTEIN TOTAL,TP 4.6 g/dl (6.4-8.2)
[2022-08-29] MEDS ORDERED: Haloperidol Lactate 5 MG/ML SDV IVPUSH ONE (19:03)
[2022-08-29] MEDS ORDERED: 50% Dextrose in Water 50 ML Syringe IVPUSH STA (22:53)
[2022-08-29] MEDS ORDERED: Iopamidol 612 MG/ML 100 ML Bottle IVPUSH ONE (23:01)
[2022-08-29] MEDS: D5 1/2 NS w/ 20 mEq/L KCl 1,000 ML IV SCH (23:02)
[2022-08-29 23:26] LABS: BASE EXCESS ARTERIAL 2.2 (-2-2.0); BICARBONATE,ARTERIAL 25.3 meq/L (22.0-26.0); O2 SATURATION ARTERIAL 95.7 % (96.0-97.0); PCO2 ARTERIAL 35.2 mmHg (35.0-45.0)
[2022-08-30] MEDS: Hydrocortisone Sodium Succinate 100 MG/2 ML SDV IVPUSH SCH ×5 (00:08→23:47)
[2022-08-30 00:11] LABS: BILIRUBIN DIRECT 3.7 mg/dl (0.0-0.2); BILIRUBIN TOTAL 5.3 mg/dL (0.2-1.0); C-REACTIVE PROTEIN 11.2 mg/dL (<1.0); PHOSPHORUS 3.8 mg/dL (2.6-4.7); TSH 2.369 uIU/mL (0.358-3.74)
[2022-08-30 01:38] LABS: APPEARANCE,URINE SLT CLOUDY (Clear); BILIRUBIN,URINE 3+ (Negative); COLOR,URINE AMBER (Yellow); GLUCOSE,URINE TRACE (Negative); KETONES,URINE TRACE (Negative); LEUKOCYTE ESTERASE,URINE TRACE (Negative); NITRITE,URINE NEGATIVE (Negative); OCCULT BLOOD,URINE TRACE-INTACT (Negative); PH,URINE 5.5 (5.0-8.0); PROTEIN,URINE 1+ (Negative); UROBILINOGEN,URINE >=8.0 (0.2-1.0)
[2022-08-30 01:52] LABS: BARBITURATE SCREEN,URINE PRESUMPTIVE POSITIVE (CUTOFF=200); BENZODIAZEPINES SCREEN,URINE NEGATIVE (CUTOFF=150); BUPRENORPHINE SCREEN,URINE NEGATIVE (CUTOFF=10); METHADONE SCREEN, URINE NEGATIVE (CUTOFF=200); METHAMPHETAMINES SCREEN, URINE NEGATIVE (CUTOFF=500); OXYCODONE SCREEN,URINE NEGATIVE (CUT0FF=100); PROPOXYPHENE SCREEN,URINE NEGATIVE (CUTOFF=300); THC SCREEN,URINE 20 NG/ML NEGATIVE (CUTOFF=50)
[2022-08-30 01:59] LABS: AMPHETAMINES SCREEN, URINE NEGATIVE (CUTOFF=500)
[2022-08-30 02:00] LABS: BACTERIA,URINE MANY /hpf (FEW); EPITHELIAL CELLS,URINE NOT SEEN /hpf (0-5); HYALINE CASTS,URINE 0-5 /lpf (0-5); MUCUS,URINE NOT SEEN /hpf (FEW); RBC,URINE NOT SEEN /hpf (0-5)
[2022-08-30] MEDS ORDERED: tiZANidine 4 MG Tab PO PRN (06:34)
[2022-08-30] MEDS ORDERED: Ondansetron 4 MG Tab.DIS PO PRN (06:34)
[2022-08-30] MEDS ORDERED: Melatonin 3 MG Tab PO PRN (06:34)
[2022-08-30] MEDS: D5 1/2 NS w/ 20 mEq/L KCl 1,000 ML IV SCH ×2 (06:39→20:36)
[2022-08-30] MEDS: Lactulose Soln 10 GM/15 ML 30 ML UD Cup PO SCH ×4 (07:20→23:49)
[2022-08-30] MEDS: Levothyroxine 25 MCG Tab PO SCH (07:21)
[2022-08-30 08:53] LABS: A/G RATIO 0.6 (1-2); ALBUMIN 1.7 g/dl (3.4-5.0); BILIRUBIN TOTAL 5.7 mg/dL (0.2-1.0); BUN/CREATININE RATIO 11.7 (14-18); CALCIUM 8.2 mg/dL (8.5-10.1); CREATININE 1.2 mg/dL (0.55-1.02); EST CRCL DRUG DOSING (CG) 48.43 mL/min; MAGNESIUM 2.2 mg/dL (1.8-2.4); PROTEIN TOTAL,TP 4.5 g/dl (6.4-8.2)
[2022-08-30] MEDS ORDERED: Fluticasone NASAL Spray 16 GM Bottle NAS SCH (09:00)
[2022-08-30] MEDS ORDERED: busPIRone 5 MG Tab PO SCH (09:00)
[2022-08-30] MEDS ORDERED: Hydrocortisone 10 MG Tab PO SCH ×2 (09:00)
[2022-08-30] MEDS ORDERED: Pregabalin 25 MG Cap PO SCH (09:00)
[2022-08-30] MEDS ORDERED: Potassium Chloride 10 MEQ Tab.ER PO SCH (09:00)
[2022-08-30] MEDS ORDERED: Multivitamin Tab PO SCH (09:00)
[2022-08-30] MEDS ORDERED: Fludrocortisone 0.1 MG Tab PO SCH (09:00)
[2022-08-30] MEDS ORDERED: Pregabalin 75 MG Cap PO SCH (09:00)
[2022-08-30] MEDS ORDERED: Thiamine 100 MG Tab PO SCH (09:00)
[2022-08-30] MEDS ORDERED: Cyanocobalamin (Vitamin B12) 1,000 MCG Tab PO SCH (09:00)
[2022-08-30 09:51] LABS: EOSINOPHILS PERCENT AUTO 0 (0.7-5.8); HEMATOCRIT 34.8 % (34.1-44.9); HEMOGLOBIN 10.9 gm/dl (11.2-15.7); IMMATURE GRAN ABSOLUTE AUTO 0.01 K/mm3 (0.00-0.10); IMMATURE GRAN PERCENT AUTO 0.1 % (<=1.0); LYMPHOCYTES ABSOLUTE AUTO 0.35 K/mm3 (1.18-3.74); LYMPHOCYTES PERCENT AUTO 4.7 % (19.3-51.7); MEAN CORPUSCULAR HEMOGLOBIN 33.7 pg (25.6-32.2); MEAN CORPUSCULAR HGB CONC 31.3 g/dl (32.2-35.5); MEAN CORPUSCULAR VOLUME 107.7 fl (79.4-94.8); MEAN PLATELET VOLUME 12.1 fl (9.4-12.3); MONOCYTES PERCENT AUTO 1.3 % (4.7-12.5); NEUTROPHILS ABSOLUTE AUTO 7.01 K/mm3 (1.56-6.13); NEUTROPHILS PERCENT AUTO 93.9 % (34.0-71.1); PLATELET COUNT,PLT 60 K/mm3 (182-369); RED BLOOD CELL COUNT 3.23 M/mm3 (3.98-5.22); WHITE BLOOD CELL COUNT,WBC 7.47 K/mm3 (3.98-10.04)
[2022-08-30 10:09] LABS: INR 1.74; PROTHROMBIN TIME 17.9 SECONDS (9.7-12.0)
[2022-08-30] MEDS: Midodrine 5 MG Tab PO SCH ×3 (10:20→20:31)
[2022-08-30] MEDS: Pantoprazole 40 MG Tab.CR PO SCH (10:21)
[2022-08-30 10:46] LABS: SLIDE REVIEW ABNORMAL SMEAR
[2022-08-30] MEDS ORDERED: WATER IV ONE ×6 (14:00→19:00)
[2022-08-30] MEDS ORDERED: ACETYLCYSTEINE IV ONE ×6 (14:00→19:00)
[2022-08-30] MEDS ORDERED: DEXTROSE 5% IV ONE ×6 (14:00→19:00)
[2022-08-30] MEDS ORDERED: QUETIAPINE FUMARATE 50 MG PO SCH (21:00)
[2022-08-31 05:05] LABS: EOSINOPHILS PERCENT AUTO 0 (0.7-5.8); HEMATOCRIT 33.8 % (34.1-44.9); HEMOGLOBIN 10.7 gm/dl (11.2-15.7); IMMATURE GRAN ABSOLUTE AUTO 0.03 K/mm3 (0.00-0.10); IMMATURE GRAN PERCENT AUTO 0.3 % (<=1.0); LYMPHOCYTES ABSOLUTE AUTO 0.61 K/mm3 (1.18-3.74); LYMPHOCYTES PERCENT AUTO 5.8 % (19.3-51.7); MEAN CORPUSCULAR HEMOGLOBIN 33.8 pg (25.6-32.2); MEAN CORPUSCULAR HGB CONC 31.7 g/dl (32.2-35.5); MEAN CORPUSCULAR VOLUME 106.6 fl (79.4-94.8); MEAN PLATELET VOLUME 12.8 fl (9.4-12.3); MONOCYTES PERCENT AUTO 4.7 % (4.7-12.5); NEUTROPHILS ABSOLUTE AUTO 9.41 K/mm3 (1.56-6.13); NEUTROPHILS PERCENT AUTO 89.2 % (34.0-71.1); PLATELET COUNT,PLT 69 K/mm3 (182-369); RED BLOOD CELL COUNT 3.17 M/mm3 (3.98-5.22); WHITE BLOOD CELL COUNT,WBC 10.55 K/mm3 (3.98-10.04)
[2022-08-31 05:28] LABS: A/G RATIO 0.5 (1-2); ALBUMIN 1.4 g/dl (3.4-5.0); ANION GAP 17.3 (5-15); BILIRUBIN TOTAL 4.6 mg/dL (0.2-1.0); BUN/CREATININE RATIO 7.7 (14-18); CALCIUM 7.8 mg/dL (8.5-10.1); EST CRCL DRUG DOSING (CG) 45.03 mL/min; MAGNESIUM 1.7 mg/dL (1.8-2.4)
[2022-08-31 05:34] LABS: CREATININE 1.3 mg/dL (0.55-1.02); POTASSIUM,K 3.3 mEq/L (3.5-5.1)
[2022-08-31 05:35] LABS: PROTEIN TOTAL,TP 4.1 g/dl (6.4-8.2)
[2022-08-31 05:47] LABS: SLIDE REVIEW ABNORMAL SMEAR
[2022-08-31] MEDS: Lactulose Soln 10 GM/15 ML 30 ML UD Cup PO SCH ×3 (05:49→18:04)
[2022-08-31] MEDS: Hydrocortisone Sodium Succinate 100 MG/2 ML SDV IVPUSH SCH ×2 (05:50→21:15)
[2022-08-31] MEDS: Levothyroxine 25 MCG Tab PO SCH (05:52)
[2022-08-31] MEDS ORDERED: Magnesium Sulfate/Water 4 GM in Premix Bag 1 BAG IV ONE (06:21)
[2022-08-31] MEDS: Thiamine 100 MG Tab PO SCH ×2 (07:12→21:06)
[2022-08-31] MEDS: D5 1/2 NS w/ 20 mEq/L KCl 1,000 ML IV SCH (07:13)
[2022-08-31] MEDS: Nystatin Topical Powder 15 GM Bottle TOP PRN ×2 (09:15→19:15)
[2022-08-31] MEDS: Pantoprazole 40 MG Tab.CR PO SCH (09:16)
[2022-08-31] MEDS ORDERED: Hydrocortisone Sodium Succinate 100 MG/2 ML SDV IVPUSH SCH (14:00)
[2022-08-31] MEDS ORDERED: Furosemide 40 MG/4 ML VIAL IVPUSH ONE (17:29)
[2022-09-01] MEDS: Lactulose Soln 10 GM/15 ML 30 ML UD Cup PO SCH ×4 (00:41→21:33)
[2022-09-01 05:14] LABS: BASOPHILS ABSOLUTE AUTO 0.01 K/mm3 (0.01-0.08); BASOPHILS PERCENT AUTO 0.1 % (0.1-1.2); EOSINOPHILS PERCENT AUTO 0 (0.7-5.8); HEMATOCRIT 35.7 % (34.1-44.9); HEMOGLOBIN 11.4 gm/dl (11.2-15.7); IMMATURE GRAN ABSOLUTE AUTO 0.08 K/mm3 (0.00-0.10); IMMATURE GRAN PERCENT AUTO 0.6 % (<=1.0); LYMPHOCYTES PERCENT AUTO 4.6 % (19.3-51.7); MEAN CORPUSCULAR HEMOGLOBIN 34.3 pg (25.6-32.2); MEAN CORPUSCULAR HGB CONC 31.9 g/dl (32.2-35.5); MEAN CORPUSCULAR VOLUME 107.5 fl (79.4-94.8); MONOCYTES ABSOLUTE AUTO 0.92 K/mm3 (0.24-0.36); MONOCYTES PERCENT AUTO 7.1 % (4.7-12.5); NEUTROPHILS ABSOLUTE AUTO 11.36 K/mm3 (1.56-6.13); NEUTROPHILS PERCENT AUTO 87.6 % (34.0-71.1); PLATELET COUNT,PLT 40 K/mm3 (182-369); RED BLOOD CELL COUNT 3.32 M/mm3 (3.98-5.22); WHITE BLOOD CELL COUNT,WBC 12.97 K/mm3 (3.98-10.04)
[2022-09-01] MEDS: Levothyroxine 25 MCG Tab PO SCH (05:30)
[2022-09-01] MEDS: Hydrocortisone Sodium Succinate 100 MG/2 ML SDV IVPUSH SCH ×3 (05:30→21:33)
[2022-09-01 05:41] LABS: A/G RATIO 0.5 (1-2); ALBUMIN 1.4 g/dl (3.4-5.0); ANION GAP 14.9 (5-15); BILIRUBIN TOTAL 7.1 mg/dL (0.2-1.0); BUN/CREATININE RATIO 6.5 (14-18); CALCIUM 8.2 mg/dL (8.5-10.1); EST CRCL DRUG DOSING (CG) 34.44 mL/min; MAGNESIUM 2.4 mg/dL (1.8-2.4)
[2022-09-01 05:59] LABS: CREATININE 1.7 mg/dL (0.55-1.02); POTASSIUM,K 2.9 mEq/L (3.5-5.1); PROTEIN TOTAL,TP 4.2 g/dl (6.4-8.2)
[2022-09-01 06:11] LABS: SLIDE REVIEW ABNORMAL SMEAR
[2022-09-01] MEDS: D5 1/2 NS w/ 20 mEq/L KCl 1,000 ML IV SCH (06:19)
[2022-09-01] MEDS: Potassium Chloride 10 MEQ in Premix Bag 1 BAG IV SCH ×4 (06:36→09:45)
[2022-09-01] MEDS: Pantoprazole 40 MG Tab.CR PO SCH (08:38)
[2022-09-01] MEDS ORDERED: Piperacillin/Tazobactam 4.5 GM in Sodium Chloride 0.9% 100 ML IV ONE (09:00)
[2022-09-01] MEDS: fentaNYL 100 MCG/2 ML SDV IVPUSH PRN ×4 (09:25→23:42)
[2022-09-01] MEDS ORDERED: Piperacillin/Tazobactam 4.5 GM in Sodium Chloride 0.9% 100 ML IV SCH (15:00)
[2022-09-01] MEDS: Nystatin Topical Powder 15 GM Bottle TOP PRN (18:29)
[2022-09-01] MEDS: Thiamine 100 MG Tab PO SCH (21:32)
[2022-09-02] MEDS: D5 1/2 NS w/ 20 mEq/L KCl 1,000 ML IV SCH ×2 (02:27→21:09)
[2022-09-02] MEDS: Hydrocortisone Sodium Succinate 100 MG/2 ML SDV IVPUSH SCH ×3 (05:06→20:40)
[2022-09-02] MEDS: fentaNYL 100 MCG/2 ML SDV IVPUSH PRN ×7 (05:08→22:41)
[2022-09-02 05:20] LABS: BASOPHILS ABSOLUTE AUTO 0.01 K/mm3 (0.01-0.08); BASOPHILS PERCENT AUTO 0.1 % (0.1-1.2); EOSINOPHILS PERCENT AUTO 0 (0.7-5.8); HEMATOCRIT 29.2 % (34.1-44.9); IMMATURE GRAN ABSOLUTE AUTO 0.11 K/mm3 (0.00-0.10); MEAN CORPUSCULAR HEMOGLOBIN 34.3 pg (25.6-32.2); MEAN CORPUSCULAR HGB CONC 31.2 g/dl (32.2-35.5); MEAN CORPUSCULAR VOLUME 110.2 fl (79.4-94.8); MEAN PLATELET VOLUME 13.4 fl (9.4-12.3); MONOCYTES ABSOLUTE AUTO 1.14 K/mm3 (0.24-0.36); MONOCYTES PERCENT AUTO 10.2 % (4.7-12.5); NEUTROPHILS ABSOLUTE AUTO 9.04 K/mm3 (1.56-6.13); NEUTROPHILS PERCENT AUTO 80.7 % (34.0-71.1); PLATELET COUNT,PLT 36 K/mm3 (182-369); RED BLOOD CELL COUNT 2.65 M/mm3 (3.98-5.22)
[2022-09-02 05:42] LABS: A/G RATIO 0.6 (1-2); ALBUMIN 1.4 g/dl (3.4-5.0); ANION GAP 9.9 (5-15); BILIRUBIN TOTAL 8.5 mg/dL (0.2-1.0); BUN/CREATININE RATIO 7.5 (14-18); CALCIUM 8.1 mg/dL (8.5-10.1); EST CRCL DRUG DOSING (CG) 36.59 mL/min; MAGNESIUM 2.4 mg/dL (1.8-2.4)
[2022-09-02 05:45] LABS: CREATININE 1.6 mg/dL (0.55-1.02); POTASSIUM,K 3.9 mEq/L (3.5-5.1); PROTEIN TOTAL,TP 3.9 g/dl (6.4-8.2)
[2022-09-02 05:57] LABS: HEMOGLOBIN 9.1 gm/dl (11.2-15.7)
[2022-09-02] MEDS: Levothyroxine 25 MCG Tab PO SCH (06:26)
[2022-09-02] MEDS: Lactulose Soln 10 GM/15 ML 30 ML UD Cup PO SCH ×3 (06:26→20:55)
[2022-09-02 06:32] LABS: INR 1.53; PROTHROMBIN TIME 15.9 SECONDS (9.7-12.0); SLIDE REVIEW ABNORMAL SMEAR
[2022-09-02 06:35] LABS: D-DIMER QUANTITATIVE 1.04 mg/L (0.19-0.50)
[2022-09-02] MEDS: Pantoprazole 40 MG Tab.CR PO SCH (08:48)
[2022-09-02] MEDS: Midodrine 5 MG Tab PO SCH ×2 (12:25→20:55)
[2022-09-02] MEDS ORDERED: Furosemide 20 MG/2 ML VIAL IVPUSH ONE (18:35)
[2022-09-02] MEDS ORDERED: VANCOmycin 2 GM/400 ML 2 GM in Premix Bag 1 BAG IV ONE (20:00)
[2022-09-02] MEDS: Thiamine 100 MG Tab PO SCH (20:55)
[2022-09-03] MEDS: Levothyroxine 25 MCG Tab PO SCH (05:39)
[2022-09-03] MEDS: fentaNYL 100 MCG/2 ML SDV IVPUSH PRN ×9 (05:39→23:31)
[2022-09-03 06:03] LABS: ALBUMIN 1.2 g/dl (3.4-5.0); ANION GAP 9.3 (5-15); BILIRUBIN TOTAL 6.3 mg/dL (0.2-1.0); CALCIUM 7.3 mg/dL (8.5-10.1); CREATININE 1.2 mg/dL (0.55-1.02); EST CRCL DRUG DOSING (CG) 48.78 mL/min; POTASSIUM,K 3.3 mEq/L (3.5-5.1)
[2022-09-03 06:53] LABS: HEMATOCRIT 24.2 % (34.1-44.9); MEAN CORPUSCULAR HEMOGLOBIN 34.6 pg (25.6-32.2); MEAN CORPUSCULAR VOLUME 111.5 fl (79.4-94.8); PLATELET COUNT,PLT 42 K/mm3 (182-369); RED BLOOD CELL COUNT 2.17 M/mm3 (3.98-5.22); WHITE BLOOD CELL COUNT,WBC 10.36 K/mm3 (3.98-10.04)
[2022-09-03 06:55] LABS: HEMOGLOBIN 7.5 gm/dl (11.2-15.7)
[2022-09-03] MEDS ORDERED: VANCOmycin 750 MG/150 ML 750 MG in Premix Bag 1 BAG IV SCH (08:00)
[2022-09-03] MEDS: Hydrocortisone Sodium Succinate 100 MG/2 ML SDV IVPUSH SCH (08:26)
[2022-09-03] MEDS: Midodrine 5 MG Tab PO SCH (08:28)
[2022-09-03] MEDS: Pantoprazole 40 MG Tab.CR PO SCH (08:28)
[2022-09-03 08:38] LABS: ANISOCYTOSIS 2+ MODERATE; BAND PERCENT MAN 11 % (0-10); BASOPHILS PERCENT MAN 0 (0.1-1.2); EOSINOPHILS PERCENT MAN 0 % (0.7-5.8); HYPERSEGMENTED NEUTROPHILS FEW; HYPOCHROMASIA 1+ SLIGHT; LYMPHOCYTES % ATYPICAL MANUAL 0 %; LYMPHOCYTES PERCENT MAN 3 % (20-40); MONOCYTES PERCENT MAN 9 % (2-10); MYELOCYTE PERCENT MAN 2
[2022-09-03 08:39] LABS: PLATELET COUNT ESTIMATE MARKED DEC; POLYCHROMASIA 1+ SLIGHT; TARGET CELLS 1+ SLIGHT
[2022-09-03 08:54] LABS: A/G RATIO 0.4 (1-2)
[2022-09-03] MEDS ORDERED: Potassium Chloride 20 MEQ Tab.ER PO SCH (09:00)
[2022-09-03] MEDS ORDERED: oxyCODONE 5 MG Tab PO PRN (11:06)
[2022-09-03] MEDS ORDERED: Furosemide 20 MG/2 ML VIAL IVPUSH ONE (14:00)
[2022-09-03] MEDS ORDERED: Sodium Chloride 0.9% 250 ML IV SCH (14:00)
[2022-09-03] MEDS ORDERED: Sodium Chloride 0.9% 1,000 ML ONE (14:37)
[2022-09-03] MEDS ORDERED: Sodium Chloride 0.9% 1,000 ML IV ONE (14:45)
[2022-09-03] MEDS: Lactulose Soln 10 GM/15 ML 30 ML UD Cup PO SCH (15:15)
[2022-09-03] MEDS ORDERED: Iopamidol 612 MG/ML 100 ML Bottle IVPUSH ONE (15:31)
[2022-09-03] MEDS ORDERED: Sodium Chloride 0.9% 10 ML Syringe FLUSH PRN (15:31)
[2022-09-03] MEDS ORDERED: Iopamidol 612 MG/ML 50 ML SDV IVPUSH ONE (15:31)
[2022-09-03] MEDS ORDERED: Sodium Chloride 0.9% 20 ML IV SCH (15:45)
[2022-09-03 16:02] LABS: A/G RATIO 0.5 (1-2); ALBUMIN 0.8 g/dl (3.4-5.0); ANION GAP 11.8 (5-15); BILIRUBIN TOTAL 4.6 mg/dL (0.2-1.0); EST CRCL DRUG DOSING (CG) 45.03 mL/min; POTASSIUM,K 3.8 mEq/L (3.5-5.1)
[2022-09-03 16:05] LABS: CREATININE 1.3 mg/dL (0.55-1.02); PROTEIN TOTAL,TP 2.4 g/dl (6.4-8.2)
[2022-09-03 16:41] LABS: HEMATOCRIT 18.6 % (34.1-44.9); MEAN CORPUSCULAR HGB CONC 30.1 g/dl (32.2-35.5); MEAN CORPUSCULAR VOLUME 106.3 fl (79.4-94.8); MEAN PLATELET VOLUME 12.9 fl (9.4-12.3); PLATELET COUNT,PLT 42 K/mm3 (182-369); RED BLOOD CELL COUNT 1.75 M/mm3 (3.98-5.22)
[2022-09-03 16:42] LABS: HEMOGLOBIN 5.6 gm/dl (11.2-15.7)
[2022-09-03 17:11] LABS: FIBRINOGEN < 50 mg/dL (187-446); PROTHROMBIN TIME > 90.0 SECONDS (9.7-12.0)
[2022-09-03] MEDS: LORazepam 2 MG/ML SDV IVPUSH PRN ×5 (17:12→23:31)
[2022-09-03 17:22] VITALS: BP 98/85; PULSE 108
[2022-09-03] MEDS ORDERED: Scopolamine 1.5 MG Transdermal Patch TOP ONE (19:59)
== END 2022-09-03 23:52 | disposition expired | DRG 441 ==
LOC: JD.ED 14:22 → JD.MS 08-30 00:50 → JD.ICU 08-30 08:14
PROVIDERS: ADMIT Internal Medicine; ATTEND Internal Medicine
PROC: 02HV33Z Insertion of Infusion Device into Superior Vena Cava, Percutaneous Approach (ICD-10-PCS; 2022-08-30)
PROC: 06HY33Z Insertion of Infusion Device into Lower Vein, Percutaneous Approach (ICD-10-PCS; principal; 2022-09-03)
DX: K76.82 Hepatic encephalopathy (principal); G93.41 Metabolic encephalopathy; K72.00 Acute and subacute hepatic failure without coma; E27.2 Addisonian crisis; E87.0 Hyperosmolality and hypernatremia; E27.1 Primary adrenocortical insufficiency; R78.81 Bacteremia; E16.2 Hypoglycemia, unspecified; E77.8 Other disorders of glycoprotein metabolism; Z51.5 Encounter for palliative care; Z66 Do not resuscitate; E87.6 Hypokalemia; E03.9 Hypothyroidism, unspecified; H54.7 Unspecified visual loss; B95.61 Methicillin susceptible Staphylococcus aureus infection as the cause of diseases classified elsewhere; K21.9 Gastro-esophageal reflux disease without esophagitis; F41.9 Anxiety disorder, unspecified; D69.6 Thrombocytopenia, unspecified; E83.42 Hypomagnesemia; F60.3 Borderline personality disorder; F32.A Depression, unspecified; F43.10 Post-traumatic stress disorder, unspecified; E66.9 Obesity, unspecified; M85.80 Other specified disorders of bone density and structure, unspecified site; Z98.84 Bariatric surgery status; Z86.718 Personal history of other venous thrombosis and embolism; Z88.1 Allergy status to other antibiotic agents; Z91.040 Latex allergy status; Z88.0 Allergy status to penicillin; Z88.8 Allergy status to other drugs, medicaments and biological substances; Z91.018 Allergy to other foods; Z87.11 Personal history of peptic ulcer disease; Z86.711 Personal history of pulmonary embolism; Z79.899 Other long term (current) drug therapy; Z98.890 Other specified postprocedural states; Z79.01 Long term (current) use of anticoagulants; Z68.36 Body mass index [BMI] 36.0-36.9, adult
CPT/HCPCS: 36410; 36415; 36430; 36556; 36600; 51702; 70450; 70450-26; 71045; 71045-26; 71260; 71260-26; 74176; 74176-26; 74177; 74177-26; 80053; 80143; 80202; 80306; 81001; 82009; 82140; 82247; 82248; 82803; 82947; 83010; 83615; 83735; 83880; 84100; 84443; 85007; 85018; 85025; 85027; 85379; 85384; 85610; 85652; 85730; 86140; 86850; 86900; 86901; 86922; 87040; 87070; 87075; 87077; 87154; 87186; 87205; 87641; 93307; 96365; 96366; 96375; 96376; 97140-GP; 97162-GP; 97166-GO; 99223; 99285; 99285-25; A9270-GY; C1751; J0132; J1630; J1720; J1940; J2060; J3010; J3370; J3475; J3480; J3490; J7030; J7060; P9016; Q9967